=== PATIENT | female | born 1960 | race Caucasian/White ===

== ENCOUNTER 2016-10-25 13:50 | Emergency (ER) | payer OTHER ==
[~2016-10-25] VITALS: Ht 165.1 cm; Wt 67.0 kg
[~2016-10-25 13:50] MED LIST: ADVIN25050 INH; CALC-20 PO; CITA40TA12 PO; CLON0.5T3 PO; CLOP1TAB5 PO; CMBIN INH; CRS/10 PO; ESTCR PV; GLYC2TAB6 PO; IBUP-1450 PO; LMC/150 PO; MIRT15TA PO; MULT-513 PO; PANT40TA PO; POTA-335 PO; PROB1CAP32 PO; TIOTCAP INH
[2016-10-25 13:54] VITALS: TEMP 36.9; Ht 165.1 cm; Wt 67.0 kg
[2016-10-25 14:47] LABS: BASO % 0.9 %; BASO ABS # 0.07 K/uL (0-0.2); COMPLETE YES; EOS % 1.7 %; HEMATOCRIT 32.8 % (37-47); IG% 0.3 %; LYMPH ABS # 2.84 K/uL (1.2-3.4); MEAN CELL VOLUME 82.2 fL (80-100); MEAN CORPUSCULAR HEMOGLOBIN 27.1 pg (25-34); MEAN CORPUSCULAR HGB CONC 32.9 g/dl (32-36); MEAN PLATELET VOLUME 8.8 fL (7.4-10.4); MONO % 4.6 %; NEUT % 55.5 %; PLATELET COUNT 329 K/uL (130-400); RED BLOOD COUNT 3.99 M/uL (4.2-5.4); WHITE BLOOD COUNT 7.67 K/uL (4.8-10.8)
[2016-10-25] MEDS ORDERED: NICOTINE 14 MG/24 HR TDSY TD STA (15:00)
[2016-10-25 15:05] LABS: BUN/CREATININE RATIO 5.8 (10-20); CALCIUM 9.3 mg/dl (8.5-10.1); CREATININE 1.2 mg/dl (0.60-1.20); POTASSIUM 3.9 mmol/L (3.5-5.1)
[2016-10-25] MEDS ORDERED: RBN/2 PO (15:39)
[2016-10-25] MEDS ORDERED: VITA1TAB4 PO (15:39)
[2016-10-25] MEDS ORDERED: ADVIN25/60 INH (15:39)
[2016-10-25] MEDS ORDERED: LORA-741 PO (15:39)
[2016-10-25] MEDS ORDERED: ASCA500 PO (15:39)
[2016-10-25] MEDS ORDERED: SPRIN/30 INH (15:39)
[2016-10-25] MEDS ORDERED: WLLSR100 PO (15:39)
[2016-10-25] MEDS ORDERED: ESTCR TOP (15:39)
[2016-10-25] MEDS ORDERED: CYAN100020 PO (15:39)
[2016-10-25] MEDS ORDERED: CALC-388 PO (15:39)
[2016-10-25] MEDS ORDERED: IPRA1AER2 INH (15:39)
[2016-10-25] MEDS ORDERED: TRAZ50TA35 PO (15:39)
[2016-10-25] MEDS ORDERED: POTA20TA13 PO (15:39)
[2016-10-25 15:52] LABS: URINE APPEARANCE TURBID (CLEAR); URINE BILIRUBIN NEG (NEG); URINE COLOR ORANGE; URINE EPITHELIAL CELL AUTO >30 /lpf (0-5); URINE NITRITE POS (NEG); UROBILINOGEN NEG (NEG)
[2016-10-25 15:57] LABS: MANUAL MICROSCOPIC REQUIRED? NO; REVIEW REQ? YES
[2016-10-25] MEDS ORDERED: SULFAMETHOXAZOLE/TRIMETHOPRIM DS 800/160MG TAB PO STA (16:22)
[2016-10-25] MEDS ORDERED: SULF800T23 PO (16:24)
[2016-10-25 16:36] VITALS: BP 138/84; PULSE 85; O2SAT 98
--- NOTE | 2016-10-25 22:01 | EMERGENCY ROOM VISIT NOTE ---
History Report prepared by Vladislav: Brenna Vo Under the Supervision of: Dr. Morales Garcia M.D. First contact with patient: 14:08 Chief Complaint: REFERRED BY DOCTOR Stated Complaint: REFERRED BY UROLOGIST History of Present Illness The patient is a 56 year old female who presents to the Emergency Room with complaints of worsening urinary incontinence. She has followed with Dr. Dinah South, a Urologist in [place] in the past. She reports she has been incontinent for the past 8 days. She has been wearing adult diapers and states the amount of urine she produces seems to be larger than what she normally urinates in a toilet. The patient has a history of urinary issues including cystitis, overactive bladder and recurrent UTI's. She denies any recent dysuria or hematuria. She denies any recent fevers, abdominal pain, vomiting or abnormal vaginal discharge. She spoke to Dr. South's office and them about her recent symptoms and was told to come to the ED for further evaluation. The patient also admits to chronic swelling in her left leg due to a history of lymphedema but states it has been unchanged. 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 A total of 10 systems reviewed and were otherwise negative. Past Medical & Surgical Medical Problems: (1) Back pain (2) Ureteral stricture (3) UTI (urinary tract infection) Family History No pertinent family history Social History Smoking Status: Current Every Day Smoker Alcohol Use: occasionally Drug Use: none Marital Status: Housing Status: lives with family Occupation Status: unemployed Current/Historical Medications Scheduled Ascorbic Acid (Vitamin C), 500 MG PO QAM Bupropion HCl (Bupropion HCl Sr), 100 MG PO QAM Calcium Carbonate-Vitamin D (Calcium 600 + D), 1 TAB PO DAILY Citalopram Hydrobromide (Celexa), 40 MG PO QAM Clopidogrel Bisulfate (Plavix), 75 MG PO QAM Cyanocobalamin (Vitamin B12), 1,500 MG PO QAM Estradiol Vaginal (Estrace), 1 APPLN TOP 3XWK Fluticasone Prop/Salmeterol (Advair Diskus 250/50 60 Dose), 1 PUFF INH BID Glycopyrrolate (Glycopyrrolate), 2 MG PO BID Lamotrigine (Lamictal), 150 MG PO BID Multivitamins/Minerals (Mvi With Minerals), 1 TAB PO DAILY Pantoprazole (Protonix), 40 MG PO QAM Potassium Chloride Microencaps (Potassium Chloride Er), 20 MEQ PO BID Probiotic Product (Probiotic Colon Support), 1 CAP PO DAILY Rosuvastatin Calcium (Crestor), 10 MG PO DAILY Sulfa/Trimethoprim (Bactrim Ds 800MG/160MG), 1 TAB PO BID Tiotropium [place] (Spiriva Handihaler), 1 CAP INH DAILY Trazodone Hcl (Trazodone), 50 MG PO HS Vitamin E (Vitamin E), 400 UNIT PO QAM Scheduled PRN Ipratropium-Albuterol (Combivent Respimat), 1 PUFF INH DAILY PRN for SOB/ Wheezing Lorazepam (Ativan), 0.5 MG PO DAILY PRN for Anxiety Allergies Coded Allergies: Ciprofloxacin (Verified Allergy, Unknown, sores on tongue, 10/25/16) Gabapentin (Unverified Allergy, Unknown, unknown, 10/25/16) Meloxicam (Unverified Allergy, Unknown, unknown, 10/25/16) Paroxetine (Verified Allergy, Unknown, suicidal thoughts, 10/25/16) Varenicline (Verified Allergy, Unknown, suicidal thoughts, 10/25/16) Prednisone (Verified Adverse Reaction, Intermediate, "INTERNAL BLEEDING FROM KIDNEY", 10/25/16) Physical Exam Vital Signs Date Time Temp Pulse Resp B/P Pulse Ox O2 Delivery O2 Flow Rate FiO2 10/25/16 16:36 85 16 138/84 98 Room Air 10/25/16 15:49 89 18 134/76 96 Room Air 10/25/16 13:54 36.9 102 16 145/82 96 Room Air Physical Exam Constitutional: Vital signs reviewed. Eyes: Pupils are equal round reactive to light. Conjunctiva are noninjected. ENT: Pharynx is clear without erythema or exudate. Mucous membranes are moist. Neck supple without meningeal signs. Respiratory: Clear to auscultation bilaterally. Breath sounds are equal bilaterally. Cardiovascular: Regular rate and rhythm. No rubs or gallops. GI: Soft, nondistended and nontender. Bowel sounds are present. Musculoskeletal: Chronic lymphedema to the left lower extremity, no tenderness. No CVA tenderness. Integumentary: No cyanosis. Neurological: The patient is awake and alert. No focal deficits. Psychiatric: Normal affect. Medical Decision & Procedures Laboratory Results 10/25/16 14:35 Red Blood Count 3.99, Mean Corpuscular Volume 82.2, Mean Corpuscular Hemoglobin 27.1, Mean Corpuscular Hemoglobin Concent 32.9, Mean Platelet Volume 8.8, Neutrophils (%) (Auto) 55.5, Lymphocytes (%) (Auto) 37.0, Monocytes (%) (Auto) 4.6, Eosinophils (%) (Auto) 1.7, Basophils (%) (Auto) 0.9, Neutrophils # (Auto) 4.26, Lymphocytes # (Auto) 2.84, Monocytes # (Auto) 0.35, Eosinophils # (Auto) 0.13, Basophils # (Auto) 0.07 10/25/16 14:35 Test 10/25/16 14:35 10/25/16 14:50 White Blood Count 7.67 K/uL (4.8-10.8) Red Blood Count 3.99 M/uL (4.2-5.4) Hemoglobin 10.8 g/dL (12.0-16.0) Hematocrit 32.8 % (37-47) Mean Corpuscular Volume 82.2 fL (80-100) Mean Corpuscular Hemoglobin 27.1 pg (25-34) Mean Corpuscular Hemoglobin Concent 32.9 g/dl (32-36) Platelet Count 329 K/uL (130-400) Mean Platelet Volume 8.8 fL (7.4-10.4) Neutrophils (%) (Auto) 55.5 % Lymphocytes (%) (Auto) 37.0 % Monocytes (%) (Auto) 4.6 % Eosinophils (%) (Auto) 1.7 % Basophils (%) (Auto) 0.9 % Neutrophils # (Auto) 4.26 K/uL (1.4-6.5) Lymphocytes # (Auto) 2.84 K/uL (1.2-3.4) Monocytes # (Auto) 0.35 K/uL (0.11-0.59) Eosinophils # (Auto) 0.13 K/uL (0-0.5) Basophils # (Auto) 0.07 K/uL (0-0.2) RDW Standard Deviation 46.6 fL (36.4-46.3) RDW Coefficient of Variation 15.4 % (11.5-14.5) Immature Granulocyte % (Auto) 0.3 % Immature Granulocyte # (Auto) 0.02 K/uL (0.00-0.02) Anion Gap 10.0 mmol/L (3-11) Est Creatinine Clear Calc Drug Dose 46.0 ml/min Estimated GFR () 57.7 Estimated GFR (Non- 49.8 BUN/Creatinine Ratio 5.8 (10-20) Calcium Level 9.3 mg/dl (8.5-10.1) Urine Color ORANGE Urine Appearance TURBID (CLEAR) Urine pH 6.0 (4.5-7.5) Urine Specific [place] 1.000 (1.000-1.030) Urine Protein 1+ (NEG) Urine Glucose (UA) NEG (NEG) Urine Ketones NEG (NEG) Urine Occult Blood 3+ (NEG) Urine Nitrite POS (NEG) Urine Bilirubin NEG (NEG) Urine Urobilinogen NEG (NEG) Urine Leukocyte Esterase LARGE (NEG) Urine WBC (Auto) >30 /hpf (0-5) Urine RBC (Auto) >30 /hpf (0-4) Urine Hyaline Casts (Auto) 1-5 /lpf (0-5) Urine Epithelial Cells (Auto) >30 /lpf (0-5) Urine Bacteria (Auto) 2+ (NEG) Urine Pathogenic Casts /lpf (0) Urine Yeast (Auto) (NONE PRSENT) Laboratory results as reviewed by me. Medications Administered Medications (Trade) Dose Ordered Sig/Mirella Route Start Time Stop Time Status Last Admin Dose Admin Nicotine (Nicoderm Cq 14MG Patch) 1 patch NOW STAT TD 10/25/16 15:00 10/25/16 15:01 DC 10/25/16 15:13 1 PATCH Trimethoprim/ Sulfamethoxazole (Septra Ds 800/ 160MG Tab) 1 tab NOW STAT PO 10/25/16 16:22 10/25/16 16:23 DC 10/25/16 16:40 1 TAB ED Course 1413: The patient was evaluated in room C10. A complete history and physical exam was performed. 1500: Nursing informed me the patient has requested a Nicotine patch. I will place orders. 1500: Nicotine 1 patch TD. 1615: I reevaluated the patient. She does not want to keep the Lopez catheter in and will follow up with Urology. I discussed her results and discharge instructions and she verbalized complete understanding and agreement. 1622: Septra D's 800/160 mg 1 tab PO. Medical Decision This is a 56-year-old female who presents with urinary incontinence. Differential diagnosis includes stress incontinence, UTI, cystitis, pyelonephritis. I did perform a limited focused review of portions of the patient's old chart on the electronic medical record. The patient has a history of recurrent cystitis and overactive bladder. She underwent cystoscopy in 2013 for stress urinary incontinence. I did evaluate the patient as noted above. IV access was established. She did request a nicotine patch while she was here. We did place a Lopez catheter. I did order and personally review the patient's urinalysis as described above. A urine culture was sent. I did order and review the patient's blood work as noted in the electronic medical record. Her white blood cell count is not elevated. Renal function is unremarkable. I did discuss the test results with the patient. She will be treated with antibiotics. She has taken Bactrim in the past. She will follow up with her urologist. She did not want to have the Lopez catheter left in place and states that she will continue using adult diapers. She was discharged with a prescription for Bactrim. Impression Primary Impression: UTI (urinary tract infection) Additional Impression: Urinary incontinence Scribe Attestation The scribe's documentation has been prepared under my direct and personally reviewed by me in its entirety. I confirm that the note above accurately reflects all work, treatment, procedures, and medical decision making performed by me. Departure Information Dispostion Home / Self-Care Prescriptions Sulfa/Trimethoprim (Bactrim Ds 800MG/160MG) Tab 1 TAB PO BID, #20 TAB Prov: Morales Garcia M.D. 10/25/16 Referrals No Doctor, Assigned (PCP) Patient Instructions ED Bladder Instability Female, My [facility], Urinary Tract Infection - [facility] Additional Instructions You have been examined and treated today on an emergency basis only. This is not a substitute for, or an effort to provide, complete comprehensive medical care. It is impossible to recognize and treat all injuries or illnesses in a single emergency department visit. It is therefore important that you follow up closely with your urologist. Call as soon as possible for an appointment. Return for worsening symptoms or if you develop fever, vomiting, abdominal pain , decreased urinary output or any other concerning symptoms. Problem Qualifiers
== END 2016-10-25 16:48 | disposition home or self-care (01) ==
LOC: C.EDB 13:54 → C.EDC 16:48
DX: N39.0 Urinary tract infection, site not specified (principal); R32 Unspecified urinary incontinence; F17.200 Nicotine dependence, unspecified, uncomplicated

== ENCOUNTER 2017-01-17 16:40 | Observation (INO) | payer OTHER ==
[~2017-01-17] VITALS: Ht 165.1 cm; Wt 74.0 kg
[~2017-01-17 16:40] MED LIST changes: +ADVIN25/60 INH; -ADVIN25050 INH; +ASCA500 PO; -CLON0.5T3 PO; -CMBIN INH; +CYAN100020 PO; -ESTCR PV; +ESTCR TOP; -GLYC2TAB6 PO; -IBUP-1450 PO; +IPRA1AER2 INH; +LORA-741 PO; -MIRT15TA PO; -POTA-335 PO; +POTA20TA13 PO; +RBN/2 PO; +SPRIN/30 INH; +SULF800T23 PO; -TIOTCAP INH; +TRAZ50TA35 PO; +VITA1TAB4 PO; +WLLSR100 PO
[2017-01-17] MEDS ORDERED: MoRPHine SULFATE 4 MG/ML 1 ML CARP\\VIAL IV STA (17:36)
[2017-01-17] MEDS ORDERED: ONDANSETRON INJ 2 MG/ML 2 ML VIAL IV STA (17:36)
--- NOTE | 2017-01-17 17:39 | EMERGENCY ROOM VISIT NOTE ---
History Report prepared by Vladislav: Ishmael Quarles Under the Supervision of: Dr. Saul Spencer M.D. First contact with patient: 17:24 Chief Complaint: BACK PAIN Stated Complaint: BACK PAIN History of Present Illness The patient is a 56 year old female who presents to the Emergency Room via EMS with complaints of intermittent left sided back pain that started at 1330 yesterday afternoon. She rates this pain a 7/10 in intensity at this time. This pain radiates down her left leg. It worsens with movement. Associated symptoms include weakness, burning sensation while urinating, hematuria, and nausea. The patient was evaluated at acute care in [facility] where she was told to come immediately to the ED. The patient is currently being treated with Bactrim for a UTI. She has a history of recurrent cystitis, UTI, and urinary incontinence secondary to cervical cancer. The patient denies fevers, vomiting, abdominal pain, numbness, or any additional associated symptoms. Source of History: patient Onset: 1330 Position: back Symptom Intensity: 7/10 Timing: intermittent Modifying Factors (Worsening): movement Associated Symptoms: + urinary symptoms, + weakness, No abdominal pain, No fevers, No numbness Review of Systems See HPI for pertinent positives & negatives. A total of 10 systems reviewed and were otherwise negative. Past Medical & Surgical Medical Problems: (1) Anxiety (2) Back pain (3) Back pain (4) Cervical cancer (5) Depression (6) Dyslipidemia (7) GERD (gastroesophageal reflux disease) (8) H/O hemorrhagic cystitis (9) Hx of pyelonephritis (10) Hx of recurrent urinary tract infection (11) IBS (irritable bowel syndrome) (12) Mood disorder (13) OAB (overactive bladder) (14) OCD (obsessive compulsive disorder) (15) Ureteral stricture (16) UTI (urinary tract infection) Surgical Problems: (1) H/O cystoscopy (2) History of hysterectomy (3) History of ureter stent (4) S/P appendectomy (5) S/P vascular surgery Old medical records were reviewed. Nurse's notes were reviewed and I agree with. Family History Hypertension MOTHER Social History Smoking Status: Current Every Day Smoker Alcohol Use: occasionally Drug Use: none Marital Status: Housing Status: lives alone Occupation Status: unemployed Current/Historical Medications Scheduled Ascorbic Acid (Vitamin C), 500 MG PO QAM Bupropion HCl (Bupropion HCl Sr), 100 MG PO QAM Calcium Carbonate-Vitamin D (Calcium 600 + D), 1 TAB PO DAILY Citalopram Hydrobromide (Celexa), 40 MG PO QAM Clopidogrel Bisulfate (Plavix), 75 MG PO QAM Estradiol Vaginal (Estrace), 1 APPLN TOP 3XWK Fiber (Fiber Complete), 1 TAB PO DAILY Fluticasone Prop/Salmeterol (Advair Diskus 250/50 60 Dose), 1 PUFF INH BID Glycopyrrolate (Glycopyrrolate), 2 MG PO BID Lamotrigine (Lamictal), 150 MG PO BID Multivitamins/Minerals (Mvi With Minerals), 1 TAB PO DAILY Pantoprazole (Protonix), 40 MG PO QAM Potassium Chloride Microencaps (Potassium Chloride Er), 20 MEQ PO BID Rosuvastatin Calcium (Crestor), 10 MG PO DAILY Sulfa/Trimethoprim (Bactrim Ds 800MG/160MG), 1 TAB PO BID Tiotropium [place] (Spiriva Handihaler), 1 CAP INH DAILY Trazodone HCl (Trazodone HCl), 100 MG PO HS Vitamin E (Vitamin E), 400 UNIT PO QAM [i89-vcjsc acid], 1 TAB PO DAILY Scheduled PRN Ibuprofen (Ibuprofen), 600 MG PO UD PRN for Pain Ipratropium-Albuterol (Combivent Respimat), 1 PUFF INH BID PRN for SOB/Wheezing Lorazepam (Ativan), 0.5 MG PO TID PRN for Anxiety Allergies Coded Allergies: Ciprofloxacin (Verified Allergy, Unknown, sores on tongue, 01/17/17) Gabapentin (Unverified Allergy, Unknown, unknown, 01/17/17) Meloxicam (Unverified Allergy, Unknown, unknown, 01/17/17) Paroxetine (Verified Allergy, Unknown, suicidal thoughts, 01/17/17) Varenicline (Verified Allergy, Unknown, suicidal thoughts, 01/17/17) Prednisone (Verified Adverse Reaction, Intermediate, "INTERNAL BLEEDING FROM KIDNEY", 01/17/17) Physical Exam Vital Signs Date Time Temp Pulse Resp B/P Pulse Ox O2 Delivery O2 Flow Rate FiO2 01/17/17 20:55 82 18 142/102 96 01/17/17 19:00 79 18 167/98 98 01/17/17 16:51 37.2 88 18 148/86 97 Room Air Physical Exam General: Non ill appearing, middle aged female. In no acute distress. HEENT: Normal cephalic atraumatic. Pupils are equal round and reactive to light. Extraocular movements are intact. Oropharynx is pink with moist mucous membranes. No swelling of the mouth lips or tongue. Neck: Supple with a midline trachea. No meningeal signs or stiffness, no JVD or bruits. No Stridor. Chest: Clear to auscultation bilaterally. No wheezes or rhonchi. No increased work of breathing. Heart: regular rate and rhythm. Abdomen: Soft nontender, nondistended without rebound guarding or rigidity. Extremities: Chronic lymphedema of left leg, patient states this is unchanged. No cyanosis or clubbing. No calf tenderness or assymetry Spine/Back. Left lower back pain, worse with movement. No numbness in back. Skin: Good turgor without rashes. Neurologic exam: Cranial nerves two through 12 are intact. Motor and sensation are intact and symmetrical throughout. Medical Decision & Procedures ER Provider Diagnostic Interpretation: Radiology results as stated below per my review and radiologist interpretation: CT LUMBAR SPINE WITHOUT CT DOSE: CLINICAL HISTORY: eval for lumbar disease TECHNIQUE: Helical images were acquired in transverse plane. Reformatted sagittal and coronal images were reviewed. CONTRAST: No contrast was administered COMPARISON STUDY: None. FINDINGS: L1-2 level: There is no evidence of significant disc bulge or focal herniation. There is no evidence of spinal or foraminal stenosis. L2-3 level: There is a mild circumferential disc bulge. There is mild spinal stenosis. L3-4 level: There is a mild circumferential disc bulge. There is mild to moderate triangular spinal canal narrowing L4-5 level: There is a circumferential disc bulge. There is mild spinal canal narrowing L5-S1 level: There is bilateral L5 spondylolysis. There is grade 2/4 spondylolisthesis of L5 on S1. There is bony fragmentation in the region of both neural foramina resulting in bilateral foraminal stenosis. IMPRESSION: 1. No acute fractures identified. 2. Multilevel spondylitic changes with multilevel disc bulges and multilevel spinal stenosis 3. Bilateral L5 spondylolysis. Grade 2/4 spondylolisthesis of L5 and S1. Bilateral L5-S1 foraminal narrowing Electronically signed by: Ady Leigh M.D. 01/17/2017 6:56 PM Dictated Date/Time: 01/17/2017 6:[address] SCAN OF THE ABDOMEN AND PELVIS WITHOUT CONTRAST CLINICAL HISTORY: Severe abdominal pain COMPARISON STUDY: 05/15/2015 TECHNIQUE: CT scan of the abdomen and pelvis was performed from the lung bases to the proximal femurs. Images are reviewed in the axial, sagittal, and coronal planes. IV contrast was not administered for this examination. CT DOSE: 714.90 mGy.cm FINDINGS: Lower chest: There is bibasilar atelectasis. Liver: The unenhanced liver is normal in size, contour, and attenuation. There is no intrahepatic biliary ductal dilatation. Gallbladder: Unremarkable. Spleen: Normal in size and attenuation. Pancreas: Unremarkable. Adrenal glands: Unremarkable. Kidneys: There is right renal scarring. There is mild dilatation of the right renal collecting system. No ureteral calculi are visualized. Bowel: There are no transition zones indicate bowel obstruction. There is no acute diverticulitis. The appendix is not visualized with certainty. There are no findings to indicate acute appendicitis. Peritoneum: There is no intraperitoneal free air or abdominal ascites. Vasculature: There is no evidence of abdominal aortic aneurysm. There is a right-sided iliac femoral stent. Adenopathy: None. Pelvic viscera: There is a small amount of air within bladder likely iatrogenic. There is bladder wall thickening. There is infiltration of the perivesical soft tissues. There is mild infiltration of the presacral and perirectal soft tissues. Skeletal structures: There are advanced degenerative changes at the L5-S1 level. There is bilateral L5 spondylolysis. There is bilateral foraminal narrowing at the L5-S1 level. IMPRESSION: 1. Mild bilateral renal collecting system dilatation. No calculi identified 2. Right renal cortical scarring 3. No evidence of bowel obstruction. No evidence of free air 4. Bladder wall thickening and infiltration of the perivesical soft tissues. Clinical correlation in regards to a cystitis is recommended. Electronically signed by: Ady Leigh M.D. 01/17/2017 6:52 PM Dictated Date/Time: 01/17/2017 6:47 PM Laboratory Results 01/17/17 18:12 Red Blood Count 3.93, Mean Corpuscular Volume 83.0, Mean Corpuscular Hemoglobin 26.5, Mean Corpuscular Hemoglobin Concent 31.9, Mean Platelet Volume 8.7, Neutrophils (%) (Auto) 47.8, Lymphocytes (%) (Auto) 42.1, Monocytes (%) (Auto) 6.5, Eosinophils (%) (Auto) 2.9, Basophils (%) (Auto) 0.4, Neutrophils # (Auto) 3.62, Lymphocytes # (Auto) 3.19, Monocytes # (Auto) 0.49, Eosinophils # (Auto) 0.22, Basophils # (Auto) 0.03 01/17/17 18:12 Test 01/17/17 16:55 01/17/17 18:12 Urine Color YELLOW Urine Appearance CLOUDY (CLEAR) Urine pH 6.0 (4.5-7.5) Urine Specific [place] 1.008 (1.000-1.030) Urine Protein NEG (NEG) Urine Glucose (UA) NEG (NEG) Urine Ketones NEG (NEG) Urine Occult Blood TRACE (NEG) Urine Nitrite POS (NEG) Urine Bilirubin NEG (NEG) Urine Urobilinogen NEG (NEG) Urine Leukocyte Esterase LARGE (NEG) Urine WBC (Auto) >30 /hpf (0-5) Urine RBC (Auto) 5-10 /hpf (0-4) Urine Hyaline Casts (Auto) 0 /lpf (0-5) Urine Epithelial Cells (Auto) 5-10 /lpf (0-5) Urine Bacteria (Auto) 4+ (NEG) White Blood Count 7.57 K/uL (4.8-10.8) Red Blood Count 3.93 M/uL (4.2-5.4) Hemoglobin 10.4 g/dL (12.0-16.0) Hematocrit 32.6 % (37-47) Mean Corpuscular Volume 83.0 fL (80-100) Mean Corpuscular Hemoglobin 26.5 pg (25-34) Mean Corpuscular Hemoglobin Concent 31.9 g/dl (32-36) Platelet Count 355 K/uL (130-400) Mean Platelet Volume 8.7 fL (7.4-10.4) Neutrophils (%) (Auto) 47.8 % Lymphocytes (%) (Auto) 42.1 % Monocytes (%) (Auto) 6.5 % Eosinophils (%) (Auto) 2.9 % Basophils (%) (Auto) 0.4 % Neutrophils # (Auto) 3.62 K/uL (1.4-6.5) Lymphocytes # (Auto) 3.19 K/uL (1.2-3.4) Monocytes # (Auto) 0.49 K/uL (0.11-0.59) Eosinophils # (Auto) 0.22 K/uL (0-0.5) Basophils # (Auto) 0.03 K/uL (0-0.2) RDW Standard Deviation 55.2 fL (36.4-46.3) RDW Coefficient of Variation 18.0 % (11.5-14.5) Immature Granulocyte % (Auto) 0.3 % Immature Granulocyte # (Auto) 0.02 K/uL (0.00-0.02) Anion Gap 5.0 mmol/L (3-11) Est Creatinine Clear Calc Drug Dose 61.7 ml/min Estimated GFR () 71.9 Estimated GFR (Non- 62.1 BUN/Creatinine Ratio 10.3 (10-20) Calcium Level 9.0 mg/dl (8.5-10.1) Total Bilirubin 0.3 mg/dl (0.2-1) Direct Bilirubin < 0.1 mg/dl (0-0.2) Aspartate Amino Transf (AST/SGOT) 26 U/L (15-37) Alanine Aminotransferase (ALT/SGPT) 28 U/L (12-78) Alkaline Phosphatase 74 U/L (45-117) Total Protein 6.8 gm/dl (6.4-8.2) Albumin 3.2 gm/dl (3.4-5.0) Lipase 116 U/L (73-393) Laboratory studies as stated above per my review. Medications Administered Medications (Trade) Dose Ordered Sig/Mirella Route Start Time Stop Time Status Last Admin Dose Admin Morphine Sulfate (MoRPHine SULFATE INJ) 4 mg NOW STAT IV 01/17/17 17:36 01/17/17 17:38 DC 01/17/17 18:17 4 MG Ondansetron HCl (Zofran Inj) 4 mg NOW STAT IV 01/17/17 17:36 01/17/17 17:38 DC 01/17/17 18:16 4 MG Nicotine (Nicoderm Cq 14MG Patch) 1 patch ONE STAT TD 01/17/17 19:30 01/17/17 22:02 DC 01/17/17 19:53 1 PATCH Ketorolac Tromethamine (Toradol Inj) 30 mg STK-MED ONCE .ROUTE 01/17/17 19:50 01/17/17 19:51 DC 01/17/17 19:50 15 MG Lorazepam (Ativan Tab) 0.5 mg STK-MED ONCE .ROUTE 01/17/17 21:32 01/17/17 21:33 DC 01/17/17 21:33 0.5 MG Cyclobenzaprine HCl (Flexeril Tab) 5 mg NOW STAT PO 01/17/17 22:06 01/17/17 22:07 DC 01/17/17 22:16 5 MG Lorazepam (Ativan Tab) 0.5 mg NOW STAT PO 01/17/17 22:00 01/17/17 22:07 DC 01/17/17 22:16 0.5 MG Nicotine (Nicoderm Cq 21MG Patch) 1 patch NOW STAT TD 01/17/17 22:07 01/17/17 22:08 DC 01/17/17 22:16 1 PATCH ED Course 1725: Past medical records reviewed. The patient was evaluated in room A11A, and a complete history and physical examination were performed. 1735: Ordered Zofran Injection 4 mg IV, Morphine Sulfate 4 mg IV. 1927: Ordered Toradol Injection 15 mg IV. 1929: Ordered Nicotine 1 patch TD. 1931: Upon reevaluation, the patient is feeling better but still experiencing difficulty ambulating. I discussed the results and treatment plan with the patient. She verbalized agreement of the treatment plan. The patient will be evaluated for further management. 2039: I discussed the patient's case with Dr. Shannon ([facility]). He will evaluate the patient for further management and care. Medical Decision Differentials include, but are not limited to; Cystitis, kidney stone, complication related to cancer, infection, Cauda Equina syndrome, electrolyte or metabolic abnormality. This patient comes in as described above. She was placed in room A 11. She's having left flank pain. She has a history of sciatica on the other side. She has no numbness or weakness in her buttocks and has no new bowel or bladder problems to suggest cauda equina syndrome. She has had ongoing problems with her bladder related to previous cervical cancer and is scheduled have surgery in [place]. She has chronic urinary tract infections. She's had no fevers here. IV access established blood work was obtained and a CAT scan of her abdomen and back. She was feeling better after receiving IV morphine and Zofran however when she gets up to walk she still is a lot of pain and difficulty walking particularly the left leg she feels like her legs are bending inward. She was given Toradol IV. CAT scan the abdomen does not show any acute findings which would explain her symptoms. Please refer to report. She also has significant degenerative change on the CT of her lumbar spine. Her urinalysis does suggest a UTI. She was started on antibiotic today. I got her up and walked her she's unstable and I'm concerned given the fact that she is on Plavix and lives alone. I do think she needs to be admitted she may ultimately MRI. Dr. Calderon saw her in the ER. At this point, I do not think this is cauda equina this been going on for over [address] Amanda Drummond saw her and will admit her Consults Time Called: 2034 Consulting Physician: Dr. Shannon ([facility]) Returned Call: [phone] I discussed the patient's case with Dr. Shannon ([facility]). He will evaluate the patient for further management and care. Impression Primary Impression: Low back pain Additional Impressions: Lumbar disc disease Ambulatory dysfunction Scribe Attestation The scribe's documentation has been prepared under my direction and personally reviewed by me in its entirety. I confirm that the note above accurately reflects all work, treatment, procedures, and medical decision making performed by me. Departure Information Dispostion Being Evaluated By Hospitalist Referrals Dinah South M.D. (PCP) Patient Instructions My [facility] Problem Qualifiers
[2017-01-17 18:29] LABS: BASO % 0.4 %; BASO ABS # 0.03 K/uL (0-0.2); COMPLETE YES; EOS % 2.9 %; HEMATOCRIT 32.6 % (37-47); IG% 0.3 %; LYMPH % 42.1 %; LYMPH ABS # 3.19 K/uL (1.2-3.4); MEAN CORPUSCULAR HEMOGLOBIN 26.5 pg (25-34); MEAN CORPUSCULAR HGB CONC 31.9 g/dl (32-36); MEAN PLATELET VOLUME 8.7 fL (7.4-10.4); MONO % 6.5 %; NEUT % 47.8 %; PLATELET COUNT 355 K/uL (130-400); RED BLOOD COUNT 3.93 M/uL (4.2-5.4); WHITE BLOOD COUNT 7.57 K/uL (4.8-10.8)
--- NOTE | 2017-01-17 18:54 | DIAGNOSTIC IMAGING REPORT ---
CT SCAN OF THE ABDOMEN AND PELVIS WITHOUT CONTRAST CLINICAL HISTORY: Severe abdominal pain COMPARISON STUDY: 05/15/2015 TECHNIQUE: CT scan of the abdomen and pelvis was performed from the lung bases to the proximal femurs. Images are reviewed in the axial, sagittal, and coronal planes. IV contrast was not administered for this examination. CT DOSE: 714.90 mGy.cm FINDINGS: Lower chest: There is bibasilar atelectasis. Liver: The unenhanced liver is normal in size, contour, and attenuation. There is no intrahepatic biliary ductal dilatation. Gallbladder: Unremarkable. Spleen: Normal in size and attenuation. Pancreas: Unremarkable. Adrenal glands: Unremarkable. Kidneys: There is right renal scarring. There is mild dilatation of the right renal collecting system. No ureteral calculi are visualized. Bowel: There are no transition zones indicate bowel obstruction. There is no acute diverticulitis. The appendix is not visualized with certainty. There are no findings to indicate acute appendicitis. Peritoneum: There is no intraperitoneal free air or abdominal ascites. Vasculature: There is no evidence of abdominal aortic aneurysm. There is a right-sided iliac femoral stent. Adenopathy: None. Pelvic viscera: There is a small amount of air within bladder likely iatrogenic. There is bladder wall thickening. There is infiltration of the perivesical soft tissues. There is mild infiltration of the presacral and perirectal soft tissues. Skeletal structures: There are advanced degenerative changes at the L5-S1 level. There is bilateral L5 spondylolysis. There is bilateral foraminal narrowing at the L5-S1 level. IMPRESSION: 1. Mild bilateral renal collecting system dilatation. No calculi identified 2. Right renal cortical scarring 3. No evidence of bowel obstruction. No evidence of free air 4. Bladder wall thickening and infiltration of the perivesical soft tissues. Clinical correlation in regards to a cystitis is recommended. Electronically signed by: Ady Leigh M.D. 01/17/2017 6:52 PM Dictated Date/Time: 01/17/2017 6:47 PM
[2017-01-17 18:55] LABS: ALT/SGPT 28 U/L (12-78); AST/SGOT 26 U/L (15-37); BLOOD UREA NITROGEN 10 mg/dl (7-18); BUN/CREATININE RATIO 10.3 (10-20); CARBON DIOXIDE 27 mmol/L (21-32); CHLORIDE 110 mmol/L (98-107); GLUCOSE 85 mg/dl (70-99); POTASSIUM 3.9 mmol/L (3.5-5.1); SODIUM 142 mmol/L (136-145)
[2017-01-17 18:58] LABS: ALKALINE PHOSPHATASE 74 U/L (45-117)
--- NOTE | 2017-01-17 18:58 | DIAGNOSTIC IMAGING REPORT ---
CT LUMBAR SPINE WITHOUT CT DOSE: CLINICAL HISTORY: eval for lumbar disease TECHNIQUE: Helical images were acquired in transverse plane. Reformatted sagittal and coronal images were reviewed. CONTRAST: No contrast was administered COMPARISON STUDY: None. FINDINGS: L1-2 level: There is no evidence of significant disc bulge or focal herniation. There is no evidence of spinal or foraminal stenosis. L2-3 level: There is a mild circumferential disc bulge. There is mild spinal stenosis. L3-4 level: There is a mild circumferential disc bulge. There is mild to moderate triangular spinal canal narrowing L4-5 level: There is a circumferential disc bulge. There is mild spinal canal narrowing L5-S1 level: There is bilateral L5 spondylolysis. There is grade 2/4 spondylolisthesis of L5 on S1. There is bony fragmentation in the region of both neural foramina resulting in bilateral foraminal stenosis. IMPRESSION: 1. No acute fractures identified. 2. Multilevel spondylitic changes with multilevel disc bulges and multilevel spinal stenosis 3. Bilateral L5 spondylolysis. Grade 2/4 spondylolisthesis of L5 and S1. Bilateral L5-S1 foraminal narrowing Electronically signed by: Ady Leigh M.D. 01/17/2017 6:56 PM Dictated Date/Time: 01/17/2017 6:54 PM
[2017-01-17 19:20] LABS: MANUAL MICROSCOPIC REQUIRED? NO; REVIEW REQ? NO; URINE APPEARANCE CLOUDY (CLEAR); URINE BILIRUBIN NEG (NEG); URINE COLOR YELLOW; URINE NITRITE POS (NEG); URINE SPECIFIC GRAVITY 1.008 (1.000-1.030); UROBILINOGEN NEG (NEG)
[2017-01-17] MEDS ORDERED: KETOROLAC TROMETHAMINE 15 MG/ML VIAL IV STA (19:28)
[2017-01-17] MEDS ORDERED: NICOTINE 14 MG/24 HR TDSY TD STA (19:30)
[2017-01-17] MEDS ORDERED: KETOROLAC TROMETHAMINE 30 MG/ML VIAL ONE (19:50)
[2017-01-17] MEDS ORDERED: LORAZEPAM 0.5 MG TAB ONE (21:32)
[2017-01-17] MEDS ORDERED: CYCLOBENZAPRINE HCL 10 MG TAB PO SCH (22:00)
[2017-01-17] MEDS ORDERED: LORAZEPAM 0.5 MG TAB PO STA (22:00)
[2017-01-17] MEDS ORDERED: CYCLOBENZAPRINE HCL 10 MG TAB PO STA (22:06)
[2017-01-17] MEDS ORDERED: NICOTINE 21 MG/24 HR TDSY TD STA (22:07)
[2017-01-17] MEDS ORDERED: MTR600 PO (22:10)
[2017-01-17] MEDS ORDERED: DSY100 PO (22:10)
[2017-01-17] MEDS ORDERED: FIBETAB PO (22:10)
[2017-01-17] MEDS ORDERED: [UNRECOGNIZED DRUG - OTHER] PO (22:10)
[2017-01-17] MEDS ORDERED: POLYETHYLENE (MIRALAX) 17 GM PACK PO PRN (22:45)
[2017-01-17] MEDS ORDERED: IPRATROPIUM BROMIDE/ALBUTEROL respimat INH INH PRN (22:45)
[2017-01-17] MEDS ORDERED: MAGNESIUM HYDROXIDE SUSP 30 ML UDC PO PRN (22:45)
[2017-01-17] MEDS ORDERED: ONDANSETRON INJ 2 MG/ML 2 ML VIAL IV PRN (22:45)
[2017-01-17] MEDS ORDERED: ALUMINUM/MAGNESIUM/SIMETH (MAALOX MAX) 30 ML UDC PO PRN (22:45)
--- NOTE | 2017-01-17 23:03 | History and Physical ---
History & Physical Date & Time of Service: January 17, 2017 at 22:39 Chief Complaint: Back Pain Primary Care Physician: No Doctor, Assigned History of Present Illness Source: patient, hospital records This is a 56 year old female with PMH of chronic back pain, mood disorder, OCD, depression, hyperlipidemia, peripheral vascular disease s/p RLE stent procedure , hx cervical CA s/p pelvic radiation, overactive bladder, hx recurrent UTI, hx pyelonephritis, who presents to the ED with back pain. Patient reprots left lumbar back pain radiating to left buttock. She describes pain as tightness which radiates to bilateral inner thighs. She reports inability to ambulate secondary to pain and her knees giving out under her. She reports chronic back pain x 15 years but states this pain is different starting 2 days ago. No recent trauma/ injury. She rates pain 7/10 at rest and 10/10 with movement. She reports dysuria and subjective warmth. She was seen at urgent care earlier today and placed on Bactrim for UTI. She reports chronic urinary incontinence unchanged from baseline. She follows with Dr. Becwkith for overactive bladder and frequent UTI. She denies numbness/ tingling. She reports anxiety and cigarette cravings. She denies chills, cough, URI symptoms, chest pain, SOB, abdominal pain, nausea, vomiting, diarrhea, constipation, gross hematuria. She has seen Dr. Meeks and had MRI's done in the past however last appointment was some time ago. No hx of back surgery. Past Medical/Surgical History Medical Problems: (1) Anxiety Status: Chronic (2) Back pain Status: Chronic (3) Back pain Status: Chronic (4) Cervical cancer Permanent Comment: s/p surgery and radiation Status: Chronic (5) Depression Status: Chronic (6) Dyslipidemia Status: Chronic (7) GERD (gastroesophageal reflux disease) Status: Chronic (8) H/O hemorrhagic cystitis Status: Chronic (9) Hx of pyelonephritis Status: Chronic (10) Hx of recurrent urinary tract infection Status: Chronic (11) IBS (irritable bowel syndrome) Status: Chronic (12) Mood disorder Status: Chronic (13) OAB (overactive bladder) Status: Chronic (14) OCD (obsessive compulsive disorder) Status: Chronic (15) Ureteral stricture Status: Chronic (16) UTI (urinary tract infection) Status: Chronic Surgical Problems: (1) H/O cystoscopy Status: Chronic (2) History of hysterectomy Status: Chronic (3) History of ureter stent Status: Chronic (4) S/P appendectomy Status: Chronic (5) S/P vascular surgery Status: Chronic Family History Hypertension MOTHER Social History Smoking Status: Current Every Day Smoker (1 ppd) Alcohol Use: none Drug Use: none Marital Status: Housing status: lives alone Immunizations History of Influenza Vaccine: Unknown History of Tetanus Vaccine?: Unknown History of Pneumococcal: Unknown History of Hepatitis B Vaccine: Unknown Multi-Drug Resistant Organisms History of MDRO: Yes Type of MDRO: MRSA Allergies Coded Allergies: Ciprofloxacin (Verified Allergy, Unknown, sores on tongue, 01/17/17) Gabapentin (Unverified Allergy, Unknown, unknown, 01/17/17) Meloxicam (Unverified Allergy, Unknown, unknown, 01/17/17) Paroxetine (Verified Allergy, Unknown, suicidal thoughts, 01/17/17) Varenicline (Verified Allergy, Unknown, suicidal thoughts, 01/17/17) Prednisone (Verified Adverse Reaction, Intermediate, "INTERNAL BLEEDING FROM KIDNEY", 01/17/17) Home Medications Scheduled Ascorbic Acid (Vitamin C), 500 MG PO QAM Bupropion HCl (Bupropion HCl Sr), 100 MG PO QAM Calcium Carbonate-Vitamin D (Calcium 600 + D), 1 TAB PO DAILY Citalopram Hydrobromide (Celexa), 40 MG PO QAM Clopidogrel Bisulfate (Plavix), 75 MG PO QAM Estradiol Vaginal (Estrace), 1 APPLN TOP 3XWK Fiber (Fiber Complete), 1 TAB PO DAILY Fluticasone Prop/Salmeterol (Advair Diskus 250/50 60 Dose), 1 PUFF INH BID Glycopyrrolate (Glycopyrrolate), 2 MG PO BID Lamotrigine (Lamictal), 150 MG PO BID Multivitamins/Minerals (Mvi With Minerals), 1 TAB PO DAILY Pantoprazole (Protonix), 40 MG PO QAM Potassium Chloride Microencaps (Potassium Chloride Er), 20 MEQ PO BID Rosuvastatin Calcium (Crestor), 10 MG PO DAILY Sulfa/Trimethoprim (Bactrim Ds 800MG/160MG), 1 TAB PO BID Tiotropium Seale (Spiriva Handihaler), 1 CAP INH DAILY Trazodone HCl (Trazodone HCl), 100 MG PO HS Vitamin E (Vitamin E), 400 UNIT PO QAM [t31-myefu acid], 1 TAB PO DAILY Scheduled PRN Ibuprofen (Ibuprofen), 600 MG PO UD PRN for Pain Ipratropium-Albuterol (Combivent Respimat), 1 PUFF INH BID PRN for SOB/Wheezing Lorazepam (Ativan), 0.5 MG PO TID PRN for Anxiety Review of Systems Ten systems reviewed and negative except as listed in HPI. Physical Exam Vital Signs Date Time Temp Pulse Resp B/P Pulse Ox O2 Delivery O2 Flow Rate FiO2 01/17/17 20:55 82 18 142/102 96 01/17/17 19:00 79 18 167/98 98 01/17/17 16:51 37.2 88 18 148/86 97 Room Air General Appearance: + pertinent finding (alert anxious 56 year old female) Head: normocephalic, atraumatic Eyes: normal inspection ENT: hearing grossly normal, pharynx normal Neck: supple, trachea midline Respiratory/Chest: lungs clear, normal breath sounds, no respiratory distress Cardiovascular: regular rate, rhythm, no murmur Abdomen/GI: normal bowel sounds, non tender, soft Back: no CVA tenderness, + pertinent finding (left lumbar paraspinal tenderness / muscle spasm extending to left buttock. straight leg raise negative bilaterally.) Extremities/Musculoskelatal: no calf tenderness, + pertinent finding (LLE edema - chronic due to lymphedema per patient) Neurologic/Psych: alert, normal reflexes (normal patellar and achilles reflexes ), + pertinent finding (anxious, flight of ideas, mildly paranoid. hip flexion and ankle flexion/ extension 5/5 bilateral LE. sensation to light touch grossly intact bilateral LE.) Skin: normal color, warm/dry Diagnostics Laboratory Results Results Past 24 Hours Test 01/17/17 16:55 01/17/17 18:12 Range/Units Urine Color YELLOW Urine Appearance CLOUDY CLEAR Urine pH 6.0 4.5-7.5 Urine Specific [place] 1.008 1.000-1.030 Urine Protein NEG NEG Urine Glucose (UA) NEG NEG Urine Ketones NEG NEG Urine Occult Blood TRACE NEG Urine Nitrite POS NEG Urine Bilirubin NEG NEG Urine Urobilinogen NEG NEG Urine Leukocyte Esterase LARGE NEG Urine WBC (Auto) >30 0-5 /hpf Urine RBC (Auto) 5-10 0-4 /hpf Urine Hyaline Casts (Auto) 0 0-5 /lpf Urine Epithelial Cells (Auto) 5-10 0-5 /lpf Urine Bacteria (Auto) 4+ NEG White Blood Count 7.57 4.8-10.8 K/uL Red Blood Count 3.93 4.2-5.4 M/uL Hemoglobin 10.4 12.0-16.0 g/dL Hematocrit 32.6 37-47 % Mean Corpuscular Volume 83.0 80-100 fL Mean Corpuscular Hemoglobin 26.5 25-34 pg Mean Corpuscular Hemoglobin Concent 31.9 32-36 g/dl Platelet Count 355 130-400 K/uL Mean Platelet Volume 8.7 7.4-10.4 fL Neutrophils (%) (Auto) 47.8 % Lymphocytes (%) (Auto) 42.1 % Monocytes (%) (Auto) 6.5 % Eosinophils (%) (Auto) 2.9 % Basophils (%) (Auto) 0.4 % Neutrophils # (Auto) 3.62 1.4-6.5 K/uL Lymphocytes # (Auto) 3.19 1.2-3.4 K/uL Monocytes # (Auto) 0.49 0.11-0.59 K/uL Eosinophils # (Auto) 0.22 0-0.5 K/uL Basophils # (Auto) 0.03 0-0.2 K/uL RDW Standard Deviation 55.2 36.4-46.3 fL RDW Coefficient of Variation 18.0 11.5-14.5 % Immature Granulocyte % (Auto) 0.3 % Immature Granulocyte # (Auto) 0.02 0.00-0.02 K/uL Sodium Level 142 136-145 mmol/L Potassium Level 3.9 3.5-5.1 mmol/L Chloride Level 110 98-107 mmol/L Carbon Dioxide Level 27 21-32 mmol/L Anion Gap 5.0 3-11 mmol/L Blood Urea Nitrogen 10 7-18 mg/dl Creatinine 1.00 0.60-1.20 mg/dl Est Creatinine Clear Calc Drug Dose 61.7 ml/min Estimated GFR () 71.9 Estimated GFR (Non- 62.1 BUN/Creatinine Ratio 10.3 10-20 Random Glucose 85 70-99 mg/dl Calcium Level 9.0 8.5-10.1 mg/dl Total Bilirubin 0.3 0.2-1 mg/dl Direct Bilirubin < 0.1 0-0.2 mg/dl Aspartate Amino Transf (AST/SGOT) 26 15-37 U/L Alanine Aminotransferase (ALT/SGPT) 28 12-78 U/L Alkaline Phosphatase 74 45-117 U/L Total Protein 6.8 6.4-8.2 gm/dl Albumin 3.2 3.4-5.0 gm/dl Lipase 116 73-393 U/L Microbiology Results 01/17/17 Urine Culture, Received Pending Diagnostic Radiology CT LUMBAR SPINE WITHOUT CT DOSE: CLINICAL HISTORY: eval for lumbar disease TECHNIQUE: Helical images were acquired in transverse plane. Reformatted sagittal and coronal images were reviewed. CONTRAST: No contrast was administered COMPARISON STUDY: None. FINDINGS: L1-2 level: There is no evidence of significant disc bulge or focal herniation. There is no evidence of spinal or foraminal stenosis. L2-3 level: There is a mild circumferential disc bulge. There is mild spinal stenosis. L3-4 level: There is a mild circumferential disc bulge. There is mild to moderate triangular spinal canal narrowing L4-5 level: There is a circumferential disc bulge. There is mild spinal canal narrowing L5-S1 level: There is bilateral L5 spondylolysis. There is grade 2/4 spondylolisthesis of L5 on S1. There is bony fragmentation in the region of both neural foramina resulting in bilateral foraminal stenosis. IMPRESSION: 1. No acute fractures identified. 2. Multilevel spondylitic changes with multilevel disc bulges and multilevel spinal stenosis 3. Bilateral L5 spondylolysis. Grade 2/4 spondylolisthesis of L5 and S1. Bilateral L5-S1 foraminal narrowing CT SCAN OF THE ABDOMEN AND PELVIS WITHOUT CONTRAST CLINICAL HISTORY: Severe abdominal pain COMPARISON STUDY: 05/15/2015 TECHNIQUE: CT scan of the abdomen and pelvis was performed from the lung bases to the proximal femurs. Images are reviewed in the axial, sagittal, and coronal planes. IV contrast was not administered for this examination. CT DOSE: 714.90 mGy.cm FINDINGS: Lower chest: There is bibasilar atelectasis. Liver: The unenhanced liver is normal in size, contour, and attenuation. There is no intrahepatic biliary ductal dilatation. Gallbladder: Unremarkable. Spleen: Normal in size and attenuation. Pancreas: Unremarkable. Adrenal glands: Unremarkable. Kidneys: There is right renal scarring. There is mild dilatation of the right renal collecting system. No ureteral calculi are visualized. Bowel: There are no transition zones indicate bowel obstruction. There is no acute diverticulitis. The appendix is not visualized with certainty. There are no findings to indicate acute appendicitis. Peritoneum: There is no intraperitoneal free air or abdominal ascites. Vasculature: There is no evidence of abdominal aortic aneurysm. There is a right-sided iliac femoral stent. Adenopathy: None. Pelvic viscera: There is a small amount of air within bladder likely iatrogenic. There is bladder wall thickening. There is infiltration of the perivesical soft tissues. There is mild infiltration of the presacral and perirectal soft tissues. Skeletal structures: There are advanced degenerative changes at the L5-S1 level. There is bilateral L5 spondylolysis. There is bilateral foraminal narrowing at the L5-S1 level. IMPRESSION: 1. Mild bilateral renal collecting system dilatation. No calculi identified 2. Right renal cortical scarring 3. No evidence of bowel obstruction. No evidence of free air 4. Bladder wall thickening and infiltration of the perivesical soft tissues. Clinical correlation in regards to a cystitis is recommended. Impression Assessment and Plan Patient seen in collaboration with Dr. Mueller. Please see his addendum for assessment and plan. VTE Prophylaxis VTE Risk Assessment Done? Y/N: Yes Risk Level: Moderate
--- NOTE | 2017-01-17 23:06 | History and Physical ---
History & Physical Date of Service January 17, 2017. History & Physical This is a 56 year old female with a PMH of depression/anxiety, hx. of urinary incontinence, peripheral vascular disease with stents, overactive bladder - presents with worsening low back pain with ambulatory dysfunction. She states that it started on left low back; radiates to buttocks. No numbness/tingling. No bowel dysfunction. VITALS: Last Vital Signs Documentation Date Time Temp Pulse Resp B/P Pulse Ox O2 Delivery O2 Flow Rate FiO2 01/17/17 20:55 82 18 142/102 96 01/17/17 16:51 37.2 Room Air GEN: +anxious CVS: +S1, S2, RRR LUNGS: CTA b/l BACK: decreased and painful ROM; muscle tightness, negative straight leg raising test EXT: no edema Lumbar Spondylolysis With Grade 2 Spondylolisthesis patient has followed with Dr. Meeks in the past for low back pain no surgical intervention then Lumbar CT suggestive of spondylolysis and spondylolisthesis with bilateral foraminal stenosis she has trouble ambulating due to the pain and radiation to the buttocks and legs will consult ortho - Dr. Meeks PT/OT Toradol PRN Flexeril for muscle spasms states that she has tried TENS unit and lumbar brace in the past; wants a surgical intervention Urinary Tract Infection has a hx. of UTIs due to bladder issues overactive bladder will continue oxybutynin started Rocephin, cultures pending Elevated Blood Pressure without Diagnosis of HTN possibly related pain and anxiety will monitor after giving Lamictal and pain medications Anxiety/Depression continue home medications including Lamictal, Celexa, Wellbutrin, Ativan PRN, Trazodone PVD with stent placement cont. Plavix + statin DVT ppx subq heparin FULL CODE
[2017-01-18] MEDS ORDERED: IV FLUIDS COMPLETED PRN (00:15)
[2017-01-18 00:22] VITALS: BP 115/73; PULSE 80; TEMP 37.2; O2SAT 92; Ht 165.1 cm; Wt 74.0 kg
[2017-01-18] MEDS: CEFTRIAXONE SOD INJ 1 GM in DEXTROSE 5% ADD-VANTAGE 50ML 50 ML IV SCH ×2 (01:08→23:39)
[2017-01-18 07:01] LABS: INR 0.9 (0.9-1.1); PROTHROMBIN TIME (PATIENT) 10.1 SECONDS (9.0-12.0)
[2017-01-18 07:58] VITALS: BP 115/71; PULSE 78; TEMP 36.8; O2SAT 94
[2017-01-18] MEDS: BuPROPion SR 100 MG TABCR PO SCH (08:48)
[2017-01-18] MEDS: PANTOprazole SOD 40 MG TAB PO SCH (08:48)
[2017-01-18] MEDS: CITALOPRAM 40 MG TAB PO SCH (08:48)
[2017-01-18] MEDS: CLOPIDOGREL BISULFATE 75 MG TAB PO SCH (08:48)
[2017-01-18] MEDS: CYCLOBENZAPRINE HCL 5 MG TAB PO SCH ×3 (08:49→19:57)
[2017-01-18] MEDS: POTASSIUM CHLORIDE 20 MEQ TABCR PO SCH ×2 (08:49→19:58)
[2017-01-18] MEDS: ROSUVASTATIN CALCIUM 10 MG TAB PO SCH (08:49)
[2017-01-18] MEDS: TIOTROPIUM BROMIDE 5 PUFF/90 MCG INH INH SCH (08:50)
[2017-01-18] MEDS: FLUTICASONE/SALMETEROL 250/50 (ADVAIR) 14 PUFF/1 INHALER INH SCH ×2 (08:50→20:01)
[2017-01-18] MEDS ORDERED: CYCLOBENZAPRINE HCL 5 MG TAB PO SCH (09:00)
[2017-01-18] MEDS: ACETAMINOPHEN 325 MG TAB PO PRN (10:12)
[2017-01-18] MEDS: HEPARIN SOD 5000 UNIT/0.5 ML CARP SQ SCH ×3 (10:13→23:43)
[2017-01-18] MEDS: KETOROLAC TROMETHAMINE 30 MG/ML VIAL IV PRN ×2 (10:15→20:12)
--- NOTE | 2017-01-18 11:33 | ORTHOPEDIC CONSULTATION ---
DATE OF CONSULTATION: 01/18/2017 DATE OF CONSULTATION: 01/18/2017. CHIEF COMPLAINT: Back pain, bilateral leg pain and difficulty with ambulation. HISTORY OF PRESENT ILLNESS: This is a very pleasant 56-year-old female that has had a long-standing history of intermittent back issues, but she has noted a significant decline over the past 24 hours. She describes both an increase in back pain, left buttock pain. Steady right-sided radicular component to her complaints that has been present for some time but most importantly marked instability with ambulation. She denies any trauma, fall or event. She does have a history of intermittent urinary incontinence. PAST MEDICAL HISTORY: Significant for anxiety, above-mentioned back issues, cervical cancer with surgery. MEDICATIONS: Include vitamins, Plavix, Lamictal, Protonix, Crestor, trazodone. PHYSICAL EXAMINATION: She has lymphedema to left lower extremity established from her cervical cancer node resection. She has reasonable plantarflexion, dorsiflexion. She has sensory symmetric and intact. She was able to stand for me today. She exhibits the onset of neurogenic claudicatory type pain with even short standing and walking with pain emanating buttock into the thighs and anteriorly, but combined with this she exhibits markedly unstable gait consistent with myelopathic presentation. She does exhibit Powell's on the right upper extremity, appreciable on the left. Deep tendon reflexes are symmetric, 2/4. A CAT scan also does demonstrate significant spondylosis, vacuum phenomenon at L4-L5, anterolisthesis L5-S1 with very impressive bony overgrowth into the bilateral L5 neural foramen. ASSESSMENT: Back pain with bilateral leg pain consistent with neurogenic claudication with evidence of underlying myelopathy. PLAN: At this point, I will be very thorough with a battery of MRIs both to rule out any neural compression throughout the cervical, thoracic spine as well as an MRI of the lumbar spine for thorough definition of the neural anatomy. We will review these findings and make further recommendations.
[2017-01-18 15:15] VITALS: BP 108/75; PULSE 90; TEMP 36.7; O2SAT 91
--- NOTE | 2017-01-18 16:53 | DIAGNOSTIC IMAGING REPORT ---
CERVICAL SPINE MRI HISTORY: Myelopathy myelopathy TECHNIQUE: Multiplanar multisequence MRI of the cervical spine was performed without the use of contrast. COMPARISON STUDY: None. FINDINGS: Vertebral bodies as well as intervertebral this signal appears unremarkable. Posterior bulging disc components. We present at C6-C7 and C7-T1 base of the sagittal images. C2-C3: No significant central canal or neural foraminal narrowing. C3-C4: No significant central canal or neural foraminal narrowing. C4-C5: No significant central canal or neural foraminal narrowing. C5-C6: Minimal broad-based disc bulge. No significant contact with the cervical cord. Minimal narrowing of the left neural foramina. C6-C7: Broad-based bulging disc in contact with but showing no significant deformity of the cervical cord. Mild narrowing of the neural foramina bilaterally area in C7-T1: Mild right central disc bulge. IMPRESSION: 1. Mild disc bulges from C5 through T1. 2. No evidence for major disc herniation or significant component of spinal stenosis. 3. Mild narrowing of the left neural foramina at C5-C6 and bilaterally at C6-C7 Electronically signed by: Neil Orozco M.D. 01/18/2017 4:51 PM Dictated Date/Time: 01/18/2017 4:49 PM
--- NOTE | 2017-01-18 16:54 | DIAGNOSTIC IMAGING REPORT ---
THORACIC SPINE MRI HISTORY: Pain. Neuropathy. myelopathy TECHNIQUE: Multiplanar multisequence MRI of the thoracic spine was performed without the use of contrast. COMPARISON: None. FINDINGS: Alignment and curvature are intact. No fracture or subluxation. No significant central canal or neural foraminal narrowing. Signal characteristics of the vertebral bodies are unremarkable throughout. Signal characteristics of the thoracic cord are unremarkable. Findings of mild disc desiccation. There is no evidence of disc herniation or spinal stenosis. IMPRESSION: Mild degenerative disc change. Otherwise negative thoracic spine Electronically signed by: Neil Orozco M.D. 01/18/2017 4:53 PM Dictated Date/Time: 01/18/2017 4:52 PM
--- NOTE | 2017-01-18 16:59 | DIAGNOSTIC IMAGING REPORT ---
LUMBAR SPINE MRI HISTORY: Back pain. Neuropathy. back and leg pain TECHNIQUE: Multiplanar multisequence MRI of the lumbar spine was performed without the use of contrast. COMPARISON: None. FINDINGS: For the purpose of the report the L5-S1 disc space will be located on axial image 27 of 30. Severe degenerative intervertebral disc change L5-S1. Grade 2 anterolisthesis L5 on S1 associated with a posterior spondylolysis. Anterolisthesis is estimated 8 mm. Posterior bulging disc at L4-L5. L1-L2: No significant central canal or neural foraminal narrowing. L2-L3: No significant central canal or neural foraminal narrowing. L3-L4: Minimal broad-based disc bulge L4-L5: Broad-based bulging disc with minimal impact anterior thecal sac. L5-S1: Severe bilateral foraminal stenosis. Minimal impact upon the anterior thecal sac. This primarily secondary to the grade 2 anterolisthesis of L5 on S1. IMPRESSION: 1. Severe bilateral foraminal stenosis at L5-S1. 2. This is felt to be secondary primarily to the grade 2 anterolisthesis of L5 on S1 associated with a posterior spondylolysis. 3. Broad-based bulging disc L4-L5. Electronically signed by: Neil Orozco M.D. 01/18/2017 4:57 PM Dictated Date/Time: 01/18/2017 4:53 PM
--- NOTE | 2017-01-18 18:31 | Progress Note ---
Medicine Progress Note Date & Time of Visit: January 18, 2017 at ~ 18:00 . Subjective Persistent severe low back pain. Has difficulty ambulating. Being treated for UTI. No fever or dysuria. No nausea, vomiting, diarrhea. No chest pain, cough, SOB. . Objective Last 8 Hrs Date Time Temp Pulse Resp B/P Pulse Ox O2 Delivery O2 Flow Rate FiO2 01/18/17 15:15 36.7 90 18 108/75 91 Room Air Physical Exam: General- no distress Lungs- mild wheezing Heart- RRR Abdomen- + BS, soft, nontender Back- tenderness over lower lumbar spine Extremities- 1+ pretibial edema LLE (chronic lymphedema) Neuro- alert; motor strength lower extremities grossly intact . Laboratory Results: Last 24 Hours Test 01/18/17 06:12 Prothrombin Time 10.1 SECONDS Prothromb Time International Ratio 0.9 Assessment & Plan SEVERE LOW BACK PAIN CT lumbar spine demonstrated multilevel spondylitic changes with multilevel disc bulges and multilevel spinal stenosis; grade 2/4 spondylolisthesis L5 S1, bilateral L5-S1 foraminal narrowing. Ortho consulted. MRI's ordered. RECURRENT UTI's Recently placed on TMP / sulfa by Urology. Check outpatient records. VTE PROPHYLAXIS SQ heparin. Ambulate. DISPOSITION Patient in process of establishing with new PCP. Urology follow-up with Dr. Beckwith. . Current Inpatient Medications: Current Inpatient Medications Medications (Trade) Dose Ordered Sig/Mirella Route Start Time Stop Time Status Last Admin Dose Admin Ketorolac Tromethamine 30 mg 30 mg Q6H PRN IV 01/17/17 22:45 01/22/17 22:44 01/18/17 10:15 30 MG Ceftriaxone Sodium/Dextrose (Rocephin Inj/ Dextrose Add-[place] 50ML) 50 ml @ 100 mls/hr Q24H IV 01/18/17 00:00 01/28/17 00:00 01/18/17 01:08 100 MLS/HR Bupropion HCl (Wellbutrin-Sr Tab) 100 mg QAM PO 01/18/17 09:00 02/17/17 08:59 01/18/17 08:48 100 MG Citalopram Hydrobromide (celeXA TAB) 40 mg QAM PO 01/18/17 09:00 02/17/17 08:59 01/18/17 08:48 40 MG Clopidogrel Bisulfate (plAVix TAB) 75 mg QAM PO 01/18/17 09:00 02/17/17 08:59 01/18/17 08:48 75 MG Salmeterol Xinafoate/ Fluticasone (Advair Diskus 250/50 Inh) 1 puff BID INH 01/18/17 09:00 02/17/17 08:59 01/18/17 08:50 1 PUFF Albuterol/ Ipratropium (Combivent Respimat Inh) 2 puffs BID PRN INH 01/17/17 22:45 02/16/17 22:44 Lorazepam (Ativan Tab) 0.5 mg TID PRN PO 01/17/17 22:45 02/16/17 22:44 Pantoprazole Sodium (Protonix Tab) 40 mg QAM PO 01/18/17 09:00 02/17/17 08:59 01/18/17 08:48 40 MG Potassium Chloride (Klor-Con Tab) 20 meq BID PO 01/18/17 09:00 02/17/17 08:59 01/18/17 08:49 20 MEQ Rosuvastatin Calcium (Crestor Tab) 10 mg DAILY PO 01/18/17 09:00 02/17/17 08:59 01/18/17 08:49 10 MG Tiotropium [place] (Spiriva Handihaler Inhaler) 1 puff DAILY INH 01/18/17 09:00 02/17/17 08:59 01/18/17 08:50 1 PUFF Trazodone HCl (Desyrel Tab) 100 mg HS PO 01/18/17 21:00 02/17/17 20:59 Lamotrigine (Lamictal Tab) 150 mg BID PO 01/18/17 09:00 02/17/17 08:59 01/18/17 08:48 150 MG Heparin Sodium (Porcine) (Heparin Sq 5000 Unit/0.5ml) 5,000 unit Q8H SQ 01/18/17 08:00 02/17/17 07:59 01/18/17 16:56 5,000 UNIT Acetaminophen (Tylenol Tab) 650 mg Q4H PRN PO 01/17/17 22:45 02/16/17 22:44 01/18/17 10:12 650 MG Al Hydrox/Mg Hydrox/Simethicone (Maalox Max Susp) 15 ml Q4H PRN PO 01/17/17 22:45 02/16/17 22:44 Magnesium Hydroxide (Milk Of Magnesia Susp) 30 ml Q6H PRN PO 01/17/17 22:45 02/16/17 22:44 Polyethylene (Miralax Powder Packet) 17 gm DAILY PRN PO 01/17/17 22:45 02/16/17 22:44 Ondansetron HCl (Zofran Inj) 4 mg Q6H PRN IV 01/17/17 22:45 02/16/17 22:44 Cyclobenzaprine HCl (Flexeril Tab) 5 mg TID PO 01/18/17 09:00 02/17/17 08:59 01/18/17 14:14 5 MG Miscellaneous (Iv Fluids Completed) 1 ea PRN PRN N/A 01/18/17 00:15 01/18/18 00:14
[2017-01-18] MEDS: TRAZODONE HCL 100 MG TAB PO SCH (19:58)
[2017-01-18] MEDS ORDERED: NICOTINE 21 MG/24 HR TDSY TD ONE (20:10)
[2017-01-18] MEDS: SULFAMETHOXAZOLE/TRIMETHOPRIM DS 800/160MG TAB PO SCH (20:11)
[2017-01-19] VITALS: BP 138/74; PULSE 74; TEMP 36.9; O2SAT 93
[2017-01-19 07:32] VITALS: BP 141/88; PULSE 74; TEMP 36.9; O2SAT 97
[2017-01-19] MEDS: SULFAMETHOXAZOLE/TRIMETHOPRIM DS 800/160MG TAB PO SCH ×2 (08:20→20:12)
[2017-01-19] MEDS: POTASSIUM CHLORIDE 20 MEQ TABCR PO SCH ×2 (08:21→16:57)
[2017-01-19] MEDS: CYCLOBENZAPRINE HCL 5 MG TAB PO SCH ×3 (08:21→20:13)
[2017-01-19] MEDS: TIOTROPIUM BROMIDE 5 PUFF/90 MCG INH INH SCH (08:22)
[2017-01-19] MEDS: FLUTICASONE/SALMETEROL 250/50 (ADVAIR) 14 PUFF/1 INHALER INH SCH ×2 (08:22→20:09)
[2017-01-19] MEDS: ROSUVASTATIN CALCIUM 10 MG TAB PO SCH (08:22)
[2017-01-19] MEDS: PANTOprazole SOD 40 MG TAB PO SCH (08:22)
[2017-01-19] MEDS: CLOPIDOGREL BISULFATE 75 MG TAB PO SCH (08:23)
[2017-01-19] MEDS: CITALOPRAM 40 MG TAB PO SCH (08:23)
[2017-01-19] MEDS: BuPROPion SR 100 MG TABCR PO SCH (08:23)
[2017-01-19] MEDS: HEPARIN SOD 5000 UNIT/0.5 ML CARP SQ SCH ×3 (08:28→23:49)
[2017-01-19] MEDS ORDERED: NICOTINE 21 MG/24 HR TDSY TD SCH (09:00)
[2017-01-19] MEDS: KETOROLAC TROMETHAMINE 30 MG/ML VIAL IV PRN ×2 (10:10→22:14)
[2017-01-19] MEDS: LORAZEPAM 0.5 MG TAB PO PRN ×2 (12:51→20:09)
--- NOTE | 2017-01-19 13:55 | PROGRESS NOTE ---
DATE: 01/19/2017 DATE: 01/19/2017. SUBJECTIVE: Mrs. Cuello did undergo cervical, thoracic and lumbar MRIs yesterday. Overall, I appreciate no significant canal encroachment or cord issues in the cervical and thoracic region. Her lumbar spine again demonstrates some disc desiccation extrusion at L4-L5. L5-S1 has severe bilateral neural foraminal encroachment and a grade 2 spondylolisthesis. She continues to complain of pain in the right greater than left leg markedly limiting her ability to ambulate. I had a discussion with this patient regarding her imaging. While I cannot explain her myelopathic ambulation, certainly her leg pain could be from her neural foraminal encroachment spondylolisthesis L5-S1. If she would like to consider surgical intervention would require lumbar decompression and fusion L4-L5 and L5-S1. We need to discuss this with her managing physicians to determine if she can safely hold her Plavix. If so, we would plan for surgery in the next week or so.
[2017-01-19] MEDS ORDERED: POTASSIUM CHLORIDE 20 MEQ TABCR PO SCH (15:00)
[2017-01-19] MEDS ORDERED: NURSING VERBAL MED ORDER ONE (15:15)
[2017-01-19] MEDS: ACETAMINOPHEN 325 MG TAB PO PRN ×2 (15:18→20:12)
[2017-01-19 15:41] VITALS: BP 139/71; PULSE 82; TEMP 36.7; O2SAT 96
--- NOTE | 2017-01-19 15:48 | Progress Note ---
Medicine Progress Note Date & Time of Visit: January 19, 2017 at ~ 10:50 . Subjective Persistent severe low back pain. Having problems with nicotine withdrawal and would like to wear nicotine patch 24 hrs / day. No fever. No chest pain. No cough or SOB. No nausea or vomiting. No diarrhea. No dysuria. . Objective Last 8 Hrs Date Time Temp Pulse Resp B/P Pulse Ox O2 Delivery O2 Flow Rate FiO2 01/19/17 15:41 36.7 82 16 139/71 96 Physical Exam: General- no distress Lungs- mild wheezing Heart- RRR Abdomen- + BS, soft, nontender Extremities- 1+ pretibial edema LLE (chronic lymphedema) Neuro- alert . Assessment & Plan SEVERE LOW BACK PAIN CT lumbar spine demonstrated multilevel spondylitic changes with multilevel disc bulges and multilevel spinal stenosis; grade 2/4 spondylolisthesis L5 S1, bilateral L5-S1 foraminal narrowing. Ortho consulted. MRI cervical, thoracic, lumbar spine performed. Imaging of cervical and thoracic spine revealed mild degenerative disc and foraminal disease.. Imaging of lumbar spine per Radiology: 1. Severe bilateral foraminal stenosis at L5-S1. 2. This is felt to be secondary primarily to the grade 2 anterolisthesis of L5 on S1 associated with a posterior spondylolysis. 3. Broad-based bulging disc L4-L5. Further management per Ortho. PT / OT consulted. RECURRENT UTI's Recently placed on TMP / sulfa by Urology. Urine culture growing E coli, pansensitive. Afebrile. Transitioned from IV ceftriaxone to TMP / sulfa. HISTORY OF MRSA Contact isolation. TOBACCO USE / NICOTINE WITHDRAWAL Nicotine patch. Tobacco counseling. VTE PROPHYLAXIS SQ heparin. Ambulate. DISPOSITION Discharge disposition to be determined- may need inpatient rehab. Patient in process of establishing with new PCP. Urology follow-up with Dr. Beckwith. . Current Inpatient Medications: Current Inpatient Medications Medications (Trade) Dose Ordered Sig/Mirella Route Start Time Stop Time Status Last Admin Dose Admin Ketorolac Tromethamine (Toradol Inj) 30 mg Q6H PRN IV 01/17/17 22:45 01/22/17 22:44 01/19/17 10:10 30 MG Bupropion HCl (Wellbutrin-Sr Tab) 100 mg QAM PO 01/18/17 09:00 02/17/17 08:59 01/19/17 08:23 100 MG Citalopram Hydrobromide (celeXA TAB) 40 mg QAM PO 01/18/17 09:00 02/17/17 08:59 01/19/17 08:23 40 MG Clopidogrel Bisulfate (plAVix TAB) 75 mg QAM PO 01/18/17 09:00 02/17/17 08:59 01/19/17 08:23 75 MG Salmeterol Xinafoate/ Fluticasone (Advair Diskus 250/50 Inh) 1 puff BID INH 01/18/17 09:00 02/17/17 08:59 01/19/17 08:22 1 PUFF Albuterol/ Ipratropium (Combivent Respimat Inh) 2 puffs BID PRN INH 01/17/17 22:45 02/16/17 22:44 Lorazepam (Ativan Tab) 0.5 mg TID PRN PO 01/17/17 22:45 02/16/17 22:44 01/19/17 12:51 0.5 MG Pantoprazole Sodium (Protonix Tab) 40 mg QAM PO 01/18/17 09:00 02/17/17 08:59 01/19/17 08:22 40 MG Rosuvastatin Calcium (Crestor Tab) 10 mg DAILY PO 01/18/17 09:00 02/17/17 08:59 01/19/17 08:22 10 MG Tiotropium [place] (Spiriva Handihaler Inhaler) 1 puff DAILY INH 01/18/17 09:00 02/17/17 08:59 01/19/17 08:22 1 PUFF Trazodone HCl (Desyrel Tab) 100 mg HS PO 01/18/17 21:00 02/17/17 20:59 01/18/17 19:58 100 MG Heparin Sodium (Porcine) (Heparin Sq 5000 Unit/0.5ml) 5,000 unit Q8H SQ 01/18/17 08:00 02/17/17 07:59 01/19/17 08:28 5,000 UNIT Acetaminophen (Tylenol Tab) 650 mg Q4H PRN PO 01/17/17 22:45 02/16/17 22:44 01/19/17 15:18 650 MG Al Hydrox/Mg Hydrox/Simethicone (Maalox Max Susp) 15 ml Q4H PRN PO 01/17/17 22:45 02/16/17 22:44 Magnesium Hydroxide (Milk Of Magnesia Susp) 30 ml Q6H PRN PO 01/17/17 22:45 02/16/17 22:44 Polyethylene (Miralax Powder Packet) 17 gm DAILY PRN PO 01/17/17 22:45 02/16/17 22:44 Ondansetron HCl (Zofran Inj) 4 mg Q6H PRN IV 01/17/17 22:45 02/16/17 22:44 Cyclobenzaprine HCl (Flexeril Tab) 5 mg TID PO 01/18/17 09:00 02/17/17 08:59 01/19/17 13:55 5 MG Miscellaneous (Iv Fluids Completed) 1 ea PRN PRN N/A 01/18/17 00:15 01/18/18 00:14 Trimethoprim/ Sulfamethoxazole (Septra Ds 800/ 160MG Tab) 1 tab BID PO 01/18/17 21:00 01/28/17 20:59 01/19/17 08:20 1 TAB Miscellaneous (Remove Nicoderm Patch) 1 ea DAILY@0859 N/A 01/20/17 08:59 02/19/17 08:58 Nicotine (Nicoderm Cq 21MG Patch) 1 patch DAILY@0900 TD 01/20/17 09:00 02/18/17 08:59 Lamotrigine (Lamictal Tab) 150 mg BID@0900,1700 PO 01/19/17 17:00 02/18/17 16:59 Potassium Chloride (Klor-Con Tab) 20 meq BID@0900,1700 PO 01/19/17 17:00 02/18/17 16:59
[2017-01-19] MEDS: TRAZODONE HCL 100 MG TAB PO SCH (21:00)
[2017-01-20] VITALS (8 sets, daily range): BP systolic 116–158; BP diastolic 76–95; PULSE 72–78; TEMP 36.7–36.9; O2SAT 93–99
[2017-01-20] MEDS: FLUTICASONE/SALMETEROL 250/50 (ADVAIR) 14 PUFF/1 INHALER INH SCH ×2 (07:52→20:44)
[2017-01-20] MEDS: SULFAMETHOXAZOLE/TRIMETHOPRIM DS 800/160MG TAB PO SCH ×2 (07:53→20:48)
[2017-01-20] MEDS: CYCLOBENZAPRINE HCL 5 MG TAB PO SCH ×3 (07:53→20:47)
[2017-01-20] MEDS: TIOTROPIUM BROMIDE 5 PUFF/90 MCG INH INH SCH (07:53)
[2017-01-20] MEDS: PANTOprazole SOD 40 MG TAB PO SCH (07:54)
[2017-01-20] MEDS: BuPROPion SR 100 MG TABCR PO SCH (07:55)
[2017-01-20] MEDS: POTASSIUM CHLORIDE 20 MEQ TABCR PO SCH ×2 (07:55→16:30)
[2017-01-20] MEDS: CITALOPRAM 40 MG TAB PO SCH (07:55)
[2017-01-20] MEDS: CLOPIDOGREL BISULFATE 75 MG TAB PO SCH (07:55)
[2017-01-20] MEDS: NICOTINE 21 MG/24 HR TDSY TD SCH (07:55)
[2017-01-20] MEDS: KETOROLAC TROMETHAMINE 30 MG/ML VIAL IV PRN ×2 (08:03→19:09)
[2017-01-20] MEDS: HEPARIN SOD 5000 UNIT/0.5 ML CARP SQ SCH ×2 (08:06→16:29)
[2017-01-20] MEDS: ROSUVASTATIN CALCIUM 10 MG TAB PO SCH (08:49)
[2017-01-20] MEDS: LORAZEPAM 0.5 MG TAB PO PRN (11:37)
[2017-01-20] MEDS: TRAZODONE HCL 100 MG TAB PO SCH (20:46)
--- NOTE | 2017-01-20 23:36 | Progress Note ---
Medicine Progress Note Date & Time of Visit: January 20, 2017 at ~ 19:00 . Subjective Persistent low back pain. No fever. No dysuria. No chest pain, cough, SOB. No nausea, vomiting, diarrhea. . Objective Last 8 Hrs Date Time Temp Pulse Resp B/P Pulse Ox O2 Delivery O2 Flow Rate FiO2 01/20/17 16:00 99 Room Air 01/20/17 15:46 36.8 78 16 151/86 99 Physical Exam: General- no distress Lungs- mild wheezing Heart- RRR Abdomen- + BS, soft, nontender Extremities- 1+ pretibial edema LLE (chronic lymphedema) Neuro- alert . Assessment & Plan SEVERE LOW BACK PAIN CT lumbar spine demonstrated multilevel spondylitic changes with multilevel disc bulges and multilevel spinal stenosis; grade 2/4 spondylolisthesis L5 S1, bilateral L5-S1 foraminal narrowing. Ortho consulted. MRI cervical, thoracic, lumbar spine performed. Imaging of cervical and thoracic spine revealed mild degenerative disc and foraminal disease.. Imaging of lumbar spine per Radiology: 1. Severe bilateral foraminal stenosis at L5-S1. 2. This is felt to be secondary primarily to the grade 2 anterolisthesis of L5 on S1 associated with a posterior spondylolysis. 3. Broad-based bulging disc L4-L5. Further management per Ortho. Need to clarify if clopidogrel can be held for procedure. PT / OT consulted. RECURRENT UTI's Recently placed on TMP / sulfa by Urology. Urine culture growing E coli, pansensitive + alpha strep. Afebrile. Transitioned from IV ceftriaxone to TMP / sulfa. HISTORY OF MRSA Contact isolation. TOBACCO USE / NICOTINE WITHDRAWAL Nicotine patch. Tobacco counseling. VTE PROPHYLAXIS SQ heparin. Ambulate. DISPOSITION Discharge disposition discussed. Patient prefers not to go to inpatient rehab. Patient in process of establishing with new PCP. Urology follow-up with Dr. Beckwith. . Current Inpatient Medications: Current Inpatient Medications Medications (Trade) Dose Ordered Sig/Mirella Route Start Time Stop Time Status Last Admin Dose Admin Ketorolac Tromethamine (Toradol Inj) 30 mg Q6H PRN IV 01/17/17 22:45 01/22/17 22:44 01/20/17 19:09 30 MG Bupropion HCl (Wellbutrin-Sr Tab) 100 mg QAM PO 01/18/17 09:00 02/17/17 08:59 01/20/17 07:55 100 MG Citalopram Hydrobromide (celeXA TAB) 40 mg QAM PO 01/18/17 09:00 02/17/17 08:59 01/20/17 07:55 40 MG Clopidogrel Bisulfate (plAVix TAB) 75 mg QAM PO 01/18/17 09:00 02/17/17 08:59 01/20/17 07:55 75 MG Salmeterol Xinafoate/ Fluticasone (Advair Diskus 250/50 Inh) 1 puff BID INH 01/18/17 09:00 02/17/17 08:59 01/20/17 20:44 1 PUFF Albuterol/ Ipratropium (Combivent Respimat Inh) 2 puffs BID PRN INH 01/17/17 22:45 02/16/17 22:44 Lorazepam (Ativan Tab) 0.5 mg TID PRN PO 01/17/17 22:45 02/16/17 22:44 01/20/17 11:37 0.5 MG Pantoprazole Sodium (Protonix Tab) 40 mg QAM PO 01/18/17 09:00 02/17/17 08:59 01/20/17 07:54 40 MG Rosuvastatin Calcium (Crestor Tab) 10 mg DAILY PO 01/18/17 09:00 02/17/17 08:59 01/20/17 08:49 10 MG Tiotropium [place] (Spiriva Handihaler Inhaler) 1 puff DAILY INH 01/18/17 09:00 02/17/17 08:59 01/20/17 07:53 1 PUFF Trazodone HCl (Desyrel Tab) 100 mg HS PO 01/18/17 21:00 02/17/17 20:59 01/20/17 20:46 100 MG Heparin Sodium (Porcine) (Heparin Sq 5000 Unit/0.5ml) 5,000 unit Q8H SQ 01/18/17 08:00 02/17/17 07:59 01/20/17 16:29 5,000 UNIT Acetaminophen (Tylenol Tab) 650 mg Q4H PRN PO 01/17/17 22:45 02/16/17 22:44 01/19/17 20:12 650 MG Al Hydrox/Mg Hydrox/Simethicone (Maalox Max Susp) 15 ml Q4H PRN PO 01/17/17 22:45 02/16/17 22:44 Magnesium Hydroxide (Milk Of Magnesia Susp) 30 ml Q6H PRN PO 01/17/17 22:45 02/16/17 22:44 Polyethylene (Miralax Powder Packet) 17 gm DAILY PRN PO 01/17/17 22:45 02/16/17 22:44 Ondansetron HCl (Zofran Inj) 4 mg Q6H PRN IV 01/17/17 22:45 02/16/17 22:44 Cyclobenzaprine HCl (Flexeril Tab) 5 mg TID PO 01/18/17 09:00 02/17/17 08:59 01/20/17 20:47 5 MG Miscellaneous (Iv Fluids Completed) 1 ea PRN PRN N/A 01/18/17 00:15 01/18/18 00:14 Trimethoprim/ Sulfamethoxazole (Septra Ds 800/ 160MG Tab) 1 tab BID PO 01/18/17 21:00 01/28/17 20:59 01/20/17 20:48 1 TAB Miscellaneous (Remove Nicoderm Patch) 1 ea DAILY@0859 N/A 01/20/17 08:59 02/19/17 08:58 01/20/17 08:49 1 EA Nicotine (Nicoderm Cq 21MG Patch) 1 patch DAILY@0900 TD 01/20/17 09:00 02/18/17 08:59 01/20/17 07:55 1 PATCH Lamotrigine (Lamictal Tab) 150 mg BID@0900,1700 PO 01/19/17 17:00 02/18/17 16:59 01/20/17 16:30 150 MG Potassium Chloride (Klor-Con Tab) 20 meq BID@0900,1700 PO 01/19/17 17:00 02/18/17 16:59 01/20/17 16:30 20 MEQ
[2017-01-21] MEDS: KETOROLAC TROMETHAMINE 30 MG/ML VIAL IV PRN (05:37)
[2017-01-21 06:00] LABS: HEMATOCRIT 32.5 % (37-47); MEAN CELL VOLUME 83.5 fL (80-100); MEAN CORPUSCULAR HEMOGLOBIN 26.7 pg (25-34); MEAN PLATELET VOLUME 8.5 fL (7.4-10.4); PLATELET COUNT 311 K/uL (130-400); RED BLOOD COUNT 3.89 M/uL (4.2-5.4); WHITE BLOOD COUNT 5.32 K/uL (4.8-10.8)
[2017-01-21 07:18] VITALS: BP 126/75; PULSE 70; TEMP 36.9; O2SAT 95
[2017-01-21 08:00] VITALS: O2SAT 97
[2017-01-21] MEDS: HEPARIN SOD 5000 UNIT/0.5 ML CARP SQ SCH ×2 (08:00)
[2017-01-21] MEDS: POTASSIUM CHLORIDE 20 MEQ TABCR PO SCH (08:05)
[2017-01-21] MEDS: CLOPIDOGREL BISULFATE 75 MG TAB PO SCH (08:07)
[2017-01-21] MEDS: CITALOPRAM 40 MG TAB PO SCH (08:07)
[2017-01-21] MEDS: BuPROPion SR 100 MG TABCR PO SCH (08:07)
[2017-01-21] MEDS: PANTOprazole SOD 40 MG TAB PO SCH (08:08)
[2017-01-21] MEDS: NICOTINE 21 MG/24 HR TDSY TD SCH (08:08)
[2017-01-21] MEDS: CYCLOBENZAPRINE HCL 5 MG TAB PO SCH ×2 (08:11→13:38)
[2017-01-21] MEDS: ROSUVASTATIN CALCIUM 10 MG TAB PO SCH (08:11)
[2017-01-21] MEDS: SULFAMETHOXAZOLE/TRIMETHOPRIM DS 800/160MG TAB PO SCH (08:12)
[2017-01-21] MEDS: FLUTICASONE/SALMETEROL 250/50 (ADVAIR) 14 PUFF/1 INHALER INH SCH (08:13)
[2017-01-21] MEDS: TIOTROPIUM BROMIDE 5 PUFF/90 MCG INH INH SCH (08:13)
[2017-01-21] MEDS: LORAZEPAM 0.5 MG TAB PO PRN (11:15)
[2017-01-21 14:08] VITALS: BP 126/75; PULSE 70; TEMP 36.9; O2SAT 97
--- NOTE | 2017-01-21 15:51 | Progress Note ---
Medicine Progress Note Date & Time of Visit: January 21, 2017 at 15:52 . Subjective Persistent low back pain, but able to ambulate independently. No fever. No dysuria. No nausea, vomiting, diarrhea. . Objective Last 8 Hrs Date Time Temp Pulse Resp B/P Pulse Ox O2 Delivery O2 Flow Rate FiO2 01/21/17 14:08 36.9 70 16 97 Room Air 01/21/17 08:00 97 Room Air Physical Exam: General- no distress Lungs- mild wheezing Heart- RRR Abdomen- + BS, soft, nontender Extremities- chronic lymphedema LLE; no calf tenderness Neuro- alert . Laboratory Results: Last 24 Hours Test 01/21/17 05:19 White Blood Count 5.32 K/uL Red Blood Count 3.89 M/uL Hemoglobin 10.4 g/dL Hematocrit 32.5 % Mean Corpuscular Volume 83.5 fL Mean Corpuscular Hemoglobin 26.7 pg Mean Corpuscular Hemoglobin Concent 32.0 g/dl RDW Standard Deviation 56.1 fL RDW Coefficient of Variation 18.3 % Platelet Count 311 K/uL Mean Platelet Volume 8.5 fL Assessment & Plan SEVERE LOW BACK PAIN CT lumbar spine demonstrated multilevel spondylitic changes with multilevel disc bulges and multilevel spinal stenosis; grade 2/4 spondylolisthesis L5 S1, bilateral L5-S1 foraminal narrowing. Ortho consulted. MRI cervical, thoracic, lumbar spine performed. Imaging of cervical and thoracic spine revealed mild degenerative disc and foraminal disease.. Imaging of lumbar spine per Radiology: 1. Severe bilateral foraminal stenosis at L5-S1. 2. This is felt to be secondary primarily to the grade 2 anterolisthesis of L5 on S1 associated with a posterior spondylolysis. 3. Broad-based bulging disc L4-L5. PT / OT consulted. Patient ambulating independently, albeit with some discomfort. Surgical intervention discussed as option, but (1) patient is scheduled for bladder surgery in about 2 weeks which is a higher priority per her and (2) clopidogrel would have to be held prior to surgery. Called patient's Vascular Surgery clinic in [place]; they do not recommend holding clopidogrel because of risk of thrombosis of right iliac stent. If surgery is deemed to be absolutely necessary and patient accepts potential risk, procedure should be done when appropriate Vascular Surgery expertise is available in the event of a vascular emergency. Patient is taking a large number of medications, some with analgesic benefit. Best not to add to polypharmacology at this time. RECURRENT UTI's Recently placed on TMP / sulfa by Urology. Urine culture growing E coli, pansensitive + alpha strep. Afebrile. Transitioned from IV ceftriaxone to TMP / sulfa. HISTORY OF MRSA Contact isolation. TOBACCO USE / NICOTINE WITHDRAWAL Nicotine patch. Tobacco counseling. VTE PROPHYLAXIS SQ heparin. Ambulating. DISPOSITION Ambulating independently; no need for inpatient rehab. Patient in process of establishing with new PCP. Urology follow-up with Dr. Beckwith. Has urology surgery scheduled at [facility] in about 2 weeks. Ortho Spine follow-up with Dr. Meeks after recovery from bladder surgery. . Consultants: Orthopedics with Dr. Meeks. . Procedures: CT lumbar spine CT abdomen and pelvis MRI cervical spine MRI thoracic spine MRI lumbar spine . Current Inpatient Medications: Current Inpatient Medications Medications (Trade) Dose Ordered Sig/Mirella Route Start Time Stop Time Status Last Admin Dose Admin Ketorolac Tromethamine (Toradol Inj) 30 mg Q6H PRN IV 01/17/17 22:45 01/22/17 22:44 01/21/17 05:37 30 MG Bupropion HCl (Wellbutrin-Sr Tab) 100 mg QAM PO 01/18/17 09:00 02/17/17 08:59 01/21/17 08:07 100 MG Citalopram Hydrobromide (celeXA TAB) 40 mg QAM PO 01/18/17 09:00 02/17/17 08:59 01/21/17 08:07 40 MG Clopidogrel Bisulfate (plAVix TAB) 75 mg QAM PO 01/18/17 09:00 02/17/17 08:59 01/21/17 08:07 75 MG Salmeterol Xinafoate/ Fluticasone (Advair Diskus 250/50 Inh) 1 puff BID INH 01/18/17 09:00 02/17/17 08:59 01/21/17 08:13 1 PUFF Albuterol/ Ipratropium (Combivent Respimat Inh) 2 puffs BID PRN INH 01/17/17 22:45 02/16/17 22:44 Lorazepam (Ativan Tab) 0.5 mg TID PRN PO 01/17/17 22:45 02/16/17 22:44 01/21/17 11:15 0.5 MG Pantoprazole Sodium (Protonix Tab) 40 mg QAM PO 01/18/17 09:00 02/17/17 08:59 01/21/17 08:08 40 MG Rosuvastatin Calcium (Crestor Tab) 10 mg DAILY PO 01/18/17 09:00 02/17/17 08:59 01/21/17 08:11 10 MG Tiotropium [place] (Spiriva Handihaler Inhaler) 1 puff DAILY INH 01/18/17 09:00 02/17/17 08:59 01/21/17 08:13 1 PUFF Trazodone HCl (Desyrel Tab) 100 mg HS PO 01/18/17 21:00 02/17/17 20:59 01/20/17 20:46 100 MG Heparin Sodium (Porcine) (Heparin Sq 5000 Unit/0.5ml) 5,000 unit Q8H SQ 01/18/17 08:00 02/17/17 07:59 01/20/17 16:29 5,000 UNIT Acetaminophen (Tylenol Tab) 650 mg Q4H PRN PO 01/17/17 22:45 02/16/17 22:44 01/19/17 20:12 650 MG Al Hydrox/Mg Hydrox/Simethicone (Maalox Max Susp) 15 ml Q4H PRN PO 01/17/17 22:45 02/16/17 22:44 Magnesium Hydroxide (Milk Of Magnesia Susp) 30 ml Q6H PRN PO 01/17/17 22:45 02/16/17 22:44 Polyethylene (Miralax Powder Packet) 17 gm DAILY PRN PO 01/17/17 22:45 02/16/17 22:44 Ondansetron HCl (Zofran Inj) 4 mg Q6H PRN IV 01/17/17 22:45 02/16/17 22:44 Cyclobenzaprine HCl (Flexeril Tab) 5 mg TID PO 01/18/17 09:00 02/17/17 08:59 01/21/17 13:38 5 MG Miscellaneous (Iv Fluids Completed) 1 ea PRN PRN N/A 01/18/17 00:15 01/18/18 00:14 Trimethoprim/ Sulfamethoxazole (Septra Ds 800/ 160MG Tab) 1 tab BID PO 01/18/17 21:00 01/28/17 20:59 01/21/17 08:12 1 TAB Miscellaneous (Remove Nicoderm Patch) 1 ea DAILY@0859 N/A 01/20/17 08:59 02/19/17 08:58 01/21/17 08:14 1 EA Nicotine (Nicoderm Cq 21MG Patch) 1 patch DAILY@0900 TD 01/20/17 09:00 02/18/17 08:59 01/21/17 08:08 1 PATCH Lamotrigine (Lamictal Tab) 150 mg BID@0900,1700 PO 01/19/17 17:00 02/18/17 16:59 01/21/17 08:09 150 MG Potassium Chloride (Klor-Con Tab) 20 meq BID@0900,1700 PO 01/19/17 17:00 02/18/17 16:59 01/21/17 08:05 20 MEQ
--- NOTE | 2017-01-21 15:57 | Discharge Instructions ---
Discharge Instructions Date of Service January 21, 2017. Admission Reason for Admission: severe back pain, bladder infection . Discharge Discharge Diagnosis / Problem: severe back pain, bladder infection Discharge Goals Goal(s): Decrease discomfort, Improve function Activity Recommendations Activity Limitations: resume your previous activity Lifting Limitations: no more than 10 pounds . Instructions / Follow-Up Instructions / Follow-Up Please get established with a primary care provider as soon as possible. Bladder surgery at [facility] as scheduled. Please call Dr. Meeks's office to schedule follow-up appointment after you have recovered from your bladder surgery. Seek medical attention if you have: * temperature above 101 * chest pain or trouble breathing * abdominal pain, nausea, vomiting * diarrhea, dark stools or bloody stools * any unanswered questions or concerns You can reach a [facility] hospitalist on duty at [facility] 24 hours a day by calling [phone]. Call 911 if symptoms are severe. Please take good care of yourself. Sunil Pimentel . Current Hospital Diet Patient's current hospital diet: Regular Diet Discharge Diet Recommended Diet: Regular Diet Pending Studies Studies pending at discharge: no Medical Emergencies . Who to Call and When: Medical Emergencies: If at any time you feel your situation is an emergency, please call 911 immediately. . Non-Emergent Contact Non-Emergency issues call your: Primary Care Provider . . "Provider Documentation" section prepared by Sunil Pimentel. . VTE Core Measure Inpt VTE Proph given/why not?: Unfractionated heparin SQ
--- NOTE | 2017-01-21 20:06 | Discharge Summary ---
Discharge Summary Date of Service January 21, 2017. Discharge Summary Admission Date: January 17, 2017 at 22:41 Discharge Date: January 21, 2017 Discharge Disposition: Home Principal Diagnosis: severe back pain- severe bilateral foraminal stenosis L5-S1 secondary to grade 2 anterolisthesis of L5 on S1 associated with posterior spondylosis, broad- based bulging disc L4-5 urinary tract infection- E coli + alpha strep . Procedures: CT lumbar spine CT abdomen and pelvis MRI cervical spine MRI thoracic spine MRI lumbar spine PT OT IV meds . Consultations: Orthopedics with Dr. Meeks. . Medication Reconciliation Continued Medications: Ascorbic Acid (Vitamin C) 500 Mg Tab 500 MG PO QAM Bupropion HCl (Bupropion HCl Sr) 100 Mg Tabcr 100 MG PO QAM, #60 Calcium Carbonate-Vitamin D (Calcium 600 + D) 1 Tab Tab 1 TAB PO DAILY Citalopram Hydrobromide (Celexa) 40 Mg Tab 40 MG PO QAM, TAB Clopidogrel Bisulfate (Plavix) 75 Mg Tab 75 MG PO QAM, TAB Estradiol Vaginal (Estrace) 0.1 Mg/Gm Cre 1 APPLN TOP 3XWK, #1 Fiber (Fiber Complete) 62.5 Mg Tab 1 TAB PO DAILY Fluticasone Prop/Salmeterol (Advair Diskus 250/50 60 Dose) 1 Ea Aerp 1 PUFF INH BID, #60 Glycopyrrolate (Glycopyrrolate) 2 Mg Tab 2 MG PO BID, #60 Ibuprofen (Ibuprofen) 600 Mg Tab 600 MG PO UD PRN for Pain Ipratropium-Albuterol (Combivent Respimat) 1 Aer Aer 1 PUFF INH BID PRN for SOB/Wheezing, #4 Lamotrigine (Lamictal) 150 Mg Tab 150 MG PO BID, TAB Lorazepam (Ativan) 0.5 Mg Tab 0.5 MG PO TID PRN for Anxiety, TAB Multivitamins/Minerals (Mvi With Minerals) Tab 1 TAB PO DAILY, TAB Pantoprazole (Protonix) 40 Mg Tab 40 MG PO QAM, #30 TAB Potassium Chloride Microencaps (Potassium Chloride Er) 20 Meq Tab 20 MEQ PO BID, #180 Rosuvastatin Calcium (Crestor) 10 Mg Tab 10 MG PO DAILY, TAB Sulfa/Trimethoprim (Bactrim Ds 800MG/160MG) Tab 1 TAB PO BID, #20 TAB Tiotropium [place] (Spiriva Handihaler) 30 Puff/540 Mcg Aerp 1 CAP INH DAILY, INHALER Trazodone HCl (Trazodone HCl) 100 Mg Tab 100 MG PO HS Vitamin E (Vitamin E) 400 Unit Tab 400 UNIT PO QAM [[id number] acid] () 1 TAB PO DAILY Admission Information HPI (per Admitting provider): This is a 56 year old female with PMH of chronic back pain, mood disorder, OCD, depression, hyperlipidemia, peripheral vascular disease s/p RLE stent procedure , hx cervical CA s/p pelvic radiation, overactive bladder, hx recurrent UTI, hx pyelonephritis, who presents to the ED with back pain. Patient reprots left lumbar back pain radiating to left buttock. She describes pain as tightness which radiates to bilateral inner thighs. She reports inability to ambulate secondary to pain and her knees giving out under her. She reports chronic back pain x 15 years but states this pain is different starting 2 days ago. No recent trauma/ injury. She rates pain 7/10 at rest and 10/10 with movement. She reports dysuria and subjective warmth. She was seen at urgent care earlier today and placed on Bactrim for UTI. She reports chronic urinary incontinence unchanged from baseline. She follows with Dr. Beckwith for overactive bladder and frequent UTI. She denies numbness/ tingling. She reports anxiety and cigarette cravings. She denies chills, cough, URI symptoms, chest pain, SOB, abdominal pain, nausea, vomiting, diarrhea, constipation, gross hematuria. She has seen Dr. Meeks and had MRI's done in the past however last appointment was some time ago. No hx of back surgery. . Physical Exam (per Admitting): General Appearance: + pertinent finding (alert anxious 56 year old female) Head: normocephalic, atraumatic Eyes: normal inspection ENT: hearing grossly normal, pharynx normal Neck: supple, trachea midline Respiratory/Chest: lungs clear, normal breath sounds, no respiratory distress Cardiovascular: regular rate, rhythm, no murmur Abdomen/GI: normal bowel sounds, non tender, soft Back: no CVA tenderness, + pertinent finding (left lumbar paraspinal tenderness/ muscle spasm extending to left buttock. straight leg raise negative bilaterally.) Extremities/Musculoskelatal: no calf tenderness, + pertinent finding (LLE edema- chronic due to lymphedema per patient) Neurologic/Psych: alert, normal reflexes (normal patellar and achilles reflexes), + pertinent finding (anxious, flight of ideas, mildly paranoid. hip flexion and ankle flexion/ extension 5/5 bilateral LE. sensation to light touch grossly intact bilateral LE.) Skin: normal color, warm/dry Hospital Course SEVERE LOW BACK PAIN CT lumbar spine demonstrated multilevel spondylitic changes with multilevel disc bulges and multilevel spinal stenosis; grade 2/4 spondylolisthesis L5 S1, bilateral L5-S1 foraminal narrowing. Ortho consulted. MRI cervical, thoracic, lumbar spine performed. Imaging of cervical and thoracic spine revealed mild degenerative disc and foraminal disease.. Imaging of lumbar spine per Radiology: 1. Severe bilateral foraminal stenosis at L5-S1. 2. This is felt to be secondary primarily to the grade 2 anterolisthesis of L5 on S1 associated with a posterior spondylolysis. 3. Broad-based bulging disc L4-L5. PT / OT consulted. Patient ambulating independently, albeit with some discomfort. Surgical intervention discussed as option, but (1) patient is scheduled for bladder surgery in about 2 weeks which is a higher priority per her and (2) clopidogrel would have to be held prior to surgery. Called patient's Vascular Surgery clinic in [place]; they do not recommend holding clopidogrel because of risk of thrombosis of right iliac stent. If surgery is deemed to be absolutely necessary and patient accepts potential risk, procedure should be done when appropriate Vascular Surgery expertise is available in the event of a vascular emergency. Patient is taking a large number of medications, some with analgesic benefit. Best not to add to polypharmacology at this time. RECURRENT UTI's Recently placed on TMP / sulfa by Urology. Urine culture growing E coli, pansensitive + alpha strep. Afebrile. Transitioned from IV ceftriaxone to TMP / sulfa. HISTORY OF MRSA Contact isolation. TOBACCO USE / NICOTINE WITHDRAWAL Nicotine patch. Tobacco counseling. VTE PROPHYLAXIS SQ heparin. Ambulating. DISPOSITION Ambulating independently; no need for inpatient rehab. Patient in process of establishing with new PCP. Urology follow-up with Dr. Beckwith. [place] [facility] 2 [place]. Ortho Spine follow-up with Dr. Meeks after recovery from bladder surgery. . Discharge Instructions Date of Service January 21, 2017. Admission Reason for Admission: severe back pain, bladder infection . Discharge Discharge Diagnosis / Problem: severe back pain, bladder infection Discharge Goals Goal(s): Decrease discomfort, Improve function Activity Recommendations Activity Limitations: resume your previous activity Lifting Limitations: no more than 10 pounds . Instructions / Follow-Up Instructions / Follow-Up Please get established with a primary care provider as soon as possible. Bladder surgery at [facility] as scheduled. Please call Dr. Meeks's office to schedule follow-up appointment after you have recovered from your bladder surgery. Seek medical attention if you have: * temperature above 101 * chest pain or trouble breathing * abdominal pain, nausea, vomiting * diarrhea, dark stools or bloody stools * any unanswered questions or concerns You can reach a [facility] hospitalist on duty at [facility] 24 hours a day by calling [phone]. Call 911 if symptoms are severe. Please take good care of yourself. Sunil Pimentel . Current Hospital Diet Patient's current hospital diet: Regular Diet Discharge Diet Recommended Diet: Regular Diet Pending Studies Studies pending at discharge: no Medical Emergencies . Who to Call and When: Medical Emergencies: If at any time you feel your situation is an emergency, please call 911 immediately. . Non-Emergent Contact Non-Emergency issues call your: Primary Care Provider . . "Provider Documentation" section prepared by Sunil Pimentel. . VTE Core Measure Inpt VTE Proph given/why not?: Unfractionated heparin SQ . Additional Copies To Rajendra Meeks D.O.
== END 2017-01-21 17:00 | disposition home or self-care (01) ==
LOC: CANRESERV → ENRESERVDT → ENRESERVTM → EDBD 16:40 → C.EDC 16:41 → C.MS2W 22:41
PROVIDERS: ADMIT Family Medicine; ATTEND Hospitalist
DX: M48.07 Spinal stenosis, lumbosacral region (principal); M47.897 Other spondylosis, lumbosacral region; M54.9 Dorsalgia, unspecified; M51.26 Other intervertebral disc displacement, lumbar region; G89.29 Other chronic pain; N39.0 Urinary tract infection, site not specified; F32.9 Major depressive disorder, single episode, unspecified; E78.5 Hyperlipidemia, unspecified; K21.9 Gastro-esophageal reflux disease without esophagitis; Z79.02 Long term (current) use of antithrombotics/antiplatelets; F17.200 Nicotine dependence, unspecified, uncomplicated; Z90.710 Acquired absence of both cervix and uterus; Z90.89 Acquired absence of other organs; Z98.890 Other specified postprocedural states; Z85.41 Personal history of malignant neoplasm of cervix uteri; Z82.49 Family history of ischemic heart disease and other diseases of the circulatory system

== ENCOUNTER 2017-07-11 17:25 | Emergency (ER) | payer OTHER ==
[~2017-07-11] VITALS: Ht 165.1 cm; Wt 84.0 kg
[~2017-07-11 17:25] MED LIST changes: -CYAN100020 PO; +DSY100 PO; +FIBETAB PO; +MTR600 PO; -PROB1CAP32 PO; -SULF800T23 PO; -TRAZ50TA35 PO; +[UNRECOGNIZED DRUG - OTHER] PO
[2017-07-11 17:33] VITALS: TEMP 37; Ht 165.1 cm; Wt 84.0 kg
[2017-07-11 17:55] LABS: BASO % 0.9 %; BASO ABS # 0.07 K/uL (0-0.2); COMPLETE YES; EOS % 3.6 %; HEMATOCRIT 33.7 % (37-47); IG% 0.2 %; LYMPH % 36.4 %; LYMPH ABS # 2.93 K/uL (1.2-3.4); MEAN CORPUSCULAR HEMOGLOBIN 24.8 pg (25-34); MEAN CORPUSCULAR HGB CONC 30.6 g/dl (32-36); MEAN PLATELET VOLUME 8.8 fL (7.4-10.4); MONO % 6.5 %; NEUT % 52.4 %; PLATELET COUNT 345 K/uL (130-400); RED BLOOD COUNT 4.16 M/uL (4.2-5.4); WHITE BLOOD COUNT 8.04 K/uL (4.8-10.8)
[2017-07-11 18:07] LABS: INR 0.9 (0.9-1.1); PARTIAL THROMBOPLASTIN RATIO 0.9
[2017-07-11 18:13] LABS: ALT/SGPT 23 U/L (12-78); BLOOD UREA NITROGEN 6 mg/dl (7-18); BUN/CREATININE RATIO 6.1 (10-20); CARBON DIOXIDE 27 mmol/L (21-32); CHLORIDE 110 mmol/L (98-107); CREATININE 1.01 mg/dl (0.60-1.20); GLUCOSE 76 mg/dl (70-99); MAGNESIUM 2.3 mg/dl (1.8-2.4); POTASSIUM 4.1 mmol/L (3.5-5.1); SODIUM 142 mmol/L (136-145)
[2017-07-11 18:15] LABS: MANUAL MICROSCOPIC REQUIRED? YES; URINE APPEARANCE CLOUDY (CLEAR); URINE BILIRUBIN NEG (NEG); URINE COLOR YELLOW; URINE NITRITE NEG (NEG); UROBILINOGEN NEG (NEG)
[2017-07-11 18:22] LABS: ALKALINE PHOSPHATASE 134 U/L (45-117); AST/SGOT 27 U/L (15-37); CKMB/CK RATIO 0.7 (0-3.0)
--- NOTE | 2017-07-11 18:24 | DIAGNOSTIC IMAGING REPORT ---
HEAD WITHOUT CONTRAST (CT) CT DOSE: 537.48 mGy.cm HISTORY: Mental status change EVALUATE ALTERED MENTAL STATUS/WEAKNESS TECHNIQUE: Multiaxial CT images of the head were performed without the use of intravenous contrast. A dose lowering technique was utilized adhering to the principles of ALARA. Comparison: 02/05/2011 Findings: The paranasal sinuses and mastoid air cells are clear. The calvarium and skull base are intact. The ventricles and sulci are within normal limits. There is no mass, hematoma, midline shift, or acute infarct. Impression: No acute intracranial abnormality. The above report was generated using voice recognition software. It may contain grammatical, syntax or spelling errors. Electronically signed by: Neil Orozco M.D. 07/11/2017 6:22 PM Dictated Date/Time: 07/11/2017 6:21 PM
[2017-07-11 18:25] LABS: REVIEW REQ? NO
[2017-07-11 18:27] LABS: URINE BACTERIA 1+ (NEG)
[2017-07-11 18:28] LABS: ZZUR CULT IF INDIC CLEAN CATCH YES
--- NOTE | 2017-07-11 19:12 | EMERGENCY ROOM VISIT NOTE ---
History Report prepared by Vladislav: Saravanan Gonzales Under the Supervision of: Toan Del RioO. First contact with patient: 17:27 Chief Complaint: HEAD PAIN Stated Complaint: HEAD PAIN History of Present Illness The patient is a 56 year old female who presents to the Emergency Room via EMS with complaints of worsening head pain that started a couple weeks ago. She says that the top of her skull has been tingling, and her "head and brain just hurt". The patient adds that she has been unsteady on her feet, and she has been feeling weak. She notes that she has "cloudiness" in her head when she tries to think. The patient saw her primary care physician a week ago for the symptoms, and had blood work done, and the only thing that came up was that her liver enzyme was elevated. She had an MRI of her brain at [facility], and nothing abnormal was found. The patient says that her symptoms have worsened the past few days. Source of History: patient Onset: A couple weeks ago Position: head Quality: tingling, other (pain) Timing: worsening Associated Symptoms: + headache, + weakness Note: Associated symptoms: Unsteady on feet, "cloudiness" in her when trying to think. Notes her liver enzymes were elevated. Review of Systems See HPI for pertinent positives & negatives. A total of 10 systems reviewed and were otherwise negative. Past Medical & Surgical Medical Problems: (1) Anxiety (2) Back pain (3) Back pain (4) Cervical cancer (5) Depression (6) Dyslipidemia (7) GERD (gastroesophageal reflux disease) (8) H/O hemorrhagic cystitis (9) Hx of pyelonephritis (10) Hx of recurrent urinary tract infection (11) IBS (irritable bowel syndrome) (12) Mood disorder (13) OAB (overactive bladder) (14) OCD (obsessive compulsive disorder) (15) Ureteral stricture (16) UTI (urinary tract infection) Surgical Problems: (1) H/O cystoscopy (2) History of hysterectomy (3) History of ureter stent (4) S/P appendectomy (5) S/P vascular surgery Family History Hypertension MOTHER Social History Smoking Status: Current Every Day Smoker Alcohol Use: occasionally Drug Use: none Marital Status: Housing Status: lives alone Current/Historical Medications Scheduled Ascorbic Acid (Vitamin C), 500 MG PO QAM Bupropion HCl (Bupropion HCl Sr), 100 MG PO QAM Calcium Carbonate-Vitamin D (Calcium 600 + D), 1 TAB PO DAILY Citalopram Hydrobromide (Celexa), 40 MG PO QAM Clopidogrel Bisulfate (Plavix), 75 MG PO QAM Estradiol Vaginal (Estrace), 1 APPLN TOP 3XWK Fiber (Fiber Complete), 1 TAB PO DAILY Fluticasone Prop/Salmeterol (Advair Diskus 250/50 60 Dose), 1 PUFF INH BID Glycopyrrolate (Glycopyrrolate), 2 MG PO BID Lamotrigine (Lamictal), 150 MG PO BID Multivitamins/Minerals (Mvi With Minerals), 1 TAB PO DAILY Pantoprazole (Protonix), 40 MG PO QAM Potassium Chloride Microencaps (Potassium Chloride Er), 20 MEQ PO BID Rosuvastatin Calcium (Crestor), 10 MG PO DAILY Tiotropium [place] (Spiriva Handihaler), 1 CAP INH DAILY Trazodone HCl (Trazodone HCl), 100 MG PO HS Vitamin E (Vitamin E), 400 UNIT PO QAM [[id number] acid], 1 TAB PO DAILY Scheduled PRN Ibuprofen (Ibuprofen), 600 MG PO UD PRN for Pain Ipratropium-Albuterol (Combivent Respimat), 1 PUFF INH BID PRN for SOB/Wheezing Lorazepam (Ativan), 0.5 MG PO TID PRN for Anxiety Allergies Coded Allergies: Ciprofloxacin (Verified Allergy, Unknown, sores on tongue, 07/11/17) Gabapentin (Unverified Allergy, Unknown, unknown, 07/11/17) Meloxicam (Unverified Allergy, Unknown, unknown, 07/11/17) Paroxetine (Verified Allergy, Unknown, suicidal thoughts, 07/11/17) Varenicline (Verified Allergy, Unknown, suicidal thoughts, 07/11/17) Prednisone (Verified Adverse Reaction, Intermediate, "INTERNAL BLEEDING FROM KIDNEY", 07/11/17) Physical Exam Vital Signs Date Time Temp Pulse Resp B/P (MAP) Pulse Ox O2 Delivery O2 Flow Rate FiO2 07/11/17 19:03 77 07/11/17 17:33 37.0 87 18 134/87 96 Room Air Physical Exam VITAL SIGNS: were reviewed as above. GENERAL:Non-toxic in appearance. SKIN: Warm dry and pink. HEAD: Normocephalic and atraumatic. OROPHARYNX: Is clear and moist NECK: Supple without lymphadenopathy or meningismus. LUNGS: clear. HEART: Regular rate and rhythm. ABDOMEN: Soft and nontender. EXTREMITIES: Warm and well perfused. NEUROLOGICALLY: Awake alert and oriented without focal deficit. Cranial nerves 2 -12 are intact. There is no pronator drift. Cerebellar testing is within normal limits. There is no nystagmus. There is no facial droop. Speech is clear. Vision is grossly normal. MUSCULOSKELETAL: Good muscle tone. No evidence of trauma. Medical Decision & Procedures ER Provider Diagnostic Interpretation: CT results as stated below per my review and radiologist interpretation: HEAD WITHOUT CONTRAST (CT) CT DOSE: 537.48 mGy.cm HISTORY: Mental status change EVALUATE ALTERED MENTAL STATUS/WEAKNESS TECHNIQUE: Multiaxial CT images of the head were performed without the use of intravenous contrast. A dose lowering technique was utilized adhering to the principles of ALARA. Comparison: 02/05/2011 Findings: The paranasal sinuses and mastoid air cells are clear. The calvarium and skull base are intact. The ventricles and sulci are within normal limits. There is no mass, hematoma, midline shift, or acute infarct. Impression: No acute intracranial abnormality. The above report was generated using voice recognition software. It may contain grammatical, syntax or spelling errors. Electronically signed by: Neil Orozco M.D. 07/11/2017 6:22 PM Dictated Date/Time: 07/11/2017 6:21 PM Laboratory Results 07/11/17 17:45 Red Blood Count 4.16, Mean Corpuscular Volume 81.0, Mean Corpuscular Hemoglobin 24.8, Mean Corpuscular Hemoglobin Concent 30.6, Mean Platelet Volume 8.8, Neutrophils (%) (Auto) 52.4, Lymphocytes (%) (Auto) 36.4, Monocytes (%) (Auto) 6.5, Eosinophils (%) (Auto) 3.6, Basophils (%) (Auto) 0.9, Neutrophils # (Auto) 4.21, Lymphocytes # (Auto) 2.93, Monocytes # (Auto) 0.52, Eosinophils # (Auto) 0.29, Basophils # (Auto) 0.07 07/11/17 17:45 Test 07/11/17 17:32 07/11/17 17:45 07/11/17 17:56 White Blood Count 8.04 K/uL (4.8-10.8) Red Blood Count 4.16 M/uL (4.2-5.4) Hemoglobin 10.3 g/dL (12.0-16.0) Hematocrit 33.7 % (37-47) Mean Corpuscular Volume 81.0 fL (80-100) Mean Corpuscular Hemoglobin 24.8 pg (25-34) Mean Corpuscular Hemoglobin Concent 30.6 g/dl (32-36) Platelet Count 345 K/uL (130-400) Mean Platelet Volume 8.8 fL (7.4-10.4) Neutrophils (%) (Auto) 52.4 % Lymphocytes (%) (Auto) 36.4 % Monocytes (%) (Auto) 6.5 % Eosinophils (%) (Auto) 3.6 % Basophils (%) (Auto) 0.9 % Neutrophils # (Auto) 4.21 K/uL (1.4-6.5) Lymphocytes # (Auto) 2.93 K/uL (1.2-3.4) Monocytes # (Auto) 0.52 K/uL (0.11-0.59) Eosinophils # (Auto) 0.29 K/uL (0-0.5) Basophils # (Auto) 0.07 K/uL (0-0.2) RDW Standard Deviation 48.4 fL (36.4-46.3) RDW Coefficient of Variation 16.2 % (11.5-14.5) Immature Granulocyte % (Auto) 0.2 % Immature Granulocyte # (Auto) 0.02 K/uL (0.00-0.02) Prothrombin Time 10.0 SECONDS (9.0-12.0) Prothromb Time International Ratio 0.9 (0.9-1.1) Activated Partial Thromboplast Time 23.6 SECONDS (21.0-31.0) Partial Thromboplastin Ratio 0.9 Anion Gap 5.0 mmol/L (3-11) Est Creatinine Clear Calc Drug Dose 65.0 ml/min Estimated GFR () 71.1 Estimated GFR (Non- 61.3 BUN/Creatinine Ratio 6.1 (10-20) Calcium Level 9.0 mg/dl (8.5-10.1) Magnesium Level 2.3 mg/dl (1.8-2.4) Total Bilirubin 0.2 mg/dl (0.2-1) Direct Bilirubin < 0.1 mg/dl (0-0.2) Aspartate Amino Transf (AST/SGOT) 27 U/L (15-37) Alanine Aminotransferase (ALT/SGPT) 23 U/L (12-78) Alkaline Phosphatase 134 U/L (45-117) Total Creatine Kinase 120 U/L (26-192) Creatine Kinase MB 0.8 ng/ml (0.5-3.6) Creatine Kinase MB Ratio 0.7 (0-3.0) Troponin I < 0.015 ng/ml (0-0.045) Total Protein 7.2 gm/dl (6.4-8.2) Albumin 3.1 gm/dl (3.4-5.0) Lipase 142 U/L (73-393) Thyroid Stimulating Hormone (TSH) 3.440 uIu/ml (0.300-4.500) Urine Color YELLOW Urine Appearance CLOUDY (CLEAR) Urine pH 7.0 (4.5-7.5) Urine Specific [place] 1.020 (1.000-1.030) Urine Protein 1+ (NEG) Urine Glucose (UA) NEG (NEG) Urine Ketones NEG (NEG) Urine Occult Blood TRACE (NEG) Urine Nitrite NEG (NEG) Urine Bilirubin NEG (NEG) Urine Urobilinogen NEG (NEG) Urine Leukocyte Esterase TRACE (NEG) Urine RBC 5-10 /hpf (0-4) Urine WBC 5-10 /hpf (0-5) Urine Epithelial Cells 10-20 /lpf (0-5) Urine Bacteria 1+ (NEG) Laboratory results as stated above per my review. ECG Indication: weakness Rate (beats per minute): 81 Rhythm: normal sinus Findings: no ectopy, other (no acute injury) ED Course 172: Previous medical records were reviewed. The patient was evaluated in room A2. A complete history and physical examination was performed. 1918: On reevaluation, the patient is resting comfortably. I discussed the results and findings with the patient. She verbalized agreement of the treatment plan. She was discharged home. Medical Decision Differential includes: Acute intracranial bleed, trauma, meningitis, encephalitis, increased intracranial pressure, mass or mass effect, facial or dental infection, temporal arteritis, CVA, TIA, acute hypertensive emergency, sinusitis, carbon monoxide exposure. This is a 56-year-old female who presents to the ED with a chief complaint of a headache. The patient reports tingling on the top of her skull. She states that her head and brain hurt. She also states that she felt unsteady on her feet. She feels a little weak and cloudy in the head. She also reports decreased ambition. Her symptoms started a couple of weeks ago. She has seen her seat PCP and had blood work done 7 days ago. He did not know the cause for her symptoms. She does have a history of hepatitis C. She also reports having had a brain MRI about a week ago and this was also normal. The patient's physical exam today is normal. Her neurologic exam is normal. An EKG shows a normal sinus rhythm. CT scan of the brain today is negative for acute disease. CBC and complete metabolic panel were unremarkable. TSH was normal. The patient was told the results of the test. She is felt to be stable for discharge and outpatient follow-up. Medication Reconcilliation Current Medication List: was personally reviewed by me Blood Pressure Screening Patient's blood pressure: Elevated blood pressure Blood pressure disposition: Elevated BP felt to be situational Impression Primary Impression: Headache Scribe Attestation The scribe's documentation has been prepared under my direction and personally reviewed by me in its entirety. I confirm that the note above accurately reflects all work, treatment, procedures, and medical decision making performed by me. Departure Information Dispostion Home / Self-Care Referrals Lavern Minor DO (PCP) Patient Instructions My [facility] Additional Instructions Follow-up with your doctor for further care and evaluation in 1-2 days. Return to the emergency department for worsening or new symptoms or any concerns. You have been examined and treated today on an emergency basis only. This is not a substitute for, or an effort to provide, complete comprehensive medical care. It is impossible to recognize and treat all injuries or illnesses in a single emergency department visit. It is therefore important that you follow up closely with your doctor. Call as soon as possible for an appointment.
[2017-07-11] MEDS ORDERED: LSN5 PO (19:25)
[2017-07-11] MEDS ORDERED: PROB1CAP54 PO (19:25)
[2017-07-11] MEDS ORDERED: LYR/50 PO (19:25)
[2017-07-11] MEDS ORDERED: CYM30 PO (19:25)
[2017-07-11 19:27] VITALS: BP 135/78; PULSE 79; O2SAT 96
== END 2017-07-11 19:28 | disposition home or self-care (01) ==
LOC: EDBD 17:25 → C.EDA 17:27
DX: R51 Headache (principal); F32.9 Major depressive disorder, single episode, unspecified; E78.5 Hyperlipidemia, unspecified; K21.9 Gastro-esophageal reflux disease without esophagitis; K58.9 Irritable bowel syndrome, unspecified; F42.9 Obsessive-compulsive disorder, unspecified; F17.200 Nicotine dependence, unspecified, uncomplicated; Z79.02 Long term (current) use of antithrombotics/antiplatelets; Z79.51 Long term (current) use of inhaled steroids; Z85.41 Personal history of malignant neoplasm of cervix uteri; Z86.19 Personal history of other infectious and parasitic diseases; Z82.49 Family history of ischemic heart disease and other diseases of the circulatory system

== ENCOUNTER 2017-07-30 16:57 | Emergency (ER) | payer OTHER ==
[~2017-07-30] VITALS: Ht 165.1 cm; Wt 84.5 kg
[~2017-07-30 16:57] MED LIST changes: +CYM30 PO; -ESTCR TOP; +LSN5 PO; +LYR/50 PO; +PROB1CAP54 PO; -WLLSR100 PO
[2017-07-30] MEDS ORDERED: [UNRECOGNIZED DRUG - CODE] PO (17:01)
[2017-07-30 17:09] VITALS: TEMP 36.9
[2017-07-30] MEDS ORDERED: NICOTINE 21 MG/24 HR TDSY TD STA (17:10)
[2017-07-30] MEDS ORDERED: KETOROLAC TROMETHAMINE 30 MG/ML VIAL IV STA (17:10)
--- NOTE | 2017-07-30 17:11 | EMERGENCY ROOM VISIT NOTE ---
History Report prepared by Vladislav: Savi Gonzalez Under the Supervision of: Dr. Stanley Alfaro M.D. First contact with patient: 16:59 Stated Complaint: VAG BLEED History of Present Illness The patient is a 57 year old female who presents to the Emergency Room with complaints of vaginal bleeding beginning an hour ago. The patient notes passing large clots. She rates her pain as a 7/10 when she is passing clots. The patient has a history of a hysterectomy in 1995. She follows up with Dr. Flor HINOJOSA. The patient was in the ED a couple weeks ago for a headache. She also is following up with a urology specialist at [facility] because she states her "bladder can only holding 4 ccs of urine". The patient reports going through 4 pads since her bleeding began an hour ago. She denies any upper abdominal pain. The patient is on Plavix for a stent in her right left. Source of History: patient Onset: an hour ago Position: other (vaginal ) Symptom Intensity: 7/10 Quality: other (bleeding) Associated Symptoms: No abdominal pain Review of Systems See HPI for pertinent positives & negatives. A total of 10 systems reviewed and were otherwise negative. Past Medical & Surgical Medical Problems: (1) Anxiety (2) Back pain (3) Back pain (4) Cervical cancer (5) Depression (6) Dyslipidemia (7) GERD (gastroesophageal reflux disease) (8) H/O hemorrhagic cystitis (9) Hx of pyelonephritis (10) Hx of recurrent urinary tract infection (11) IBS (irritable bowel syndrome) (12) Mood disorder (13) OAB (overactive bladder) (14) OCD (obsessive compulsive disorder) (15) Ureteral stricture (16) UTI (urinary tract infection) Surgical Problems: (1) H/O cystoscopy (2) History of hysterectomy (3) History of ureter stent (4) S/P appendectomy (5) S/P vascular surgery Family History Hypertension MOTHER Social History Smoking Status: Current Every Day Smoker Alcohol Use: occasionally Drug Use: none Marital Status: Housing Status: lives alone Current/Historical Medications Scheduled Ascorbic Acid (Vitamin C), 500 MG PO QAM Calcium Carbonate-Vitamin D (Calcium 600 + D), 1 TAB PO DAILY Citalopram Hydrobromide (Celexa), 40 MG PO QAM Clopidogrel Bisulfate (Plavix), 75 MG PO QAM Cobalamine Combinations (Folic + B12), 1 TAB PO DAILY Duloxetine HCl (Duloxetine HCl), 2 CAP PO DAILY Fiber (Fiber Complete), 1 TAB PO DAILY Fluticasone Prop/Salmeterol (Advair Diskus 250/50 60 Dose), 1 PUFF INH BID Glycopyrrolate (Glycopyrrolate), 2 MG PO BID Lamotrigine (Lamictal), 150 MG PO BID Lisinopril (Lisinopril), 1 TAB PO DAILY Multivitamins/Minerals (Mvi With Minerals), 1 TAB PO DAILY Pantoprazole (Protonix), 40 MG PO QAM Potassium Chloride Microencaps (Potassium Chloride Er), 20 MEQ PO BID Pregabalin (Lyrica), 1 CAP PO TID Probiotic Product (Acidophilus), 1 CAP PO DAILY Rosuvastatin Calcium (Crestor), 10 MG PO DAILY Tiotropium [place] (Spiriva Handihaler), 1 CAP INH DAILY Trazodone HCl (Trazodone HCl), 100 MG PO HS Vitamin E (Vitamin E), 400 UNIT PO QAM Scheduled PRN Ibuprofen (Ibuprofen), 600 MG PO UD PRN for Pain Ipratropium-Albuterol (Combivent Respimat), 1 PUFF INH BID PRN for SOB/Wheezing Lorazepam (Ativan), 0.5 MG PO TID PRN for Anxiety Allergies Coded Allergies: Ciprofloxacin (Verified Allergy, Unknown, sores on tongue, 07/30/17) Gabapentin (Unverified Allergy, Unknown, unknown, 07/30/17) Meloxicam (Unverified Allergy, Unknown, unknown, 07/30/17) Paroxetine (Verified Allergy, Unknown, suicidal thoughts, 07/30/17) Varenicline (Verified Allergy, Unknown, suicidal thoughts, 07/30/17) Prednisone (Verified Adverse Reaction, Intermediate, "INTERNAL BLEEDING FROM KIDNEY", 07/30/17) Physical Exam Vital Signs Date Time Temp Pulse Resp B/P (MAP) Pulse Ox O2 Delivery O2 Flow Rate FiO2 07/30/17 21:58 80 20 168/88 99 07/30/17 20:56 80 20 179/98 98 Nasal Cannula 2.0 07/30/17 19:53 100 Nasal Cannula 2.0 07/30/17 19:18 100 Room Air 07/30/17 19:18 79 16 162/85 100 Room Air 07/30/17 17:09 36.9 95 16 143/90 95 Room Air Physical Exam GENERAL: Patient is a healthy-appearing well-nourished female HEAD: Normocephalic atraumatic EYES: Ocular movements intact pupils equal and react to light OROPHARYNX mucous membranes are moist no exudates present no erythema or edema present NECK: Supple no nuchal rigidity CHEST: Good equal expansion LUNGS: Clear and equal to auscultation CARDIAC: Normal S1 and S2 ABDOMEN: Soft nontender no guarding BACK: No CVA tenderness EXTREMITIES: No pain upon palpation normal muscle strength in all groups no clubbing cyanosis or edema NEURO: Patient is following commands and answering questions appropriately. Alert and oriented x3 Cranial Nerves 2-12 grossly intact Medical Decision & Procedures ER Provider Diagnostic Interpretation: Radiology results as stated below per my review and radiologist interpretation: (RENAL)RETROPERITON COMP FINDINGS: Right kidney: Normal echogenicity. Right kidney measures 9.4 cm. Prominence of the renal pelvis and proximal right ureter with urothelial thickening suggested. No convincing evidence of calculus or mass. Normal perfusion. Left kidney: Normal echogenicity. Left kidney measures 9.0 cm. Prominence of the renal pelvis noted. No convincing evidence of calculus or mass. Normal perfusion. Bladder: Irregular circumferential bladder wall thickening. Ureteral jets not visualized. Other: None. IMPRESSION: 1. Irregular circumferential bladder wall thickening. An underlying neoplasm is difficult to exclude. Direct visualization with cystoscopy is recommended. 2. Mild bilateral hydronephrosis versus pelviectasis. 3. Right urothelial thickening raises concern for inflammation/infection. Correlate with urinalysis. Electronically signed by: Aakash Haney M.D. PELVIC COMPLETE NON OB FINDINGS: Study is very limited secondary to obscuring bowel gas. Bilateral ovaries are not diagnostically visualized. No adnexal mass lesions identified. Uterus is surgically absent. There is a complex masslike lesion of the urinary bladder lumen measuring up to 6.4 x 3.5 x 4.8 cm demonstrating decreased echogenicity centrally and no definite internal vascularity. IMPRESSION: 1. Limited study secondary to obscuring bowel gas. Patient refused the transvaginal component of the study. 2. Surgically absent uterus. 3. Ovaries are not diagnostically visualized. No adnexal mass lesions. 4. Large complex masslike tissue of the urinary bladder lumen measuring up to 6.4 cm is concerning for possible bladder neoplasm with hemorrhagic debris thought to be less likely. Correlation with cystoscopy recommended. The above report was generated using voice recognition software. It may contain grammatical, syntax or spelling errors. Electronically signed by: Pepe Tracey M.D. Laboratory Results 07/30/17 17:22 Red Blood Count 4.15, Mean Corpuscular Volume 80.0, Mean Corpuscular Hemoglobin 25.1, Mean Corpuscular Hemoglobin Concent 31.3, Mean Platelet Volume 9.2, Neutrophils (%) (Auto) 49.6, Lymphocytes (%) (Auto) 41.5, Monocytes (%) (Auto) 5.7, Eosinophils (%) (Auto) 2.2, Basophils (%) (Auto) 0.9, Neutrophils # (Auto) 3.37, Lymphocytes # (Auto) 2.82, Monocytes # (Auto) 0.39, Eosinophils # (Auto) 0.15, Basophils # (Auto) 0.06 07/30/17 17:22 Test 07/30/17 17:22 White Blood Count 6.80 K/uL (4.8-10.8) Red Blood Count 4.15 M/uL (4.2-5.4) Hemoglobin 10.4 g/dL (12.0-16.0) Hematocrit 33.2 % (37-47) Mean Corpuscular Volume 80.0 fL (80-100) Mean Corpuscular Hemoglobin 25.1 pg (25-34) Mean Corpuscular Hemoglobin Concent 31.3 g/dl (32-36) Platelet Count 354 K/uL (130-400) Mean Platelet Volume 9.2 fL (7.4-10.4) Neutrophils (%) (Auto) 49.6 % Lymphocytes (%) (Auto) 41.5 % Monocytes (%) (Auto) 5.7 % Eosinophils (%) (Auto) 2.2 % Basophils (%) (Auto) 0.9 % Neutrophils # (Auto) 3.37 K/uL (1.4-6.5) Lymphocytes # (Auto) 2.82 K/uL (1.2-3.4) Monocytes # (Auto) 0.39 K/uL (0.11-0.59) Eosinophils # (Auto) 0.15 K/uL (0-0.5) Basophils # (Auto) 0.06 K/uL (0-0.2) RDW Standard Deviation 45.4 fL (36.4-46.3) RDW Coefficient of Variation 15.5 % (11.5-14.5) Immature Granulocyte % (Auto) 0.1 % Immature Granulocyte # (Auto) 0.01 K/uL (0.00-0.02) Prothrombin Time 10.5 SECONDS (9.0-12.0) Prothromb Time International Ratio 1.0 (0.9-1.1) Activated Partial Thromboplast Time 24.1 SECONDS (21.0-31.0) Partial Thromboplastin Ratio 0.9 Anion Gap 7.0 mmol/L (3-11) Estimated GFR () 73.2 Estimated GFR (Non- 63.1 BUN/Creatinine Ratio 7.7 (10-20) Calcium Level 8.9 mg/dl (8.5-10.1) Total Bilirubin 0.2 mg/dl (0.2-1) Aspartate Amino Transf (AST/SGOT) 31 U/L (15-37) Alanine Aminotransferase (ALT/SGPT) 25 U/L (12-78) Alkaline Phosphatase 125 U/L (45-117) Total Protein 7.1 gm/dl (6.4-8.2) Albumin 3.2 gm/dl (3.4-5.0) Globulin 3.9 gm/dl (2.5-4.0) Albumin/Globulin Ratio 0.8 (0.9-2) Labs reviewed by ED physician. Medications Administered Medications (Trade) Dose Ordered Sig/Mirella Route Start Time Stop Time Status Last Admin Dose Admin Ketorolac Tromethamine (Toradol Inj) 30 mg NOW STAT IV 07/30/17 17:10 07/30/17 17:12 DC 07/30/17 17:35 30 MG Nicotine (Nicoderm Cq 21MG Patch) 1 patch NOW STAT TD 07/30/17 17:10 07/30/17 17:12 DC 07/30/17 17:36 1 PATCH Nicotine Polacrilex (Nicorette 2MG Gum) 1 piece PRN PRN MT 07/30/17 17:15 07/30/17 22:36 DC 07/30/17 17:36 1 PIECE Lorazepam (Ativan Inj) 1 mg NOW STAT IV 07/30/17 18:50 07/30/17 18:51 DC 07/30/17 19:17 1 MG Hydromorphone HCl (Dilaudid Inj) 1 mg NOW STAT IV 07/30/17 18:50 07/30/17 18:51 DC 07/30/17 19:17 1 MG Ondansetron HCl (Zofran Inj) 4 mg NOW STAT IV 07/30/17 18:51 07/30/17 18:52 DC 07/30/17 19:17 4 MG Lorazepam (Ativan Inj) 1 mg NOW STAT IV 07/30/17 19:19 07/30/17 19:20 DC 07/30/17 21:37 1 MG ED Course 1700: Past medical records reviewed. The patient was evaluated in room A11B. A complete history and physical examination was performed. 1709: Nicotine 1 patch TD. Toradol Inj 30 mg IV 1714: Nicotine Polacrilex 1 piece MT. 1849: Dilaudid Inj 1 mg IV, Ativan Inj 1 mg IV. 1850: Zofran Inj 4 mg IV. 1929: I discussed the patient's case with Dr. MyersUrology, She advised to consult Maggie at [place]. 1951: I discussed the patient's case with Dr. Opal Serrano, He accepted the patient for transfer. 1958: I discussed the patient's case with [facility], They have agreed to evaluate the patient for further management and care. Medical Decision Differential diagnosis: Etiologies such as ectopic , dysfunction uterine bleeding, bleeding dyscrasia, trauma, infection, as well as others were entertained. This is a 57-year-old female who presents emergency department writhing around in pain complaining of suprapubic pain along with vaginal bleeding. It is very difficult to obtain a history from the patient but from what I can ascertain she is incontinent of urine and wears pads. On physical exam it appears she is actually bleeding from her urethra. She was sent for a vaginal ultrasound as well as a renal ultrasound. The renal ultrasound was concerning for a bladder tumor which the patient does not appear to know that she has. In addition the patient is also on Plavix. I did call the on-call urologist who asked that the patient be transferred to [place]. I did discuss the case with the on-call urologist in [place]. While in the emergency department I was able to place a Lopez catheter and bloody discharge was evacuated. The patient was given Toradol, Dilaudid and Ativan in the emergency department repeat examination revealed improvement the patient's symptoms. Blood Pressure Screening Patient's blood pressure: Elevated blood pressure Blood pressure disposition: Referred to PCP (will be evaluated by hospitalist) Consults Time Called: 1919 Consulting Physician: Dr. Coppola Returned Call: 1929 I discussed the patient's case with Dr. Coppola, She advised to consult Maggie at [place]. Additional Consults: Time Called: 1951 Consulted Physician: Dr. Opal Serrano Returned Call: 1951 Additional Comments: I discussed the patient's case with Dr. Opal Serrano, He accepted the patient for transfer. Time Called: 1958 Consulted Physician: [facility] Returned Call: 1958 Additional Comments: I discussed the patient's case with [facility], They have agreed to evaluate the patient for further management and care. Impression Primary Impression: Hematuria Additional Impression: Bladder tumor Critical Care I have personally spent greater than 35 minutes of critical care time in the direct management of this patient. This includes bedside care, interpretation of diagnostic studies, and testing, discussion with consultants, patient, and family members, and other required patient management activities. This 35 minutes is in excess of all separately billable procedures. Scribe Attestation The scribe's documentation has been prepared under my direction and personally reviewed by me in its entirety. I confirm that the note above accurately reflects all work, treatment, procedures, and medical decision making performed by me. Departure Information Dispostion Discharge/Transfer to [facility] Referrals Lavern Minor DO (PCP) Problem Qualifiers Primary Impression: Hematuria Hematuria type: unspecified type Qualified Codes: R31.9 - Hematuria, unspecified
[2017-07-30] MEDS ORDERED: NICOTINE POLACRILEX 2 MG GUM MT PRN (17:15)
[2017-07-30 17:43] LABS: BASO % 0.9 %; BASO ABS # 0.06 K/uL (0-0.2); COMPLETE YES; EOS % 2.2 %; HEMATOCRIT 33.2 % (37-47); IG% 0.1 %; LYMPH % 41.5 %; LYMPH ABS # 2.82 K/uL (1.2-3.4); MEAN CORPUSCULAR HEMOGLOBIN 25.1 pg (25-34); MEAN CORPUSCULAR HGB CONC 31.3 g/dl (32-36); MEAN PLATELET VOLUME 9.2 fL (7.4-10.4); MONO % 5.7 %; NEUT % 49.6 %; PLATELET COUNT 354 K/uL (130-400); RED BLOOD COUNT 4.15 M/uL (4.2-5.4)
[2017-07-30 17:50] LABS: PARTIAL THROMBOPLASTIN RATIO 0.9; PROTHROMBIN TIME (PATIENT) 10.5 SECONDS (9.0-12.0)
[2017-07-30 18:01] LABS: ALT/SGPT 25 U/L (12-78); BLOOD UREA NITROGEN 8 mg/dl (7-18); BUN/CREATININE RATIO 7.7 (10-20); CALCIUM 8.9 mg/dl (8.5-10.1); CARBON DIOXIDE 27 mmol/L (21-32); CHLORIDE 108 mmol/L (98-107); CREATININE 0.98 mg/dl (0.60-1.20); GLUCOSE 75 mg/dl (70-99); POTASSIUM 3.6 mmol/L (3.5-5.1); SODIUM 142 mmol/L (136-145)
[2017-07-30 18:04] LABS: ALB/GLOB RATIO 0.8 (0.9-2); ALKALINE PHOSPHATASE 125 U/L (45-117); AST/SGOT 31 U/L (15-37)
--- NOTE | 2017-07-30 18:34 | DIAGNOSTIC IMAGING REPORT ---
(RENAL)RETROPERITON COMP CLINICAL HISTORY: 57 years-old Female presenting with Pt c/o large amount of blood. TECHNIQUE: Real-time grayscale and limited color Doppler ultrasound imaging of the kidneys and bladder was performed. COMPARISON: CT from 01/17/2017. FINDINGS: Right kidney: Normal echogenicity. Right kidney measures 9.4 cm. Prominence of the renal pelvis and proximal right ureter with urothelial thickening suggested. No convincing evidence of calculus or mass. Normal perfusion. Left kidney: Normal echogenicity. Left kidney measures 9.0 cm. Prominence of the renal pelvis noted. No convincing evidence of calculus or mass. Normal perfusion. Bladder: Irregular circumferential bladder wall thickening. Ureteral jets not visualized. Other: None. IMPRESSION: 1. Irregular circumferential bladder wall thickening. An underlying neoplasm is difficult to exclude. Direct visualization with cystoscopy is recommended. 2. Mild bilateral hydronephrosis versus pelviectasis. 3. Right urothelial thickening raises concern for inflammation/infection. Correlate with urinalysis. Electronically signed by: Aakash Haney M.D. 07/30/2017 6:32 PM Dictated Date/Time: 07/30/2017 6:29 PM
--- NOTE | 2017-07-30 18:36 | DIAGNOSTIC IMAGING REPORT ---
PELVIC COMPLETE NON OB HISTORY: 57 years-old Female Pt c/o vag bleeding acute vaginal bleeding. History of prior hysterectomy with pelvic radiation therapy COMPARISON: CT abdomen and pelvis 01/17/2017, renal ultrasound of same day TECHNIQUE: Multiple real-time sonographic images of the deep pelvic structures were obtained transabdominally assessing grayscale appearance and color flow. Patient refused the transvaginal component of the study. FINDINGS: Study is very limited secondary to obscuring bowel gas. Bilateral ovaries are not diagnostically visualized. No adnexal mass lesions identified. Uterus is surgically absent. There is a complex masslike lesion of the urinary bladder lumen measuring up to 6.4 x 3.5 x 4.8 cm demonstrating decreased echogenicity centrally and no definite internal vascularity. IMPRESSION: 1. Limited study secondary to obscuring bowel gas. Patient refused the transvaginal component of the study. 2. Surgically absent uterus. 3. Ovaries are not diagnostically visualized. No adnexal mass lesions. 4. Large complex masslike tissue of the urinary bladder lumen measuring up to 6.4 cm is concerning for possible bladder neoplasm with hemorrhagic debris thought to be less likely. Correlation with cystoscopy recommended. The above report was generated using voice recognition software. It may contain grammatical, syntax or spelling errors. Electronically signed by: Pepe Tracey M.D. 07/30/2017 6:34 PM Dictated Date/Time: 07/30/2017 6:28 PM
[2017-07-30] MEDS ORDERED: HYDROmorphone INJ 1 MG/ML SYR IV STA (18:50)
[2017-07-30] MEDS ORDERED: LORAZEPAM 2 MG/ML 1 ML VIAL IV STA ×2 (18:50→19:19)
[2017-07-30] MEDS ORDERED: ONDANSETRON INJ 2 MG/ML 2 ML VIAL IV STA (18:51)
[2017-07-30 19:18] VITALS: Ht 165.1 cm; Wt 84.5 kg
[2017-07-30 19:53] VITALS: O2SAT 100
[2017-07-30] MEDS ORDERED: LORAZEPAM 2 MG/ML 1 ML VIAL ONE (21:34)
[2017-07-30 21:58] VITALS: BP 168/88; PULSE 80; O2SAT 99
== END 2017-07-30 21:45 | disposition short-term general hospital (02) ==
LOC: EDBD 16:57 → C.EDA 16:58
DX: R31.9 Hematuria, unspecified (principal); D41.4 Neoplasm of uncertain behavior of bladder; Z79.02 Long term (current) use of antithrombotics/antiplatelets; F41.9 Anxiety disorder, unspecified; Z85.41 Personal history of malignant neoplasm of cervix uteri; E78.5 Hyperlipidemia, unspecified; F32.9 Major depressive disorder, single episode, unspecified; K21.9 Gastro-esophageal reflux disease without esophagitis; K58.9 Irritable bowel syndrome, unspecified; N32.81 Overactive bladder; F42.9 Obsessive-compulsive disorder, unspecified; Z87.440 Personal history of urinary (tract) infections; Z82.49 Family history of ischemic heart disease and other diseases of the circulatory system; F17.210 Nicotine dependence, cigarettes, uncomplicated; Z79.899 Other long term (current) drug therapy

== ENCOUNTER 2017-08-25 01:49 | Inpatient (IN) | payer OTHER ==
[2017-08-25] VITALS (7 sets, daily range): BP systolic 106–149; BP diastolic 65–76; PULSE 77–94; TEMP 36.6–37.3; O2SAT 92–96; Ht 167.6 cm; Wt 79.7 kg
[~2017-08-25] VITALS: Ht 167.6 cm; Wt 79.7 kg
[~2017-08-25 01:49] MED LIST changes: +[UNRECOGNIZED DRUG - CODE] PO; -[UNRECOGNIZED DRUG - OTHER] PO
[2017-08-25] MEDS ORDERED: METOCLOPRAMIDE HCL INJ 5 MG/ML 2 ML VIAL IV STA (02:02)
[2017-08-25 02:12] LABS: BASO % 0.4 %; BASO ABS # 0.05 K/uL (0-0.2); COMPLETE YES; EOS % 2.1 %; HEMATOCRIT 33.1 % (37-47); IG% 0.3 %; LYMPH % 18.3 %; LYMPH ABS # 2.16 K/uL (1.2-3.4); MEAN CELL VOLUME 77.5 fL (80-100); MEAN CORPUSCULAR HEMOGLOBIN 24.1 pg (25-34); MEAN CORPUSCULAR HGB CONC 31.1 g/dl (32-36); MEAN PLATELET VOLUME 9.7 fL (7.4-10.4); MONO % 6.7 %; NEUT % 72.2 %; PLATELET COUNT 357 K/uL (130-400); RED BLOOD COUNT 4.27 M/uL (4.2-5.4); WHITE BLOOD COUNT 11.81 K/uL (4.8-10.8)
[2017-08-25] MEDS ORDERED: OPTIRAY 320 IV PRN (02:15)
[2017-08-25] MEDS ORDERED: DICYCLOMINE HCL 10 MG/ML 2 ML AMP IM ONE (02:15)
[2017-08-25 02:33] LABS: ALT/SGPT 24 U/L (12-78); AST/SGOT 27 U/L (15-37); BLOOD UREA NITROGEN 7 mg/dl (7-18); BUN/CREATININE RATIO 7.7 (10-20); CALCIUM 8.6 mg/dl (8.5-10.1); CARBON DIOXIDE 22 mmol/L (21-32); CHLORIDE 108 mmol/L (98-107); CREATININE 0.93 mg/dl (0.60-1.20); GLUCOSE 132 mg/dl (70-99); POTASSIUM 3.1 mmol/L (3.5-5.1); SODIUM 139 mmol/L (136-145)
[2017-08-25 02:36] LABS: ALKALINE PHOSPHATASE 130 U/L (45-117)
[2017-08-25] MEDS ORDERED: POTASSIUM CHLORIDE 10 MEQ TABCR PO STA (03:09)
[2017-08-25 03:39] LABS: URINE APPEARANCE TURBID (CLEAR); URINE BILIRUBIN NEG (NEG); URINE COLOR YELLOW; URINE NITRITE NEG (NEG); URINE SPECIFIC GRAVITY 1.013 (1.000-1.030); UROBILINOGEN NEG (NEG); ZZURINE CULT IF INDIC CATH YES
[2017-08-25 03:45] LABS: MANUAL MICROSCOPIC REQUIRED? NO; REVIEW REQ? YES
[2017-08-25] MEDS ORDERED: CEFTRIAXONE SOD INJ 1 GM ADDVIAL IV STA (04:27)
[2017-08-25] MEDS ORDERED: KETOROLAC TROMETHAMINE 30 MG/ML VIAL IV STA (04:53)
--- NOTE | 2017-08-25 05:00 | History and Physical ---
History & Physical Date & Time of Service: Aug 25, 2017 at 04:59 Chief Complaint: Abd Pain Primary Care Physician: Lavern Minor DO History of Present Illness Source: patient Patient is 57 yr female with PMH of chronic back pain, mood disorder, OCD, depression, hyperlipidemia, peripheral vascular disease s/p RLE stent procedure , hx cervical CA s/p pelvic radiation, overactive bladder, hx recurrent UTIs presents with history of RLQ pain which started today. Patient reports RLQ is sharp, intermittent, radiates to right flank region, 6/10, increases with movement and improves with pain medications. Patient also states she has nausea and an episode of vomiting and has constipation. Her appetite is decreased. Denies any history of chest pain, SOB, cough, dizziness, dysuria, hematuria, fever, chills. She was previously evaluated by and is currently following with a Urologist in [place]. Past Medical/Surgical History Medical Problems: (1) Anxiety Status: Chronic (2) Back pain Status: Chronic (3) Back pain Status: Chronic (4) Cervical cancer Permanent Comment: s/p surgery and radiation Status: Chronic (5) Depression Status: Chronic (6) Dyslipidemia Status: Chronic (7) GERD (gastroesophageal reflux disease) Status: Chronic (8) H/O hemorrhagic cystitis Status: Chronic (9) Hx of pyelonephritis Status: Chronic (10) Hx of recurrent urinary tract infection Status: Chronic (11) IBS (irritable bowel syndrome) Status: Chronic (12) Mood disorder Status: Chronic (13) OAB (overactive bladder) Status: Chronic (14) OCD (obsessive compulsive disorder) Status: Chronic (15) Ureteral stricture Status: Chronic (16) UTI (urinary tract infection) Status: Chronic Surgical Problems: (1) H/O cystoscopy Status: Chronic (2) History of hysterectomy Status: Chronic (3) History of ureter stent Status: Chronic (4) S/P appendectomy Status: Chronic (5) S/P vascular surgery Status: Chronic Family History Hypertension MOTHER Reviewed, not relevant Social History Smoking Status: Current Every Day Smoker Alcohol Use: none Drug Use: none Marital Status: Housing status: lives alone Immunizations History of Influenza Vaccine: Unknown History of Tetanus Vaccine?: Unknown History of Pneumococcal: Unknown History of Hepatitis B Vaccine: Unknown Multi-Drug Resistant Organisms History of MDRO: Yes Type of MDRO: MRSA Allergies Coded Allergies: Ciprofloxacin (Verified Allergy, Unknown, sores on tongue, 08/25/17) Gabapentin (Unverified Allergy, Unknown, unknown, 08/25/17) Meloxicam (Unverified Allergy, Unknown, unknown, 08/25/17) Paroxetine (Verified Allergy, Unknown, suicidal thoughts, 08/25/17) Varenicline (Verified Allergy, Unknown, suicidal thoughts, 08/25/17) Prednisone (Verified Adverse Reaction, Intermediate, "INTERNAL BLEEDING FROM KIDNEY", 08/25/17) Home Medications Scheduled Ascorbic Acid (Vitamin C), 500 MG PO QAM Calcium Carbonate-Vitamin D (Calcium 600 + D), 1 TAB PO DAILY Citalopram Hydrobromide (Celexa), 40 MG PO QAM Clopidogrel Bisulfate (Plavix), 75 MG PO QAM Cobalamine Combinations (Folic + B12), 1 TAB PO DAILY Duloxetine HCl (Duloxetine HCl), 2 CAP PO DAILY Fiber (Fiber Complete), 1 TAB PO DAILY Fluticasone Prop/Salmeterol (Advair Diskus 250/50 60 Dose), 1 PUFF INH BID Glycopyrrolate (Glycopyrrolate), 2 MG PO BID Lamotrigine (Lamictal), 150 MG PO BID Lisinopril (Lisinopril), 1 TAB PO DAILY Multivitamins/Minerals (Mvi With Minerals), 1 TAB PO DAILY Pantoprazole (Protonix), 40 MG PO QAM Potassium Chloride Microencaps (Potassium Chloride Er), 20 MEQ PO BID Pregabalin (Lyrica), 1 CAP PO TID Probiotic Product (Acidophilus), 1 CAP PO DAILY Rosuvastatin Calcium (Crestor), 10 MG PO DAILY Tiotropium [place] (Spiriva Handihaler), 1 CAP INH DAILY Trazodone HCl (Trazodone HCl), 100 MG PO HS Vitamin E (Vitamin E), 400 UNIT PO QAM Scheduled PRN Ipratropium-Albuterol (Combivent Respimat), 1 PUFF INH BID PRN for SOB/Wheezing Lorazepam (Ativan), 0.5 MG PO TID PRN for Anxiety Review of Systems See HPI for pertinent positives & negatives. A total of 10 systems reviewed and were otherwise negative. Physical Exam Vital Signs Date Time Temp Pulse Resp B/P (MAP) Pulse Ox O2 Delivery O2 Flow Rate FiO2 08/25/17 04:00 89 20 172/80 97 Room Air 08/25/17 02:49 98 23 94 08/25/17 02:31 172/107 08/25/17 02:19 90 17 99 08/25/17 02:07 97 Room Air 08/25/17 02:01 182/96 08/25/17 01:59 87 08/25/17 01:54 161/102 08/25/17 01:49 36.6 88 15 161/102 96 Room Air General Appearance: WD/WN, no apparent distress Head: normocephalic, atraumatic Eyes: normal inspection, PERRL, EOMI, sclerae normal ENT: normal ENT inspection, hearing grossly normal Neck: supple, trachea midline Respiratory/Chest: chest non-tender, lungs clear, normal breath sounds, no respiratory distress, no accessory muscle use Cardiovascular: regular rate, rhythm, no murmur Abdomen/GI: normal bowel sounds, soft, + pertinent finding (RLQ, Right flank tender) Back: normal inspection Extremities/Musculoskelatal: normal inspection, + pertinent finding (Chronic LLE lymphedema ) 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, no motor/sensory deficits, alert, normal mood/affect, oriented x 3 Skin: normal color, warm/dry Diagnostics Laboratory Results Results Past 24 Hours Test 08/25/17 01:28 08/25/17 03:15 Range/Units White Blood Count 11.81 4.8-10.8 K/uL Red Blood Count 4.27 4.2-5.4 M/uL Hemoglobin 10.3 12.0-16.0 g/dL Hematocrit 33.1 37-47 % Mean Corpuscular Volume 77.5 80-100 fL Mean Corpuscular Hemoglobin 24.1 25-34 pg Mean Corpuscular Hemoglobin Concent 31.1 32-36 g/dl Platelet Count 357 130-400 K/uL Mean Platelet Volume 9.7 7.4-10.4 fL Neutrophils (%) (Auto) 72.2 % Lymphocytes (%) (Auto) 18.3 % Monocytes (%) (Auto) 6.7 % Eosinophils (%) (Auto) 2.1 % Basophils (%) (Auto) 0.4 % Neutrophils # (Auto) 8.53 1.4-6.5 K/uL Lymphocytes # (Auto) 2.16 1.2-3.4 K/uL Monocytes # (Auto) 0.79 0.11-0.59 K/uL Eosinophils # (Auto) 0.25 0-0.5 K/uL Basophils # (Auto) 0.05 0-0.2 K/uL RDW Standard Deviation 43.9 36.4-46.3 fL RDW Coefficient of Variation 15.5 11.5-14.5 % Immature Granulocyte % (Auto) 0.3 % Immature Granulocyte # (Auto) 0.03 0.00-0.02 K/uL Sodium Level 139 136-145 mmol/L Potassium Level 3.1 3.5-5.1 mmol/L Chloride Level 108 98-107 mmol/L Carbon Dioxide Level 22 21-32 mmol/L Anion Gap 9.0 3-11 mmol/L Blood Urea Nitrogen 7 7-18 mg/dl Creatinine 0.93 0.60-1.20 mg/dl Est Creatinine Clear Calc Drug Dose 71.1 ml/min Estimated GFR () 78.0 Estimated GFR (Non- 67.3 BUN/Creatinine Ratio 7.7 10-20 Random Glucose 132 70-99 mg/dl Calcium Level 8.6 8.5-10.1 mg/dl Total Bilirubin 0.2 0.2-1 mg/dl Direct Bilirubin < 0.1 0-0.2 mg/dl Aspartate Amino Transf (AST/SGOT) 27 15-37 U/L Alanine Aminotransferase (ALT/SGPT) 24 12-78 U/L Alkaline Phosphatase 130 45-117 U/L Total Protein 7.1 6.4-8.2 gm/dl Albumin 3.1 3.4-5.0 gm/dl Lipase 114 73-393 U/L Urine Color YELLOW Urine Appearance TURBID CLEAR Urine pH 6.0 4.5-7.5 Urine Specific [place] 1.013 1.000-1.030 Urine Protein 2+ NEG Urine Glucose (UA) NEG NEG Urine Ketones NEG NEG Urine Occult Blood 2+ NEG Urine Nitrite NEG NEG Urine Bilirubin NEG NEG Urine Urobilinogen NEG NEG Urine Leukocyte Esterase LARGE NEG Urine WBC (Auto) >30 0-5 /hpf Urine RBC (Auto) 10-30 0-4 /hpf Urine Hyaline Casts (Auto) 1-5 0-5 /lpf Urine Epithelial Cells (Auto) 5-10 0-5 /lpf Urine Bacteria (Auto) 1+ NEG Urine Yeast (Auto) PRESENT NONE PRSENT Microbiology Results 08/25/17 Urine Culture, Received Pending Diagnostic Radiology CT ABD: Preliminary Report: Comparison 01/17/2017 There is now moderate to severe bilateral hydroureteronephrosis with appearance of urothelial thickening on the right and again note of asymmetric right perinephric stranding , edema May represent infection with possible distal ureteral stricture or infiltrative process not excluded Abnormal appearance of small size bladder with thick wall, surrounding perivesicular thickening, infiltration and lack of plane between the lower abdominal wall again seen Pelvic postsurgical changes and right external iliac stent again noted Suggestion of staple line at the cecum. The appendix is not identified No bowel dilation or free air Other abdominal solid organs and contracted gallbladder appear within limits Moderate colonic stool Lumbosacral junction and pelvic bones appear unchanged Impression Assessment and Plan B/L Hydroureteronephrosis/UTI: H/O radiation cystitis, Multiple UTIs CT abdomen as above Previously followed with , currently follows with Patient prefers to be seen by Other local Urologist (Refuses to be evaluated by ) Start IV ceftriaxone IV fluids Urine/Blood cultures Hematuria on UA Will consult [facility] Urology Hypokalemia: Replace and monitor HTN: Elevated likely situational Resume home medications Chronic back pain: DJD Previously evaluated by Ortho stable Mood disorder/OCD Depression: Continue home medications Hyperlipidemia Peripheral vascular disease s/p RLE stent procedure Follows with Vascular surgery in [place] who recommended not to hold Plavix because of risk of thrombosis of R iliac stent Monitor Hb secondary to microscopic hematuria Continue plavix, statins H/O cervical CA s/p pelvic radiation Anemia of chronic disease: Hb stable DVT Px: SCDs Re: Microhematuria, Anemia Code Status: Full Code Disposition: Expect to discharge home when stable
--- NOTE | 2017-08-25 05:02 | EMERGENCY ROOM VISIT NOTE ---
ED Visit Note First contact with patient: 01:55 I have personally evaluated and examined this patient. I agree with assessment and plan of Elizabeth Harris PA-C. Chronic urinary infections returns with intractable pain and ct revealing bilateral pyelo.
--- NOTE | 2017-08-25 05:12 | EMERGENCY ROOM VISIT NOTE ---
History First contact with patient: 01:55 Chief Complaint: ABDOMINAL PAIN Stated Complaint: ABD PAIN Nursing Triage Summary: Pt arrived via [facility] from home. Pt reports RLQ abdominal pain starting at 1530. Reports nausea, vomiting, and constipation. Reports she tried taking 2 stool softeners with only a small hard BM today. EMS started IV Access and gave pt NSS and 4mg zofran. Pt reports pain 10/10. History of Present Illness The patient is a 57 year old female who presents to the Emergency Room with complaints of right lower quadrant pain for the past day described as aching, ranging in severity 6 out of 10 with nausea and vomiting. Nothing makes it better or worse. It does not radiate. Patient has been incontinent for years. She has a history of UTIs. Patient denies chest pain, dyspnea, fever, chills , neck pain, diarrhea. She is tolerating by mouth fluids. Review of Systems See HPI for pertinent positives & negatives. A total of 10 systems reviewed and were otherwise negative. Past Medical/Surgical History Medical Problems: (1) Anxiety (2) Back pain (3) Back pain (4) Cervical cancer (5) Depression (6) Dyslipidemia (7) GERD (gastroesophageal reflux disease) (8) H/O hemorrhagic cystitis (9) Hx of pyelonephritis (10) Hx of recurrent urinary tract infection (11) IBS (irritable bowel syndrome) (12) Mood disorder (13) OAB (overactive bladder) (14) OCD (obsessive compulsive disorder) (15) Ureteral stricture (16) UTI (urinary tract infection) Surgical Problems: (1) H/O cystoscopy (2) History of hysterectomy (3) History of ureter stent (4) S/P appendectomy (5) S/P vascular surgery Family History Hypertension MOTHER Social History Smoking Status: Current Every Day Smoker Alcohol Use: occasionally Drug Use: none Marital Status: Housing Status: lives alone Current/Historical Medications Scheduled Ascorbic Acid (Vitamin C), 500 MG PO QAM Calcium Carbonate-Vitamin D (Calcium 600 + D), 1 TAB PO DAILY Citalopram Hydrobromide (Celexa), 40 MG PO QAM Clopidogrel Bisulfate (Plavix), 75 MG PO QAM Cobalamine Combinations (Folic + B12), 1 TAB PO DAILY Duloxetine HCl (Duloxetine HCl), 2 CAP PO DAILY Fiber (Fiber Complete), 1 TAB PO DAILY Fluticasone Prop/Salmeterol (Advair Diskus 250/50 60 Dose), 1 PUFF INH BID Glycopyrrolate (Glycopyrrolate), 2 MG PO BID Lamotrigine (Lamictal), 150 MG PO BID Lisinopril (Lisinopril), 1 TAB PO DAILY Multivitamins/Minerals (Mvi With Minerals), 1 TAB PO DAILY Pantoprazole (Protonix), 40 MG PO QAM Potassium Chloride Microencaps (Potassium Chloride Er), 20 MEQ PO BID Pregabalin (Lyrica), 1 CAP PO TID Probiotic Product (Acidophilus), 1 CAP PO DAILY Rosuvastatin Calcium (Crestor), 10 MG PO DAILY Tiotropium [place] (Spiriva Handihaler), 1 CAP INH DAILY Trazodone HCl (Trazodone HCl), 100 MG PO HS Vitamin E (Vitamin E), 400 UNIT PO QAM Scheduled PRN Ipratropium-Albuterol (Combivent Respimat), 1 PUFF INH BID PRN for SOB/Wheezing Lorazepam (Ativan), 0.5 MG PO TID PRN for Anxiety Allergies Coded Allergies: Ciprofloxacin (Verified Allergy, Unknown, sores on tongue, 08/25/17) Gabapentin (Unverified Allergy, Unknown, unknown, 08/25/17) Meloxicam (Unverified Allergy, Unknown, unknown, 08/25/17) Paroxetine (Verified Allergy, Unknown, suicidal thoughts, 08/25/17) Varenicline (Verified Allergy, Unknown, suicidal thoughts, 08/25/17) Prednisone (Verified Adverse Reaction, Intermediate, "INTERNAL BLEEDING FROM KIDNEY", 08/25/17) Physical Exam Vital Signs Date Time Temp Pulse Resp B/P (MAP) Pulse Ox O2 Delivery O2 Flow Rate FiO2 08/25/17 04:00 89 20 172/80 97 Room Air 08/25/17 02:49 98 23 94 08/25/17 02:31 172/107 08/25/17 02:19 90 17 99 08/25/17 02:07 97 Room Air 08/25/17 02:01 182/96 08/25/17 01:59 87 08/25/17 01:54 161/102 08/25/17 01:49 36.6 88 15 161/102 96 Room Air Physical Exam VITALS: Vitals are noted on the nurse's note and reviewed by myself. Vital signs hypertensive GENERAL: White female, in no acute distress, nondiaphoretic, well-developed well -nourished. SKIN: The skin was without rashes, erythema, edema, or bruising. There is no tenting of the skin. Capillary reflex less than 2 seconds. HEAD: Normocephalic atraumatic. EARS: External auditory canals clear, tympanic membranes pearly mathis without erythema or effusion bilaterally. EYES: Pupils equal round and reactive to light and accommodation. Conjunctivae without injection, sclerae without icterus. Extraocular movements intact. NOSE: Patent, turbinates without inflammation or discharge. MOUTH: Mucous membranes moist. Pharynx without erythema or exudate. Uvula midline. Airway patent. Tongue does not deviate. NECK: Supple without nuchal rigidity. No lymphadenopathy. No thyromegaly. Cervical spine is nontender. No JVD. HEART: Regular rate and rhythm LUNGS: Clear to auscultation bilaterally without wheezes, rales or rhonchi. No dullness to percussion. No retractions or accessory muscle use. ABDOMEN: Positive bowel sounds x 4. Normal tympanic percussion. Soft, tender to palpation right lower quadrant, right CVA tenderness, without masses or organomegaly. Beltrán sign negative. No guarding or rebound tenderness. MUSCULOSKELETAL: No muscle atrophy, erythema, or edema noted. NEURO: Patient was alert and oriented to person place and time. Normal sensation to light and sharp touch. No focal neurological deficits. Medical Decision & Procedures Laboratory Results 08/25/17 01:28 Red Blood Count 4.27, Mean Corpuscular Volume 77.5, Mean Corpuscular Hemoglobin 24.1, Mean Corpuscular Hemoglobin Concent 31.1, Mean Platelet Volume 9.7, Neutrophils (%) (Auto) 72.2, Lymphocytes (%) (Auto) 18.3, Monocytes (%) (Auto) 6.7, Eosinophils (%) (Auto) 2.1, Basophils (%) (Auto) 0.4, Neutrophils # (Auto) 8.53, Lymphocytes # (Auto) 2.16, Monocytes # (Auto) 0.79, Eosinophils # (Auto) 0.25, Basophils # (Auto) 0.05 08/25/17 01:28 Test 08/25/17 01:28 08/25/17 03:15 White Blood Count 11.81 K/uL (4.8-10.8) Red Blood Count 4.27 M/uL (4.2-5.4) Hemoglobin 10.3 g/dL (12.0-16.0) Hematocrit 33.1 % (37-47) Mean Corpuscular Volume 77.5 fL (80-100) Mean Corpuscular Hemoglobin 24.1 pg (25-34) Mean Corpuscular Hemoglobin Concent 31.1 g/dl (32-36) Platelet Count 357 K/uL (130-400) Mean Platelet Volume 9.7 fL (7.4-10.4) Neutrophils (%) (Auto) 72.2 % Lymphocytes (%) (Auto) 18.3 % Monocytes (%) (Auto) 6.7 % Eosinophils (%) (Auto) 2.1 % Basophils (%) (Auto) 0.4 % Neutrophils # (Auto) 8.53 K/uL (1.4-6.5) Lymphocytes # (Auto) 2.16 K/uL (1.2-3.4) Monocytes # (Auto) 0.79 K/uL (0.11-0.59) Eosinophils # (Auto) 0.25 K/uL (0-0.5) Basophils # (Auto) 0.05 K/uL (0-0.2) RDW Standard Deviation 43.9 fL (36.4-46.3) RDW Coefficient of Variation 15.5 % (11.5-14.5) Immature Granulocyte % (Auto) 0.3 % Immature Granulocyte # (Auto) 0.03 K/uL (0.00-0.02) Anion Gap 9.0 mmol/L (3-11) Est Creatinine Clear Calc Drug Dose 71.1 ml/min Estimated GFR () 78.0 Estimated GFR (Non- 67.3 BUN/Creatinine Ratio 7.7 (10-20) Calcium Level 8.6 mg/dl (8.5-10.1) Total Bilirubin 0.2 mg/dl (0.2-1) Direct Bilirubin < 0.1 mg/dl (0-0.2) Aspartate Amino Transf (AST/SGOT) 27 U/L (15-37) Alanine Aminotransferase (ALT/SGPT) 24 U/L (12-78) Alkaline Phosphatase 130 U/L (45-117) Total Protein 7.1 gm/dl (6.4-8.2) Albumin 3.1 gm/dl (3.4-5.0) Lipase 114 U/L (73-393) Urine Color YELLOW Urine Appearance TURBID (CLEAR) Urine pH 6.0 (4.5-7.5) Urine Specific [place] 1.013 (1.000-1.030) Urine Protein 2+ (NEG) Urine Glucose (UA) NEG (NEG) Urine Ketones NEG (NEG) Urine Occult Blood 2+ (NEG) Urine Nitrite NEG (NEG) Urine Bilirubin NEG (NEG) Urine Urobilinogen NEG (NEG) Urine Leukocyte Esterase LARGE (NEG) Urine WBC (Auto) >30 /hpf (0-5) Urine RBC (Auto) 10-30 /hpf (0-4) Urine Hyaline Casts (Auto) 1-5 /lpf (0-5) Urine Epithelial Cells (Auto) 5-10 /lpf (0-5) Urine Bacteria (Auto) 1+ (NEG) Urine Yeast (Auto) PRESENT (NONE PRSENT) Medications Administered Medications (Trade) Dose Ordered Sig/Mirella Route Start Time Stop Time Status Last Admin Dose Admin Dicyclomine HCl (Bentyl Inj) 20 mg NOW ONCE IM 08/25/17 02:15 08/25/17 02:16 DC 08/25/17 02:13 20 MG Metoclopramide HCl (Reglan Inj) 10 mg NOW STAT IV 08/25/17 02:02 08/25/17 02:04 DC 08/25/17 02:13 10 MG Potassium Chloride (Klor-Con M10) 40 meq NOW STAT PO 08/25/17 03:09 08/25/17 03:12 DC 08/25/17 04:48 40 MEQ Ceftriaxone Sodium (Rocephin Inj) 1 gm NOW STAT IV 08/25/17 04:27 08/25/17 04:28 DC 08/25/17 04:50 1 GM Ketorolac Tromethamine (Toradol Inj) 30 mg NOW STAT IV 08/25/17 04:53 08/25/17 04:54 DC 08/25/17 05:01 30 MG ED Course Prior records/ancillary studies reviewed. Triage Nursing notes reviewed. The patient's history was concerning for abdominal pain. Differential diagnosis: Etiologies such as appendicitis, diverticulitis, PUD, biliary pathology, UTI, pancreatitis, obstruction, mesenteric ischemia, aortic pathology, infections, inflammatory bowel disease, renal colic, as well as others were entertained. Physical examination findings: As above. ER treatment provided: Rocephin On reassessment the patient felt better. Diagnostics interpreted by me: The labs revealed leukocytosis, urine concerning for infection and sent for culture Imaging studies: CT ABDOMEN & PELVIS With Contrast: Comparison 01/17/2017 There is now moderate to severe bilateral hydroureteronephrosis with appearance of urothelial thickening on the right and again note of asymmetric right perinephric stranding , edema May represent infection with possible distal ureteral stricture or infiltrative process not excluded Abnormal appearance of small size bladder with thick wall, surrounding perivesicular thickening, infiltration and lack of plane between the lower abdominal wall again seen Pelvic postsurgical changes and right external iliac stent again noted Suggestion of staple line at the cecum. The appendix is not identified No bowel dilation or free air Other abdominal solid organs and contracted gallbladder appear within limits Moderate colonic stool Lumbosacral junction and pelvic bones appear unchanged Radiologist: Keegan Hussein M.D. Consultation: A consultation was placed with Dr Rascon. The case was discussed and diagnostics were reviewed. The patient was evaluated in the ER for further treatment. Dr. Beckwith, Urology, was also consulted and states the patient can be managed here with antibiotics. Exam and history seem consistent pyelonephritis. Patient still in moderate amount of pain. She is given antibiotics. She'll be evaluated by medicine. By the evaluation outlined above emergent etiologies such as appendicitis, diverticulitis, PUD, biliary pathology, pancreatitis, mesenteric ischemia, aortic pathology, inflammatory bowel disease, renal colic, as well as others were deemed relatively unlikely. The pt informed about the findings as listed above. All questions were answered and pleased with the treatment. Medical Decision as above Impression Primary Impression: Pyelonephritis Departure Information Dispostion Being Evaluated By Hospitalist Condition GOOD Referrals Lavern Minor DO (PCP) Patient Instructions My [facility]
[2017-08-25] MEDS ORDERED: ONDANSETRON INJ 2 MG/ML 2 ML VIAL IV PRN (05:45)
[2017-08-25] MEDS ORDERED: IPRATROPIUM BROMIDE/ALBUTEROL respimat INH INH PRN (05:45)
[2017-08-25] MEDS ORDERED: POLYETHYLENE (MIRALAX) 17 GM PACK PO PRN (05:45)
--- NOTE | 2017-08-25 06:53 | DIAGNOSTIC IMAGING REPORT ---
CT ABD/PELVIS IV CONTRAST ONLY CLINICAL HISTORY: Right lower quadrant abdominal pain COMPARISON STUDY: 01/17/2017 TECHNIQUE: Following the IV administration of 94 mL of Optiray-320, CT scan of the abdomen and pelvis was performed from the lung bases to the proximal femurs. Images are reviewed in the axial, sagittal, and coronal planes. IV contrast was administered without complication. A dose lowering technique was utilized adhering to the principles of ALARA. CT DOSE: 498.23 mGy.cm FINDINGS: Lower chest: There is a calcified right lower lobe granuloma. No pleural effusions are visualized. Liver: There is hepatic steatosis. No focal hepatic masses are visualized. Gallbladder: Unremarkable. Spleen: Normal in size and attenuation. Pancreas: Unremarkable. Adrenal glands: Unremarkable. Kidneys: There is bilateral hydronephrosis, and bilateral hydroureter or pronounced on the right. There is right-sided perinephric stranding. There is mild uroepithelial enhancement more pronounced on the right. There is a duplex right renal collecting system with 2 ureters visualized down to at least the pelvic level. Bowel: There are no transition zones indicate bowel obstruction. There is mild infiltration of the fat surrounding the descending colon. The appendix is not visualized. Peritoneum: There is trace free pelvic fluid Vasculature: There is a right-sided iliac stent present Adenopathy: None. Pelvic viscera: There is bladder wall thickening and infiltration the perivesical soft tissues. There is a tiny droplet of air in the region of the prostate. Skeletal structures: There are advanced degenerative changes the L5-S1 level. There is bilateral L5 spondylolysis. There is L5 and S1 discogenic endplate sclerosis IMPRESSION: 1. Progressive bilateral hydronephrosis with right-sided uroepithelial thickening and asymmetric right-sided perinephric stranding. No calculi are visualized. A distal obstructive process must be considered. 2. Abnormal appearance of the bladder with bladder wall thickening and infiltration the perivesical soft tissues. This could be inflammatory or neoplastic. Urological consultation is recommended. 3. No evidence of bowel obstruction. No evidence of free air 4. Mild nonspecific infiltration the fat adjacent to the descending colon/sigmoid junction. Minimal diverticulitis cannot be excluded 5. Duplex right renal collecting system Electronically signed by: Ady Leigh M.D. 08/25/2017 6:52 AM Dictated Date/Time: 08/25/2017 6:44 AM
[2017-08-25] MEDS ORDERED: NSS + 20MEQ KCL 1000ML 1,000 ML IV ONE (07:00)
[2017-08-25] MEDS ORDERED: PNEUMOCOCCAL ADMINISTRATION CHARGE ONE (08:00)
[2017-08-25] MEDS ORDERED: PNEUMOCOCCAL POLYSACCHARIDES 25 MCG/0.5 ML VIAL/SYR IM. ONE (08:00)
[2017-08-25] MEDS: ROSUVASTATIN CALCIUM 10 MG TAB PO SCH (08:11)
[2017-08-25] MEDS: FLUTICASONE/SALMETEROL 250/50 (ADVAIR) 14 PUFF/1 INHALER INH SCH ×2 (08:11→20:46)
[2017-08-25] MEDS: CLOPIDOGREL BISULFATE 75 MG TAB PO SCH (08:11)
[2017-08-25] MEDS: LISINOPRIL 5 MG TAB PO SCH (08:11)
[2017-08-25] MEDS: CITALOPRAM 40 MG TAB PO SCH (08:11)
[2017-08-25] MEDS: TIOTROPIUM BROMIDE 5 PUFF/90 MCG INH INH SCH (08:11)
[2017-08-25] MEDS: DULOXETINE HCL 60 MG CAP PO SCH (08:11)
[2017-08-25] MEDS: PANTOprazole SOD 40 MG TAB PO SCH (08:11)
[2017-08-25] MEDS: PREGABALIN 50 MG CAP PO SCH ×3 (08:14→20:46)
--- NOTE | 2017-08-25 10:28 | Urology Consultation ---
History General Date of Service: Aug 25, 2017. Chief Complaint: back pain, UTI symptoms Primary Care Physician: Lavern Minor, DO Pt seen a urologist before?: Yes (Dr. Beckwith, [facility]) If yes, why?: recurrent UTI, hydronephrosis, hemorrhagic cystitis History of Present Illness 57 yo female admitted with UTI symptoms and back pain. Comlicated hx. The pt reports developing dysuria and UTI symptoms with back pain that brought her to the hospital. She has a hx of recurrent UTI, hemorrhagic cystitis, and bilateral hydro for which she has seen Dr. Beckwith and [facility] in the past. She no longer wishes to f/u with Dr. Beckwith, but does continue to see a urologist in [place]. She has a hx of stent placement earlier this year in the summer by Dr. Beckwith. Now removed. She reports she has been told by [facility] that she should have an ileal conduit. She was also told that she should avoid garcia placement d/t hx of hemorrhagic cystitis. CT scan showing bilateral hydro without ureteral stone, duplicated right collecting system, and an inflammed bladder. The pt reports all symptoms have improved since admission. Blood and urine cultures pending. White count is 11.81. Cr is normal. She is afebrile. Imaging Imaging: CT Laboratory Last 24 Hours Test 08/25/17 01:28 08/25/17 03:15 White Blood Count 11.81 K/uL Red Blood Count 4.27 M/uL Hemoglobin 10.3 g/dL Hematocrit 33.1 % Mean Corpuscular Volume 77.5 fL Mean Corpuscular Hemoglobin 24.1 pg Mean Corpuscular Hemoglobin Concent 31.1 g/dl Platelet Count 357 K/uL Mean Platelet Volume 9.7 fL Neutrophils (%) (Auto) 72.2 % Lymphocytes (%) (Auto) 18.3 % Monocytes (%) (Auto) 6.7 % Eosinophils (%) (Auto) 2.1 % Basophils (%) (Auto) 0.4 % Neutrophils # (Auto) 8.53 K/uL Lymphocytes # (Auto) 2.16 K/uL Monocytes # (Auto) 0.79 K/uL Eosinophils # (Auto) 0.25 K/uL Basophils # (Auto) 0.05 K/uL RDW Standard Deviation 43.9 fL RDW Coefficient of Variation 15.5 % Immature Granulocyte % (Auto) 0.3 % Immature Granulocyte # (Auto) 0.03 K/uL Sodium Level 139 mmol/L Potassium Level 3.1 mmol/L Chloride Level 108 mmol/L Carbon Dioxide Level 22 mmol/L Anion Gap 9.0 mmol/L Blood Urea Nitrogen 7 mg/dl Creatinine 0.93 mg/dl Est Creatinine Clear Calc Drug Dose 71.1 ml/min Estimated GFR () 78.0 Estimated GFR (Non- 67.3 BUN/Creatinine Ratio 7.7 Random Glucose 132 mg/dl Calcium Level 8.6 mg/dl Total Bilirubin 0.2 mg/dl Direct Bilirubin < 0.1 mg/dl Aspartate Amino Transf (AST/SGOT) 27 U/L Alanine Aminotransferase (ALT/SGPT) 24 U/L Alkaline Phosphatase 130 U/L Total Protein 7.1 gm/dl Albumin 3.1 gm/dl Lipase 114 U/L Urine Color YELLOW Urine Appearance TURBID Urine pH 6.0 Urine Specific [place] 1.013 Urine Protein 2+ Urine Glucose (UA) NEG Urine Ketones NEG Urine Occult Blood 2+ Urine Nitrite NEG Urine Bilirubin NEG Urine Urobilinogen NEG Urine Leukocyte Esterase LARGE Urine WBC (Auto) >30 /hpf Urine RBC (Auto) 10-30 /hpf Urine Hyaline Casts (Auto) 1-5 /lpf Urine Epithelial Cells (Auto) 5-10 /lpf Urine Bacteria (Auto) 1+ Urine Yeast (Auto) PRESENT Problem List Medical Problems: (1) Ambulatory dysfunction Status: Acute (2) Bladder tumor Status: Acute (3) Headache Status: Acute (4) Hematuria Status: Acute (5) Low back pain Status: Acute (6) Lumbar disc disease Status: Acute (7) Pyelonephritis Status: Acute Past History anxiety, arthritis, bipolar disorder, cancer (cervical ), depression, GERD, high cholesterol, lung disease, urinary tract infection, other (IBS, OAB, OCD, hemorrhagic cystitis) Past Surgical History: appendectomy, hysterectomy, ureteral stent, other ( vascular surgery) Family History Hypertension MOTHER Social History Hx Tobacco Use In Past Year?: Yes Smoking: greater than 1 pack/day Alcohol: occasional Drug use: marijuana Marital status: Housing status: lives alone Immunizations History of Influenza Vaccine: Unknown History of Tetanus Vaccine?: Unknown History of Pneumococcal: Unknown History of Hepatitis B Vaccine: Unknown History of MDRO Yes Type of MDRO: MRSA Allergies Coded Allergies: Ciprofloxacin (Verified Allergy, Unknown, sores on tongue, 08/25/17) Gabapentin (Unverified Allergy, Unknown, unknown, 08/25/17) Meloxicam (Unverified Allergy, Unknown, unknown, 08/25/17) Paroxetine (Verified Allergy, Unknown, suicidal thoughts, 08/25/17) Varenicline (Verified Allergy, Unknown, suicidal thoughts, 08/25/17) Prednisone (Verified Adverse Reaction, Intermediate, "INTERNAL BLEEDING FROM KIDNEY", 08/25/17) Medications Home Medications: Home Meds and Scripts Medications Dose Route/Sig Max Daily Dose Days Date Category Folic + B12 (Cobalamine Combinations) 1 Tab Tab 1 Tab PO DAILY 07/30/17 Reported Lisinopril 5 Mg Tab 1 Tab PO DAILY 07/11/17 Reported Lyrica (Pregabalin) 50 Mg Cap 1 Cap PO TID 07/11/17 Reported Duloxetine HCl 30 Mg Cap 2 Cap PO DAILY 07/11/17 Reported Acidophilus (Probiotic Product) 1 Cap Cap 1 Cap PO DAILY 07/11/17 Reported Fiber Complete (Fiber) 62.5 Mg Tab 1 Tab PO DAILY 01/17/17 Reported Trazodone HCl 100 Mg Tab 100 Mg PO HS 01/17/17 Reported Combivent Respimat (Ipratropium-Albuterol) 1 Aer Aer 1 Puff INH BID PRN 10/25/16 Reported Advair Diskus 250/50 60 Dose (Fluticasone Prop/Salmeterol) 1 Ea Aerp 1 Puff INH BID 10/25/16 Reported Spiriva Handihaler (Tiotropium Commerce) 30 Puff/540 Mcg Aerp 1 Cap INH DAILY 10/25/16 Reported Potassium Chloride Er (Potassium Chloride Microencaps) 20 Meq Tab 20 Meq PO BID 10/25/16 Reported Glycopyrrolate 2 Mg Tab 2 Mg PO BID 10/25/16 Reported Ativan (Lorazepam) 0.5 Mg Tab 0.5 Mg PO TID PRN 10/25/16 Reported Vitamin E 400 Unit Tab 400 Unit PO QAM 10/25/16 Reported Vitamin C (Ascorbic Acid) 500 Mg Tab 500 Mg PO QAM 10/25/16 Reported Celexa (Citalopram Hydrobromide) 40 Mg Tab 40 Mg PO QAM 05/01/15 Reported Calcium 600 + D (Calcium Carbonate-Vitamin D) 1 Tab Tab 1 Tab PO DAILY 05/01/15 Reported Plavix (Clopidogrel Bisulfate) 75 Mg Tab 75 Mg PO QAM 01/05/14 Reported Crestor (Rosuvastatin Calcium) 10 Mg Tab 10 Mg PO DAILY 01/05/14 Reported Lamictal (Lamotrigine) 150 Mg Tab 150 Mg PO BID 01/05/14 Reported Protonix (Pantoprazole Sodium) 40 Mg Tab 40 Mg PO QAM 01/05/14 Reported Mvi With Minerals (Multivitamins/Minerals) Tab 1 Tab PO DAILY 01/05/14 Reported Inpatient Medications: Current Inpatient Medications Medications (Trade) Dose Ordered Sig/Mirella Route Start Time Stop Time Status Last Admin Dose Admin Ioversol (Optiray 320) 100 ml UD PRN IV 08/25/17 02:15 08/29/17 02:14 Acetaminophen (Tylenol Tab) 650 mg Q4H PRN PO 08/25/17 05:45 09/24/17 05:44 Polyethylene (Miralax Powder Packet) 17 gm DAILY PRN PO 08/25/17 05:45 09/24/17 05:44 Ondansetron HCl (Zofran Inj) 4 mg Q6H PRN IV 08/25/17 05:45 09/24/17 05:44 Ceftriaxone Sodium 1 gm/ Dextrose 50 ml @ 100 mls/hr Q24H IV 08/26/17 04:00 09/04/17 03:59 Potassium Chloride/Sodium Chloride 1,000 ml @ 75 mls/hr [id number] ONCE IV 08/25/17 07:00 08/25/17 20:19 08/25/17 07:29 75 MLS/HR Citalopram Hydrobromide (celeXA TAB) 40 mg QAM PO 08/25/17 09:00 09/24/17 08:59 08/25/17 08:11 40 MG Clopidogrel Bisulfate (plAVix TAB) 75 mg QAM PO 08/25/17 09:00 09/24/17 08:59 08/25/17 08:11 75 MG Duloxetine HCl (Cymbalta Cap) 60 mg DAILY PO 08/25/17 09:00 09/24/17 08:59 08/25/17 08:11 60 MG Salmeterol Xinafoate/ Fluticasone (Advair Diskus 250/50 Inh) 1 puff BID INH 08/25/17 09:00 09/24/17 08:59 08/25/17 08:11 1 PUFF Albuterol/ Ipratropium (Combivent Respimat Inh) 1 puffs BID PRN INH 08/25/17 05:45 09/24/17 05:44 Lisinopril (Zestril Tab) 5 mg DAILY PO 08/25/17 09:00 09/24/17 08:59 08/25/17 08:11 5 MG Lorazepam (Ativan Tab) 0.5 mg TID PRN PO 08/25/17 05:45 09/24/17 05:44 Pantoprazole Sodium (Protonix Tab) 40 mg QAM PO 08/25/17 09:00 09/24/17 08:59 08/25/17 08:11 40 MG Pregabalin (Lyrica Cap) 50 mg TID PO 08/25/17 09:00 09/24/17 08:59 08/25/17 08:14 50 MG Rosuvastatin Calcium (Crestor Tab) 10 mg DAILY PO 08/25/17 09:00 09/24/17 08:59 08/25/17 08:11 10 MG Tiotropium Commerce (Spiriva Handihaler Inhaler) 1 puff DAILY INH 08/25/17 09:00 09/24/17 08:59 08/25/17 08:11 1 PUFF Trazodone HCl (Desyrel Tab) 100 mg HS PO 08/25/17 21:00 09/24/17 20:59 Lamotrigine (Lamictal Tab) 150 mg BID PO 08/25/17 09:00 09/24/17 08:59 08/25/17 08:12 150 MG Review of Systems Review of Systems Constitutional: No fever, No chills Eyes: No double vision Neurological: No dizzy Endocrine: No excessive thirst Gastrointestinal: No abdominal pain, No nausea, No vomiting Cardiovascular: No chest pain Respiratory: No shortness of breath Skin: No rash Musculoskeletal: No back pain Psychologic / Mental: + trouble remembering Female : No painful urination, No blood in urine Physical Exam Vital Signs: Vital Signs Past 12 Hours Date Time Temp Pulse Resp B/P (MAP) Pulse Ox O2 Delivery O2 Flow Rate FiO2 08/25/17 08:00 Room Air 08/25/17 07:58 36.9 18 121/68 (85) 96 Room Air 08/25/17 06:20 36.6 90 18 124/76 92 Room Air 08/25/17 05:55 85 24 117/67 94 Room Air 08/25/17 04:00 89 20 172/80 97 Room Air 08/25/17 02:49 98 23 94 08/25/17 02:31 172/107 08/25/17 02:19 90 17 99 08/25/17 02:07 97 Room Air 08/25/17 02:01 182/96 08/25/17 01:59 87 08/25/17 01:54 161/102 08/25/17 01:49 36.6 88 15 161/102 96 Room Air Physical Exam: General Appearance: no apparent distress Eyes: bilateral eyes normal inspection ENT: hearing grossly normal Neck: no JVD Respiratory/Chest: no respiratory distress, no accessory muscle use Cardiovascular: no JVD Extremities: normal inspection Neurologic/Psychiatric: alert, normal mood/affect, oriented x 3 Skin: normal color Assessment & Plan Assessment & Plan A/P: Bilateral hydo, hx of gross hematuria, hx of recurrent UTI AFVSS. Will plan to manage conservatively this admission. Continue IV abx pending culture sensitivities. Will check bladder scans qshift to ensure her bladder is emptying. Can do CIC if bladder not emptying well. Plan for outpatient f/u with primary urologist in [place] for now. Thanks for the consult. Will continue to follow along with primary service.
[2017-08-25] MEDS: ACETAMINOPHEN 325 MG TAB PO PRN ×2 (11:23→22:37)
--- NOTE | 2017-08-25 20:09 | Progress Note ---
Medicine Progress Note Date & Time of Visit: Aug 25, 2017 at 20:07. Subjective See H&P from this AM for details. Patient reports that she is feeling better overall, denies any new complaints. States she has been voiding without difficulty but is incontinent. Objective Last 8 Hrs Date Time Temp Pulse Resp B/P (MAP) Pulse Ox O2 Delivery O2 Flow Rate FiO2 08/25/17 19:35 37.1 81 18 107/66 (80) 94 Room Air 08/25/17 16:01 92 Room Air 08/25/17 15:38 36.8 89 20 114/69 (84) 92 Room Air Physical Exam: GENERAL: Patient is in no acute distress. HEENT: No acute trauma, normocephalic, mucous membranes moist, no nasal congestion, no scleral icterus. NECK: No stridor, trachea is midline. LUNGS: Clear to auscultation bilaterally, no wheeze, no rhonchi, breath sounds equal. HEART: Without murmurs gallops or rubs, regular rate and rhythm. ABDOMEN: Soft, nontender, bowel sounds positive EXTREMITIES: No cyanosis or edema NEUROLOGIC: Oriented x 3, no acute motor or sensory deficits, no focal weakness. SKIN: No rash, no jaundice, no diaphoresis. Laboratory Results: Last 24 Hours Test 08/25/17 01:28 08/25/17 03:15 White Blood Count 11.81 K/uL Red Blood Count 4.27 M/uL Hemoglobin 10.3 g/dL Hematocrit 33.1 % Mean Corpuscular Volume 77.5 fL Mean Corpuscular Hemoglobin 24.1 pg Mean Corpuscular Hemoglobin Concent 31.1 g/dl Platelet Count 357 K/uL Mean Platelet Volume 9.7 fL Neutrophils (%) (Auto) 72.2 % Lymphocytes (%) (Auto) 18.3 % Monocytes (%) (Auto) 6.7 % Eosinophils (%) (Auto) 2.1 % Basophils (%) (Auto) 0.4 % Neutrophils # (Auto) 8.53 K/uL Lymphocytes # (Auto) 2.16 K/uL Monocytes # (Auto) 0.79 K/uL Eosinophils # (Auto) 0.25 K/uL Basophils # (Auto) 0.05 K/uL RDW Standard Deviation 43.9 fL RDW Coefficient of Variation 15.5 % Immature Granulocyte % (Auto) 0.3 % Immature Granulocyte # (Auto) 0.03 K/uL Sodium Level 139 mmol/L Potassium Level 3.1 mmol/L Chloride Level 108 mmol/L Carbon Dioxide Level 22 mmol/L Anion Gap 9.0 mmol/L Blood Urea Nitrogen 7 mg/dl Creatinine 0.93 mg/dl Est Creatinine Clear Calc Drug Dose 71.1 ml/min Estimated GFR () 78.0 Estimated GFR (Non- 67.3 BUN/Creatinine Ratio 7.7 Random Glucose 132 mg/dl Calcium Level 8.6 mg/dl Total Bilirubin 0.2 mg/dl Direct Bilirubin < 0.1 mg/dl Aspartate Amino Transf (AST/SGOT) 27 U/L Alanine Aminotransferase (ALT/SGPT) 24 U/L Alkaline Phosphatase 130 U/L Total Protein 7.1 gm/dl Albumin 3.1 gm/dl Lipase 114 U/L Urine Color YELLOW Urine Appearance TURBID Urine pH 6.0 Urine Specific [place] 1.013 Urine Protein 2+ Urine Glucose (UA) NEG Urine Ketones NEG Urine Occult Blood 2+ Urine Nitrite NEG Urine Bilirubin NEG Urine Urobilinogen NEG Urine Leukocyte Esterase LARGE Urine WBC (Auto) >30 /hpf Urine RBC (Auto) 10-30 /hpf Urine Hyaline Casts (Auto) 1-5 /lpf Urine Epithelial Cells (Auto) 5-10 /lpf Urine Bacteria (Auto) 1+ Urine Yeast (Auto) PRESENT Date/Time Source Procedure Growth Status 08/25/17 06:50 Blood Blood Culture Pending Received 08/25/17 06:45 Blood Blood Culture Pending Received 08/25/17 03:15 Urine,Catheterized Urine Culture Pending Received Assessment & Plan Current Inpatient Medications: Current Inpatient Medications Medications (Trade) Dose Ordered Sig/Mirella Route Start Time Stop Time Status Last Admin Dose Admin Ioversol (Optiray 320) 100 ml UD PRN IV 08/25/17 02:15 08/29/17 02:14 Acetaminophen (Tylenol Tab) 650 mg Q4H PRN PO 08/25/17 05:45 09/24/17 05:44 08/25/17 11:23 650 MG Polyethylene (Miralax Powder Packet) 17 gm DAILY PRN PO 08/25/17 05:45 09/24/17 05:44 Ondansetron HCl (Zofran Inj) 4 mg Q6H PRN IV 08/25/17 05:45 09/24/17 05:44 Ceftriaxone Sodium 1 gm/ Dextrose 50 ml @ 100 mls/hr Q24H IV 08/26/17 04:00 09/04/17 03:59 Potassium Chloride/Sodium Chloride 1,000 ml @ 75 mls/hr [id number] ONCE IV 08/25/17 07:00 08/25/17 20:19 08/25/17 07:29 75 MLS/HR Citalopram Hydrobromide (celeXA TAB) 40 mg QAM PO 08/25/17 09:00 09/24/17 08:59 08/25/17 08:11 40 MG Clopidogrel Bisulfate (plAVix TAB) 75 mg QAM PO 08/25/17 09:00 09/24/17 08:59 08/25/17 08:11 75 MG Duloxetine HCl (Cymbalta Cap) 60 mg DAILY PO 08/25/17 09:00 09/24/17 08:59 08/25/17 08:11 60 MG Salmeterol Xinafoate/ Fluticasone (Advair Diskus 250/50 Inh) 1 puff BID INH 08/25/17 09:00 09/24/17 08:59 08/25/17 08:11 1 PUFF Albuterol/ Ipratropium (Combivent Respimat Inh) 1 puffs BID PRN INH 08/25/17 05:45 09/24/17 05:44 Lisinopril (Zestril Tab) 5 mg DAILY PO 08/25/17 09:00 09/24/17 08:59 08/25/17 08:11 5 MG Lorazepam (Ativan Tab) 0.5 mg TID PRN PO 08/25/17 05:45 09/24/17 05:44 Pantoprazole Sodium (Protonix Tab) 40 mg QAM PO 08/25/17 09:00 09/24/17 08:59 08/25/17 08:11 40 MG Pregabalin (Lyrica Cap) 50 mg TID PO 08/25/17 09:00 09/24/17 08:59 08/25/17 14:22 50 MG Rosuvastatin Calcium (Crestor Tab) 10 mg DAILY PO 08/25/17 09:00 09/24/17 08:59 08/25/17 08:11 10 MG Tiotropium [place] (Spiriva Handihaler Inhaler) 1 puff DAILY INH 08/25/17 09:00 09/24/17 08:59 08/25/17 08:11 1 PUFF Trazodone HCl (Desyrel Tab) 100 mg HS PO 08/25/17 21:00 09/24/17 20:59 Lamotrigine (Lamictal Tab) 150 mg BID PO 08/25/17 09:00 09/24/17 08:59 08/25/17 08:12 150 MG
[2017-08-25] MEDS: TRAZODONE HCL 100 MG TAB PO SCH (20:46)
[2017-08-26] MEDS: CEFTRIAXONE SOD INJ 1 GM in DEXTROSE 5% ADD-VANTAGE 50ML 50 ML IV SCH (03:45)
[2017-08-26 06:56] LABS: BASO % 0.7 %; BASO ABS # 0.04 K/uL (0-0.2); EOS % 4.4 %; HEMATOCRIT 29.4 % (37-47); IG% 0.2 %; LYMPH % 44.7 %; LYMPH ABS # 2.42 K/uL (1.2-3.4); MEAN CELL VOLUME 78.2 fL (80-100); MEAN CORPUSCULAR HEMOGLOBIN 23.7 pg (25-34); MEAN CORPUSCULAR HGB CONC 30.3 g/dl (32-36); MONO % 7.9 %; NEUT % 42.1 %; PLATELET COUNT 270 K/uL (130-400); RED BLOOD COUNT 3.76 M/uL (4.2-5.4); WHITE BLOOD COUNT 5.41 K/uL (4.8-10.8)
[2017-08-26 07:16] VITALS: BP_SYST 133; PULSE 76; TEMP 37.1; O2SAT 91
[2017-08-26 07:25] LABS: COMPLETE YES; HYPOCHROMIA PRESENT; MICROCYTOSIS PRESENT
[2017-08-26 07:29] LABS: BUN/CREATININE RATIO 9.1 (10-20); CALCIUM 8.5 mg/dl (8.5-10.1); CREATININE 0.75 mg/dl (0.60-1.20); MAGNESIUM 2.3 mg/dl (1.8-2.4); POTASSIUM 3.7 mmol/L (3.5-5.1)
[2017-08-26] MEDS: ACETAMINOPHEN 325 MG TAB PO PRN (07:43)
[2017-08-26] MEDS: CITALOPRAM 40 MG TAB PO SCH (08:07)
[2017-08-26] MEDS: FLUTICASONE/SALMETEROL 250/50 (ADVAIR) 14 PUFF/1 INHALER INH SCH ×2 (08:08→20:47)
[2017-08-26] MEDS: CLOPIDOGREL BISULFATE 75 MG TAB PO SCH (08:08)
[2017-08-26] MEDS: DULOXETINE HCL 60 MG CAP PO SCH (08:08)
[2017-08-26] MEDS: PANTOprazole SOD 40 MG TAB PO SCH (08:08)
[2017-08-26] MEDS: TIOTROPIUM BROMIDE 5 PUFF/90 MCG INH INH SCH (08:08)
[2017-08-26] MEDS: PREGABALIN 50 MG CAP PO SCH ×3 (08:08→20:48)
[2017-08-26] MEDS: LISINOPRIL 5 MG TAB PO SCH (08:08)
[2017-08-26] MEDS: ROSUVASTATIN CALCIUM 10 MG TAB PO SCH (08:08)
--- NOTE | 2017-08-26 08:48 | Progress Note ---
Subjective Date of Service: Aug 26, 2017. Subjective Pt evaluation today including: conversation w/ patient, physical exam, chart review, lab review, review of inpatient medication list Pain: Denies PO Intake: Cherrie PO Voiding: incontinence 57 yo female admitted for UTI, incontinence. Her long history and past notes reviewed - she has had deteriorating voiding for years with worsening incontinence, low capacity, apparently high pressure bladder with bilateral hydro. CT scan images personally reviewed. She notes the medium term plan is to proceed with diversion with ileal conduit with her urologist in [place] when her "mental issues" are under better control. She notes follow-up is in place. She notes she feels better since admission. UC&S pending. Problem List Medical Problems: (1) Ambulatory dysfunction Status: Acute (2) Bladder tumor Status: Acute (3) Headache Status: Acute (4) Hematuria Status: Acute (5) Low back pain Status: Acute (6) Lumbar disc disease Status: Acute (7) Pyelonephritis Status: Acute Review of Systems Constitutional: No fever, No chills Eyes: No worsening of vision ENT: No hearing loss, No unusual epistaxis Respiratory: No shortness of breath Cardiac: No chest pain Abdomen: No nausea, No vomiting Musculoskeletal: No joint pain Female : + incontinence Neurologic: No memory loss, No paralysis Psychiatric: No anxiety Heme: No clotting problems Endo: + excessive urination Skin: No new/changing skin lesions, No color change Objective Vital Signs Date Time Temp Pulse Resp B/P (MAP) Pulse Ox O2 Delivery O2 Flow Rate FiO2 08/26/17 07:16 37.1 76 18 133/ (44) 91 Room Air 08/26/17 00:00 Room Air 08/25/17 23:49 37.3 77 16 106/65 (79) 94 Room Air 08/25/17 19:35 37.1 81 18 107/66 (80) 94 Room Air 08/25/17 16:01 92 Room Air 08/25/17 15:38 36.8 89 20 114/69 (84) 92 Room Air 08/25/17 11:48 36.6 94 18 149/72 (97) 94 Room Air Physical Exam General Appearance: WD/WN, no apparent distress ENT: hearing grossly normal Neck: supple, no adenopathy Respiratory/Chest: no respiratory distress, no accessory muscle use Cardiovascular: no JVD Abdomen: non tender, soft Neurologic/Psychiatric: alert, oriented x 3 Skin: normal color Laboratory Results Last 24 Hours Test 08/26/17 06:04 White Blood Count 5.41 K/uL Red Blood Count 3.76 M/uL Hemoglobin 8.9 g/dL Hematocrit 29.4 % Mean Corpuscular Volume 78.2 fL Mean Corpuscular Hemoglobin 23.7 pg Mean Corpuscular Hemoglobin Concent 30.3 g/dl Platelet Count 270 K/uL Mean Platelet Volume 9.0 fL Neutrophils (%) (Auto) 42.1 % Lymphocytes (%) (Auto) 44.7 % Monocytes (%) (Auto) 7.9 % Eosinophils (%) (Auto) 4.4 % Basophils (%) (Auto) 0.7 % Neutrophils # (Auto) 2.27 K/uL Lymphocytes # (Auto) 2.42 K/uL Monocytes # (Auto) 0.43 K/uL Eosinophils # (Auto) 0.24 K/uL Basophils # (Auto) 0.04 K/uL RDW Standard Deviation 44.9 fL RDW Coefficient of Variation 15.7 % Immature Granulocyte % (Auto) 0.2 % Immature Granulocyte # (Auto) 0.01 K/uL Hypochromasia PRESENT Microcytosis PRESENT Sodium Level 141 mmol/L Potassium Level 3.7 mmol/L Chloride Level 112 mmol/L Carbon Dioxide Level 24 mmol/L Anion Gap 5.0 mmol/L Blood Urea Nitrogen 7 mg/dl Creatinine 0.75 mg/dl Est Creatinine Clear Calc Drug Dose 86.0 ml/min Estimated GFR () 101.1 Estimated GFR (Non- 87.2 BUN/Creatinine Ratio 9.1 Random Glucose 79 mg/dl Calcium Level 8.5 mg/dl Magnesium Level 2.3 mg/dl Assessment and Plan A/P 57 yo female with improving UTI, incontinence. No need for acute intervention for her imaging findings. Await final culture results and Rx as appropriate. Risks and benefits of ileal conduit reviewed with patient. I suspect this therapy was chosen for a high pressure, low capacity bladder putting her upper tracts at risk and causing significant symptomatology based on her history and imaging finding. Would follow-up with her primary urologist as planned, patient to contact them to update on current events. Patient vocalizes good understanding of the treatment plan. Thank you for allowing us to participate in this patient's acute care, please recall service PRN new questions or concerns. Discharge planning: home
[2017-08-26] MEDS: LORAZEPAM 0.5 MG TAB PO PRN (12:14)
[2017-08-26 15:24] VITALS: BP 132/78; PULSE 89; TEMP 37; O2SAT 95
--- NOTE | 2017-08-26 16:46 | Progress Note ---
Internal Med Progress Note Date of Service: Aug 26, 2017. Provider Documentation: SUBJECTIVE: The patient was seen and examined Feels sleepy DEnies any other symptoms OBJECTIVE: Vital Signs-as noted below Exam: General-no distress at rest Eyes-normal ENT-normal Neck-supple Lungs-Clear to ausucltate bilaterally Heart-Regular,no murmur appreciated Abdomen-Benign,no masses ,bowel sound present Extremities-NO edema Neuro-AAOx3 Lab data as noted below. ASSESSMENT & PLAN: B/L Hydroureteronephrosis with UTI: H/O radiation cystitis, Multiple UTIs in past CT ::1. Progressive bilateral hydronephrosis with right-sided uroepithelial thickening and asymmetric right-sided perinephric stranding. No calculi are visualized. A distal obstructive process must be considered. 2. Abnormal appearance of the bladder with bladder wall thickening and infiltration the perivesical soft tissues. This could be inflammatory or neoplastic. Urological consultation is recommended. 3. No evidence of bowel obstruction. No evidence of free air 4. Mild nonspecific infiltration the fat adjacent to the descending colon/sigmoid junction. Minimal diverticulitis cannot be excluded 5. Duplex right renal collecting system Previously followed with , currently follows with Patient prefers to be seen by Other local Urologist (Refuses to be evaluated by ) Started on IV ceftriaxone,IV fluids Urine Culture-Await sensitivity Blood cultures-pending Hematuria on UA Appreciate Urology input Clinically better HTN: Elevated likely situational Resume home medications Chronic back pain: DJD Previously evaluated by Ortho stable Mood disorder/OCD Depression: Continue home medications Has Anxiety disorder with panic attacks Tobacco Use Disorder Nicotine patch Hyperlipidemia Peripheral vascular disease s/p RLE stent procedure Follows with Vascular surgery in [place] who recommended not to hold Plavix because of risk of thrombosis of R iliac stent Monitor Hb secondary to microscopic hematuria Continue Plavix, statins H/O cervical CA s/p pelvic radiation No acute issue Anemia of chronic disease: Hb stable DVT Px: SCDs Re: Microhematuria, Anemia Code Status: Full Code Disposition: Expect to discharge home when stable Likely discharge tomorrow Vital Signs: Date Time Temp Pulse Resp B/P (MAP) Pulse Ox O2 Delivery O2 Flow Rate FiO2 08/26/17 15:24 37.0 89 18 132/78 (96) 95 Room Air 08/26/17 08:00 Room Air 08/26/17 07:16 37.1 76 18 133/ (44) 91 Room Air 08/26/17 00:00 Room Air 08/25/17 23:49 37.3 77 16 106/65 (79) 94 Room Air 08/25/17 19:35 37.1 81 18 107/66 (80) 94 Room Air Lab Results: Results Past 24 Hours Test 08/26/17 06:04 Range/Units White Blood Count 5.41 4.8-10.8 K/uL Red Blood Count 3.76 4.2-5.4 M/uL Hemoglobin 8.9 12.0-16.0 g/dL Hematocrit 29.4 37-47 % Mean Corpuscular Volume 78.2 80-100 fL Mean Corpuscular Hemoglobin 23.7 25-34 pg Mean Corpuscular Hemoglobin Concent 30.3 32-36 g/dl Platelet Count 270 130-400 K/uL Mean Platelet Volume 9.0 7.4-10.4 fL Neutrophils (%) (Auto) 42.1 % Lymphocytes (%) (Auto) 44.7 % Monocytes (%) (Auto) 7.9 % Eosinophils (%) (Auto) 4.4 % Basophils (%) (Auto) 0.7 % Neutrophils # (Auto) 2.27 1.4-6.5 K/uL Lymphocytes # (Auto) 2.42 1.2-3.4 K/uL Monocytes # (Auto) 0.43 0.11-0.59 K/uL Eosinophils # (Auto) 0.24 0-0.5 K/uL Basophils # (Auto) 0.04 0-0.2 K/uL RDW Standard Deviation 44.9 36.4-46.3 fL RDW Coefficient of Variation 15.7 11.5-14.5 % Immature Granulocyte % (Auto) 0.2 % Immature Granulocyte # (Auto) 0.01 0.00-0.02 K/uL Hypochromasia PRESENT Microcytosis PRESENT Sodium Level 141 136-145 mmol/L Potassium Level 3.7 3.5-5.1 mmol/L Chloride Level 112 98-107 mmol/L Carbon Dioxide Level 24 21-32 mmol/L Anion Gap 5.0 3-11 mmol/L Blood Urea Nitrogen 7 7-18 mg/dl Creatinine 0.75 0.60-1.20 mg/dl Est Creatinine Clear Calc Drug Dose 86.0 ml/min Estimated GFR () 101.1 Estimated GFR (Non- 87.2 BUN/Creatinine Ratio 9.1 10-20 Random Glucose 79 70-99 mg/dl Calcium Level 8.5 8.5-10.1 mg/dl Magnesium Level 2.3 1.8-2.4 mg/dl
[2017-08-26 19:46] VITALS: BP 121/73; PULSE 79; TEMP 37.4; O2SAT 96
[2017-08-26] MEDS: TRAZODONE HCL 100 MG TAB PO SCH (20:48)
[2017-08-26 23:26] VITALS: BP 113/60; PULSE 71; TEMP 36.7; O2SAT 95
[2017-08-27] MEDS: LORAZEPAM 0.5 MG TAB PO PRN ×2 (00:58→12:45)
[2017-08-27] MEDS: CEFTRIAXONE SOD INJ 1 GM in DEXTROSE 5% ADD-VANTAGE 50ML 50 ML IV SCH (04:02)
[2017-08-27 05:32] LABS: HEMATOCRIT 28.3 % (37-47); MEAN CORPUSCULAR HGB CONC 30.7 g/dl (32-36); MEAN PLATELET VOLUME 9.1 fL (7.4-10.4); PLATELET COUNT 240 K/uL (130-400); RED BLOOD COUNT 3.63 M/uL (4.2-5.4); WHITE BLOOD COUNT 5.24 K/uL (4.8-10.8)
[2017-08-27 05:59] LABS: BUN/CREATININE RATIO 6.4 (10-20); CALCIUM 8.4 mg/dl (8.5-10.1); CREATININE 0.82 mg/dl (0.60-1.20); MAGNESIUM 2.2 mg/dl (1.8-2.4); POTASSIUM 3.7 mmol/L (3.5-5.1)
[2017-08-27 07:08] VITALS: BP 156/81; PULSE 78; TEMP 36.6; O2SAT 94
[2017-08-27] MEDS: PREGABALIN 50 MG CAP PO SCH ×3 (08:09→20:55)
[2017-08-27] MEDS: FLUTICASONE/SALMETEROL 250/50 (ADVAIR) 14 PUFF/1 INHALER INH SCH ×2 (08:10→20:56)
[2017-08-27] MEDS: TIOTROPIUM BROMIDE 5 PUFF/90 MCG INH INH SCH (08:11)
[2017-08-27] MEDS: LISINOPRIL 5 MG TAB PO SCH (08:12)
[2017-08-27] MEDS: ROSUVASTATIN CALCIUM 10 MG TAB PO SCH (08:12)
[2017-08-27] MEDS: CLOPIDOGREL BISULFATE 75 MG TAB PO SCH (08:13)
[2017-08-27] MEDS: DULOXETINE HCL 60 MG CAP PO SCH (08:13)
[2017-08-27] MEDS: NICOTINE 14 MG/24 HR TDSY TD SCH ×2 (08:13→12:46)
[2017-08-27] MEDS: PANTOprazole SOD 40 MG TAB PO SCH (08:13)
[2017-08-27] MEDS: CITALOPRAM 40 MG TAB PO SCH (08:13)
--- NOTE | 2017-08-27 11:26 | Progress Note ---
Internal Med Progress Note Date of Service: Aug 27, 2017. Provider Documentation: SUBJECTIVE: The patient was seen and examined Feels sleepy again today Denies any symptoms today OBJECTIVE: Vital Signs-as noted below Exam: General-no distress at rest Eyes-normal ENT-normal Neck-supple Lungs-Clear to ausucltate bilaterally Heart-Regular,no murmur appreciated Abdomen-Benign,no masses ,bowel sound present Extremities-NO edema Neuro-AAOx3 Lab data as noted below. ASSESSMENT & PLAN: B/L Hydroureteronephrosis with UTI: H/O radiation cystitis, Multiple UTIs in past CT ::1. Progressive bilateral hydronephrosis with right-sided uroepithelial thickening and asymmetric right-sided perinephric stranding. No calculi are visualized. A distal obstructive process must be considered. 2. Abnormal appearance of the bladder with bladder wall thickening and infiltration the perivesical soft tissues. This could be inflammatory or neoplastic. Urological consultation is recommended. 3. No evidence of bowel obstruction. No evidence of free air 4. Mild nonspecific infiltration the fat adjacent to the descending colon/sigmoid junction. Minimal diverticulitis cannot be excluded 5. Duplex right renal collecting system Previously followed with , currently follows with Patient prefers to be seen by Other local Urologist (Refuses to be evaluated by ) Started on IV ceftriaxone,IV fluids Urine Culture-Await sensitivity before discharge Blood cultures-negative Appreciate Urology input Clinically better and likely discharge today HTN: Elevated likely situational Resume home medications Chronic back pain: DJD Previously evaluated by Ortho stable Mood disorder/OCD Depression: Continue home medications Has Anxiety disorder with panic attacks No more anxiety Tobacco Use Disorder Nicotine patch Hyperlipidemia Peripheral vascular disease s/p RLE stent procedure Follows with Vascular surgery in [place] who recommended not to hold Plavix because of risk of thrombosis of R iliac stent Monitor Hb secondary to microscopic hematuria Continue Plavix, statins H/O cervical CA s/p pelvic radiation No acute issue Anemia of chronic disease: Hb stable DVT Px: SCDs Re: Microhematuria, Anemia Code Status: Full Code Disposition: Expect to discharge home when stable Likely discharge tomorrow Vital Signs: Date Time Temp Pulse Resp B/P (MAP) Pulse Ox O2 Delivery O2 Flow Rate FiO2 08/27/17 08:00 Room Air 08/27/17 07:08 36.6 78 16 156/81 (106) 94 Room Air 08/27/17 00:00 Room Air 08/26/17 23:26 36.7 71 18 113/60 (77) 95 Room Air 08/26/17 19:46 37.4 79 18 121/73 (89) 96 Room Air 08/26/17 17:54 Room Air 08/26/17 15:24 37.0 89 18 132/78 (96) 95 Room Air Lab Results: Results Past 24 Hours Test 08/27/17 05:15 Range/Units White Blood Count 5.24 4.8-10.8 K/uL Red Blood Count 3.63 4.2-5.4 M/uL Hemoglobin 8.7 12.0-16.0 g/dL Hematocrit 28.3 37-47 % Mean Corpuscular Volume 78.0 80-100 fL Mean Corpuscular Hemoglobin 24.0 25-34 pg Mean Corpuscular Hemoglobin Concent 30.7 32-36 g/dl RDW Standard Deviation 44.8 36.4-46.3 fL RDW Coefficient of Variation 15.6 11.5-14.5 % Platelet Count 240 130-400 K/uL Mean Platelet Volume 9.1 7.4-10.4 fL Sodium Level 141 136-145 mmol/L Potassium Level 3.7 3.5-5.1 mmol/L Chloride Level 111 98-107 mmol/L Carbon Dioxide Level 27 21-32 mmol/L Anion Gap 3.0 3-11 mmol/L Blood Urea Nitrogen 5 7-18 mg/dl Creatinine 0.82 0.60-1.20 mg/dl Est Creatinine Clear Calc Drug Dose 78.6 ml/min Estimated GFR () 90.8 Estimated GFR (Non- 78.3 BUN/Creatinine Ratio 6.4 10-20 Random Glucose 85 70-99 mg/dl Calcium Level 8.4 8.5-10.1 mg/dl Magnesium Level 2.2 1.8-2.4 mg/dl
[2017-08-27 15:48] VITALS: BP 124/73; PULSE 76; TEMP 36.8; O2SAT 95
[2017-08-27 19:42] VITALS: BP 121/67; PULSE 71; TEMP 36.9; O2SAT 97
[2017-08-27] MEDS: TRAZODONE HCL 100 MG TAB PO SCH (20:56)
[2017-08-27 23:43] VITALS: BP 113/71; PULSE 76; TEMP 36.8; O2SAT 93
[2017-08-28] MEDS: CEFTRIAXONE SOD INJ 1 GM in DEXTROSE 5% ADD-VANTAGE 50ML 50 ML IV SCH (03:59)
[2017-08-28 07:29] VITALS: BP 112/70; PULSE 69; TEMP 36.7; O2SAT 96
[2017-08-28] MEDS: LORAZEPAM 0.5 MG TAB PO PRN (08:02)
[2017-08-28] MEDS: PREGABALIN 50 MG CAP PO SCH ×2 (08:02→14:33)
[2017-08-28] MEDS: FLUTICASONE/SALMETEROL 250/50 (ADVAIR) 14 PUFF/1 INHALER INH SCH (08:03)
[2017-08-28] MEDS: NICOTINE 14 MG/24 HR TDSY TD SCH (08:03)
[2017-08-28] MEDS: TIOTROPIUM BROMIDE 5 PUFF/90 MCG INH INH SCH (08:04)
[2017-08-28] MEDS: LISINOPRIL 5 MG TAB PO SCH (08:10)
[2017-08-28] MEDS: ROSUVASTATIN CALCIUM 10 MG TAB PO SCH (08:10)
[2017-08-28] MEDS: DULOXETINE HCL 60 MG CAP PO SCH (08:11)
[2017-08-28] MEDS: CLOPIDOGREL BISULFATE 75 MG TAB PO SCH (08:11)
[2017-08-28] MEDS: PANTOprazole SOD 40 MG TAB PO SCH (08:11)
[2017-08-28] MEDS: CITALOPRAM 40 MG TAB PO SCH (08:15)
--- NOTE | 2017-08-28 12:16 | Progress Note ---
Internal Med Progress Note Date of Service: Aug 28, 2017. Provider Documentation: SUBJECTIVE: The patient was seen and examined Feels a lot better Denies any symptoms Wants to go home OBJECTIVE: Vital Signs-as noted below Exam: General-no distress at rest Eyes-normal ENT-normal Neck-supple Lungs-Clear to ausucltate bilaterally Heart-Regular,no murmur appreciated Abdomen-Benign,no masses ,bowel sound present Extremities-NO edema Neuro-AAOx3 Lab data as noted below. ASSESSMENT & PLAN: B/L Hydroureteronephrosis with UTI: H/O radiation cystitis, Multiple UTIs in past CT ::1. Progressive bilateral hydronephrosis with right-sided uroepithelial thickening and asymmetric right-sided perinephric stranding. No calculi are visualized. A distal obstructive process must be considered. 2. Abnormal appearance of the bladder with bladder wall thickening and infiltration the perivesical soft tissues. This could be inflammatory or neoplastic. Urological consultation is recommended. 3. No evidence of bowel obstruction. No evidence of free air 4. Mild nonspecific infiltration the fat adjacent to the descending colon/sigmoid junction. Minimal diverticulitis cannot be excluded 5. Duplex right renal collecting system Previously followed with , currently follows with Patient prefers to be seen by Other local Urologist (Refuses to be evaluated by ) Started on IV ceftriaxone,IV fluids Urine Culture-Enterobacter Cloacae-Pansensitive Blood cultures-negative Appreciate Urology input Antibiotic changed to Keflex for a total of 14 days Discharge home today HTN: Elevated likely situational Resume home medications BP is controlled Chronic back pain: DJD Previously evaluated by Ortho stable Mood disorder/OCD Depression: Continue home medications Has Anxiety disorder with panic attacks No more anxiety Tobacco Use Disorder Nicotine patch Hyperlipidemia Peripheral vascular disease s/p RLE stent procedure Follows with Vascular surgery in [place] who recommended not to hold Plavix because of risk of thrombosis of R iliac stent Monitor Hb secondary to microscopic hematuria Continue Plavix, statins H/O cervical CA s/p pelvic radiation No acute issue Anemia of chronic disease: Hb stable DVT Px: SCDs Re: Microhematuria, Anemia Code Status: Full Code Disposition: Expect to discharge home when stable Likely discharge tomorrow Vital Signs: Date Time Temp Pulse Resp B/P (MAP) Pulse Ox O2 Delivery O2 Flow Rate FiO2 08/28/17 08:30 Room Air 08/28/17 07:29 36.7 69 18 112/70 (84) 96 Room Air 08/28/17 00:00 Room Air 08/27/17 23:43 36.8 76 20 113/71 (85) 93 Room Air 08/27/17 20:00 Room Air 08/27/17 19:42 36.9 71 18 121/67 (85) 97 Room Air 08/27/17 15:48 36.8 76 18 124/73 (90) 95 Room Air 08/27/17 15:35 Room Air
[2017-08-28] MEDS ORDERED: LORAZEPAM 0.5 MG TAB PO ONE (12:19)
[2017-08-28] MEDS ORDERED: KFL500 PO (12:25)
--- NOTE | 2017-08-28 12:28 | Discharge Instructions ---
Discharge Instructions Date of Service Aug 28, 2017. Admission Reason for Admission: Hydroureteronephrosis Discharge Discharge Diagnosis / Problem: Bilateral Hydronephrosis,UTI Discharge Goals Goal(s): Prevent Disease Progression Activity Recommendations Activity Limitations: resume your previous activity . Instructions / Follow-Up Instructions / Follow-Up Please make an ppointment with your PCP in 1 week and your Urologist As Soon As Possible.Drink plenty of fluid Current Hospital Diet Patient's current hospital diet: AHA Diet (Heart Healthy) Discharge Diet Recommended Diet: AHA Diet (Heart Healthy) Pending Studies Studies pending at discharge: no Laboratory Results Lipid Panel Test 07/07/17 12:40 Range/Units Triglycerides Level 101 0-150 mg/dl Cholesterol Level 148 0-200 mg/dl HDL Cholesterol 56 mg/dl Cholesterol/HDL Ratio 2.6 LDL Cholesterol, Calculated 72 mg/dl Medical Emergencies . Who to Call and When: Medical Emergencies: If at any time you feel your situation is an emergency, please call 911 immediately. . Non-Emergent Contact Non-Emergency issues call your: Primary Care Provider . Past History Medical & Surgical History: (1) Hydroureteronephrosis (2) Back pain (3) UTI (urinary tract infection) (4) Ureteral stricture (5) Pyelonephritis (6) OCD (obsessive compulsive disorder) (7) Dyslipidemia (8) Back pain (9) Depression (10) IBS (irritable bowel syndrome) (11) Hx of recurrent urinary tract infection (12) History of hysterectomy (13) S/P appendectomy (14) S/P vascular surgery (15) H/O cystoscopy (16) History of ureter stent . "Provider Documentation" section prepared by Sandra Scherer. . VTE Core Measure Inpt VTE Proph given/why not?: SCD's (Anemia,Hematuria)
[2017-08-28] MEDS ORDERED: CEPHALEXIN MONOHYDRATE 500 MG CAP PO SCH (14:00)
[2017-08-28 14:42] VITALS: BP_SYST 112; BP_SYST 99; BP_DIAS 59; BP_DIAS 70; PULSE 69; PULSE 75; TEMP 36.7; TEMP 36.8; O2SAT 96; O2SAT 99
--- NOTE | 2017-08-29 07:53 | Discharge Summary ---
Discharge Summary Date of Service Aug 29, 2017. Discharge Summary Admission Date: Aug 25, 2017 at 05:42 Discharge Date: Aug 28, 2017 Principal Diagnosis: Bilateral Hydronephrosis,UTI Secondary Diagnoses/Problems: Please see H&P and Hospital Progress note Consultations: Urology Medication Reconciliation New Medications: Cephalexin Monohydrate (Cephalexin) 500 Mg Cap 500 MG PO TID for 7 Days, #21 CAP Continued Medications: Ascorbic Acid (Vitamin C) 500 Mg Tab 500 MG PO QAM Calcium Carbonate-Vitamin D (Calcium 600 + D) 1 Tab Tab 1 TAB PO DAILY Citalopram Hydrobromide (Celexa) 40 Mg Tab 40 MG PO QAM, TAB Clopidogrel Bisulfate (Plavix) 75 Mg Tab 75 MG PO QAM, TAB Cobalamine Combinations (Folic + B12) 1 Tab Tab 1 TAB PO DAILY Duloxetine HCl (Duloxetine HCl) 30 Mg Cap 2 CAP PO DAILY Fiber (Fiber Complete) 62.5 Mg Tab 1 TAB PO DAILY Fluticasone Prop/Salmeterol (Advair Diskus 250/50 60 Dose) 1 Ea Aerp 1 PUFF INH BID Glycopyrrolate (Glycopyrrolate) 2 Mg Tab 2 MG PO BID Ipratropium-Albuterol (Combivent Respimat) 1 Aer Aer 1 PUFF INH BID PRN for SOB/Wheezing Lamotrigine (Lamictal) 150 Mg Tab 150 MG PO BID, TAB Lisinopril (Lisinopril) 5 Mg Tab 1 TAB PO DAILY Lorazepam (Ativan) 0.5 Mg Tab 0.5 MG PO TID PRN for Anxiety, TAB Multivitamins/Minerals (Mvi With Minerals) Tab 1 TAB PO DAILY, TAB Pantoprazole (Protonix) 40 Mg Tab 40 MG PO QAM, TAB Potassium Chloride Microencaps (Potassium Chloride Er) 20 Meq Tab 20 MEQ PO BID Pregabalin (Lyrica) 50 Mg Cap 1 CAP PO TID Probiotic Product (Acidophilus) 1 Cap Cap 1 CAP PO DAILY Rosuvastatin Calcium (Crestor) 10 Mg Tab 10 MG PO DAILY, TAB Tiotropium [place] (Spiriva Handihaler) 30 Puff/540 Mcg Aerp 1 CAP INH DAILY, INHALER Trazodone HCl (Trazodone HCl) 100 Mg Tab 100 MG PO HS Vitamin E (Vitamin E) 400 Unit Tab 400 UNIT PO QAM Admission Information HPI (per Admitting provider): Patient is 57 yr female with PMH of chronic back pain, mood disorder, OCD, depression, hyperlipidemia, peripheral vascular disease s/p RLE stent procedure , hx cervical CA s/p pelvic radiation, overactive bladder, hx recurrent UTIs presents with history of RLQ pain which started today. Patient reports RLQ is sharp, intermittent, radiates to right flank region, 6/10, increases with movement and improves with pain medications. Patient also states she has nausea and an episode of vomiting and has constipation. Her appetite is decreased. Denies any history of chest pain, SOB, cough, dizziness, dysuria, hematuria, fever, chills. She was previously evaluated by and is currently following with a Urologist in [place]. Past Medical/Surgical History Medical Problems: (1) Anxiety Status: Chronic (2) Back pain Status: Chronic (3) Back pain Status: Chronic (4) Cervical cancer Permanent Comment: s/p surgery and radiation Status: Chronic (5) Depression Status: Chronic (6) Dyslipidemia Status: Chronic (7) GERD (gastroesophageal reflux disease) Status: Chronic (8) H/O hemorrhagic cystitis Status: Chronic (9) Hx of pyelonephritis Status: Chronic (10) Hx of recurrent urinary tract infection Status: Chronic (11) IBS (irritable bowel syndrome) Status: Chronic (12) Mood disorder Status: Chronic (13) OAB (overactive bladder) Status: Chronic (14) OCD (obsessive compulsive disorder) Status: Chronic (15) Ureteral stricture Status: Chronic (16) UTI (urinary tract infection) Status: Chronic Surgical Problems: (1) H/O cystoscopy Status: Chronic (2) History of hysterectomy Status: Chronic (3) History of ureter stent Status: Chronic (4) S/P appendectomy Status: Chronic (5) S/P vascular surgery Status: Chronic Family History Hypertension MOTHER Reviewed, not relevant Social History Smoking Status: Current Every Day Smoker Alcohol Use: none Drug Use: none Marital Status: Housing status: lives alone Immunizations History of Influenza Vaccine: Unknown History of Tetanus Vaccine?: Unknown History of Pneumococcal: Unknown History of Hepatitis B Vaccine: Unknown Multi-Drug Resistant Organisms History of MDRO: Yes Type of MDRO: MRSA Allergies Coded Allergies: Ciprofloxacin (Verified Allergy, Unknown, sores on tongue, 08/25/17) Gabapentin (Unverified Allergy, Unknown, unknown, 08/25/17) Meloxicam (Unverified Allergy, Unknown, unknown, 08/25/17) Paroxetine (Verified Allergy, Unknown, suicidal thoughts, 08/25/17) Varenicline (Verified Allergy, Unknown, suicidal thoughts, 08/25/17) Prednisone (Verified Adverse Reaction, Intermediate, "INTERNAL BLEEDING FROM KIDNEY", 08/25/17) Home Medications Scheduled Ascorbic Acid (Vitamin C), 500 MG PO QAM Calcium Carbonate-Vitamin D (Calcium 600 + D), 1 TAB PO DAILY Citalopram Hydrobromide (Celexa), 40 MG PO QAM Clopidogrel Bisulfate (Plavix), 75 MG PO QAM Cobalamine Combinations (Folic + B12), 1 TAB PO DAILY Duloxetine HCl (Duloxetine HCl), 2 CAP PO DAILY Fiber (Fiber Complete), 1 TAB PO DAILY Fluticasone Prop/Salmeterol (Advair Diskus 250/50 60 Dose), 1 PUFF INH BID Glycopyrrolate (Glycopyrrolate), 2 MG PO BID Lamotrigine (Lamictal), 150 MG PO BID Lisinopril (Lisinopril), 1 TAB PO DAILY Multivitamins/Minerals (Mvi With Minerals), 1 TAB PO DAILY Pantoprazole (Protonix), 40 MG PO QAM Potassium Chloride Microencaps (Potassium Chloride Er), 20 MEQ PO BID Pregabalin (Lyrica), 1 CAP PO TID Probiotic Product (Acidophilus), 1 CAP PO DAILY Rosuvastatin Calcium (Crestor), 10 MG PO DAILY Tiotropium [place] (Spiriva Handihaler), 1 CAP INH DAILY Trazodone HCl (Trazodone HCl), 100 MG PO HS Vitamin E (Vitamin E), 400 UNIT PO QAM Scheduled PRN Ipratropium-Albuterol (Combivent Respimat), 1 PUFF INH BID PRN for SOB/Wheezing Lorazepam (Ativan), 0.5 MG PO TID PRN for Anxiety Review of Systems See HPI for pertinent positives & negatives. A total of 10 systems reviewed and were otherwise negative. Physical Ex - H&P Physical Exam Vital Signs Date Time Temp Pulse Resp B/P (MAP) Pulse Ox O2 Delivery O2 Flow Rate FiO2 08/25/17 04:00 89 20 172/80 97 Room Air 08/25/17 02:49 98 23 94 08/25/17 02:31 172/107 08/25/17 02:19 90 17 99 08/25/17 02:07 97 Room Air 08/25/17 02:01 182/96 08/25/17 01:59 87 08/25/17 01:54 161/102 08/25/17 01:49 36.6 88 15 161/102 96 Room Air General Appearance: WD/WN, no apparent distress Head: normocephalic, atraumatic Eyes: normal inspection, PERRL, EOMI, sclerae normal ENT: normal ENT inspection, hearing grossly normal Neck: supple, trachea midline Respiratory/Chest: chest non-tender, lungs clear, normal breath sounds, no respiratory distress, no accessory muscle use Cardiovascular: regular rate, rhythm, no murmur Abdomen/GI: normal bowel sounds, soft, + pertinent finding (RLQ, Right flank tender) Back: normal inspection Extremities/Musculoskelatal: normal inspection, + pertinent finding (Chronic LLE lymphedema ) 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, no motor/sensory deficits, alert, normal mood/affect, oriented x 3 Skin: normal color, warm/dry Diagnostics - H&P Diagnostics Laboratory Results Results Past 24 Hours Test 08/25/17 01:28 08/25/17 03:15 Range/Units White Blood Count 11.81 4.8-10.8 K/uL Red Blood Count 4.27 4.2-5.4 M/uL Hemoglobin 10.3 12.0-16.0 g/dL Hematocrit 33.1 37-47 % Mean Corpuscular Volume 77.5 80-100 fL Mean Corpuscular Hemoglobin 24.1 25-34 pg Mean Corpuscular Hemoglobin Concent 31.1 32-36 g/dl Platelet Count 357 130-400 K/uL Mean Platelet Volume 9.7 7.4-10.4 fL Neutrophils (%) (Auto) 72.2 % Lymphocytes (%) (Auto) 18.3 % Monocytes (%) (Auto) 6.7 % Eosinophils (%) (Auto) 2.1 % Basophils (%) (Auto) 0.4 % Neutrophils # (Auto) 8.53 1.4-6.5 K/uL Lymphocytes # (Auto) 2.16 1.2-3.4 K/uL Monocytes # (Auto) 0.79 0.11-0.59 K/uL Eosinophils # (Auto) 0.25 0-0.5 K/uL Basophils # (Auto) 0.05 0-0.2 K/uL RDW Standard Deviation 43.9 36.4-46.3 fL RDW Coefficient of Variation 15.5 11.5-14.5 % Immature Granulocyte % (Auto) 0.3 % Immature Granulocyte # (Auto) 0.03 0.00-0.02 K/uL Sodium Level 139 136-145 mmol/L Potassium Level 3.1 3.5-5.1 mmol/L Chloride Level 108 98-107 mmol/L Carbon Dioxide Level 22 21-32 mmol/L Anion Gap 9.0 3-11 mmol/L Blood Urea Nitrogen 7 7-18 mg/dl Creatinine 0.93 0.60-1.20 mg/dl Est Creatinine Clear Calc Drug Dose 71.1 ml/min Estimated GFR () 78.0 Estimated GFR (Non- 67.3 BUN/Creatinine Ratio 7.7 10-20 Random Glucose 132 70-99 mg/dl Calcium Level 8.6 8.5-10.1 mg/dl Total Bilirubin 0.2 0.2-1 mg/dl Direct Bilirubin < 0.1 0-0.2 mg/dl Aspartate Amino Transf (AST/SGOT) 27 15-37 U/L Alanine Aminotransferase (ALT/SGPT) 24 12-78 U/L Alkaline Phosphatase 130 45-117 U/L Total Protein 7.1 6.4-8.2 gm/dl Albumin 3.1 3.4-5.0 gm/dl Lipase 114 73-393 U/L Urine Color YELLOW Urine Appearance TURBID CLEAR Urine pH 6.0 4.5-7.5 Urine Specific [place] 1.013 1.000-1.030 Urine Protein 2+ NEG Urine Glucose (UA) NEG NEG Urine Ketones NEG NEG Urine Occult Blood 2+ NEG Urine Nitrite NEG NEG Urine Bilirubin NEG NEG Urine Urobilinogen NEG NEG Urine Leukocyte Esterase LARGE NEG Urine WBC (Auto) >30 0-5 /hpf Urine RBC (Auto) 10-30 0-4 /hpf Urine Hyaline Casts (Auto) 1-5 0-5 /lpf Urine Epithelial Cells (Auto) 5-10 0-5 /lpf Urine Bacteria (Auto) 1+ NEG Urine Yeast (Auto) PRESENT NONE PRSENT Microbiology Results 08/25/17 Urine Culture, Received Pending Diagnostic Radiology CT ABD: Preliminary Report: Comparison 01/17/2017 There is now moderate to severe bilateral hydroureteronephrosis with appearance of urothelial thickening on the right and again note of asymmetric right perinephric stranding , edema May represent infection with possible distal ureteral stricture or infiltrative process not excluded Abnormal appearance of small size bladder with thick wall, surrounding perivesicular thickening, infiltration and lack of plane between the lower abdominal wall again seen Pelvic postsurgical changes and right external iliac stent again noted Suggestion of staple line at the cecum. The appendix is not identified No bowel dilation or free air Other abdominal solid organs and contracted gallbladder appear within limits Moderate colonic stool Lumbosacral junction and pelvic bones appear unchanged Impression - H&P Impression Assessment and Plan B/L Hydroureteronephrosis/UTI: H/O radiation cystitis, Multiple UTIs CT abdomen as above Previously followed with , currently follows with Patient prefers to be seen by Other local Urologist (Refuses to be evaluated by ) Start IV ceftriaxone IV fluids Urine/Blood cultures Hematuria on UA Will consult [facility] Urology Hypokalemia: Replace and monitor HTN: Elevated likely situational Resume home medications Chronic back pain: DJD Previously evaluated by Ortho stable Mood disorder/OCD Depression: Continue home medications Hyperlipidemia Peripheral vascular disease s/p RLE stent procedure Follows with Vascular surgery in [place] who recommended not to hold Plavix because of risk of thrombosis of R iliac stent Monitor Hb secondary to microscopic hematuria Continue plavix, statins H/O cervical CA s/p pelvic radiation Anemia of chronic disease: Hb stable DVT Px: SCDs Re: Microhematuria, Anemia Code Status: Full Code Disposition: Expect to discharge home when stable Physical Exam (per Admitting): General Appearance: WD/WN, no apparent distress Head: normocephalic, atraumatic Eyes: normal inspection, PERRL, EOMI, sclerae normal ENT: normal ENT inspection, hearing grossly normal Neck: supple, trachea midline Respiratory/Chest: chest non-tender, lungs clear, normal breath sounds, no respiratory distress, no accessory muscle use Cardiovascular: regular rate, rhythm, no murmur Abdomen/GI: normal bowel sounds, soft, + pertinent finding (RLQ, Right flank tender) Back: normal inspection Extremities/Musculoskelatal: normal inspection, + pertinent finding ( Chronic LLE lymphedema ) 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 Progressive bilateral hydronephrosis with right-sided uroepithelial thickening and asymmetric right-sided perinephric stranding. No calculi are visualized. A distal obstructive process must be considered. 2. Abnormal appearance of the bladder with bladder wall thickening and infiltration the perivesical soft tissues. This could be inflammatory or neoplastic. Urological consultation is recommended. 3. No evidence of bowel obstruction. No evidence of free air 4. Mild nonspecific infiltration the fat adjacent to the descending colon/sigmoid junction. Minimal diverticulitis cannot be excluded 5. Duplex right renal collecting system Previously followed with , currently follows with Patient prefers to be seen by Other local Urologist (Refuses to be evaluated by ) Started on IV ceftriaxone,IV fluids Urine Culture-Enterobacter Cloacae-Pansensitive Blood cultures-negative Appreciate Urology input Antibiotic changed to Keflex for a total of 14 days Discharge home today HTN: Elevated likely situational Resume home medications BP is controlled Chronic back pain: DJD Previously evaluated by Ortho stable Mood disorder/OCD Depression: Continue home medications Has Anxiety disorder with panic attacks No more anxiety Tobacco Use Disorder Nicotine patch Hyperlipidemia Peripheral vascular disease s/p RLE stent procedure Follows with Vascular surgery in [place] who recommended not to hold Plavix because of risk of thrombosis of R iliac stent Monitor Hb secondary to microscopic hematuria Continue Plavix, statins H/O cervical CA s/p pelvic radiation No acute issue Anemia of chronic disease: Hb stable DVT Px: SCDs Re: Microhematuria, Anemia Code Status: Full Code Disposition: Expect to discharge home when stable Likely discharge tomorrow Total time spent on discharge = 35 minutes This includes examination of the patient, discharge planning, medication reconciliation, and communication with other providers. Discharge Instructions Date of Service Aug 28, 2017. Admission Reason for Admission: Hydroureteronephrosis Discharge Discharge Diagnosis / Problem: Bilateral Hydronephrosis,UTI Discharge Goals Goal(s): Prevent Disease Progression Activity Recommendations Activity Limitations: resume your previous activity . Instructions / Follow-Up Instructions / Follow-Up Please make an appointment with your PCP in 1 week and your Urologist As Soon As Possible.Drink plenty of fluid Current Hospital Diet Patient's current hospital diet: AHA Diet (Heart Healthy) Discharge Diet Recommended Diet: AHA Diet (Heart Healthy) Pending Studies Studies pending at discharge: no Laboratory Results Lipid Panel Test 07/07/17 12:40 Range/Units Triglycerides Level 101 0-150 mg/dl Cholesterol Level 148 0-200 mg/dl HDL Cholesterol 56 mg/dl Cholesterol/HDL Ratio 2.6 LDL Cholesterol, Calculated 72 mg/dl Medical Emergencies . Who to Call and When: Medical Emergencies: If at any time you feel your situation is an emergency, please call 911 immediately. . Non-Emergent Contact Non-Emergency issues call your: Primary Care Provider . Past History Medical & Surgical History: (1) Hydroureteronephrosis (2) Back pain (3) UTI (urinary tract infection) (4) Ureteral stricture (5) Pyelonephritis (6) OCD (obsessive compulsive disorder) (7) Dyslipidemia (8) Back pain (9) Depression (10) IBS (irritable bowel syndrome) (11) Hx of recurrent urinary tract infection (12) History of hysterectomy (13) S/P appendectomy (14) S/P vascular surgery (15) H/O cystoscopy (16) History of ureter stent . "Provider Documentation" section prepared by Sandra Scherer. . VTE Core Measure Inpt VTE Proph given/why not?: SCD's (Anemia,Hematuria) <Electronically signed by Sandra Scherer M.D.> Signed: 08/28/17 2620 Additional Copies To Lavern Minor DO
== END 2017-08-28 16:51 | disposition home or self-care (01) | DRG 690 ==
LOC: EDBD 01:49 → C.EDB 01:50 → C.MED 05:42 → ENRESERV 05:53
PROVIDERS: ADMIT Internal Medicine; ATTEND Internal Medicine
DX: N39.0 Urinary tract infection, site not specified (principal); R31.29 Other microscopic hematuria; Q64.8 Other specified congenital malformations of urinary system; N13.30 Unspecified hydronephrosis; E87.6 Hypokalemia; R32 Unspecified urinary incontinence; N32.81 Overactive bladder; I10 Essential (primary) hypertension; E78.5 Hyperlipidemia, unspecified; D63.8 Anemia in other chronic diseases classified elsewhere; G89.29 Other chronic pain; M54.9 Dorsalgia, unspecified; I73.9 Peripheral vascular disease, unspecified; M19.90 Unspecified osteoarthritis, unspecified site; F31.9 Bipolar disorder, unspecified; F42.9 Obsessive-compulsive disorder, unspecified; F41.0 Panic disorder [episodic paroxysmal anxiety]; F17.200 Nicotine dependence, unspecified, uncomplicated; Z23 Encounter for immunization; Z95.820 Peripheral vascular angioplasty status with implants and grafts; Z87.440 Personal history of urinary (tract) infections; Z92.3 Personal history of irradiation; Z86.14 Personal history of Methicillin resistant Staphylococcus aureus infection; Z79.02 Long term (current) use of antithrombotics/antiplatelets; Z79.51 Long term (current) use of inhaled steroids; Z79.899 Other long term (current) drug therapy

== ENCOUNTER 2017-10-24 10:48 | Inpatient (IN) | payer OTHER ==
[~2017-10-24] VITALS: Ht 165.1 cm; Wt 79.0 kg
[~2017-10-24 10:48] MED LIST changes: +KFL500 PO; -MTR600 PO
[2017-10-24 11:08] VITALS: O2SAT 93
--- NOTE | 2017-10-24 11:38 | EMERGENCY ROOM VISIT NOTE ---
History Report prepared by Vladislav: Kayleigh Oconnor Under the Supervision of: Dr. Georgia Evans M.D. First contact with patient: 11:22 Chief Complaint: OVERDOSE (INTENTIONAL) Stated Complaint: OVERDOSE History of Present Illness The patient is a 57 year old female who presents to the Emergency Room brought in by EMS with complaints of episodic intentional Ativan overdose this morning PALLIATIVE CARE PHYSICIAN. The patient's son notified EMS after the patient informed him that she took the medication. The patient states that she took 10 to 15, 0.5 mg tablets of Ativan by mouth this morning. She denies taking any other medications. She notes that sometimes she feels like she does not want to live, though she feels this last month has been worse than normal. She denies any vomiting. HPI is limited secondary to the patients intoxicated state. Source of History: patient History Limited By: other (mental state) Onset: this morning PALLIATIVE CARE PHYSICIAN Position: other (global ) Quality: other (intentional Ativan overdose) Timing: other (episodic ) Associated Symptoms: No vomiting Review of Systems ROS is limited secondary to the patient's mental state. Past Medical & Surgical Medical Problems: (1) Anxiety (2) Back pain (3) Back pain (4) Cervical cancer (5) Depression (6) Dyslipidemia (7) GERD (gastroesophageal reflux disease) (8) H/O hemorrhagic cystitis (9) Hx of pyelonephritis (10) Hx of recurrent urinary tract infection (11) Hydroureteronephrosis (12) IBS (irritable bowel syndrome) (13) Mood disorder (14) OAB (overactive bladder) (15) OCD (obsessive compulsive disorder) (16) Ureteral stricture (17) UTI (urinary tract infection) Surgical Problems: (1) H/O cystoscopy (2) History of hysterectomy (3) History of ureter stent (4) S/P appendectomy (5) S/P vascular surgery Family History Depression Hypertension MOTHER Social History Smoking Status: Current Every Day Smoker Smokeless Tobacco Use: No Drug Use: other (benzodiazepine) Marital Status: single Housing Status: lives alone Occupation Status: unemployed Current/Historical Medications Scheduled Ascorbic Acid (Vitamin C), 500 MG PO QAM Calcium Carbonate-Vitamin D (Calcium 600 + D), 1 TAB PO DAILY Cephalexin Monohydrate (Cephalexin), 500 MG PO TID Citalopram Hydrobromide (Celexa), 40 MG PO QAM Clopidogrel Bisulfate (Plavix), 75 MG PO QAM Cobalamine Combinations (Folic + B12), 1 TAB PO DAILY Duloxetine HCl (Duloxetine HCl), 2 CAP PO DAILY Fiber (Fiber Complete), 1 TAB PO DAILY Fluticasone Prop/Salmeterol (Advair Diskus 250/50 60 Dose), 1 PUFF INH BID Glycopyrrolate (Glycopyrrolate), 2 MG PO BID Lamotrigine (Lamictal), 150 MG PO BID Lisinopril (Lisinopril), 1 TAB PO DAILY Multivitamins/Minerals (Mvi With Minerals), 1 TAB PO DAILY Nitrofurantoin Monohyd Macrocr (Macrobid), 100 MG PO BID Pantoprazole (Protonix), 40 MG PO QAM Potassium Chloride Microencaps (Potassium Chloride Er), 20 MEQ PO BID Pregabalin (Lyrica), 1 CAP PO TID Probiotic Product (Acidophilus), 1 CAP PO DAILY Rosuvastatin Calcium (Crestor), 10 MG PO DAILY Tiotropium Venus (Spiriva Handihaler), 1 CAP INH DAILY Trazodone HCl (Trazodone HCl), 100 MG PO HS Vitamin E (Vitamin E), 400 UNIT PO QAM Scheduled PRN Ipratropium-Albuterol (Combivent Respimat), 1 PUFF INH BID PRN for SOB/Wheezing Lorazepam (Ativan), 0.5 MG PO TID PRN for Anxiety Allergies Coded Allergies: Ciprofloxacin (Verified Allergy, Unknown, sores on tongue, 08/25/17) Gabapentin (Unverified Allergy, Unknown, unknown, 08/25/17) Meloxicam (Unverified Allergy, Unknown, unknown, 08/25/17) Paroxetine (Verified Allergy, Unknown, suicidal thoughts, 08/25/17) Varenicline (Verified Allergy, Unknown, suicidal thoughts, 08/25/17) Prednisone (Verified Adverse Reaction, Intermediate, "INTERNAL BLEEDING FROM KIDNEY", 08/25/17) Physical Exam Vital Signs Date Time Temp Pulse Resp B/P (MAP) Pulse Ox O2 Delivery O2 Flow Rate FiO2 10/24/17 14:56 81 21 131/61 94 Room Air 10/24/17 14:30 81 13 162/104 97 10/24/17 14:00 81 20 141/89 93 10/24/17 13:31 123/77 10/24/17 13:30 80 21 93 10/24/17 13:22 84 10/24/17 13:09 83 16 132/82 95 Room Air 10/24/17 13:00 81 132/82 94 10/24/17 11:48 86 21 93 10/24/17 11:31 126/75 10/24/17 11:18 87 22 10/24/17 11:08 122/79 10/24/17 11:08 93 Room Air 10/24/17 11:03 88 10/24/17 11:00 112/71 10/24/17 11:00 36.5 89 13 112/71 92 Room Air Physical Exam Vital signs reviewed. General: Somnolent, though arousable. Disheveled appearing, in no significant distress. HEENT: No scleral icterus, PERRLA, neck supple. Atraumatic. Cardiovascular: Regular rate and rhythm, no extra sounds. Pulmonary: Clear to auscultation bilaterally, normal work of breathing. Abdomen: Soft, nontender, nondistended, positive bowel sounds. Musculoskeletal: Atraumatic, no peripheral edema. Neurologic: Somnolent, though arousable, answers questions, but sleepy Psychological: Admits to suicidal ideations. No homicidal ideations. Skin: Warm, dry, no rash Medical Decision & Procedures ER Provider Diagnostic Interpretation: Radiology results as stated below per my review and radiologist interpretation: SINGLE VIEW CHEST CLINICAL HISTORY: Overdose. FINDINGS: An AP, portable, upright chest radiograph is obtained. No prior studies are available for comparison at the time of dictation. The examination is degraded by portable technique and patient rotation. The cardiomediastinal silhouette is unremarkable. There is mild atherosclerotic calcification of the thoracic and. Dependent atelectasis is observed. The lungs and pleural spaces are otherwise clear. No pneumothorax is seen. The skeletal structures are osteopenic. The bony thorax is grossly intact. IMPRESSION: No acute cardiopulmonary abnormality. Electronically signed by: Chadd Casanova M.D. 10/24/2017 11:45 AM Dictated Date/Time: 10/24/2017 11:[address] SCAN OF THE BRAIN WITHOUT IV CONTRAST CLINICAL HISTORY: Overdose. Change in mental status. COMPARISON STUDY: No priors. TECHNIQUE: Unenhanced axial CT scan of the brain is performed from the vertex to the skull base. A dose lowering technique was utilized adhering to the principles of ALARA. CT DOSE: 537.48 mGy.cm FINDINGS: Brain parenchyma: There is minimal subcortical and periventricular microangiopathic disease. There is no hemorrhage, mass effect, or evidence of acute territorial ischemia by CT criteria. Tomas-white matter is preserved. No extra-axial fluid collection is seen. Ventricles, sulci, cisterns: Normal in configuration. Intracranial vasculature: There is atherosclerotic calcification of the cavernous carotid arteries. Calvarium: Unremarkable. Sinuses and mastoids: The visualized paranasal sinuses are clear. The mastoid air cells are well pneumatized. Orbits: The bony orbits are grossly intact. IMPRESSION: There is no hemorrhage, mass effect, or evidence of acute territorial ischemia by CT criteria. Electronically signed by: Chadd Casanova M.D. 10/24/2017 12:53 PM Dictated Date/Time: 10/24/2017 12:51 PM Laboratory Results 10/24/17 11:59 Red Blood Count 4.63, Mean Corpuscular Volume 74.7, Mean Corpuscular Hemoglobin 22.7, Mean Corpuscular Hemoglobin Concent 30.3, Mean Platelet Volume 8.9, Neutrophils (%) (Auto) 63.5, Lymphocytes (%) (Auto) 26.7, Monocytes (%) (Auto) 6.8, Eosinophils (%) (Auto) 2.2, Basophils (%) (Auto) 0.6, Neutrophils # (Auto) 4.00, Lymphocytes # (Auto) 1.68, Monocytes # (Auto) 0.43, Eosinophils # (Auto) 0.14, Basophils # (Auto) 0.04 10/24/17 11:59 Test 10/24/17 11:59 10/24/17 13:55 White Blood Count 6.30 K/uL (4.8-10.8) Red Blood Count 4.63 M/uL (4.2-5.4) Hemoglobin 10.5 g/dL (12.0-16.0) Hematocrit 34.6 % (37-47) Mean Corpuscular Volume 74.7 fL (80-100) Mean Corpuscular Hemoglobin 22.7 pg (25-34) Mean Corpuscular Hemoglobin Concent 30.3 g/dl (32-36) Platelet Count 341 K/uL (130-400) Mean Platelet Volume 8.9 fL (7.4-10.4) Neutrophils (%) (Auto) 63.5 % Lymphocytes (%) (Auto) 26.7 % Monocytes (%) (Auto) 6.8 % Eosinophils (%) (Auto) 2.2 % Basophils (%) (Auto) 0.6 % Neutrophils # (Auto) 4.00 K/uL (1.4-6.5) Lymphocytes # (Auto) 1.68 K/uL (1.2-3.4) Monocytes # (Auto) 0.43 K/uL (0.11-0.59) Eosinophils # (Auto) 0.14 K/uL (0-0.5) Basophils # (Auto) 0.04 K/uL (0-0.2) RDW Standard Deviation 48.5 fL (36.4-46.3) RDW Coefficient of Variation 17.8 % (11.5-14.5) Immature Granulocyte % (Auto) 0.2 % Immature Granulocyte # (Auto) 0.01 K/uL (0.00-0.02) Large Platelets 1+ Prothrombin Time 10.0 SECONDS (9.0-12.0) Prothromb Time International Ratio 1.0 (0.9-1.1) Activated Partial Thromboplast Time 18.9 SECONDS (21.0-31.0) Partial Thromboplastin Ratio 0.7 Anion Gap 7.0 mmol/L (3-11) Est Creatinine Clear Calc Drug Dose 61.1 ml/min Estimated GFR () 68.9 Estimated GFR (Non- 59.5 BUN/Creatinine Ratio 10.3 (10-20) Calcium Level 9.3 mg/dl (8.5-10.1) Magnesium Level 2.4 mg/dl (1.8-2.4) Total Bilirubin 0.3 mg/dl (0.2-1) Direct Bilirubin 0.1 mg/dl (0-0.2) Aspartate Amino Transf (AST/SGOT) 34 U/L (15-37) Alanine Aminotransferase (ALT/SGPT) 23 U/L (12-78) Alkaline Phosphatase 117 U/L (45-117) Total Protein 7.6 gm/dl (6.4-8.2) Albumin 3.3 gm/dl (3.4-5.0) Thyroid Stimulating Hormone (TSH) 1.070 uIu/ml (0.300-4.500) Salicylates Level 4.5 mg/dl (2.8-20) Acetaminophen Level < 2 ug/ml (10-30) Ethyl Alcohol mg/dL < 3.0 mg/dl (0-3) Urine Color YELLOW Urine Appearance CLOUDY (CLEAR) Urine pH 7.5 (4.5-7.5) Urine Specific [place] 1.017 (1.000-1.030) Urine Protein NEG (NEG) Urine Glucose (UA) NEG (NEG) Urine Ketones NEG (NEG) Urine Occult Blood NEG (NEG) Urine Nitrite NEG (NEG) Urine Bilirubin NEG (NEG) Urine Urobilinogen NEG (NEG) Urine Leukocyte Esterase MODERATE (NEG) Urine WBC (Auto) >30 /hpf (0-5) Urine RBC (Auto) 0-4 /hpf (0-4) Urine Hyaline Casts (Auto) 10-30 /lpf (0-5) Urine Epithelial Cells (Auto) 10-20 /lpf (0-5) Urine Bacteria (Auto) 4+ (NEG) Urine Opiates Screen NEG (NEG) Urine Methadone, Qualitative NEG (NEG) Urine Barbiturates NEG (NEG) Urine Phencyclidine (PCP) Level NEG (NEG) Ur Amphetamine/Methamphetamine NEG (NEG) MDMA (Ecstasy) Screen NEG (NEG) Urine Benzodiazepines Screen NEG (NEG) Urine Cocaine Metabolite NEG (NEG) Urine Marijuana (THC) NEG (NEG) Laboratory results per my review. Medications Administered Medications (Trade) Dose Ordered Sig/Mirella Route Start Time Stop Time Status Last Admin Dose Admin Naloxone HCl (Narcan Inj) 0.4 mg NOW STAT IV 10/24/17 12:44 10/24/17 12:45 DC 10/24/17 13:09 0.4 MG ECG Indication: other (ativan overdose) Rate (beats per minute): 84 Rhythm: normal sinus Findings: no acute ischemic change, no ectopy, other (QTC is 449) Change: Patient's electrocardiogram interpreted by me. ED Course 1128: Past medical records reviewed. The patient was evaluated in room C6. A complete history and physical examination was performed. 1244: Ordered Narcan 0.4 mg IV 1245: I spoke with Stephie, case management. We discussed the patient's case. 1348: Narcan had no effect on the patient. 1351: Case management will contact the patient's son to determine when the patient took the medication. The son reports this is repetitive behavior. I signed off on a 302 because she refused to voluntary admit herself. 1420: I reassessed the patient at this time. She is resting comfortably. I discussed the results and treatment plan with the patient. I answered all pertaining questions that she had. She expressed understanding and verbalized agreement. The patient will be further evaluated. The patient has been signed off to Dr. Alfaro. 1421: The patient is a 302 and signed off to Dr. Alfaro for bed search. 1515: Ordered Macrobid 100 mg PO Medical Decision Differential diagnosis: Etiologies such as mood disorder, infection, hypoglycemia, electrolyte abnormalities, cardiac sources, intracerebral event, toxicologic, neurologic, as well as others were entertained. This patient was evaluated and appeared to be in no significant distress. IV access was obtained and laboratory work was drawn. The patient was evaluated on the gambling monitor. She was given Narcan without any effect. The patient admits that this was a suicide attempt. She was observed on the gambling monitor until she had a more clear mental state. Patient was evaluated by the mental health block and case maker. She was offered admission on voluntary basis for her suicide attempt however she has declined. A 302 warrant was submitted by the [facility]. The patient has a history of suicide attempts and drug overdoses according to her son. She is in need of urgent involuntary admission. A bed search is currently underway. The patient is incidentally found to have evidence of a UTI. She was placed on Macrobid 100 mg twice a day for 5 days. The case has been signed out to Dr. Alfaro at the change of shift , please see his notes for final disposition. Medication Reconcilliation Current Medication List: was personally reviewed by me Blood Pressure Screening Patient's blood pressure: Elevated blood pressure Blood pressure disposition: Elevated BP felt to be situational Impression Primary Impression: Suicide attempt Additional Impressions: Benzodiazepine overdose UTI (urinary tract infection) Scribe Attestation The scribe's documentation has been prepared under my direction and personally reviewed by me in its entirety. I confirm that the note above accurately reflects all work, treatment, procedures, and medical decision making performed by me. Departure Information Prescriptions Nitrofurantoin Monohyd Macrocr (Macrobid) 100 Mg Cap 100 MG PO BID, #10 CAP Prov: Georgia Evans M.D. 10/24/17 Patient Instructions My [facility] Problem Qualifiers
--- NOTE | 2017-10-24 11:47 | DIAGNOSTIC IMAGING REPORT ---
SINGLE VIEW CHEST CLINICAL HISTORY: Overdose. FINDINGS: An AP, portable, upright chest radiograph is obtained. No prior studies are available for comparison at the time of dictation. The examination is degraded by portable technique and patient rotation. The cardiomediastinal silhouette is unremarkable. There is mild atherosclerotic calcification of the thoracic and. Dependent atelectasis is observed. The lungs and pleural spaces are otherwise clear. No pneumothorax is seen. The skeletal structures are osteopenic. The bony thorax is grossly intact. IMPRESSION: No acute cardiopulmonary abnormality. Electronically signed by: Chadd Casanova M.D. 10/24/2017 11:45 AM Dictated Date/Time: 10/24/2017 11:44 AM
[2017-10-24 12:16] LABS: BASO % 0.6 %; BASO ABS # 0.04 K/uL (0-0.2); EOS % 2.2 %; EOS ABS # 0.14 K/uL (0-0.5); HEMATOCRIT 34.6 % (37-47); HEMOGLOBIN 10.5 g/dL (12.0-16.0); IG# 0.01 K/uL (0.00-0.02); LYMPH % 26.7 %; LYMPH ABS # 1.68 K/uL (1.2-3.4); MEAN CELL VOLUME 74.7 fL (80-100); MEAN CORPUSCULAR HEMOGLOBIN 22.7 pg (25-34); MEAN CORPUSCULAR HGB CONC 30.3 g/dl (32-36); MEAN PLATELET VOLUME 8.9 fL (7.4-10.4); MONO % 6.8 %; MONO ABS # 0.43 K/uL (0.11-0.59); NEUT % 63.5 %; PLATELET COUNT 341 K/uL (130-400); RED CELL DISTRIBUTION WIDTH CV 17.8 % (11.5-14.5); RED CELL DISTRIBUTION WIDTH SD 48.5 fL (36.4-46.3)
[2017-10-24] MEDS ORDERED: NALOXONE HCL 0.4 MG/1 ML VIAL/CARP IV STA ×2 (12:44→16:53)
[2017-10-24 12:46] LABS: ALBUMIN 3.3 gm/dl (3.4-5.0); CALCIUM 9.3 mg/dl (8.5-10.1); CREATININE 1.03 mg/dl (0.60-1.20); POTASSIUM 3.9 mmol/L (3.5-5.1)
[2017-10-24 12:53] LABS: PTT PATIENT 18.9 SECONDS (21.0-31.0)
--- NOTE | 2017-10-24 12:54 | DIAGNOSTIC IMAGING REPORT ---
CT SCAN OF THE BRAIN WITHOUT IV CONTRAST CLINICAL HISTORY: Overdose. Change in mental status. COMPARISON STUDY: No priors. TECHNIQUE: Unenhanced axial CT scan of the brain is performed from the vertex to the skull base. A dose lowering technique was utilized adhering to the principles of ALARA. CT DOSE: 537.48 mGy.cm FINDINGS: Brain parenchyma: There is minimal subcortical and periventricular microangiopathic disease. There is no hemorrhage, mass effect, or evidence of acute territorial ischemia by CT criteria. Tomas-white matter is preserved. No extra-axial fluid collection is seen. Ventricles, sulci, cisterns: Normal in configuration. Intracranial vasculature: There is atherosclerotic calcification of the cavernous carotid arteries. Calvarium: Unremarkable. Sinuses and mastoids: The visualized paranasal sinuses are clear. The mastoid air cells are well pneumatized. Orbits: The bony orbits are grossly intact. IMPRESSION: There is no hemorrhage, mass effect, or evidence of acute territorial ischemia by CT criteria. Electronically signed by: Chadd Casanova M.D. 10/24/2017 12:53 PM Dictated Date/Time: 10/24/2017 12:51 PM
[2017-10-24 12:57] LABS: TOTAL PROTEIN 7.6 gm/dl (6.4-8.2)
[2017-10-24] MEDS ORDERED: NITR-5 PO (15:08)
[2017-10-24] MEDS ORDERED: NITROFURANTOIN MONOHYDRATE 100 MG CAP PO ONE (15:15)
--- NOTE | 2017-10-24 16:05 | EMERGENCY ROOM VISIT NOTE ---
ED Visit Note First contact with patient: 16:04 Pt signed out to me at change of shift. History and Physical verified by me. Pt is here under a 302 Warrant and bed search is commencing. Pt admitted to [address] [place] [id number].
[2017-10-24] MEDS ORDERED: SODIUM CHLORIDE 0.9% 1000ML 1,000 ML IV STA (17:08)
[2017-10-24] MEDS ORDERED: NICOTINE POLACRILEX 2 MG GUM MT PRN (17:30)
[2017-10-24] MEDS ORDERED: IPRATROPIUM BROMIDE/ALBUTEROL respimat INH INH PRN (17:30)
[2017-10-24 19:11] VITALS: O2SAT 97
[2017-10-24 19:46] VITALS: BP 122/58; BMI 29.0
[2017-10-24] MEDS ORDERED: NURSING VERBAL MED ORDER ONE (20:15)
[2017-10-24] MEDS ORDERED: CEPHALEXIN MONOHYDRATE 500 MG CAP PO SCH (21:00)
[2017-10-24] MEDS: FLUTICASONE/SALMETEROL 250/50 (ADVAIR) 14 PUFF/1 INHALER INH SCH (21:11)
[2017-10-24] MEDS: POTASSIUM CHLORIDE 20 MEQ TABCR PO SCH (21:11)
[2017-10-24] MEDS: TRAZODONE HCL 100 MG TAB PO SCH (21:11)
[2017-10-24] MEDS: PREGABALIN 50 MG CAP PO SCH (21:12)
[2017-10-24] MEDS: GLYCOPYRROLATE 1 MG TAB PO SCH (21:12)
[2017-10-24] MEDS: NITROFURANTOIN MONOHYDRATE 100 MG CAP PO SCH (21:23)
[2017-10-25 06:52] VITALS: BP_SYST 112; BP_SYST 124; BP_DIAS 70; BP_DIAS 71; PULSE 71; PULSE 80; TEMP 36.8
[2017-10-25] MEDS: CALCIUM POLYCARBOPHIL 1 TAB PO SCH (09:00)
[2017-10-25] MEDS: DULOXETINE (CYMBALTA) 30 MG CAP PO SCH ×3 (09:00→18:01)
[2017-10-25] MEDS: CITALOPRAM 40 MG TAB PO SCH ×2 (09:00→18:00)
[2017-10-25] MEDS: TOCOPHERYL, DL-ALPHA 400 INTER.UNIT CAP PO SCH (09:00)
[2017-10-25] MEDS ORDERED: FOLIC ACID PO SCH (09:00)
[2017-10-25] MEDS: CEROVITE ADV FORMULA TAB PO SCH (09:00)
[2017-10-25] MEDS: ASCORBIC ACID 500 MG TAB PO SCH (09:00)
[2017-10-25] MEDS: CALCIUM 600MG + VIT D 400 IU TAB PO SCH (09:00)
[2017-10-25] MEDS: LACTOBACILLUS ACIDOPHILUS (FLORANEX) TAB PO SCH (09:00)
[2017-10-25] MEDS: POTASSIUM CHLORIDE 20 MEQ TABCR PO SCH ×2 (09:00→20:53)
[2017-10-25] MEDS: GLYCOPYRROLATE 1 MG TAB PO SCH ×2 (09:00→20:55)
[2017-10-25] MEDS ORDERED: CYANOCOBALAMIN PO SCH (09:00)
[2017-10-25] MEDS: TIOTROPIUM BROMIDE 5 PUFF/90 MCG INH INH SCH (09:00)
[2017-10-25] MEDS: FLUTICASONE/SALMETEROL 250/50 (ADVAIR) 14 PUFF/1 INHALER INH SCH ×2 (09:00→20:56)
[2017-10-25] MEDS: NICOTINE 21 MG/24 HR TDSY TD SCH (09:00)
[2017-10-25] MEDS: ROSUVASTATIN CALCIUM 10 MG TAB PO SCH (09:26)
[2017-10-25] MEDS: PREGABALIN 50 MG CAP PO SCH ×3 (09:30→20:56)
[2017-10-25] MEDS: NITROFURANTOIN MONOHYDRATE 100 MG CAP PO SCH ×2 (09:31→20:58)
[2017-10-25] MEDS: PANTOprazole SOD 40 MG TAB PO SCH (09:32)
[2017-10-25] MEDS: CLOPIDOGREL BISULFATE 75 MG TAB PO SCH (09:32)
[2017-10-25] MEDS: LISINOPRIL 5 MG TAB PO SCH (09:38)
--- NOTE | 2017-10-25 10:31 | Psychiatric History & Physical ---
History Date of Service Oct 25, 2017. Identifying Data Divine Cuello is a 57-year-old female admitted on Oct 24, 2017 at 16:41 who currently lives in [place] alone. Divine Cuello was admitted on a 302 involuntary commitment. Patient is admitted from home. The patient was brought to the ED by the police after family activated EMS. She is currently uncooperative with interview. Chief Complaint "everything is a mess and I don't want to talk about it". History of Present Illness Patient presented to ED following an intentional ingestion of Ativan 0.5 mg (10- 15 pills), interestingly her tox screen was negative for benzos. She was given Narcan in ED with no effect. She tells me this am that she just wanted to get some sleep but also won't uncover her face to interact in exam. She told both police and ED that it was a suicide attempt. She endorses chronic, intermittent SI for "most of my life" but won't elaborate on what is worse in past month. She will not review her stressors as "I can talk to my family for that" but then sobs that she has no one. Her main focus was the care of her puppy and 302 documents clearly state that her adult son will be taking care of the dog/her belongings. She endorsed irritability, poor appetite, and disrupted sleep to the corporate communications manager but again will not elaborate here. Divine relates that she has a personal financial representative three times a week to assist with care needs due to multiple medical issues, most of which stem from complications of her cervical CA treatment (pelvic irradiation in 1996 with hemorrhagic cystitis) and chronic UTIs and incontinence. She won't elaborate on her benzo use or past psych history thought last contact with psych service took place in 2010 following an OD of 48 Klonopin. She was admitted to the [facility] at that time as it is a smoking facility. PDMP database query reveals that Dr. Samaniego is the prescriber for her Lyrica and as well as Lorazepam 0.5 mg BID--last fill 09/29 for #60 pills. Addition hx of past med trials is obtained from [facility] medical admission in Aug as well as [facility] urology clinic notes for 2017. Past Psychiatric History Current OP Treatment: psychiatrist (Dr. Samaniego) Prior OP Treatment: psychiatrist ([facility]) Prior Psych Hospitalizations: [facility] (?last 2010, multiple), [facility] (now [facility] per chart, patient will not confirm), other ([facility] per ED note, patient will not confirm) Access to a Gun: No Suicide Attempts: Yes (2010, maybe more as patient will not confirm) Past Medication Trials Klonopin, Ativan; Ambien, Paxil up to 60 mg (listed as allergy), Wellbutrin, trazodone, Lamictal, Zyprexa Additional Notes chart lists MDD, OCD, ?bipolar Past Medical/Surgical History History of Concussion/Seizure: No (1) Hydroureteronephrosis (2) Benzodiazepine overdose (3) UTI (urinary tract infection) (4) Urinary incontinence (5) GERD (gastroesophageal reflux disease) (6) Dyslipidemia (7) Cervical cancer (8) IBS (irritable bowel syndrome) (9) OAB (overactive bladder) (10) H/O hemorrhagic cystitis (11) History of hysterectomy (12) S/P appendectomy (13) S/P vascular surgery (14) H/O cystoscopy (15) History of ureter stent chart also notes peripheral vascular disease s/p RLE stent, overactive bladder and duplication of right kidney. Allergies Allergies: Coded Allergies: Ciprofloxacin (Verified Allergy, Unknown, sores on tongue, 08/25/17) Gabapentin (Unverified Allergy, Unknown, unknown, 08/25/17) Meloxicam (Unverified Allergy, Unknown, unknown, 08/25/17) Paroxetine (Verified Allergy, Unknown, suicidal thoughts, 08/25/17) Varenicline (Verified Allergy, Unknown, suicidal thoughts, 08/25/17) Prednisone (Verified Adverse Reaction, Intermediate, "INTERNAL BLEEDING FROM KIDNEY", 08/25/17) Home Medications Scheduled Ascorbic Acid (Vitamin C), 500 MG PO QAM Calcium Carbonate-Vitamin D (Calcium 600 + D), 1 TAB PO DAILY Citalopram Hydrobromide (Celexa), 40 MG PO QAM Clopidogrel Bisulfate (Plavix), 75 MG PO QAM Cobalamine Combinations (Folic + B12), 1 TAB PO DAILY Duloxetine HCl (Duloxetine HCl), 2 CAP PO DAILY Fiber (Fiber Complete), 1 TAB PO DAILY Fluticasone Prop/Salmeterol (Advair Diskus 250/50 60 Dose), 1 PUFF INH BID Glycopyrrolate (Glycopyrrolate), 2 MG PO BID Lamotrigine (Lamictal), 150 MG PO BID Lisinopril (Lisinopril), 1 TAB PO DAILY Multivitamins/Minerals (Mvi With Minerals), 1 TAB PO DAILY Nitrofurantoin Monohyd Macrocr (Macrobid), 100 MG PO BID Pantoprazole (Protonix), 40 MG PO QAM Potassium Chloride Microencaps (Potassium Chloride Er), 20 MEQ PO BID Pregabalin (Lyrica), 1 CAP PO TID Probiotic Product (Acidophilus), 1 CAP PO DAILY Rosuvastatin Calcium (Crestor), 10 MG PO DAILY Tiotropium [place] (Spiriva Handihaler), 1 CAP INH DAILY Trazodone HCl (Trazodone HCl), 100 MG PO HS Vitamin E (Vitamin E), 400 UNIT PO QAM Scheduled PRN Ipratropium-Albuterol (Combivent Respimat), 1 PUFF INH BID PRN for SOB/Wheezing Lorazepam (Ativan), 0.5 MG PO TID PRN for Anxiety Family History Depression Hypertension MOTHER patient unable to provide Alcohol Use Alcohol Use In Past 12 Months: No AUDIT Total Score: 0 Smoking Use Smoking Status: Current Every Day Smoker Substance History denied but hx of >1 benzo OD and prior consult notes some remote hx of bathsalt and/or MJ use Personal History Lives in: apartment Work History: unemployed Children: son Additional Comments: patient unwilling to provide additional social history Review of Systems Patient was uncooperative with ROS, denied acute physical complaint Examination Physical Examination A physical exam was performed in the ER prior to admission to the unit by Dr. Evans. I accept that physical as correct/medical clearance for the inpatient physical exam. Vital Signs Vital Signs Past 12 Hours Date Time Temp Pulse Resp B/P (MAP) Pulse Ox O2 Delivery O2 Flow Rate FiO2 10/25/17 06:52 36.8 71 20 124/71 80 112/70 Laboratory Results Last 24 Hours Test 10/24/17 11:59 10/24/17 13:55 White Blood Count 6.30 K/uL Red Blood Count 4.63 M/uL Hemoglobin 10.5 g/dL Hematocrit 34.6 % Mean Corpuscular Volume 74.7 fL Mean Corpuscular Hemoglobin 22.7 pg Mean Corpuscular Hemoglobin Concent 30.3 g/dl Platelet Count 341 K/uL Mean Platelet Volume 8.9 fL Neutrophils (%) (Auto) 63.5 % Lymphocytes (%) (Auto) 26.7 % Monocytes (%) (Auto) 6.8 % Eosinophils (%) (Auto) 2.2 % Basophils (%) (Auto) 0.6 % Neutrophils # (Auto) 4.00 K/uL Lymphocytes # (Auto) 1.68 K/uL Monocytes # (Auto) 0.43 K/uL Eosinophils # (Auto) 0.14 K/uL Basophils # (Auto) 0.04 K/uL RDW Standard Deviation 48.5 fL RDW Coefficient of Variation 17.8 % Immature Granulocyte % (Auto) 0.2 % Immature Granulocyte # (Auto) 0.01 K/uL Large Platelets 1+ Prothrombin Time 10.0 SECONDS Prothromb Time International Ratio 1.0 Activated Partial Thromboplast Time 18.9 SECONDS Partial Thromboplastin Ratio 0.7 Sodium Level 139 mmol/L Potassium Level 3.9 mmol/L Chloride Level 108 mmol/L Carbon Dioxide Level 25 mmol/L Anion Gap 7.0 mmol/L Blood Urea Nitrogen 11 mg/dl Creatinine 1.03 mg/dl Est Creatinine Clear Calc Drug Dose 61.1 ml/min Estimated GFR () 68.9 Estimated GFR (Non- 59.5 BUN/Creatinine Ratio 10.3 Random Glucose 80 mg/dl Calcium Level 9.3 mg/dl Magnesium Level 2.4 mg/dl Total Bilirubin 0.3 mg/dl Direct Bilirubin 0.1 mg/dl Aspartate Amino Transf (AST/SGOT) 34 U/L Alanine Aminotransferase (ALT/SGPT) 23 U/L Alkaline Phosphatase 117 U/L Total Creatine Kinase 79 U/L Total Protein 7.6 gm/dl Albumin 3.3 gm/dl Thyroid Stimulating Hormone (TSH) 1.070 uIu/ml Salicylates Level 4.5 mg/dl Acetaminophen Level < 2 ug/ml Ethyl Alcohol mg/dL < 3.0 mg/dl Urine Color YELLOW Urine Appearance CLOUDY Urine pH 7.5 Urine Specific [place] 1.017 Urine Protein NEG Urine Glucose (UA) NEG Urine Ketones NEG Urine Occult Blood NEG Urine Nitrite NEG Urine Bilirubin NEG Urine Urobilinogen NEG Urine Leukocyte Esterase MODERATE Urine WBC (Auto) >30 /hpf Urine RBC (Auto) 0-4 /hpf Urine Hyaline Casts (Auto) 10-30 /lpf Urine Epithelial Cells (Auto) 10-20 /lpf Urine Bacteria (Auto) 4+ Urine Opiates Screen NEG Urine Methadone, Qualitative NEG Urine Barbiturates NEG Urine Phencyclidine (PCP) Level NEG Ur Amphetamine/Methamphetamine NEG MDMA (Ecstasy) Screen NEG Urine Benzodiazepines Screen NEG Urine Cocaine Metabolite NEG Urine Marijuana (THC) NEG Mental Examination During interview pt is: uncooperative Appearance: disheveled Eye contact is: poor Motor behavior is: no abnormal motor movements Affect: depressed Mood is: irritable Thought process: concrete Thought content: reality based without delusions Suicidal thought are: present, Plan: denied, Intent: denied Homicidal thoughts are: denied Hallucinations: denies auditory, denies visual Cognition: language grossly intact Intelligence estimated to be: average Insight: impaired Judgement: impaired Impression / Recommendations Impression 57 yo female with a history of multiple issues and a prior suicide attempt on benzodiazepines admitted on a 302 commitment for what appears to be severe depression thought given level of irritability and use of lamictal for probable mood stabilization cannot exclude bipolar disorder. Inventory Assets Strengths: reports positive relationship with Dr. Samaniego, cooperative with home health aide Needs: past treatment records Risk Factors Assessment : Yes /single/: Yes Access to guns: No Health problems: Yes Mental Health Diagnoses: Yes Previous attempt: Yes Smoker: Yes Protective Factors Assessment Employed: No Recommendations (1) Major depressive disorder, recurrent episode with anxious distress possible bipolar, will need records The patient is admitted to [facility] ([facility] inpatient mental health unit) on q 15 min checks (behavioral with suicide precautions) for safety. The patient will participate in group, recreational and milieu therapies and will be offered additional individual and family sessions as clinically appropriate. she is currently on medically necessary private room as uncooperative, sobbing, not wearing anything other than incontinence product. Staff will reassess need to [facility] in a few hours. (2) Benzodiazepine overdose 10/25--no evidence of withdrawal, patient denies abuse other than misuse as the suicide attempt, outpatient prescriber to be notified. CPT Code Initial Hospital Care: 47927
[2017-10-25] MEDS ORDERED: BISMUTH SUBSALICYLATE PER ML OMNICELL CHARGE PO PRN (17:30)
[2017-10-25] MEDS ORDERED: SODIUM CHLORIDE 0.65% NA SOLN 45 ML (OCEAN) PRN (17:30)
[2017-10-25] MEDS ORDERED: hydrOXYzine HCL 25 MG TAB PO PRN ×2 (17:30)
[2017-10-25] MEDS ORDERED: ALUMINUM/MAGNESIUM SUSP 30 ML UDC PO PRN (17:30)
[2017-10-25] MEDS ORDERED: NURSING VERBAL MED ORDER ONE (17:30)
[2017-10-25] MEDS ORDERED: MAGNESIUM HYDROXIDE SUSP 30 ML UDC PO PRN (17:30)
[2017-10-25] MEDS ORDERED: ACETAMINOPHEN 325 MG TAB PO PRN (17:30)
[2017-10-25] MEDS: TRAZODONE HCL 100 MG TAB PO SCH (20:55)
[2017-10-26 06:37] VITALS: BP_SYST 111; BP_SYST 117; BP_DIAS 71; PULSE 77; PULSE 87; TEMP 36.8
[2017-10-26] MEDS: CALCIUM 600MG + VIT D 400 IU TAB PO SCH (08:43)
[2017-10-26] MEDS: ROSUVASTATIN CALCIUM 10 MG TAB PO SCH (08:44)
[2017-10-26] MEDS: CALCIUM POLYCARBOPHIL 1 TAB PO SCH (08:44)
[2017-10-26] MEDS: POTASSIUM CHLORIDE 20 MEQ TABCR PO SCH ×2 (08:45→20:51)
[2017-10-26] MEDS: LACTOBACILLUS ACIDOPHILUS (FLORANEX) TAB PO SCH (08:45)
[2017-10-26] MEDS: CEROVITE ADV FORMULA TAB PO SCH (08:46)
[2017-10-26] MEDS: NITROFURANTOIN MONOHYDRATE 100 MG CAP PO SCH ×2 (08:46→20:53)
[2017-10-26] MEDS: CLOPIDOGREL BISULFATE 75 MG TAB PO SCH (08:47)
[2017-10-26] MEDS: TOCOPHERYL, DL-ALPHA 400 INTER.UNIT CAP PO SCH (08:47)
[2017-10-26] MEDS: PANTOprazole SOD 40 MG TAB PO SCH (08:47)
[2017-10-26] MEDS: ASCORBIC ACID 500 MG TAB PO SCH (08:47)
[2017-10-26] MEDS: GLYCOPYRROLATE 1 MG TAB PO SCH ×2 (08:47→20:53)
[2017-10-26] MEDS: LISINOPRIL 5 MG TAB PO SCH (08:48)
[2017-10-26] MEDS: PREGABALIN 50 MG CAP PO SCH ×3 (08:59→20:53)
[2017-10-26] MEDS: NICOTINE 21 MG/24 HR TDSY TD SCH (08:59)
[2017-10-26] MEDS: TIOTROPIUM BROMIDE 5 PUFF/90 MCG INH INH SCH (09:00)
[2017-10-26] MEDS: FLUTICASONE/SALMETEROL 250/50 (ADVAIR) 14 PUFF/1 INHALER INH SCH ×2 (09:00→20:49)
[2017-10-26] MEDS: CITALOPRAM 40 MG TAB PO SCH (09:04)
[2017-10-26] MEDS: DULOXETINE (CYMBALTA) 30 MG CAP PO SCH (09:05)
--- NOTE | 2017-10-26 17:01 | Psychiatric Progress Notes ---
Progress Note Date of Service Oct 26, 2017. Interval History Divine Cuello is a 57-year-old female admitted on Oct 24, 2017 at 16:41 who currently lives in [place] alone. Divine Cuello was admitted on a 302 involuntary commitment. Patient is admitted from home. The patient was brought to the ED by the police after family activated EMS. Chief Complaint "I just want to feel normal and for my family to leave me alone". Subjective Patient was seen & assessed interval progress reviewed with Nursing. Patient was pretty reclusive yesterday and irritable, very resistant to meds. She seem disoriented per staff as needed redirected on locations of things and unsteady gait (falls precautions). Divine states that it is recommended that she have additional surgery for her issues but she doesn't want to "go through that again". Her son is hoping she will go to assisted living, she reports not wanting to give up her personal care aides. She states that her son told her on the phone that she should just "end it" and that's when she OD on a handful of what she believes was her Ativan though didn't even look at it close enough to count pills. She keeps her controlleds in a separate location and son to bring them in for us to review. Review of Systems Psych: denies symptoms other than stated above Constitutional: fatigue Cardiovascular: denied GI: denied Neurologic: less confused today, gait also improving Remainder of 10 body systems also reviewed and denied other than noted below. She states that the asymmetry in her left lower extremity is baseline level of swelling following her chemo and it's the right side that is stented. No redness and non-tender. Sleep Information Total Hours of Sleep: 10.75 Meal Information Percent of Breakfast Consumed: 75 Percent of Lunch Consumed: 50 Percent of Dinner Consumed: 50 Mental Status Exam During interview pt is: guarded Appearance: disheveled Eye contact is: poor Motor behavior is: no abnormal motor movements Speech: normal in rate, rhythm & volume Affect: depressed, irritable Mood is: other ("I'm not depressed, I just want a life") Thought process: concrete Thought content: reality based without delusions Suicidal thought are: denied, Plan: denied, Intent: denied Homicidal thoughts are: denied Hallucinations: denies auditory, denies visual Cognition: language grossly intact Intelligence estimated to be: average Insight: impaired Judgement: impaired Summary of Past History 10/26 patient reports her OCD symptoms as "not being able to stand it" when things don't go her way. When questions re: previous dx of bipolar vs depression she added that her mood can change alot through the day, denied manic episodes (insight poor). Will review outpatient records as available. Impression 57 yo female with a history of multiple issues and a prior suicide attempt on benzodiazepines admitted on a 302 commitment for what appears to be severe depression though given level of irritability and use of lamictal for probable mood stabilization cannot exclude bipolar disorder. Plan (1) Major depressive disorder, recurrent episode with anxious distress possible bipolar, will need records The patient is [facility] ([facility] inpatient mental health unit) on q 15 min checks (behavioral with suicide precautions) for safety. The patient will participate in group, recreational and milieu therapies and will be offered additional individual and family sessions as clinically appropriate. she is currently on medically necessary private room as uncooperative, sobbing, not wearing anything other than incontinence product. Staff will reassess need to [facility] in a few hours. 10/26--discontinue medically necessary private room. Patient agreeable to titrate Cymbalta given underlying pain issues, will decrease Celexa due to combined risks if records fail to show need for OCD. (2) Benzodiazepine overdose 10/25--no evidence of withdrawal, patient denies abuse other than misuse as the suicide attempt, outpatient prescriber to be notified. 10/26--son bringing meds to secure/destroy. ?whether patient may have ingested Lyrica instead of lorazepam? given length of AMS and negative tox. Will ask PT to evaluate gait as patient reports difficulties at baseline. Discharge / Aftercare Planning Primary Care Physician: Name: Dr. Minor Sifter And Miller: Name: Zainabdaniel montez [facility] Visit Code E&M Code: 73680 Inventory Assets Strengths: reports positive relationship with Dr. Samaniego, cooperative with home health aide Needs: past treatment records Risk Factors Assessment : Yes /single/: Yes Health problems: Yes Mental Health Diagnoses: Yes Previous attempt: Yes Smoker: Yes Protective Factors Assessment Employed: No Data Vital Signs Last 24 Hrs: Date Time Temp Pulse Resp B/P (MAP) Pulse Ox O2 Delivery O2 Flow Rate FiO2 10/26/17 06:37 36.8 77 18 117/71 87 111/71 Meds Administered Last 24 Hrs: Meds Administered (Past 24Hrs) Medications (Trade) Dose Ordered Sig/Mirella Route Start Time Stop Time Status Last Admin Dose Admin Naloxone HCl (Narcan Inj) 0.4 mg NOW STAT IV 10/24/17 16:53 10/24/17 16:54 DC 10/24/17 16:53 0.4 MG Sodium Chloride 1,000 ml @ 999 mls/hr Q1H1M STAT IV 10/24/17 17:08 10/24/17 18:08 DC 10/24/17 17:08 999 MLS/HR Nicotine (Nicoderm Cq 21MG Patch) 1 patch QAM TD 10/25/17 09:00 11/24/17 08:59 10/26/17 08:59 1 PATCH Ascorbic Acid (Vitamin C Tab) 500 mg QAM PO 10/25/17 09:00 11/24/17 08:59 10/26/17 08:47 500 MG Citalopram Hydrobromide (celeXA TAB) 40 mg QAM PO 10/25/17 09:00 11/24/17 08:59 10/26/17 09:04 40 MG Clopidogrel Bisulfate (plAVix TAB) 75 mg QAM PO 10/25/17 09:00 11/24/17 08:59 10/26/17 08:47 75 MG Duloxetine HCl (Cymbalta Cap) 60 mg DAILY PO 10/25/17 09:00 10/26/17 12:57 DC 10/26/17 09:05 60 MG Salmeterol Xinafoate/ Fluticasone (Advair Diskus 250/50 Inh) 1 puff BID INH 10/24/17 21:00 11/23/17 20:59 10/26/17 09:00 1 PUFF Lisinopril (Zestril Tab) 5 mg DAILY PO 10/25/17 09:00 11/24/17 08:59 10/26/17 08:48 5 MG Multivitamins/ Minerals (Multivitamin W/ Minerals Tab) 1 tab DAILY PO 10/25/17 09:00 11/24/17 08:59 10/26/17 08:46 1 TAB Nitrofurantoin Macrocrystals (Macrobid Cap) 100 mg BID PO 10/24/17 21:00 10/29/17 20:59 10/26/17 08:46 100 MG Pantoprazole Sodium (Protonix Tab) 40 mg QAM PO 10/25/17 09:00 11/24/17 08:59 10/26/17 08:47 40 MG Potassium Chloride (Klor-Con Tab) 20 meq BID PO 10/24/17 21:00 11/23/17 20:59 10/26/17 08:45 20 MEQ Pregabalin (Lyrica Cap) 50 mg TID PO 10/24/17 21:00 11/23/17 20:59 10/26/17 14:20 50 MG Rosuvastatin Calcium (Crestor Tab) 10 mg DAILY PO 10/25/17 09:00 11/24/17 08:59 10/26/17 08:44 10 MG Tiotropium [place] (Spiriva Handihaler Inhaler) 2 puff DAILY INH 10/25/17 09:00 11/24/17 08:59 10/26/17 09:00 2 PUFF Trazodone HCl (Desyrel Tab) 100 mg HS PO 10/24/17 21:00 11/23/17 20:59 10/25/17 20:55 100 MG Calcium/Vitamin D (Caltrate Plus Tab) 1 tab DAILY PO 10/25/17 09:00 11/24/17 08:59 10/26/17 08:43 1 TAB Calcium Polycarbophil (Fibercon Tab) 1 tab DAILY PO 10/25/17 09:00 11/24/17 08:59 10/26/17 08:44 1 TAB Glycopyrrolate (Robinul Tab) 2 mg BID PO 10/24/17 21:00 11/23/17 20:59 10/26/17 08:47 2 MG Lamotrigine (Lamictal Tab) 150 mg BID PO 10/24/17 21:00 11/23/17 20:59 10/26/17 08:45 150 MG Lactobacillus Acidophilus (Floranex Tab) 4 tab DAILY PO 10/25/17 09:00 11/24/17 08:59 10/26/17 08:45 4 TAB vd-Cgnaj-Xfnnoxyxix Acetate (Vitamin E Cap) 400 interunit QAM PO 10/25/17 09:00 11/24/17 08:59 10/26/17 08:47 400 INTERUNIT Acetaminophen (Tylenol Tab) 650 mg Q4H PRN PO 10/25/17 17:30 11/24/17 17:29 10/25/17 17:54 650 MG
[2017-10-26] MEDS: TRAZODONE HCL 100 MG TAB PO SCH (20:51)
[2017-10-27 07:02] VITALS: BP_SYST 91; BP_SYST 96; BP_DIAS 62; BP_DIAS 63; PULSE 82; PULSE 83; TEMP 36.6
[2017-10-27] MEDS: NITROFURANTOIN MONOHYDRATE 100 MG CAP PO SCH ×4 (09:00→21:20)
[2017-10-27] MEDS: CALCIUM 600MG + VIT D 400 IU TAB PO SCH (09:14)
[2017-10-27] MEDS: TIOTROPIUM BROMIDE 5 PUFF/90 MCG INH INH SCH (09:14)
[2017-10-27] MEDS: FLUTICASONE/SALMETEROL 250/50 (ADVAIR) 14 PUFF/1 INHALER INH SCH ×2 (09:14→21:19)
[2017-10-27] MEDS: ROSUVASTATIN CALCIUM 10 MG TAB PO SCH (09:15)
[2017-10-27] MEDS: DULOXETINE (CYMBALTA) 30 MG CAP PO SCH (09:15)
[2017-10-27] MEDS: CITALOPRAM 40 MG TAB PO SCH (09:15)
[2017-10-27] MEDS: CALCIUM POLYCARBOPHIL 1 TAB PO SCH (09:15)
[2017-10-27] MEDS: LACTOBACILLUS ACIDOPHILUS (FLORANEX) TAB PO SCH (09:16)
[2017-10-27] MEDS: POTASSIUM CHLORIDE 20 MEQ TABCR PO SCH ×2 (09:16→21:19)
[2017-10-27] MEDS: PREGABALIN 50 MG CAP PO SCH ×3 (09:17→21:21)
[2017-10-27] MEDS: PANTOprazole SOD 40 MG TAB PO SCH (09:17)
[2017-10-27] MEDS: ASCORBIC ACID 500 MG TAB PO SCH (09:17)
[2017-10-27] MEDS: CLOPIDOGREL BISULFATE 75 MG TAB PO SCH (09:17)
[2017-10-27] MEDS: GLYCOPYRROLATE 1 MG TAB PO SCH ×2 (09:17→21:20)
[2017-10-27] MEDS: CEROVITE ADV FORMULA TAB PO SCH (09:17)
[2017-10-27] MEDS: NICOTINE 21 MG/24 HR TDSY TD SCH (09:18)
[2017-10-27] MEDS: LISINOPRIL 5 MG TAB PO SCH (09:18)
[2017-10-27] MEDS: TOCOPHERYL, DL-ALPHA 400 INTER.UNIT CAP PO SCH (09:18)
--- NOTE | 2017-10-27 10:44 | Psychiatric Progress Notes ---
Progress Note Date of Service Oct 27, 2017. Interval History Divine Cuello is a 57-year-old female admitted on Oct 24, 2017 at 16:41 who currently lives in [place] alone. Divine Cuello was admitted on a 302 involuntary commitment. Patient is admitted from home. The patient was brought to the ED by the police after family activated EMS. Chief Complaint "Seems lloyd the bipolarish thing going on". Subjective Patient was seen & assessed interval progress reviewed with Treatment Team. Staff report her mental status has improved, but she continues to feel unsteady and have dizziness, is forgetful, and they have had to frequently reorient her. She has been easily overwhelmed and tearful, but going to groups and socializing with peers. She has talked about her difficulties with her family, stating that her son does not care about her, and she feels unwanted and unloved. On my assessment, the patient states her mood has been "back and forth , up and down from minute to minute." She feels very emotional, is easily tearful, and says she is going from "happy to blah" every couple minutes. She endorses a lot of negative thoughts about herself, low self esteem, and feels easily overwhelmed. She says her son is "a big cpa tax for me," and says he and his girlfriend "just don't treat me right, don't treat with me with any respect." She is not sure how she can better handle the situation, saying he lies to her "for no reason" and is "sneaky." She feels her family "doesn't accept" her and "I don't have a loving family," including her son and father, as they tell her "it's all in your head, you just want attention, don't use it as an excuse." She wants to work on better ways to handle him. She continues to have dizziness and unsteadiness, feels tired with difficulty keeping her eyes open, but is able to ambulate independently. She says she has no friends or activities, isolates at home, as she doesn't like to be around people. She is focused on her relationship with her son, "it's either put up with him or lose my son, how do you choose?" Sleep Information Total Hours of Sleep: 6.75 Meal Information Percent of Breakfast Consumed: 75 Percent of Lunch Consumed: 50 Percent of Dinner Consumed: 75 Mental Status Exam During interview pt is: alert and oriented, cooperative Appearance: disheveled, other (appears older than age, weathing two hospital gowns and an [facility] t-shirt, unkempt) Eye contact is: poor Motor behavior is: steady gait & station, no abnormal motor movements Speech: normal in rate, rhythm & volume Affect: depressed, tearful, anxious Mood is: other ("real emotional") Thought process: goal directed, concrete Thought content: reality based without delusions Suicidal thought are: denied Homicidal thoughts are: denied Hallucinations: denies auditory, denies visual Cognition: attention grossly intact, language grossly intact Intelligence estimated to be: average Insight: impaired Judgement: impaired Impression 57 yo female with a history of multiple issues and a prior suicide attempt on benzodiazepines admitted on a 302 commitment for what appears to be severe depression though given level of irritability and use of lamictal for probable mood stabilization cannot exclude bipolar disorder. Continues to report depression, tearfulness, negative thoughts about herself, and hopelessness about her situation. Duloxetine initially reported as 60mg daily as an outpatient, but per external med history, appears it was 90g daily. May benefit from increase to 120mg daily. Still awaiting outpatient records from Dr. Samaniego. Could benefit from therapy, but transportation is a barrier, and is resistant to using the [employer]. Is very focused on difficult relationship with her son, and has a meeting with him by phone today. Plan (1) Major depressive disorder, recurrent episode with anxious distress possible bipolar, will need records The patient is admitted to [facility] ([facility] inpatient mental health unit) on q 15 min checks (behavioral with suicide precautions) for safety. The patient will participate in group, recreational and milieu therapies and will be offered additional individual and family sessions as clinically appropriate. she is currently on medically necessary private room as uncooperative, sobbing, not wearing anything other than incontinence product. Staff will reassess need to [facility] in a few hours. 10/26--discontinue medically necessary private room. Patient agreeable to titrate Cymbalta given underlying pain issues, will decrease Celexa due to combined risks if records fail to show need for OCD. 10/27--Staff to contact Dr. Samaniego's office to get records, as home dose of duloxetine unclear. May benefit from dose increase to 120mg if was on 90mg at home. --Complete taper off of citalopram to decrease risk of serotonin syndrome. Continue home dose of trazodone 100 mg daily at bedtime and lamotrigine 150 mg twice a day. --Family meeting with son by phone today. --Encourage referral for OP therapy, says she could go on . or ., and could use [employer]. --Is on a 302 involuntary commitment, which will Fri. 10/29. Will not likely meet criteria for a 303 commitment, and is working toward discharge at the completion of her 302. --Encouraged to work on safety plan and expanding her supports. (2) Benzodiazepine overdose 10/25--no evidence of withdrawal, patient denies abuse other than misuse as the suicide attempt, outpatient prescriber to be notified. 10/26--son bringing meds to secure/destroy. ?whether patient may have ingested Lyrica instead of lorazepam? given length of AMS and negative tox. Will ask PT to evaluate gait as patient reports difficulties at baseline. 10/27--FM with son by phone, staff have asked him to bring in her medications prior to discharge. (3) UTI (urinary tract infection) Complete 5 day course of nitrofurantoin started in ER. (4) GERD (gastroesophageal reflux disease) Continue home dose of Protonix. (5) Dyslipidemia Continue home dose of Crestor. Discharge / Aftercare Planning Primary Care Physician: Name: Dr. Minor Psychiatrist: Name: Dr. Samaniego Kennel Assistant: Name: Zainab montez [facility] Visit Code E&M Code: 63148 Inventory Assets Strengths: reports positive relationship with Dr. Samaniego, cooperative with home health aide Needs: past treatment records Risk Factors Assessment : Yes /single/: Yes Higher / Fall in social status: No Access to guns: No Health problems: Yes Mental Health Diagnoses: Yes Substance use disorders: Yes Previous attempt: Yes Family history of suicide: No Previous psychiatric stay: No Hopelessness: Yes Smoker: Yes Protective Factors Assessment : No Responsible for young children: No Employed: No Stable relationships: No Supportive family: No Good rapport with provider: Yes Data Vital Signs Last 24 Hrs: Date Time Temp Pulse Resp B/P (MAP) Pulse Ox O2 Delivery O2 Flow Rate FiO2 10/27/17 07:02 36.6 82 16 96/62 83 91/63 Meds Administered Last 24 Hrs: Meds Administered (Past 24Hrs) Medications (Trade) Dose Ordered Sig/Mirella Route Start Time Stop Time Status Last Admin Dose Admin Acetaminophen (Tylenol Tab) 650 mg Q4H PRN PO 10/25/17 17:30 11/24/17 17:29 10/25/17 17:54 650 MG Duloxetine HCl (Cymbalta Cap) 90 mg DAILY PO 10/27/17 09:00 11/24/17 08:59 10/27/17 09:15 90 MG
[2017-10-27] MEDS: TRAZODONE HCL 100 MG TAB PO SCH (21:19)
[2017-10-28 00:27] VITALS: Ht 165.1 cm; Wt 79.0 kg
[2017-10-28 07:05] VITALS: BP_SYST 100; BP_SYST 105; BP_DIAS 62; BP_DIAS 69; PULSE 75; PULSE 78; TEMP 36.6
--- NOTE | 2017-10-28 09:38 | Psychiatric Progress Notes ---
Progress Note Date of Service Oct 28, 2017. Interval History Divine Cuello is a 57-year-old female admitted on Oct 24, 2017 at 16:41 who currently lives in [place] alone. Divine Cuello was admitted on a 302 involuntary commitment. Patient is admitted from home. The patient was brought to the ED by the police after family activated EMS. Chief Complaint "Not well, physically not well". Subjective Patient was seen & assessed interval progress reviewed with Nursing. Staff reports patient had a meeting with her son yesterday which sounded difficult. Staff reports the patient continues to deny SI, but remains tearful on the unit. Pt had an evaluation from PT, and it was reported that there is no acute need for the patient to have an assistive device. Pt was seen today to assess progress since admission. Pt shares with this provider some history of her general health and discusses the potential ileal conduit urinary diversion surgery that has been proposed. Pt states, "I think there are more cons than pros at this point". Pt makes off-color statement about overdosing if she had the surgery and was displeased with results. Pt is pleased to be informed of additional outpatient supports including skills and psychological rehab. Pt dose not decline therapy referral; however, she is unsure about scheduling appointments around her current schedule. She states her current mood is a 7/ 10 (10=best) and she reports feeling "hope for the future." We discussed her thoughts on the phone meeting with her son, to which the patient replied, "fake ". She reports concerns about comments made about someone entering her apartment and is considering calling her son today to ask more questions. It was recommended she talk to staff prior to making this phone call to discuss the content. Pt reports ongoing physical side effects including headache, neck pain, drooping eyes, and stumbling - all of which are ongoing and "are caused by stress" per the patient. Pt denies SI/HI at today's encounter. She denies concerns or needs currently. Review of Systems Psych: denies symptoms other than stated above Constitutional: reports temporal pain, drooping eyes, neck pain, and "stumbling " Cardiovascular: denied GI: denied Neurologic: denied Remainder of 10 body systems also reviewed and denied other than noted above. Sleep Information Total Hours of Sleep: 6.50 Meal Information Percent of Breakfast Consumed: 75 Percent of Lunch Consumed: 100 Percent of Dinner Consumed: 100 Mental Status Exam During interview pt is: alert and oriented, cooperative Appearance: disheveled, other (unkempt, wearing two hospital gown covered with a flannel shirt) Eye contact is: fair Motor behavior is: steady gait & station (some lightheadedness upon standing after interview, resolved fully), no abnormal motor movements Speech: normal in rate, rhythm & volume Affect: depressed, blunted Mood is: depressed, other ("Not well, physically not well") Thought process: goal directed, concrete Thought content: reality based without delusions Suicidal thought are: denied Homicidal thoughts are: denied Hallucinations: denies auditory, denies visual Cognition: attention grossly intact, language grossly intact, other (obvious memory deficit) Intelligence estimated to be: average Insight: impaired Judgement: impaired Impression Pt reports ongoing physical symptoms which she states are "caused by stress". Pt states her mood is "not well", but currently rates herself a 7/10 (10=best) in regard to mood. Pt is preoccupied with the state of her apartment following phone meeting with her son yesterday. Pt planning to make a phone call to him today to discuss "moving my valuables", and was encouraged to reach out to staff prior to that call to facilitate appropriateness of content. Pt is pleased with arrangements for additional outpatient support and is optimistic that this will allow her to be more social and build more support. Still awaiting records from Dr. Samaniego's office in regard to medications. Pt is willing for therapy, but is concerned about this with with regard her current schedule for home health visits. Pt continues to deny SI, but is still at risk of self-harm if discharged prematurely. Would recommend the patient stay until the end of her 302 commitment. Plan (1) Major depressive disorder, recurrent episode with anxious distress possible bipolar, will need records The patient is admitted to [facility] ([facility] inpatient mental health unit) on q 15 min checks (behavioral with suicide precautions) for safety. The patient will participate in group, recreational and milieu therapies and will be offered additional individual and family sessions as clinically appropriate. she is currently on medically necessary private room as uncooperative, sobbing, not wearing anything other than incontinence product. Staff will reassess need to [facility] in a few hours. 10/26--discontinue medically necessary private room. Patient agreeable to titrate Cymbalta given underlying pain issues, will decrease Celexa due to combined risks if records fail to show need for OCD. 10/27--Staff to contact Dr. Samaniego's office to get records, as home dose of duloxetine unclear. May benefit from dose increase to 120mg if was on 90mg at home. --Complete taper off of citalopram to decrease risk of serotonin syndrome. Continue home dose of trazodone 100 mg daily at bedtime and lamotrigine 150 mg twice a day. --Family meeting with son by phone today. --Encourage referral for OP therapy, says she could go on . or ., and could use [employer]. --Is on a 302 involuntary commitment, which will Fri. 10/29. Will not likely meet criteria for a 303 commitment, and is working toward discharge at the completion of her 302. --Encouraged to work on safety plan and expanding her supports. 10/28 - Continue medications as above - Still awaiting records from Dr. Samaniego's office. - Pt willing for skills and psychological rehab. - PT evaluation yesterday determined no need for assistive device. - 302 commitment ending tomorrow, will assess tomorrow if patient is willing to sign in if she feels additional treatment time is necessary. Otherwise plan is to discharge to self care with outpatient psychiatric follow up. (2) Benzodiazepine overdose 10/25--no evidence of withdrawal, patient denies abuse other than misuse as the suicide attempt, outpatient prescriber to be notified. 10/26--son bringing meds to secure/destroy. ?whether patient may have ingested Lyrica instead of lorazepam? given length of AMS and negative tox. Will ask PT to evaluate gait as patient reports difficulties at baseline. 10/27--FM with son by phone, staff have asked him to bring in her medications prior to discharge. 10/28--Continue as above (3) UTI (urinary tract infection) Complete 5 day course of nitrofurantoin started in ER. (4) GERD (gastroesophageal reflux disease) Continue home dose of Protonix. (5) Dyslipidemia Continue home dose of Crestor. Discharge / Aftercare Planning Primary Care Physician: Name: Dr. Minor Psychiatrist: Name: Dr. 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 Samaniego, cooperative with home health aide Needs: past treatment records Risk Factors Assessment : Yes /single/: Yes Higher / Fall in social status: No Access to guns: No Health problems: Yes Mental Health Diagnoses: Yes Substance use disorders: Yes Previous attempt: Yes Family history of suicide: No Previous psychiatric stay: No Hopelessness: Yes Smoker: Yes Protective Factors Assessment : No Responsible for young children: No Employed: No Stable relationships: No Supportive family: No Good rapport with provider: Yes Data Vital Signs Last 24 Hrs: Date Time Temp Pulse Resp B/P (MAP) Pulse Ox O2 Delivery O2 Flow Rate FiO2 10/28/17 07:05 36.6 75 16 105/62 78 100/69 Meds Administered Last 24 Hrs: Meds Administered (Past 24Hrs) Medications (Trade) Dose Ordered Sig/Mirella Route Start Time Stop Time Status Last Admin Dose Admin Duloxetine HCl (Cymbalta Cap) 90 mg DAILY PO 10/27/17 09:00 11/24/17 08:59 10/27/17 09:15 90 MG
[2017-10-28] MEDS: NICOTINE 21 MG/24 HR TDSY TD SCH (09:47)
[2017-10-28] MEDS: TIOTROPIUM BROMIDE 5 PUFF/90 MCG INH INH SCH (09:47)
[2017-10-28] MEDS: ASCORBIC ACID 500 MG TAB PO SCH (09:48)
[2017-10-28] MEDS: CALCIUM 600MG + VIT D 400 IU TAB PO SCH (09:48)
[2017-10-28] MEDS: PREGABALIN 50 MG CAP PO SCH ×3 (09:48→21:51)
[2017-10-28] MEDS: LISINOPRIL 5 MG TAB PO SCH (09:49)
[2017-10-28] MEDS: LACTOBACILLUS ACIDOPHILUS (FLORANEX) TAB PO SCH (09:49)
[2017-10-28] MEDS: NITROFURANTOIN MONOHYDRATE 100 MG CAP PO SCH ×2 (09:49→21:51)
[2017-10-28] MEDS: POTASSIUM CHLORIDE 20 MEQ TABCR PO SCH ×2 (09:49→21:51)
[2017-10-28] MEDS: CITALOPRAM 40 MG TAB PO SCH (09:49)
[2017-10-28] MEDS: ROSUVASTATIN CALCIUM 10 MG TAB PO SCH (09:49)
[2017-10-28] MEDS: DULOXETINE (CYMBALTA) 30 MG CAP PO SCH (09:49)
[2017-10-28] MEDS: CALCIUM POLYCARBOPHIL 1 TAB PO SCH (09:49)
[2017-10-28] MEDS: CEROVITE ADV FORMULA TAB PO SCH (09:49)
[2017-10-28] MEDS: CLOPIDOGREL BISULFATE 75 MG TAB PO SCH (09:50)
[2017-10-28] MEDS: PANTOprazole SOD 40 MG TAB PO SCH (09:50)
[2017-10-28] MEDS: GLYCOPYRROLATE 1 MG TAB PO SCH ×2 (09:50→21:51)
[2017-10-28] MEDS: TOCOPHERYL, DL-ALPHA 400 INTER.UNIT CAP PO SCH (09:50)
[2017-10-28] MEDS: FLUTICASONE/SALMETEROL 250/50 (ADVAIR) 14 PUFF/1 INHALER INH SCH ×2 (09:54→21:50)
[2017-10-28 11:36] VITALS: BP 150/92; PULSE 98
[2017-10-28] MEDS ORDERED: CALCIUM CARBONATE 500 MG CHEWABLE PO PRN (12:30)
[2017-10-28] MEDS: TRAZODONE HCL 100 MG TAB PO SCH (21:50)
[2017-10-29 06:49] VITALS: BP_SYST 82; BP_SYST 87; BP_DIAS 55; BP_DIAS 57; PULSE 80; PULSE 82; TEMP 36.6
[2017-10-29] MEDS: FLUTICASONE/SALMETEROL 250/50 (ADVAIR) 14 PUFF/1 INHALER INH SCH (09:31)
[2017-10-29] MEDS: CALCIUM 600MG + VIT D 400 IU TAB PO SCH (09:33)
[2017-10-29] MEDS: TIOTROPIUM BROMIDE 5 PUFF/90 MCG INH INH SCH (09:33)
[2017-10-29] MEDS: CITALOPRAM 40 MG TAB PO SCH (09:34)
[2017-10-29] MEDS: ROSUVASTATIN CALCIUM 10 MG TAB PO SCH (09:35)
[2017-10-29] MEDS: DULOXETINE (CYMBALTA) 30 MG CAP PO SCH (09:35)
[2017-10-29] MEDS: CALCIUM POLYCARBOPHIL 1 TAB PO SCH (09:36)
[2017-10-29] MEDS: POTASSIUM CHLORIDE 20 MEQ TABCR PO SCH (09:37)
[2017-10-29] MEDS: CEROVITE ADV FORMULA TAB PO SCH (09:37)
[2017-10-29] MEDS: LACTOBACILLUS ACIDOPHILUS (FLORANEX) TAB PO SCH (09:37)
[2017-10-29] MEDS: PANTOprazole SOD 40 MG TAB PO SCH (09:39)
[2017-10-29] MEDS: CLOPIDOGREL BISULFATE 75 MG TAB PO SCH (09:39)
[2017-10-29] MEDS: NITROFURANTOIN MONOHYDRATE 100 MG CAP PO SCH (09:39)
[2017-10-29] MEDS: ASCORBIC ACID 500 MG TAB PO SCH (09:40)
[2017-10-29] MEDS: TOCOPHERYL, DL-ALPHA 400 INTER.UNIT CAP PO SCH (09:40)
[2017-10-29] MEDS: GLYCOPYRROLATE 1 MG TAB PO SCH (09:40)
[2017-10-29] MEDS: LISINOPRIL 5 MG TAB PO SCH ×2 (09:41→09:51)
[2017-10-29] MEDS: PREGABALIN 50 MG CAP PO SCH (09:51)
[2017-10-29] MEDS: NICOTINE 21 MG/24 HR TDSY TD SCH (09:54)
[2017-10-29 09:55] VITALS: BP 107/64; PULSE 94
--- NOTE | 2017-10-29 09:59 | Discharge Instructions ---
Discharge Information Report Includes Report will include the: Discharge Instructions & Summary Admission Admission Date / Time: Oct 24, 2017 at 16:41 Reason for Admission: Dx Major Depression Reccurent Discharge Discharge Diagnosis / Problem: Major depressive disorder, recurrent Condition at Discharge: Fair Discharge Goals Goal(s): Decrease discomfort, Improve function, Increase independence, Improve disease control, Therapeutic intervention Activity Recommendations Activity Limitations: resume your previous activity . Instructions / Follow-Up Instructions / Follow-Up . SPECIAL CARE INSTRUCTIONS: 1. Follow through with your scheduled aftercare appointments. If unable to keep an appointment, please call to reschedule. 2. Take your medication only as prescribed. Medication should not be changed or stopped without the approval of your doctor. In the event of worsening symptoms or concerns about side effects, contact your doctor immediately. 3. Utilize new healthy coping skills, anger management skills, and stress management skills learned during your hospitalization. Journal feelings and process them with a support person. Identify stressors or situations that may result in relapse, deterioration or inappropriate behaviors and develop a plan to deal with those issues. 4. If your coping skills are ineffective and you are in crisis, contact your outpatient providers for direction. If unable to reach your providers, please call the CAN HELP LINE AT or go to the closest Emergency Room. 5. Avoid alcohol and un-prescribed drugs. 6. You have been provided with the Mental Health Advance Directives Pamphlet for your review. AFTERCARE APPOINTMENTS: * Please call your insurance company prior to your scheduled appointment to confirm your aftercare providers are covered. Take your insurance information to your appointments. . Discharge / Aftercare Planning Primary Care Physician: Name: Dr. Minor, [facility] Date of Appointment: Nov 06, 2017 Time of Appointment: 9:20 a.m. Appointment Notes: [address], [address], [place] Psychiatrist: Name: Dr. Samaniego Date of Appointment: Nov 04, 2017 Time of Appointment: 11am Appointment Notes: [address] [place] [address] [address] [facility] [address] Music Ministries Director: Name: Ritesh Gonzalez Appointment Notes: Referral sent on 10/28/17 Partial or Psych Rehab: Name: [facility] Appointment Comments: Referred on 10/28/17 Specialist: Name: Dr. Stephy Mcdermott, Urology, [facility] Date of Appointment: Nov 21, 2017 Time of Appointment: 3:30 p.m. Appointment Notes: [address] [facility], [place] [address] Other: Name of Appointment #1: Service Coordination Resources[employer]ainab ext [phone] Appointment #1 Notes: call upon discharge . Follow-Up Care Plan for Follow-Up Care: Pt to have timely follow-up with her current outpatient providers as well as her Urologist. Pt's outpatient supports have been increased to include [facility], service coordinators, and case management as well. Current Hospital Diet Patient's current hospital diet: Regular Diet Discharge Diet Recommended Diet: Regular Diet Procedures Procedures Performed: No Pending Studies Pending Studies at Discharge: No Medical Emergencies . Who to Call and When: Medical Emergencies: For questions or emergencies related to your hospital stay, please contact the Inpatient Behavioral Health Unit at [phone]. A justice of the peace is on-call 07/04 for the Behavioral Health Unit for emergencies At any time you feel your situation is an emergency, you may also call 911 immediately. . Non-Emergent Contact Non-Emergency issues call your: Primary Care Provider, Psychiatrist, Music Ministries Director Past History Medical & Surgical History: (1) UTI (urinary tract infection) Advance Directives Do You Have an Existing Mental: No Existing Living Will: No Existing Power of Sensory Scientist: No Advance Directives Info Given: To Pt/S.O. Advance Directives Reason: Declines as Mental Health Visit. Discharge Summary Admission HPI Per the Admitting provider: Patient presented to ED following an intentional ingestion of Ativan 0.5 mg (10- 15 pills), interestingly her tox screen was negative for benzos. She was given Narcan in ED with no effect. She tells me this am that she just wanted to get some sleep but also won't uncover her face to interact in exam. She told both police and ED that it was a suicide attempt. She endorses chronic, intermittent SI for "most of my life" but won't elaborate on what is worse in past month. She will not review her stressors as "I can talk to my family for that" but then sobs that she has no one. Her main focus was the care of her puppy and 302 documents clearly state that her adult son will be taking care of the dog/her belongings. She endorsed irritability, poor appetite, and disrupted sleep to the custodian manager but again will not elaborate here. Divine relates that she has a personal lines sales rep three times a week to assist with care needs due to multiple medical issues, most of which stem from complications of her cervical CA treatment (pelvic irradiation in 1996 with hemorrhagic cystitis) and chronic UTIs and incontinence. She won't elaborate on her benzo use or past psych history thought last contact with psych service took place in 2010 following an OD of 48 Klonopin. She was admitted to the [facility] at that time as it is a smoking facility. PDMP database query reveals that Dr. Samaniego is the prescriber for her Lyrica and as well as Lorazepam 0.5 mg BID--last fill 09/29 for #60 pills. Addition hx of past med trials is obtained from [facility] medical admission in Aug as well as [facility] urology clinic notes for 2016. Hospital Course (1) Major depressive disorder, recurrent episode with anxious distress possible bipolar, will need records The patient is [facility] on q 15 min checks (behavioral with suicide precautions) for safety. The patient will participate in group, recreational and milieu therapies and will be offered additional individual and family sessions as clinically appropriate. she is currently on medically necessary private room as uncooperative, sobbing, not wearing anything other than incontinence product. Staff will reassess need to [facility] in a few hours. 10/26--discontinue medically necessary private room. Patient agreeable to titrate Cymbalta given underlying pain issues, will decrease Celexa due to combined risks if records fail to show need for OCD. 10/27--Staff to contact Dr. Samaniego's office to get records, as home dose of duloxetine unclear. May benefit from dose increase to 120mg if was on 90mg at home. --Complete taper off of citalopram to decrease risk of serotonin syndrome. Continue home dose of trazodone 100 mg daily at bedtime and lamotrigine 150 mg twice a day. --Family meeting with son by phone today. --Encourage referral for OP therapy, says she could go on . or ., and could use [facility]. --Is on a 302 involuntary commitment, which will Fri. 10/29. Will not likely meet criteria for a 303 commitment, and is working toward discharge at the completion of her 302. --Encouraged to work on safety plan and expanding her supports. 10/28 - Continue medications as above - Still awaiting records from Dr. Samaniego's office. - Pt willing for skills and psychological rehab. - PT evaluation yesterday determined no need for assistive device. - 302 commitment ending tomorrow, will assess tomorrow if patient is willing to sign in if she feels additional treatment time is necessary. Otherwise plan is to discharge to self care with outpatient psychiatric follow up. (2) Benzodiazepine overdose 10/25--no evidence of withdrawal, patient denies abuse other than misuse as the suicide attempt, outpatient prescriber to be notified. 10/26--son bringing meds to secure/destroy. ?whether patient may have ingested Lyrica instead of lorazepam? given length of AMS and negative tox. Will ask PT to evaluate gait as patient reports difficulties at baseline. 10/27--FM with son by phone, staff have asked him to bring in her medications prior to discharge. 10/28--Continue as above (3) UTI (urinary tract infection) Complete 5 day course of nitrofurantoin started in ER. (4) GERD (gastroesophageal reflux disease) Continue home dose of Protonix. (5) Dyslipidemia Continue home dose of Crestor. Risk Factors Assessment : Yes /single/: Yes Higher / Fall in social status: No Access to guns: No Health problems: Yes Mental Health Diagnoses: Yes Substance use disorders: Yes Previous attempt: Yes Family history of suicide: No Previous psychiatric stay: No Hopelessness: Yes Smoker: Yes Protective Factors Assessment : No Responsible for young children: No Employed: No Stable relationships: No Supportive family: No Good rapport with provider: Yes Day of Discharge Assessment COURSE OF HOSPITALIZATION: Pt was admitted on 10/24/17 on a 302 involuntary commitment after her son had called EMS with report of the patient's attempted overdose. Pt believes she took Ativan; however with a clean urine toxicology screen, it is presumed that she had actually taken another medication. Pt was admitted for treatment and records from her outpatient psychiatrist were requested to clarify medication dosages and recent diagnoses. During her stay, the patient's Celexa had been tapered due to concern for serotonin syndrome with combination of Celexa and Cymbalta. Outpatient records were not received during her stay, therefore the rationale for this combination could not be clarified, and no other medication changes were made. Improvement in patient's condition was noticed during her admission and patient became more interactive. Patient continues to report physical symptoms and is planning to make a neurology appointment after discharge to review these concerns. Pt denied ongoing SI during her stay and feels that she has improved as well. DAY OF DISCHARGE ASSESSMENT: Patient's case was discussed during treatment team. Staff reports the patient was more interactive yesterday evening however remains tearful at times. Staff reports patient slept poorly last evening despite prn Vistaril given. Patient reported racing thoughts and slept for about 4.5 hours. Patient was seen today to assess readiness for discharge. Patient states that she feels her condition has improved and that she is ready to go home. We had discussed the option for the patient to sign in voluntarily if she felt that she needed additional treatment time here on the unit. Patient declined this saying, "I feel that I have grasped everything that you guys have taught, I am ready to go home, plus my dog needs me." Patient remains excited about additional outpatient supports including [facility] psych rehab , case hardener, and ongoing outpatient medication management. She admits to racing thoughts last evening interfering with sleep stating, "I was thinking about everything I have learned here, but also about going home." Patient continues to deny suicidal ideation, hallucinations, or any other indications of psychosis or mood disorder. Patient reports that her father will drop off her home medications when he picks her up this afternoon. Staff plans to go through medications and remove those that have been discontinued during her treatment stay. Patient denies needs or concerns at this time. With evaluation of patient's current condition and progress made during her hospitalization, pt appears to be appropriate for discharge to home today as this is also the completion of her 302 involuntary commitment. The patient presented as alert and cooperative. The patient was dressed in 2 hospital gowns and appears clean, but unkempt. Eye contact was good. No psychomotor restlessness or agitation was noted. Speech was normal in rate, rhythm, and volume. Affect was mood congruent. The patients mood appeared euthymic. Thought processes were clear, coherent and goal directed without evidence of loose associations or flight of ideas. Thought content/perception was reality based without delusions. The patient denied suicidal and homicidal ideation. The patient denied hallucinations and did not appear to be responding to internal stimuli. Cognition was grossly intact with orientation to person, place and time. Fund of Knowledge/Intelligence were consistent with level of education. Insight and Judgement were fair. Laboratory Refer to printed laboratory reports Test 10/24/17 11:59 10/24/17 13:55 White Blood Count 6.30 Red Blood Count 4.63 Hemoglobin 10.5 Hematocrit 34.6 Mean Corpuscular Volume 74.7 Mean Corpuscular Hemoglobin 22.7 Mean Corpuscular Hemoglobin Concent 30.3 Platelet Count 341 Mean Platelet Volume 8.9 Neutrophils (%) (Auto) 63.5 Lymphocytes (%) (Auto) 26.7 Monocytes (%) (Auto) 6.8 Eosinophils (%) (Auto) 2.2 Basophils (%) (Auto) 0.6 Neutrophils # (Auto) 4.00 Lymphocytes # (Auto) 1.68 Monocytes # (Auto) 0.43 Eosinophils # (Auto) 0.14 Basophils # (Auto) 0.04 RDW Standard Deviation 48.5 RDW Coefficient of Variation 17.8 Immature Granulocyte % (Auto) 0.2 Immature Granulocyte # (Auto) 0.01 Large Platelets 1+ Prothrombin Time 10.0 Prothrombin Time INR 1.0 PTT 18.9 Partial Thromboplastin Ratio 0.7 Sodium Level 139 Potassium Level 3.9 Chloride Level 108 Carbon Dioxide Level 25 Anion Gap 7.0 Blood Urea Nitrogen 11 Creatinine 1.03 Est Creatinine Clear Calc Drug Dose 61.1 Estimated GFR () 68.9 Estimated GFR (Non- 59.5 BUN/Creatinine Ratio 10.3 Random Glucose 80 Calcium Level 9.3 Magnesium Level 2.4 Total Bilirubin 0.3 Direct Bilirubin 0.1 Aspartate Amino Transferase (AST) 34 Alanine Aminotransferase (ALT) 23 Alkaline Phosphatase 117 Total Creatine Kinase 79 Total Protein 7.6 Albumin 3.3 Thyroid Stimulating Hormone (TSH) 1.070 Salicylates Level 4.5 Acetaminophen Level < 2 Ethyl Alcohol mg/dL < 3.0 Urine Color YELLOW Urine Appearance CLOUDY Urine pH 7.5 Urine Specific [place] 1.017 Urine Protein NEG Urine Glucose (UA) NEG Urine Ketones NEG Urine Occult Blood NEG Urine Nitrite NEG Urine Bilirubin NEG Urine Urobilinogen NEG Urine Leukocyte Esterase MODERATE Urine WBC (Auto) >30 Urine RBC (Auto) 0-4 Urine Hyaline Casts (Auto) 10-30 Urine Epithelial Cells (Auto) 10-20 Urine Bacteria (Auto) 4+ Urine Opiates Screen NEG Urine Methadone, Qualitative NEG Urine Barbiturates NEG Urine Phencyclidine (PCP) Level NEG Ur Amphetamine/Methamphetamine NEG MDMA (Ecstasy) Screen NEG Urine Benzodiazepines Screen NEG Urine Cocaine Metabolite NEG Urine Marijuana (THC) NEG Total Time Total Time Spent (min): Greater than 30 minutes Total Time Included: examination of the patient, discharge planning, medication reconciliation, communication with other providers Tobacco Cessation at Discharge Smoking Status: Current Every Day Smoker FDA approved Prescription: nicotine replacement product (as requested, prescription sent)
[2017-10-29] MEDS ORDERED: CYM30 PO (10:52)
[2017-10-29] MEDS ORDERED: NICO21DI4 TD (10:52)
[2017-10-29] MEDS ORDERED: NITR-5 PO (10:52)
[2017-10-29] MEDS ORDERED: DESTROY THIS MEDICATION ONE (12:00)
[2017-10-29] MEDS ORDERED: NITROFURANTOIN MONOHYDRATE 100 MG CAP PO SCH (12:15)
[2017-10-29] MEDS ORDERED: NITROFURANTOIN MONOHYDRATE 100 MG CAP PO ONE (22:00)
== END 2017-10-29 12:45 | disposition home or self-care (01) | DRG 885 ==
LOC: C.EDC 10:52 → MERGE 10:52 → EDBD 10:52 → C.MHU 16:41 → ENRESERV 18:22
PROVIDERS: ADMIT Psychiatry & Neurology Child & Adolescent Psychiatry; ATTEND Psychiatry & Neurology Child & Adolescent Psychiatry
DX: F33.9 Major depressive disorder, recurrent, unspecified (principal); N39.0 Urinary tract infection, site not specified; T42.4X2A Poisoning by benzodiazepines, intentional self-harm, initial encounter; E78.5 Hyperlipidemia, unspecified; K21.9 Gastro-esophageal reflux disease without esophagitis; N32.81 Overactive bladder; F42.9 Obsessive-compulsive disorder, unspecified; F17.200 Nicotine dependence, unspecified, uncomplicated; Z88.1 Allergy status to other antibiotic agents; K58.9 Irritable bowel syndrome, unspecified; I73.9 Peripheral vascular disease, unspecified; F41.9 Anxiety disorder, unspecified; Z87.440 Personal history of urinary (tract) infections; Z85.41 Personal history of malignant neoplasm of cervix uteri; Y92.019 Unspecified place in single-family (private) house as the place of occurrence of the external cause

== ENCOUNTER 2017-11-23 13:33 | Emergency (ER) | payer OTHER ==
[~2017-11-23] VITALS: Ht 165.1 cm; Wt 81.4 kg
[2017-11-23 13:33] VITALS: TEMP 37; Ht 165.1 cm; Wt 81.4 kg
[~2017-11-23 13:33] MED LIST changes: -CITA40TA12 PO; -KFL500 PO; -LORA-741 PO; +NICO21DI4 TD; +NITR-5 PO
[2017-11-23] MEDS ORDERED: SODIUM CHLORIDE 0.9% 1000ML 500 ML IV STA (13:39)
--- NOTE | 2017-11-23 13:47 | EMERGENCY ROOM VISIT NOTE ---
History Report prepared by Vladislav: Emmy Liz Under the Supervision of: Dr. Chadd Kingston M.D. First contact with patient: 13:36 Stated Complaint: BLOOD IN URINE History of Present Illness The patient is a 57 year old female who presents to the Emergency Room with complaints of worsening blood in her urine beginning 3 days ago. She reports that she has had this symptom for a while. She denies having fevers or vomiting. The patient reports that she saw her urologist in [place] 2 days ago. She reports that she did a urine sample when she saw her urologist and that there was blood with a clot in her urine. The patient states that she can urinate on her own and that she does not need a catheter. She reports that she is incontinent. The patient states that she is on Plavix, but denies being on Coumadin. She states that she has edema of her left leg because of cancer, and that when she had cancer she had a radical hysterectomy. The patient states that she still has her ovaries. She reports a history of urinary infections. Source of History: patient Onset: 3 days ago Position: other (bladder) Quality: other (blood in urine ) Timing: worsening Associated Symptoms: No fevers, No vomiting Review of Systems See HPI for pertinent positives & negatives. A total of 10 systems reviewed and were otherwise negative. Past Medical & Surgical Medical Problems: (1) Anxiety (2) Back pain (3) Back pain (4) Cervical cancer (5) Dyslipidemia (6) GERD (gastroesophageal reflux disease) (7) H/O hemorrhagic cystitis (8) Hx of pyelonephritis (9) Hx of recurrent urinary tract infection (10) Hydroureteronephrosis (11) IBS (irritable bowel syndrome) (12) Major depressive disorder, recurrent episode with anxious distress (13) OAB (overactive bladder) (14) OCD (obsessive compulsive disorder) (15) Ureteral stricture (16) UTI (urinary tract infection) Surgical Problems: (1) H/O cystoscopy (2) History of hysterectomy (3) History of ureter stent (4) S/P appendectomy (5) S/P vascular surgery Family History Depression Hypertension MOTHER Social History Smoking Status: Current Every Day Smoker Alcohol Use: occasionally Drug Use: other Marital Status: single Housing Status: lives alone Occupation Status: unemployed Current/Historical Medications Scheduled Ascorbic Acid (Vitamin C), 500 MG PO QAM Calcium Carbonate-Vitamin D (Calcium 600 + D), 1 TAB PO DAILY Clopidogrel Bisulfate (Plavix), 75 MG PO QAM Cobalamine Combinations (Folic + B12), 1 TAB PO DAILY Duloxetine HCl (Duloxetine HCl), 90 MG PO DAILY Fiber (Fiber Complete), 1 TAB PO DAILY Fluticasone Prop/Salmeterol (Advair Diskus 250/50 60 Dose), 1 PUFF INH BID Glycopyrrolate (Glycopyrrolate), 2 MG PO BID Lamotrigine (Lamictal), 150 MG PO BID Levofloxacin (Levaquin), 500 MG PO DAILY Lorazepam (Ativan), 0.5 MG PO Q6H Multivitamins/Minerals (Mvi With Minerals), 1 TAB PO DAILY Nicotine (Nicoderm Cq), 1 PATCH TD QAM Pantoprazole (Protonix), 40 MG PO QAM Potassium Chloride Microencaps (Potassium Chloride Er), 20 MEQ PO BID Pregabalin (Lyrica), 1 CAP PO TID Probiotic Product (Acidophilus), 1 CAP PO DAILY Rosuvastatin Calcium (Crestor), 10 MG PO DAILY Tiotropium [place] (Spiriva Handihaler), 1 CAP INH DAILY Trazodone HCl (Trazodone HCl), 100 MG PO HS Vitamin E (Vitamin E), 400 UNIT PO QAM Scheduled PRN Ibuprofen (Motrin), 600 MG PO Q6H PRN for Pain Ipratropium-Albuterol (Combivent Respimat), 1 PUFF INH BID PRN for SOB/Wheezing Miscellaneous Medications Estradiol Vaginal (Estrace) Allergies Coded Allergies: Ciprofloxacin (Verified Allergy, Unknown, sores on tongue, 11/23/17) Gabapentin (Unverified Allergy, Unknown, unknown, 11/23/17) Meloxicam (Unverified Allergy, Unknown, unknown, 11/23/17) Paroxetine (Verified Allergy, Unknown, suicidal thoughts, 11/23/17) Varenicline (Verified Allergy, Unknown, suicidal thoughts, 11/23/17) Prednisone (Verified Adverse Reaction, Intermediate, "INTERNAL BLEEDING FROM KIDNEY", 11/23/17) Physical Exam Vital Signs Date Time Temp Pulse Resp B/P (MAP) Pulse Ox O2 Delivery O2 Flow Rate FiO2 11/23/17 18:01 76 18 131/98 96 11/23/17 17:42 75 16 156/80 95 Room Air 11/23/17 16:20 86 16 134/86 99 Room Air 11/23/17 15:20 77 18 152/81 96 Room Air 11/23/17 13:33 37.0 84 18 147/86 97 Room Air Physical Exam GENERAL: Patient is in no acute distress. HEENT: No acute trauma, normocephalic atraumatic, mucous membranes moist, no nasal congestion, no scleral icterus. NECK: No stridor, no adenopathy, no meningismus, trachea is midline. LUNGS: Clear to auscultation bilaterally, no wheeze, no rhonchi, breath sounds equal. HEART: Without murmurs gallops or rubs, regular rate and rhythm. ABDOMEN: Soft, nontender, bowel sounds positive, no hernias, no peritonitis. EXTREMITIES: No cyanosis, full range of motion of all the joints without pain or difficulty, no signs for acute trauma. Left leg edema consistent with her prior history. No erythema. NEUROLOGIC: Oriented x 3, no acute motor or sensory deficits, no focal weakness. SKIN: No rash, no jaundice, no diaphoresis. GROIN: Bloody urine noted on her Depends. Medical Decision & Procedures Laboratory Results 11/23/17 14:30 Red Blood Count 3.99, Mean Corpuscular Volume 73.2, Mean Corpuscular Hemoglobin 22.3, Mean Corpuscular Hemoglobin Concent 30.5, Mean Platelet Volume 8.7, Neutrophils (%) (Auto) 51.1, Lymphocytes (%) (Auto) 38.4, Monocytes (%) (Auto) 6.9, Eosinophils (%) (Auto) 2.7, Basophils (%) (Auto) 0.6, Neutrophils # (Auto) 3.53, Lymphocytes # (Auto) 2.65, Monocytes # (Auto) 0.48, Eosinophils # (Auto) 0.19, Basophils # (Auto) 0.04 11/23/17 17:28 11/23/17 14:30 Test 11/23/17 14:30 11/23/17 15:11 White Blood Count 6.91 K/uL (4.8-10.8) Red Blood Count 3.99 M/uL (4.2-5.4) Hemoglobin 8.9 g/dL (12.0-16.0) Hematocrit 29.2 % (37-47) Mean Corpuscular Volume 73.2 fL (80-100) Mean Corpuscular Hemoglobin 22.3 pg (25-34) Mean Corpuscular Hemoglobin Concent 30.5 g/dl (32-36) Platelet Count 254 K/uL (130-400) Mean Platelet Volume 8.7 fL (7.4-10.4) Neutrophils (%) (Auto) 51.1 % Lymphocytes (%) (Auto) 38.4 % Monocytes (%) (Auto) 6.9 % Eosinophils (%) (Auto) 2.7 % Basophils (%) (Auto) 0.6 % Neutrophils # (Auto) 3.53 K/uL (1.4-6.5) Lymphocytes # (Auto) 2.65 K/uL (1.2-3.4) Monocytes # (Auto) 0.48 K/uL (0.11-0.59) Eosinophils # (Auto) 0.19 K/uL (0-0.5) Basophils # (Auto) 0.04 K/uL (0-0.2) RDW Standard Deviation 49.6 fL (36.4-46.3) RDW Coefficient of Variation 18.4 % (11.5-14.5) Immature Granulocyte % (Auto) 0.3 % Immature Granulocyte # (Auto) 0.02 K/uL (0.00-0.02) Giant Platelets 1+ Microcytosis PRESENT Prothrombin Time 10.2 SECONDS (9.0-12.0) Prothromb Time International Ratio 1.0 (0.9-1.1) Activated Partial Thromboplast Time 22.4 SECONDS (21.0-31.0) Partial Thromboplastin Ratio 0.9 Anion Gap 8.0 mmol/L (3-11) Est Creatinine Clear Calc Drug Dose 70.2 ml/min Estimated GFR () 80.0 Estimated GFR (Non- 69.1 BUN/Creatinine Ratio 9.1 (10-20) Calcium Level 8.7 mg/dl (8.5-10.1) Total Bilirubin 0.2 mg/dl (0.2-1) Aspartate Amino Transf (AST/SGOT) 29 U/L (15-37) Alanine Aminotransferase (ALT/SGPT) 25 U/L (12-78) Alkaline Phosphatase 110 U/L (45-117) Total Protein 6.7 gm/dl (6.4-8.2) Albumin 2.9 gm/dl (3.4-5.0) Globulin 3.8 gm/dl (2.5-4.0) Albumin/Globulin Ratio 0.8 (0.9-2) Urine Color ORANGE Urine Appearance CLOUDY (CLEAR) Urine pH 6.5 (4.5-7.5) Urine Specific Drewsey 1.018 (1.000-1.030) Urine Protein 2+ (NEG) Urine Glucose (UA) NEG (NEG) Urine Ketones TRACE (NEG) Urine Occult Blood 3+ (NEG) Urine Nitrite NEG (NEG) Urine Bilirubin NEG (NEG) Urine Urobilinogen NEG (NEG) Urine Leukocyte Esterase MODERATE (NEG) Urine WBC (Auto) >30 /hpf (0-5) Urine RBC (Auto) >30 /hpf (0-4) Urine Hyaline Casts (Auto) 1-5 /lpf (0-5) Urine Epithelial Cells (Auto) >30 /lpf (0-5) Urine Bacteria (Auto) 2+ (NEG) Urine Crystals (NONE PRSENT) Laboratory results reviewed by me. Medications Administered Medications (Trade) Dose Ordered Sig/Mirella Route Start Time Stop Time Status Last Admin Dose Admin Sodium Chloride 500 ml @ 999 mls/hr Q31M STAT IV 11/23/17 13:39 11/23/17 14:09 DC 11/23/17 14:57 999 MLS/HR Ceftriaxone Sodium (Rocephin Inj) 1 gm NOW STAT IV 11/23/17 16:34 11/23/17 16:35 DC 11/23/17 16:44 1 GM Levofloxacin (Levaquin Tab) 500 mg NOW STAT PO 11/23/17 17:06 11/23/17 17:07 DC 11/23/17 17:40 500 MG ED Course 1338: The patient was evaluated in room C3. A complete history and physical exam was performed. 1339: Ordered Sodium Chloride 500 ml @ 999 mls/hr IV. 1510: The patient is feeling well and would like to go home. 1620: I checked on the patient and she is still doing well. 1625: Discussed the patient's case with Dr. Byrd-Urology, [facility]. She feels that the patient should do well on Levaquin as an outpatient and can be seen in the office this week. 1634: Ordered Rocephin Inj 1 gm IV. 1706: Ordered Levaquin Tab 500 mg PO. 1724: We will check the patient's hemoglobin. 1749: Reevaluated the patient. Discussed results and discharge instructions: She verbalized understanding and agreement. The patient is ready for discharge. Medical Decision The patient is a 57 year old female who presents to the ED with complaints of blood in urine. Differential diagnoses considered include UTI, hematuria, malignancy, renal failure, coagulopathy, anemia, and electrolyte imbalance. There is no leukocytosis. The patient is somewhat anemic, she has a history of the same. Hemoglobin slightly lower than recent testing. No significant electrolyte abnormality or kidney failure. Urinalysis is suggestive of infection, urine culture is pending. There is no coagulopathy. No evidence for hepatitis. On exam, the patient was not febrile or toxic. She had not been vomiting. The patient was given IV saline, she received IV ceftriaxone and oral Levaquin. I discussed the case with the on-call urologist at [facility] in [place]. Levaquin was suggested and outpatient follow-up. I did repeat a hemoglobin after the patient was here for a while, her hemoglobin is stable. The patient was reassured, she is being discharged. I suspect this urinary infection has caused irritation of the bladder and has led to the hematuria. She has had this issue before. If she is worsening, she will return. Medication Reconcilliation Current Medication List: was personally reviewed by me Blood Pressure Screening Patient's blood pressure: Elevated blood pressure Blood pressure disposition: Elevated BP felt to be situational Consults Time Called: 1600 Consulting Physician: Dr. Byrd- Urology, [facility] Returned Call: 1625 Discussed the patient's case. She feels that the patient should do well on Levaquin as an outpatient and can be seen in the office this week. Impression Primary Impression: Hematuria Additional Impressions: UTI (urinary tract infection) Anemia Scribe Attestation The scribe's documentation has been prepared under my direction and personally reviewed by me in its entirety. I confirm that the note above accurately reflects all work, treatment, procedures, and medical decision making performed by me. Departure Information Dispostion Home / Self-Care Prescriptions Levofloxacin (Levaquin) 500 Mg Tab 500 MG PO DAILY for 7 Days, #7 TAB Prov: Chadd Kingston M.D. 11/23/17 Referrals Lavern Minor DO (PCP) Forms HOME CARE DOCUMENTATION FORM, IMPORTANT VISIT INFORMATION Additional Instructions levaquin daily for 7 days--next dose tomorrow fluids rest call and talk with urology early this week to update them on your condition return for fever, worsening symptoms or if you are vomiting Problem Qualifiers
[2017-11-23 14:42] LABS: BASO % 0.6 %; BASO ABS # 0.04 K/uL (0-0.2); EOS % 2.7 %; EOS ABS # 0.19 K/uL (0-0.5); HEMATOCRIT 29.2 % (37-47); HEMOGLOBIN 8.9 g/dL (12.0-16.0); IG# 0.02 K/uL (0.00-0.02); LYMPH % 38.4 %; LYMPH ABS # 2.65 K/uL (1.2-3.4); MEAN CELL VOLUME 73.2 fL (80-100); MEAN CORPUSCULAR HEMOGLOBIN 22.3 pg (25-34); MEAN CORPUSCULAR HGB CONC 30.5 g/dl (32-36); MEAN PLATELET VOLUME 8.7 fL (7.4-10.4); MONO % 6.9 %; MONO ABS # 0.48 K/uL (0.11-0.59); NEUT % 51.1 %; NEUT ABS # 3.53 K/uL (1.4-6.5); PLATELET COUNT 254 K/uL (130-400); RED CELL DISTRIBUTION WIDTH CV 18.4 % (11.5-14.5); RED CELL DISTRIBUTION WIDTH SD 49.6 fL (36.4-46.3); WHITE BLOOD COUNT 6.91 K/uL (4.8-10.8)
[2017-11-23 14:52] LABS: PTT PATIENT 22.4 SECONDS (21.0-31.0)
[2017-11-23] MEDS ORDERED: LORA-741 PO (14:59)
[2017-11-23] MEDS ORDERED: IBUP-1450 PO (14:59)
[2017-11-23] MEDS ORDERED: ESTCR (14:59)
[2017-11-23 15:01] LABS: ALBUMIN 2.9 gm/dl (3.4-5.0); CALCIUM 8.7 mg/dl (8.5-10.1); CREATININE 0.91 mg/dl (0.60-1.20); POTASSIUM 3.6 mmol/L (3.5-5.1)
[2017-11-23 15:03] LABS: TOTAL PROTEIN 6.7 gm/dl (6.4-8.2)
[2017-11-23] MEDS ORDERED: CEFTRIAXONE SOD INJ 1 GM ADDVIAL IV STA (16:34)
[2017-11-23] MEDS ORDERED: LEVOFLOXACIN 250 MG TAB PO STA (17:06)
[2017-11-23] MEDS ORDERED: LEVO-366 PO (17:46)
[2017-11-23 18:01] VITALS: BP 131/98; PULSE 76; O2SAT 96
== END 2017-11-23 18:10 | disposition home or self-care (01) ==
LOC: EDBD 13:33 → C.EDC 13:35
DX: R31.9 Hematuria, unspecified (principal); N39.0 Urinary tract infection, site not specified; D64.9 Anemia, unspecified; F41.9 Anxiety disorder, unspecified; E78.5 Hyperlipidemia, unspecified; K21.9 Gastro-esophageal reflux disease without esophagitis; K58.9 Irritable bowel syndrome, unspecified; F33.9 Major depressive disorder, recurrent, unspecified; N32.81 Overactive bladder; F42.9 Obsessive-compulsive disorder, unspecified; F17.200 Nicotine dependence, unspecified, uncomplicated; Z79.02 Long term (current) use of antithrombotics/antiplatelets; Z79.51 Long term (current) use of inhaled steroids; Z85.41 Personal history of malignant neoplasm of cervix uteri; Z88.1 Allergy status to other antibiotic agents; Z88.8 Allergy status to other drugs, medicaments and biological substances; Z88.6 Allergy status to analgesic agent; Z81.8 Family history of other mental and behavioral disorders; Z82.49 Family history of ischemic heart disease and other diseases of the circulatory system

== ENCOUNTER → 2017-12-05 | Outpatient (CLI) | payer OTHER ==
[~2017-12-05] MED LIST changes: +ESTCR; +IBUP-1450 PO; +LORA-741 PO; -LSN5 PO; -NITR-5 PO
== END | disposition home or self-care (01) ==
LOC: C.LABPBG 15:00
PROVIDERS: ATTEND Physician Assistant
DX: N39.0 Urinary tract infection, site not specified (principal); R31.9 Hematuria, unspecified

== ENCOUNTER 2017-12-20 21:01 | Emergency (ER) | payer OTHER ==
[~2017-12-20] VITALS: Ht 165.1 cm; Wt 83.8 kg
[2017-12-20 21:06] VITALS: TEMP 37; Ht 165.1 cm; Wt 83.8 kg
[2017-12-20] MEDS ORDERED: MoRPHine SULFATE 10 MG/ML CARP/VIAL IV STA (21:44)
[2017-12-20] MEDS ORDERED: ONDANSETRON INJ 2 MG/ML 2 ML VIAL IV STA (21:44)
[2017-12-20 22:01] LABS: BASO % 0.2 %; BASO ABS # 0.03 K/uL (0-0.2); EOS % 0.9 %; EOS ABS # 0.11 K/uL (0-0.5); HEMATOCRIT 30.3 % (37-47); HEMOGLOBIN 9.4 g/dL (12.0-16.0); IG# 0.03 K/uL (0.00-0.02); LYMPH % 12.7 %; LYMPH ABS # 1.63 K/uL (1.2-3.4); MEAN CELL VOLUME 71.5 fL (80-100); MEAN CORPUSCULAR HEMOGLOBIN 22.2 pg (25-34); MEAN PLATELET VOLUME 8.8 fL (7.4-10.4); MONO % 6.1 %; MONO ABS # 0.78 K/uL (0.11-0.59); NEUT % 79.9 %; NEUT ABS # 10.22 K/uL (1.4-6.5); PLATELET COUNT 333 K/uL (130-400); RED CELL DISTRIBUTION WIDTH CV 18.4 % (11.5-14.5)
[2017-12-20 22:20] LABS: ALBUMIN 3.2 gm/dl (3.4-5.0); ALT/SGPT 16 U/L (12-78); BLOOD UREA NITROGEN 11 mg/dl (7-18); CALCIUM 9.3 mg/dl (8.5-10.1); CARBON DIOXIDE 25 mmol/L (21-32); CREATININE 1.15 mg/dl (0.60-1.20); GLUCOSE 112 mg/dl (70-99); LIPASE 94 U/L (73-393); POTASSIUM 4.2 mmol/L (3.5-5.1); SODIUM 139 mmol/L (136-145)
[2017-12-20] MEDS ORDERED: LPT40 PO (22:21)
[2017-12-20 22:25] LABS: ALKALINE PHOSPHATASE 104 U/L (45-117); AST/SGOT 23 U/L (15-37); TOTAL PROTEIN 7.3 gm/dl (6.4-8.2)
[2017-12-20] MEDS ORDERED: OPTIRAY 320 IV PRN (22:45)
--- NOTE | 2017-12-20 23:11 | DIAGNOSTIC IMAGING REPORT ---
ABD/PELVIS IV CONTRAST ONLY CLINICAL HISTORY: 57 years-old Female presenting with right sided abdominal pain. TECHNIQUE: Multidetector CT of the abdomen and pelvis was performed after the administration of intravenous contrast. IV contrast: 93 mL of Optiray 320. A dose lowering technique was used consistent with the principles of ALARA (as low as reasonably achievable). COMPARISON: 08/25/2017. CT DOSE (mGy.cm): The estimated cumulative dose is 411.86 mGy.cm. FINDINGS: Interactive Art Director topogram: Unremarkable. Lung bases: Minimal basilar opacities, likely atelectasis. Normal heart size. No pericardial or pleural effusion. Liver: Normal morphology. No liver lesion. Patent hepatic vasculature. Biliary: No intrahepatic or extrahepatic biliary ductal dilatation. Normal gallbladder. Pancreas: Normal. Spleen: Normal. Splenules noted. Adrenal glands: Normal. 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 Duplicated right renal collecting system. The 2 ureters may join in the mid to distal portion, however, this is not demonstrated. Right renal parenchyma normal. No hydronephrosis. No nephrolithiasis. Bladder: Incompletely evaluated secondary to underdistention. Pelvic organs: Uterus surgically absent. Bowel: Fluid noted in the colon suggesting a diarrheal state. Postsurgical changes of appendectomy aspect. Small bowel is distended with fluid. Distended small bowel taper smoothly to a loop of small bowel in the lower pelvis (series 3 image [id number]). Apparent small bowel wall thickening of this loop may be artifactual due to underdistention. This is not overly convincing for bowel obstruction. Peritoneal cavity: Trace free fluid in the pelvis. Lymph nodes: No enlarged lymph nodes in the abdomen or pelvis. Vasculature: Atherosclerosis of the normal caliber abdominal aorta. Right external iliac artery stent is grossly patent. IVC patent. Abdominal wall: Normal. Musculoskeletal: Degenerative changes of the spine. IMPRESSION: 1. Mildly distended small bowel, which taper smoothly to a loop of small bowel in the lower pelvis that demonstrates apparent wall thickening. This may be artifactual due to underdistention though a stricture cannot be excluded. This could be seen in the setting of prior pelvic radiation or inflammatory bowel disease. 2. Small free fluid in the pelvis is unexpected in a postmenopausal female. This is of uncertain etiology and may be reactive to the presence of small bowel distention. 3. Findings suggest reflux and approximately of the right kidney. Duplicated right renal collecting system. Electronically signed by: Aakash Haney M.D. 12/20/2017 11:10 PM Dictated Date/Time: 12/20/2017 11:01 PM
[2017-12-21] MEDS ORDERED: CEFDINIR 300 MG CAP PO STA (00:18)
[2017-12-21] MEDS ORDERED: CEFD300C2 PO (00:23)
--- NOTE | 2017-12-21 00:25 | EMERGENCY ROOM VISIT NOTE ---
History First contact with patient: 21:26 Chief Complaint: ABDOMINAL PAIN Stated Complaint: AB PAIN Nursing Triage Summary: Patient presents S from home for evaluation of upper abdominal pain that began yesterday eveing after eating week old ham. Last BM: today. Denies n/v/d. History of Present Illness The patient is a 57 year old female who presents to the Emergency Room via BLS with complaints of abdominal pain. The patient reports that she developed abdominal pain approximately 7 hours ago. She states that the pain is constant and is a dull, 4/10 pain, however she also has waves of sharp pain rated a 10/ 10. She states that the pain started after she ate ham which was old. She has not been able to eat since the pain started. She is nauseous but has not been vomiting. She states this feels somewhat like gas pains. Her last bowel movement was earlier today and was normal. She denies diarrhea. She denies urinary symptoms or fevers. She reports a history of a hysterectomy secondary to cervical cancer. Review of Systems A complete 10 point review of systems was reviewed with the patient with pertinent positives and negatives as per history of present illness. All else were negative. Past Medical/Surgical History Medical Problems: (1) Anxiety (2) Back pain (3) Back pain (4) Cervical cancer (5) Dyslipidemia (6) GERD (gastroesophageal reflux disease) (7) H/O hemorrhagic cystitis (8) Hx of pyelonephritis (9) Hx of recurrent urinary tract infection (10) Hydroureteronephrosis (11) IBS (irritable bowel syndrome) (12) Major depressive disorder, recurrent episode with anxious distress (13) OAB (overactive bladder) (14) OCD (obsessive compulsive disorder) (15) Ureteral stricture (16) UTI (urinary tract infection) Surgical Problems: (1) H/O cystoscopy (2) History of hysterectomy (3) History of ureter stent (4) S/P appendectomy (5) S/P vascular surgery Family History Depression Hypertension MOTHER Social History Smoking Status: Current Every Day Smoker Alcohol Use: occasionally Drug Use: other Marital Status: single Housing Status: lives alone Occupation Status: unemployed Current/Historical Medications Scheduled Atorvastatin (Lipitor), 40 MG PO DAILY Cefdinir (Omnicef), 300 MG PO Q12H Clopidogrel Bisulfate (Plavix), 75 MG PO QAM Duloxetine HCl (Duloxetine HCl), 90 MG PO DAILY Fluticasone Prop/Salmeterol (Advair Diskus 250/50 60 Dose), 1 PUFF INH BID Glycopyrrolate (Glycopyrrolate), 2 MG PO BID Lamotrigine (Lamictal), 150 MG PO BID Lorazepam (Ativan), 0.5 MG PO Q6H Pantoprazole (Protonix), 40 MG PO QAM Potassium Chloride Microencaps (Potassium Chloride Er), 20 MEQ PO BID Pregabalin (Lyrica), 50 MG PO TID Probiotic Product (Acidophilus), 1 CAP PO DAILY Tiotropium [place] (Spiriva Handihaler), 1 CAP INH DAILY Trazodone HCl (Trazodone HCl), 100 MG PO HS Scheduled PRN Ibuprofen (Motrin), 600 MG PO Q6H PRN for Pain Ipratropium-Albuterol (Combivent Respimat), 1 PUFF INH BID PRN for SOB/Wheezing Physical Exam Vital Signs Date Time Temp Pulse Resp B/P (MAP) Pulse Ox O2 Delivery O2 Flow Rate FiO2 12/21/17 00:30 87 18 114/67 94 Room Air 12/20/17 23:07 85 18 122/78 94 Room Air 12/20/17 21:06 37.0 96 18 123/86 94 Room Air Physical Exam VITALS: Vitals are noted on the nurse's note and reviewed by myself. Vital signs stable. GENERAL: This is a 57-year-old female, in no acute distress, nondiaphoretic, well-developed well-nourished. SKIN: The skin was without rashes. EARS: External auditory canals clear, tympanic membranes pearly mathis without erythema or effusion bilaterally. EYES: Pupils equal round and reactive to light and accommodation. MOUTH: Mucous membranes moist. Tonsils are not enlarged. Pharynx without erythema or exudate. NECK: Supple without nuchal rigidity. No lymphadenopathy. HEART: Regular rate and rhythm without murmurs gallops or rubs. LUNGS: Clear to auscultation bilaterally without wheezes, rales or rhonchi. No retractions or accessory muscle use. ABDOMEN: Positive bowel sounds x 4. Soft, mild tenderness to palpation across the upper abdomen. No guarding or rebound tenderness. NEURO: Patient was alert and oriented to person place and time. Medical Decision & Procedures ER Provider Diagnostic Interpretation: ABD/PELVIS IV CONTRAST ONLY FINDINGS: Analysis Consultant topogram: Unremarkable. Lung bases: Minimal basilar opacities, likely atelectasis. Normal heart size. No pericardial or pleural effusion. Liver: Normal morphology. No liver lesion. Patent hepatic vasculature. Biliary: No intrahepatic or extrahepatic biliary ductal dilatation. Normal gallbladder. Pancreas: Normal. Spleen: Normal. Splenules noted. Adrenal glands: Normal. 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 Duplicated right renal collecting system. The 2 ureters may join in the mid to distal portion, however, this is not demonstrated. Right renal parenchyma normal. No hydronephrosis. No nephrolithiasis. Bladder: Incompletely evaluated secondary to underdistention. Pelvic organs: Uterus surgically absent. Bowel: Fluid noted in the colon suggesting a diarrheal state. Postsurgical changes of appendectomy aspect. Small bowel is distended with fluid. Distended small bowel taper smoothly to a loop of small bowel in the lower pelvis (series 3 image [id number]). Apparent small bowel wall thickening of this loop may be artifactual due to underdistention. This is not overly convincing for bowel obstruction. Peritoneal cavity: Trace free fluid in the pelvis. Lymph nodes: No enlarged lymph nodes in the abdomen or pelvis. Vasculature: Atherosclerosis of the normal caliber abdominal aorta. Right external iliac artery stent is grossly patent. IVC patent. Abdominal wall: Normal. Musculoskeletal: Degenerative changes of the spine. IMPRESSION: 1. Mildly distended small bowel, which taper smoothly to a loop of small bowel in the lower pelvis that demonstrates apparent wall thickening. This may be artifactual due to underdistention though a stricture cannot be excluded. This could be seen in the setting of prior pelvic radiation or inflammatory bowel disease. 2. Small free fluid in the pelvis is unexpected in a postmenopausal female. This is of uncertain etiology and may be reactive to the presence of small bowel distention. 3. Findings suggest reflux and approximately of the right kidney. Duplicated right renal collecting system. Laboratory Results 12/20/17 21:50 Red Blood Count 4.24, Mean Corpuscular Volume 71.5, Mean Corpuscular Hemoglobin 22.2, Mean Corpuscular Hemoglobin Concent 31.0, Mean Platelet Volume 8.8, Neutrophils (%) (Auto) 79.9, Lymphocytes (%) (Auto) 12.7, Monocytes (%) (Auto) 6.1, Eosinophils (%) (Auto) 0.9, Basophils (%) (Auto) 0.2, Neutrophils # (Auto) 10.22, Lymphocytes # (Auto) 1.63, Monocytes # (Auto) 0.78, Eosinophils # (Auto) 0.11, Basophils # (Auto) 0.03 12/20/17 21:50 Test 12/20/17 21:50 12/20/17 23:40 White Blood Count 12.80 K/uL (4.8-10.8) Red Blood Count 4.24 M/uL (4.2-5.4) Hemoglobin 9.4 g/dL (12.0-16.0) Hematocrit 30.3 % (37-47) Mean Corpuscular Volume 71.5 fL (80-100) Mean Corpuscular Hemoglobin 22.2 pg (25-34) Mean Corpuscular Hemoglobin Concent 31.0 g/dl (32-36) Platelet Count 333 K/uL (130-400) Mean Platelet Volume 8.8 fL (7.4-10.4) Neutrophils (%) (Auto) 79.9 % Lymphocytes (%) (Auto) 12.7 % Monocytes (%) (Auto) 6.1 % Eosinophils (%) (Auto) 0.9 % Basophils (%) (Auto) 0.2 % Neutrophils # (Auto) 10.22 K/uL (1.4-6.5) Lymphocytes # (Auto) 1.63 K/uL (1.2-3.4) Monocytes # (Auto) 0.78 K/uL (0.11-0.59) Eosinophils # (Auto) 0.11 K/uL (0-0.5) Basophils # (Auto) 0.03 K/uL (0-0.2) RDW Standard Deviation 47.0 fL (36.4-46.3) RDW Coefficient of Variation 18.4 % (11.5-14.5) Immature Granulocyte % (Auto) 0.2 % Immature Granulocyte # (Auto) 0.03 K/uL (0.00-0.02) Anion Gap 7.0 mmol/L (3-11) Est Creatinine Clear Calc Drug Dose 56.3 ml/min Estimated GFR () 60.3 Estimated GFR (Non- 52.0 BUN/Creatinine Ratio 9.3 (10-20) Calcium Level 9.3 mg/dl (8.5-10.1) Total Bilirubin 0.4 mg/dl (0.2-1) Aspartate Amino Transf (AST/SGOT) 23 U/L (15-37) Alanine Aminotransferase (ALT/SGPT) 16 U/L (12-78) Alkaline Phosphatase 104 U/L (45-117) Troponin I < 0.015 ng/ml (0-0.045) Total Protein 7.3 gm/dl (6.4-8.2) Albumin 3.2 gm/dl (3.4-5.0) Globulin 4.1 gm/dl (2.5-4.0) Albumin/Globulin Ratio 0.8 (0.9-2) Lipase 94 U/L (73-393) Urine Color YELLOW Urine Appearance CLEAR (CLEAR) Urine pH >= 9.0 (4.5-7.5) Urine Specific [place] > 1.045 (1.000-1.030) Urine Protein NEG (NEG) Urine Glucose (UA) NEG (NEG) Urine Ketones NEG (NEG) Urine Occult Blood NEG (NEG) Urine Nitrite NEG (NEG) Urine Bilirubin NEG (NEG) Urine Urobilinogen NEG (NEG) Urine Leukocyte Esterase SMALL (NEG) Urine WBC (Auto) >30 /hpf (0-5) Urine RBC (Auto) 5-10 /hpf (0-4) Urine Hyaline Casts (Auto) 5-10 /lpf (0-5) Urine Epithelial Cells (Auto) 20-30 /lpf (0-5) Urine Bacteria (Auto) 3+ (NEG) Medications Administered Medications (Trade) Dose Ordered Sig/Mirella Route Start Time Stop Time Status Last Admin Dose Admin Morphine Sulfate (MoRPHine SULFATE INJ) 8 mg NOW STAT IV 12/20/17 21:44 12/20/17 21:46 DC 12/20/17 22:22 8 MG Ondansetron HCl (Zofran Inj) 4 mg NOW STAT IV 12/20/17 21:44 12/20/17 21:46 DC 12/20/17 22:22 4 MG Cefdinir (Omnicef Cap) 900 mg ONE STAT PO 12/21/17 00:18 12/21/17 00:20 DC 12/21/17 00:25 900 MG ED Course The patient was evaluated as above. Labs were drawn and IV access was obtained. Patient was medicated with IV morphine and Zofran for pain. CT of the abdomen and pelvis was performed and read by radiology as above. Patient was reevaluated and felt significantly improved. She was able to tolerate fluids by mouth. Discharge instructions were reviewed with the patient. The patient verbalized understanding of my assessment and treatment plan and was discharged home in good condition. Medical Decision Differential diagnosis includes diverticulitis, colitis, bowel obstruction, UTI , pyelonephritis, cholecystitis, appendicitis, gastroenteritis, among others. The patient is a 57-year-old female who presents today complaining of generalized abdominal discomfort and nausea. Patient did begin to have diarrhea while here. Labs revealed mild leukocytosis of 12.8. Patient is anemic with hemoglobin of 9.4, baseline for the patient. No concerning electrolyte abnormalities. Kidney and liver functions were within normal limits. Urinalysis was suggestive of infection, with 3+ bacteria, leukocyte esterase and white blood cells. Patient felt significantly better after hydration and pain medication. She does appear to have UTI. She will be placed on Omnicef for this based on past cultures. She was advised to drink plenty of fluids at home and follow-up with her PCP this week for a recheck. The patient's case was reviewed with Dr. Spencer, ED attending physician, who agreed with my assessment and treatment plan. Based on the patient's presentation and work up, I feel the patient is stable for outpatient treatment. The patient was educated to return to the emergency department for any worsening of their current condition or new/concerning symptoms. She will follow up with her PCP. Medication Reconcilliation Current Medication List: was personally reviewed by mi Blood Pressure Screening Patient's blood pressure: Normal blood pressure Impression Primary Impression: Generalized abdominal pain Additional Impression: Urinary tract infection Departure Information Dispostion Home / Self-Care Condition GOOD Prescriptions Cefdinir (OMNICEF) 300 Mg Cap 300 MG PO Q12H for 9 Days, #18 CAP Prov: Rufina Crystal ., BERTHA 12/21/17 Referrals Lavern Minor DO (PCP) Patient Instructions My [facility] Additional Instructions You have been treated in the Emergency Department for your Abdominal Pain. Laboratory results and imaging studies have ruled out any emergent causes for your abdominal pain which would warrant admission or surgery. Your urine test was suggestive of a urinary tract infection. You were prescribed Omnicef, twice daily to take for this. This is an antibiotic. For pain control, you can use the following [id number] medicines (if >12 yo): - Regular strength (325mg/tab) Tylenol (acetaminophen) 2 tabs every 4-6 hours as needed. Do not exceed 12 tablets in a 24 hour period. Avoid taking more than 4 grams (4000 mg) of Tylenol per day. This includes any other sources of acetaminophen you may take on a regular basis. - Regular strength (200 mg/tab) Advil (ibuprofen) 1-2 tabs every 4-6 hours as needed. Do not exceed a dose of 3200 mg per day. Drink plenty of water and stay well hydrated. As with any trip to the Emergency Department, you should follow-up with your Primary Care Provider from today's visit. Return to the emergency department if your symptoms persist despite treatment plan outlined above or if the following symptoms occur: Worsening abdominal pain , fevers, vomiting, blood in your stools or any other new/concerning symptoms. Problem Qualifiers
[2017-12-21 00:30] VITALS: BP 114/67; PULSE 87; O2SAT 94
== END 2017-12-21 00:31 | disposition home or self-care (01) ==
LOC: EDBD 21:01 → C.EDC 21:02
DX: R10.84 Generalized abdominal pain (principal); N39.0 Urinary tract infection, site not specified; R19.7 Diarrhea, unspecified; E78.5 Hyperlipidemia, unspecified; K21.9 Gastro-esophageal reflux disease without esophagitis; F41.9 Anxiety disorder, unspecified; F33.9 Major depressive disorder, recurrent, unspecified; F17.200 Nicotine dependence, unspecified, uncomplicated; Z85.41 Personal history of malignant neoplasm of cervix uteri; Z87.440 Personal history of urinary (tract) infections; Z90.710 Acquired absence of both cervix and uterus; Z96.0 Presence of urogenital implants; Z90.89 Acquired absence of other organs; Z98.890 Other specified postprocedural states; Z82.49 Family history of ischemic heart disease and other diseases of the circulatory system; Z81.8 Family history of other mental and behavioral disorders; Z79.02 Long term (current) use of antithrombotics/antiplatelets; Z79.899 Other long term (current) drug therapy

== ENCOUNTER → 2018-01-09 | Outpatient (CLI) | payer OTHER ==
[~2018-01-09] MED LIST changes: -ASCA500 PO; -CALC-20 PO; -CRS/10 PO; -ESTCR; -FIBETAB PO; +LPT40 PO; -MULT-513 PO; -NICO21DI4 TD; -VITA1TAB4 PO; -[UNRECOGNIZED DRUG - CODE] PO
== END | disposition home or self-care (01) ==
LOC: C.LABPBG 14:50
PROVIDERS: ATTEND Physician Assistant
DX: N39.0 Urinary tract infection, site not specified (principal)

== ENCOUNTER → 2018-04-13 | Outpatient (CLI) | payer OTHER ==
[2018-04-13 17:08] LABS: HEMOGLOBIN 9.5 g/dL (12.0-16.0); MEAN CELL VOLUME 71.4 fL (80-100); MEAN CORPUSCULAR HEMOGLOBIN 21.2 pg (25-34); MEAN CORPUSCULAR HGB CONC 29.7 g/dl (32-36); MEAN PLATELET VOLUME 8.9 fL (7.4-10.4); PLATELET COUNT 469 K/uL (130-400); RED CELL DISTRIBUTION WIDTH CV 18.9 % (11.5-14.5); RED CELL DISTRIBUTION WIDTH SD 49.4 fL (36.4-46.3); WHITE BLOOD COUNT 10.35 K/uL (4.8-10.8)
[2018-04-13 17:09] LABS: TRANSFERRIN 340 mg/dl (200-360)
== END | disposition home or self-care (01) ==
LOC: C.LABPBG 13:18
PROVIDERS: ATTEND Physician Assistant
DX: E55.9 Vitamin D deficiency, unspecified (principal); R53.83 Other fatigue

== ENCOUNTER 2018-04-21 21:23 | Emergency (ER) | payer OTHER ==
[~2018-04-21] VITALS: Ht 165.1 cm; Wt 77.8 kg
[2018-04-21 21:37] VITALS: TEMP 37.4; Ht 165.1 cm; Wt 77.8 kg
[2018-04-21] MEDS ORDERED: DiphenhydrAMINE HCL 50 MG/ML VIAL IV STA (21:42)
[2018-04-21] MEDS ORDERED: METOCLOPRAMIDE HCL INJ 5 MG/ML 2 ML VIAL IV STA (21:42)
[2018-04-21] MEDS ORDERED: SODIUM CHLORIDE 0.9% 500ML 500 ML IV STA ×2 (21:42→23:10)
[2018-04-21] MEDS ORDERED: DICYCLOMINE HCL 10 MG/ML 2 ML AMP IM ONE (21:45)
[2018-04-21 21:58] VITALS: O2SAT 94
[2018-04-21] MEDS ORDERED: OPTIRAY 320 IV PRN ×2 (22:00)
[2018-04-21 22:47] LABS: HEMATOCRIT 30.2 % (37-47); MEAN CELL VOLUME 72.1 fL (80-100); MEAN CORPUSCULAR HEMOGLOBIN 21.5 pg (25-34); MEAN CORPUSCULAR HGB CONC 29.8 g/dl (32-36); MEAN PLATELET VOLUME 8.7 fL (7.4-10.4); PLATELET COUNT 336 K/uL (130-400); RED CELL DISTRIBUTION WIDTH CV 20.1 % (11.5-14.5); RED CELL DISTRIBUTION WIDTH SD 51.7 fL (36.4-46.3); WHITE BLOOD COUNT 10.24 K/uL (4.8-10.8)
[2018-04-21 22:59] LABS: BASO % 0.2 %; BASO ABS # 0.02 K/uL (0-0.2); EOS % 0.6 %; EOS ABS # 0.06 K/uL (0-0.5); IG# 0.03 K/uL (0.00-0.02); LYMPH % 12.4 %; LYMPH ABS # 1.27 K/uL (1.2-3.4); MONO % 10.7 %; NEUT % 75.8 %; NEUT ABS # 7.76 K/uL (1.4-6.5)
[2018-04-21 23:04] LABS: ALBUMIN 2.3 gm/dl (3.4-5.0); ALKALINE PHOSPHATASE 78 U/L (45-117); ALT/SGPT 11 U/L (12-78); AST/SGOT 13 U/L (15-37); BLOOD UREA NITROGEN 7 mg/dl (7-18); CALCIUM 7.9 mg/dl (8.5-10.1); CARBON DIOXIDE 26 mmol/L (21-32); CREATININE 0.96 mg/dl (0.60-1.20); GLUCOSE 87 mg/dl (70-99); POTASSIUM 3.4 mmol/L (3.5-5.1); SODIUM 142 mmol/L (136-145); TOTAL PROTEIN 6.4 gm/dl (6.4-8.2)
[2018-04-21] MEDS ORDERED: CEFTRIAXONE SOD INJ 1 GM ADDVIAL IV STA (23:31)
--- NOTE | 2018-04-22 00:48 | EMERGENCY ROOM VISIT NOTE ---
History First contact with patient: 21:35 Chief Complaint: OTHER COMPLAINT Stated Complaint: GROIN PAIN, ANXIETY, NAUSEA, DIARRHEA, LIGHTHEADED History of Present Illness The patient is a 57 year old female who presents to the Emergency Room with complaints of extreme weakness, fatigue, passing out, intermittent diarrhea, and left lower quadrant abdominal pain for the past 10 weeks. Patient states she missed her SECTION CHIEF appointment and [place] for possible cervical cancer yesterday. She states she was 2 weeks ago. Patient states she tries to do any activity feels very weak and almost passes out. This is been ongoing for over 10 weeks. Patient saw the family care doctor was told that she had low vitamin D and anemia. She is on iron pill and vitamin D. Patient denies chest pain, dyspnea, vomiting, fever, chills, headache, neck pain, back pain, leg pain or swelling. Patient continues to smoke. No recent colonoscopy. She describes abdominal pain as cramping, ranging in severity 7 out of 10 to the left lower quadrant. She is unsure she has had diverticulitis before. She had a hysterectomy and appendectomy. She states she does not have a GI doctor. She does have IBS. Patient denies suicidal or homicidal ideations. Patient states she comes in now as she is sick and tired of feeling so worn out and states her family doctor does not listen to her and does not help her. Review of Systems An 10 system review of systems was completed with positives and pertinent negatives listed in the HPI. Past Medical/Surgical History Medical Problems: (1) Anxiety (2) Back pain (3) Back pain (4) Cervical cancer (5) Dyslipidemia (6) GERD (gastroesophageal reflux disease) (7) H/O hemorrhagic cystitis (8) Hx of pyelonephritis (9) Hx of recurrent urinary tract infection (10) Hydroureteronephrosis (11) IBS (irritable bowel syndrome) (12) Major depressive disorder, recurrent episode with anxious distress (13) OAB (overactive bladder) (14) OCD (obsessive compulsive disorder) (15) Ureteral stricture (16) UTI (urinary tract infection) Surgical Problems: (1) H/O cystoscopy (2) History of hysterectomy (3) History of ureter stent (4) S/P appendectomy (5) S/P vascular surgery Family History Depression Hypertension MOTHER Social History Smoking Status: Heavy Tobacco Smoker Alcohol Use: occasionally Drug Use: other Marital Status: single Housing Status: lives alone Occupation Status: unemployed Current/Historical Medications Scheduled Atorvastatin (Lipitor), 40 MG PO DAILY Clopidogrel Bisulfate (Plavix), 75 MG PO QAM Duloxetine HCl (Duloxetine HCl), 90 MG PO DAILY Fluticasone Prop/Salmeterol (Advair Diskus 250/50 60 Dose), 1 PUFF INH BID Glycopyrrolate (Glycopyrrolate), 2 MG PO BID Lamotrigine (Lamictal), 150 MG PO BID Lorazepam (Ativan), 0.5 MG PO Q6H Pantoprazole (Protonix), 40 MG PO QAM Potassium Chloride Microencaps (Potassium Chloride Er), 20 MEQ PO BID Probiotic Product (Acidophilus), 1 CAP PO DAILY Tiotropium [place] (Spiriva Handihaler), 1 CAP INH DAILY Trazodone HCl (Trazodone HCl), 100 MG PO HS Scheduled PRN Ibuprofen (Motrin), 600 MG PO Q6H PRN for Pain Ipratropium-Albuterol (Combivent Respimat), 1 PUFF INH BID PRN for SOB/Wheezing Physical Exam Vital Signs Date Time Temp Pulse Resp B/P (MAP) Pulse Ox O2 Delivery O2 Flow Rate FiO2 04/21/18 22:52 90 16 152/104 95 Room Air 95 116/72 101 118/70 04/21/18 21:58 94 Room Air 04/21/18 21:42 99 18 138/78 96 Room Air 04/21/18 21:37 37.4 108 20 171/123 96 Room Air 04/21/18 21:36 95 Physical Exam VITALS: Vitals are noted on the nurse's note and reviewed by myself. Vital signs mildly tachycardic. GENERAL: Tearful female with tobacco odor, in no acute distress, nondiaphoretic , well-developed well-nourished. SKIN: The skin was without rashes, erythema, edema, or bruising. There is no tenting of the skin. Capillary reflex less than 2 seconds. HEAD: Normocephalic atraumatic. EARS: External auditory canals clear, tympanic membranes pearly mathis without erythema or effusion bilaterally. EYES: Pupils equal round and reactive to light and accommodation. Conjunctivae without injection, sclerae without icterus. Extraocular movements intact. NOSE: Patent, turbinates without inflammation or discharge. No sinus tenderness. MOUTH: Mucous membranes mildly dry. Pharynx without erythema or exudate. Uvula midline. Airway patent. Tongue does not deviate. NECK: Supple without nuchal rigidity. No lymphadenopathy. No thyromegaly. Cervical spine is nontender. No JVD. HEART: Regular rate and rhythm without murmurs gallops or rubs. LUNGS: Clear to auscultation bilaterally without wheezes, rales or rhonchi. No retractions or accessory muscle use. ABDOMEN: Positive bowel sounds x 4. Normal tympanic percussion. Soft, tender to palpation left lower quadrant, without masses or organomegaly. Beltrán sign negative. No guarding or rebound tenderness. No CVA tenderness MUSCULOSKELETAL: No muscle atrophy, erythema, or edema noted. 5 out of 5 strength throughout NEURO: Patient was alert and oriented to person place and time. Normal sensation to light and sharp touch. No focal neurological deficits. Medical Decision & Procedures Laboratory Results 04/21/18 22:28 Red Blood Count 4.19, Mean Corpuscular Volume 72.1, Mean Corpuscular Hemoglobin 21.5, Mean Corpuscular Hemoglobin Concent 29.8, Mean Platelet Volume 8.7, Neutrophils (%) (Auto) 75.8, Lymphocytes (%) (Auto) 12.4, Monocytes (%) (Auto) 10.7, Eosinophils (%) (Auto) 0.6, Basophils (%) (Auto) 0.2, Neutrophils # (Auto ) 7.76, Lymphocytes # (Auto) 1.27, Monocytes # (Auto) 1.10, Eosinophils # (Auto ) 0.06, Basophils # (Auto) 0.02 04/21/18 22:28 Test 04/21/18 22:28 04/21/18 23:03 White Blood Count 10.24 K/uL (4.8-10.8) Red Blood Count 4.19 M/uL (4.2-5.4) Hemoglobin 9.0 g/dL (12.0-16.0) Hematocrit 30.2 % (37-47) Mean Corpuscular Volume 72.1 fL (80-100) Mean Corpuscular Hemoglobin 21.5 pg (25-34) Mean Corpuscular Hemoglobin Concent 29.8 g/dl (32-36) Platelet Count 336 K/uL (130-400) Mean Platelet Volume 8.7 fL (7.4-10.4) Neutrophils (%) (Auto) 75.8 % Lymphocytes (%) (Auto) 12.4 % Monocytes (%) (Auto) 10.7 % Eosinophils (%) (Auto) 0.6 % Basophils (%) (Auto) 0.2 % Neutrophils # (Auto) 7.76 K/uL (1.4-6.5) Lymphocytes # (Auto) 1.27 K/uL (1.2-3.4) Monocytes # (Auto) 1.10 K/uL (0.11-0.59) Eosinophils # (Auto) 0.06 K/uL (0-0.5) Basophils # (Auto) 0.02 K/uL (0-0.2) RDW Standard Deviation 51.7 fL (36.4-46.3) RDW Coefficient of Variation 20.1 % (11.5-14.5) Immature Granulocyte % (Auto) 0.3 % Immature Granulocyte # (Auto) 0.03 K/uL (0.00-0.02) Hypochromasia PRESENT Anisocytosis PRESENT Anion Gap 6.0 mmol/L (3-11) Est Creatinine Clear Calc Drug Dose 65.1 ml/min Estimated GFR () 75.0 Estimated GFR (Non- 64.7 BUN/Creatinine Ratio 7.1 (10-20) Calcium Level 7.9 mg/dl (8.5-10.1) Magnesium Level 1.9 mg/dl (1.8-2.4) Total Bilirubin 0.2 mg/dl (0.2-1) Direct Bilirubin 0.1 mg/dl (0-0.2) Aspartate Amino Transf (AST/SGOT) 13 U/L (15-37) Alanine Aminotransferase (ALT/SGPT) 11 U/L (12-78) Alkaline Phosphatase 78 U/L (45-117) Total Creatine Kinase 40 U/L (26-192) Troponin I < 0.015 ng/ml (0-0.045) Total Protein 6.4 gm/dl (6.4-8.2) Albumin 2.3 gm/dl (3.4-5.0) Thyroid Stimulating Hormone (TSH) 0.848 uIu/ml (0.300-4.500) Lyme Disease IgG Antibody NEG (NEG) Lyme Disease IgM Antibody NEG (NEG) Urine Color YELLOW Urine Appearance TURBID (CLEAR) Urine pH 7.0 (4.5-7.5) Urine Specific [place] 1.013 (1.000-1.030) Urine Protein 2+ (NEG) Urine Glucose (UA) NEG (NEG) Urine Ketones NEG (NEG) Urine Occult Blood 2+ (NEG) Urine Nitrite POS (NEG) Urine Bilirubin NEG (NEG) Urine Urobilinogen NEG (NEG) Urine Leukocyte Esterase LARGE (NEG) Urine WBC (Auto) >30 /hpf (0-5) Urine RBC (Auto) 10-30 /hpf (0-4) Urine Hyaline Casts (Auto) 5-10 /lpf (0-5) Urine Epithelial Cells (Auto) 20-30 /lpf (0-5) Urine Bacteria (Auto) 4+ (NEG) Urine Yeast (Auto) (NONE PRSENT) Medications Administered Medications (Trade) Dose Ordered Sig/Mirella Route Start Time Stop Time Status Last Admin Dose Admin Sodium Chloride 500 ml @ 999 mls/hr Q31M STAT IV 04/21/18 21:42 04/21/18 22:12 DC 04/21/18 21:54 999 MLS/HR Dicyclomine HCl (Bentyl Inj) 20 mg NOW ONCE IM 04/21/18 21:45 04/21/18 21:46 DC 04/21/18 21:55 20 MG Metoclopramide HCl (Reglan Inj) 10 mg NOW STAT IV 04/21/18 21:42 04/21/18 21:45 DC 04/21/18 21:54 10 MG Diphenhydramine HCl (Benadryl Inj) 12.5 mg NOW STAT IV 04/21/18 21:42 04/21/18 21:45 DC 04/21/18 21:54 12.5 MG Sodium Chloride 500 ml @ 999 mls/hr Q31M STAT IV 04/21/18 23:10 04/21/18 23:40 DC 04/21/18 23:40 999 MLS/HR Ceftriaxone Sodium (Rocephin Inj) 1 gm NOW STAT IV 04/21/18 23:31 04/21/18 23:32 DC 04/21/18 23:41 1 GM ED Course Prior records/ancillary studies reviewed and summarized above. Nursing notes reviewed. Additional history obtained from EMS. The patient's history was concerning for weakness, fatigue, abdominal pain, nearly passing out for 10 weeks. Differential diagnosis: Etiologies such as behavioral health concern, metabolic, infection, hypo/ hyperglycemia, electrolyte abnormalities, cardiac sources, intracerebral event, toxicologic, neurologic, as well as others were entertained. Physical examination: As above. ER treatment provided: IV Lock IV fluids, Bentyl, Reglan, Benadryl On reassessment the patient felt better. Diagnostics interpretation by me: ECG: Normal sinus, normal intervals, poor baseline, no acute ST-T wave changes. Impression normal sinus rhythm interpreted by myself I think arrhythmia is unlikely. EKG shows normal sinus rhythm with no interval abnormalities such as QT prolongation or WPW. There are no findings to suggest Brugada syndrome. Cardiac monitoring in the emergency department reveals no tachycardic or bradycardic dysrhythmia. Hypertrophic cardiomyopathy was considered but there are no clear historical elements pointing toward this. EKG is not suggestive. The QRS voltage is not extremely large and there are no suggestive Q waves. The labs revealed chronic anemia, stable per chart review. Patient is taking her iron supplements and does not always do this. Urine concerning for infection and sent for culture. Prior urine culture sensitive to Rocephin. neg Lyme Imaging studies: CT ABDOMEN & PELVIS With Contrast: Comparison 08/25/17 Urinary bladder wall thickening is present with a small focus of intraluminal air which could be related to recent catheterization or infection.. There is limited distention which does limit characterization. Surrounding stranding and scarring again noted with similar appearance to the previous exam. There is also mild distention of the bilateral renal collecting systems with urothelial thickening which could indicate component of ascending infection/pyelonephritis. There may be slight striation to the renal enhancement, though no evidence for drainable abscess. No obstructing stones visualized. No evidence for bowel obstruction. Mild intermittent colonic wall thickening is likely related to peristalsis. No significant pericolonic inflammatory changes. Mild focal air in the right gluteal subcutaneous fat. Query recent injection. L5 pars defects. Prominent degenerative changes at the L5-S1 level mild anterolisthesis. Stable 2 mm likely benign subpleural nodularity in the right lower lobe. Radiologist: Jasen Black MD CT HEAD: Comparison 10/24/2017 No evidence for acute intracranial hemorrhage, edema, or mass effect. Periventricular and subcortical white matter hypodensities are again present, nonspecific though could be related to chronic small vessel ischemia. No evidence for hydrocephalus. No acute findings in the visualized paranasal sinuses or mastoid air cells. No evidence for calvarial injury. Radiologist: Jasen Black MD HEART SCORE: Hx: high/mod/low suspicion: 0 ECG: ST depression/nonspecific changes/normal: 0 Age: Greater than 65/45-64/less than 45: 1 Risk factors: (Hypertension, hyperlipidemia, diabetes, coronary disease, tobacco use, cocaine use): 1 Troponin: Greater than 2 times normal limits/1-2 times normal limits/normal: 0 Total: 2 Exam and history seem consistent with pyelonephritis. Patient was offered admission and declined. She is requesting to go home and take oral antibiotics. She is informed to follow-up family care doctor today and take medications as directed. She was advised to rest, stay well-hydrated, take her iron supplements with vitamin C along with her antibiotics. She was advised to return to the ER immediately for admission, fevers, vomiting, worsening signs or symptoms or as needed. Patient was not vomiting. She was afebrile and nontoxic appearing.By the evaluation outlined above emergent etiologies such as electrolyte abnormalities, cardiac sources, intracerebral event, toxologic, neurologic, abnormalities blood glucose, metabolic, as well as others were deemed relatively unlikely. The pt informed about the findings as listed above. All questions were answered and pleased with the treatment. Return instructions were outlined and the patient was discharged in stable condition. Outpatient prescription management: Keflex Referral: The patient was referred back to primary care physician for follow-up in 2 to 3 days for a recheck of the current condition. Case reviewed with my attending The chart was completed utilizing [employer] Speech voice recognition software. Grammatical errors, random word insertions, pronoun errors, and incomplete sentences are an occassional consequence of this system due to software limitations, ambient noise, and hardware issues. Any formal questions or concerns about the content, text, or information contained within the body of this dictation should be directly addressed to the physician pediatric medical assistant for clarification. Medical Decision As above Medication Reconcilliation Current Medication List: was personally reviewed by me Blood Pressure Screening Patient's blood pressure: Normal blood pressure Impression Primary Impression: Pyelonephritis Departure Information Dispostion Home / Self-Care Condition GOOD Referrals Ricotta, Lavern M., DO (PCP) Patient Instructions [facility] Additional Instructions DO NOT drive, drink alcohol, operate machinery, or perform dangerous activities today. You were given medications in the ER that can affect your ability to safely function or operate a vehicle. Keflex 500 mg: Take one pill twice daily for 10 days for your urine infection. All antibiotics can cause diarrhea. If this occurs and you feel worse or it does not resolve in 1-2 days follow up with your doctor or return to the Emergency Department as this could be signs of serious underlying problems. Any medication can cause an allergic reaction, stop the pills immediately and return to the ER for rash, hives, breathing difficulties, or swelling. Zofran 4 mg: Take one every six hours as needed for nausea. Avoid alcohol, operating machinery or dangerous equipment, working on ladders or roofs, DRIVING , or situations where being under the influence may be dangerous. Acetaminophen(Tylenol) may be used for fever or pain. Use 1000mg every six hours as needed. Avoid using more than 3000mg in a 24 hour period. Rest and drink plenty of fluids as tolerated. Slow sips of water or sports drinks are recommended instead of large amounts all at once. Continue current medications. Once your stomach is settled start with a clear liquid diet (jello, soup broth, etc.) and then advance as tolerated. You should avoid full, heavy meals for about 24 hrs from the time your symptoms resolved. Return to the ER immediately for worsening or persistent abdominal/back pain, vomiting, fevers, worsening of your condition, or as needed. Follow up with your primary physician within 24 hours s for a recheck of the current condition.
[2018-04-22] MEDS ORDERED: CEPH500C2 PO (00:50)
--- NOTE | 2018-04-22 00:51 | EMERGENCY ROOM VISIT NOTE ---
ED Visit Note First contact with patient: 21:35 Staff note: I have reviewed the Patients chart and have discussed this case with my PA. I generally agree with the ED note and findings. Patient is a 57-year-old female with a UTI and a ascending infection possibly produce air within the bladder. She was given a dose of Rocephin IV. She refused admission after prolonged discussion with both myself and the PA. Risk and benefits were explained by myself. She was discharged follow-up with PCP within 24 hours.
[2018-04-22] MEDS ORDERED: CEPHALEXIN 500MG HOME PACK 1 EA BTL PO ONE (01:00)
[2018-04-22] MEDS ORDERED: ONDANSETRON HOME PACK 4MG OD TAB PO ONE (01:00)
[2018-04-22 01:45] VITALS: BP 159/108; PULSE 98; O2SAT 97
--- NOTE | 2018-04-22 07:04 | DIAGNOSTIC IMAGING REPORT ---
CT SCAN OF THE BRAIN WITHOUT IV CONTRAST CLINICAL HISTORY: Fall. Weakness. COMPARISON STUDY: 10/24/2017. TECHNIQUE: Unenhanced axial CT scan of the brain is performed from the vertex to the skull base. A dose lowering technique was utilized adhering to the principles of ALARA. CT DOSE: 537.48 mGy.cm FINDINGS: Brain parenchyma: There are age-related involutional changes noting mild subcortical and periventricular microangiopathic change. There is no hemorrhage, mass effect, or evidence of acute territorial ischemia by CT criteria. Tomas-white matter is preserved. No extra-axial fluid collection is seen. Ventricles, sulci, cisterns: Prominent secondary to involutional change. Intracranial vasculature: There is mild atherosclerotic calcification of the cavernous carotid arteries. Calvarium: The skeletal structures are osteopenic. No depressed calvarial fracture is seen. Sinuses and mastoids: The visualized paranasal sinuses are clear. The mastoid air cells are well pneumatized. Orbits: The bony orbits are grossly intact. IMPRESSION: There is no hemorrhage, mass effect, or evidence of acute territorial ischemia by CT criteria. Electronically signed by: Chadd Casanova M.D. 04/22/2018 7:02 AM Dictated Date/Time: 04/22/2018 7:00 AM
--- NOTE | 2018-04-22 08:03 | DIAGNOSTIC IMAGING REPORT ---
CT SCAN OF THE ABDOMEN AND PELVIS WITH IV CONTRAST CLINICAL HISTORY: Left lower quadrant abdominal pain. COMPARISON STUDY: Abdominal CT dated 12/20/2017 TECHNIQUE: Following the IV administration of 92 cc of Optiray 320, CT scan of the abdomen and pelvis is performed from the lung bases to the proximal femora. Images are reviewed in the axial, sagittal, and coronal planes. IV contrast was administered without complication. A dose lowering technique was utilized adhering to the principles of ALARA. CT DOSE: 345.27 mGy.cm FINDINGS: Lung bases: The heart is normal in size and without pericardial effusion. Emphysematous change is noted at the lung bases. There is no airspace consolidation or pleural effusion a calcified granuloma is seen at the right lung base. There is a tiny hiatal hernia. Liver: The contrast-enhanced liver is normal in size, contour, and attenuation. There is no intrahepatic biliary ductal dilatation. The hepatic veins and portal veins are patent. Gallbladder: Unremarkable. Spleen: Normal in size and attenuation. Pancreas: Unremarkable. Adrenal glands: Unremarkable. Kidneys: The contrast enhanced kidneys are normal in size and without hydronephrosis.. There is slightly heterogeneous enhancement of the right kidney. Large foci of cortical scarring are seen involving the renal pelvis bilaterally as well as the ureter seen throughout the right kidney. There is bilateral urothelial thickening and enhancement, with faint associated perinephric and periureteric stranding Abdominal vasculature: The abdominal aorta is normal in course and caliber noting mild to moderate atherosclerotic calcification. A stent is noted throughout the right external iliac artery. Bowel: There is rectal wall thickening. No bowel obstruction is seen. The appendix is not identified and reported surgically absent. Peritoneum: There is no intraperitoneal free air or abdominal ascites. Lymphadenopathy: None. Pelvic viscera: The bladder wall is markedly thickened and hyperemic. There is pericystic inflammation as well as gas within the bladder lumen. The appearance is typical for cystitis. The uterus is surgically absent. No adnexal lesion is seen. Skeletal structures: The skeletal structures are osteopenic. There are bilateral pars defects at L5 with grade 1 anterolisthesis, advanced disc space narrowing, and severe degenerative endplate sclerosis seen at L5-S1. No lytic or blastic lesions are seen. There is significant heterogeneity seen throughout the sacrum and medial micaela. Degenerative changes noted in the sacroiliac joints. Soft tissues: Small foci of subcutaneous gas within the right gluteal region are likely related to subcutaneous injections. IMPRESSION: 1. The bladder wall is markedly thickened and hyperemic. Comparison study inflammation and scarring are seen and there is gas within the bladder lumen. The appearance suggests cystitis. Correlation with clinical findings and urinalysis will be required. 2. There is urothelial thickening and enhancement seen involving the renal pelvis bilaterally and both ureters. There is faint associated perinephric and periureteric stranding, as was slightly heterogeneous enhancement of the right kidney. These findings suggest urinary tract infection/bilateral pyelonephritis. Correlation with clinical findings and urinalysis will again be required. 3. There is nonspecific rectal wall thickening, as well as marked heterogeneity involving the sacrum and medial micaela. These findings are nonspecific, but would be typical for a history of pelvic radiation. Correlation the patient's history will be essential. Some of the bladder findings could also be treatment related as the bladder has appeared similar over prior examinations. 4. Emphysema. 5. Additional findings as above. Electronically signed by: Chadd Casanova M.D. 04/22/2018 8:02 AM Dictated Date/Time: 04/22/2018 7:03 AM
--- NOTE | 2018-04-24 11:10 | Pharmacy Progress Note ---
ED Pharmacist Culture FollowUp Date of Service: Apr 24, 2018. Patient was sent home with a prescription for Keflex 500 mg BID x 10 days, which should cover the E. coli growing from the patient's urine culture.
== END 2018-04-22 01:46 | disposition home or self-care (01) ==
LOC: EDBD 21:23 → C.EDA 21:24
DX: N12 Tubulo-interstitial nephritis, not specified as acute or chronic (principal); F17.200 Nicotine dependence, unspecified, uncomplicated; E78.5 Hyperlipidemia, unspecified; F33.9 Major depressive disorder, recurrent, unspecified; F41.9 Anxiety disorder, unspecified; K21.9 Gastro-esophageal reflux disease without esophagitis

== ENCOUNTER 2018-04-29 14:23 | Emergency (ER) | payer OTHER ==
[~2018-04-29] VITALS: Ht 165.1 cm; Wt 79.0 kg
[~2018-04-29 14:23] MED LIST changes: -ADVIN25/60 INH; +CEPH500C2 PO; -IPRA1AER2 INH; -LORA-741 PO; -LPT40 PO; -LYR/50 PO; -POTA20TA13 PO; -PROB1CAP54 PO; -RBN/2 PO; -SPRIN/30 INH
[2018-04-29 14:33] VITALS: TEMP 37; Ht 165.1 cm; Wt 79.0 kg
[2018-04-29] MEDS ORDERED: SODIUM CHLORIDE 0.9% 1000ML 1,000 ML IV STA (14:37)
[2018-04-29] MEDS ORDERED: LORA-741 PO (14:59)
[2018-04-29 15:23] LABS: BASO % 0.2 %; BASO ABS # 0.03 K/uL (0-0.2); EOS % 1.7 %; EOS ABS # 0.21 K/uL (0-0.5); HEMOGLOBIN 9.6 g/dL (12.0-16.0); IG# 0.05 K/uL (0.00-0.02); LYMPH % 27.1 %; LYMPH ABS # 3.28 K/uL (1.2-3.4); MEAN CELL VOLUME 74.1 fL (80-100); MEAN CORPUSCULAR HEMOGLOBIN 22.2 pg (25-34); MEAN PLATELET VOLUME 8.2 fL (7.4-10.4); MONO % 5.6 %; MONO ABS # 0.68 K/uL (0.11-0.59); NEUT ABS # 7.87 K/uL (1.4-6.5); PLATELET COUNT 586 K/uL (130-400); RED CELL DISTRIBUTION WIDTH CV 21.7 % (11.5-14.5); WHITE BLOOD COUNT 12.12 K/uL (4.8-10.8)
[2018-04-29 15:30] LABS: PTT PATIENT 23.8 SECONDS (21.0-31.0)
[2018-04-29] MEDS ORDERED: IPRA1AER2 INH (15:39)
[2018-04-29] MEDS ORDERED: POTA20TA13 PO (15:39)
[2018-04-29] MEDS ORDERED: SPRIN/30 INH (15:39)
[2018-04-29] MEDS ORDERED: ADVIN25/60 INH (15:39)
[2018-04-29] MEDS ORDERED: RBN/2 PO (15:39)
[2018-04-29 15:44] LABS: ALBUMIN 2.4 gm/dl (3.4-5.0); CALCIUM 8.6 mg/dl (8.5-10.1); CREATININE 0.94 mg/dl (0.60-1.20); POTASSIUM 4.3 mmol/L (3.5-5.1); TOTAL PROTEIN 6.6 gm/dl (6.4-8.2)
[2018-04-29] MEDS ORDERED: VANCOMYCIN HCL 125 MG/2.5ML SOLN PO STA (16:35)
[2018-04-29] MEDS ORDERED: PLV75 PO (16:36)
[2018-04-29] MEDS ORDERED: CYM/30 PO (16:36)
[2018-04-29] MEDS ORDERED: FERR1TAB62 PO (16:36)
[2018-04-29] MEDS ORDERED: ONDA4TAB9 PO (16:36)
[2018-04-29] MEDS ORDERED: PANT40TA2 PO (16:36)
[2018-04-29] MEDS ORDERED: LISI-730 PO (16:36)
[2018-04-29] MEDS ORDERED: TRAZ1TAB48 PO (16:36)
[2018-04-29] MEDS ORDERED: CHOL100027 PO (16:40)
[2018-04-29] MEDS ORDERED: FIBETAB PO (16:42)
[2018-04-29] MEDS ORDERED: CEFDINIR 300 MG CAP PO STA (16:45)
[2018-04-29] MEDS ORDERED: RASPBERRY SYRUP 5 ML UDP PO ONE (17:00)
[2018-04-29] MEDS ORDERED: CEFD300C2 PO (17:11)
[2018-04-29] MEDS ORDERED: VANC5CAP PO (17:11)
[2018-04-29 17:50] VITALS: BP 128/69; PULSE 78; O2SAT 98
[2018-04-29] MEDS ORDERED: PROB1CAP54 PO (19:25)
--- NOTE | 2018-04-29 21:57 | EMERGENCY ROOM VISIT NOTE ---
History Report prepared by Vladislav: Brenna Vo Under the Supervision of: Dr. Morales Garcia M.D. First contact with patient: 14:24 Chief Complaint: ABDOMINAL PAIN Stated Complaint: AB PAIN, DIARRHEA History of Present Illness The patient is a 57 year old female who presents to the Emergency Room with complaints of worsening abdominal pain for the past 4 weeks. She was brought to the ED via EMS. She rates her discomfort as a 7/10 in severity. She admits to nausea but has not vomited. She denies any recent fevers or hematochezia. She has experienced intermittent diarrhea for the past 4 weeks as well and states she had 4 episodes of diarrhea prior to coming to the ED today. The patient reports she was placed on Keflex last week for a kidney infection, after coming here to the ED. She states she has a history of recurrent UTI's and admits to a history of hypertension, for which she takes daily Prevnar. She was not on any antibiotics prior to the initiation of her diarrhea 4 weeks ago. She also admits to a history of lymphedema and states her left leg is "always more swollen than the right", but notes she previously had her groin lymph nodes dissected. 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 A total of 10 systems reviewed and were otherwise negative. Past Medical & Surgical Medical Problems: (1) Anxiety (2) Back pain (3) Back pain (4) Cervical cancer (5) Dyslipidemia (6) GERD (gastroesophageal reflux disease) (7) H/O hemorrhagic cystitis (8) Hx of pyelonephritis (9) Hx of recurrent urinary tract infection (10) Hydroureteronephrosis (11) IBS (irritable bowel syndrome) (12) Major depressive disorder, recurrent episode with anxious distress (13) OAB (overactive bladder) (14) OCD (obsessive compulsive disorder) (15) Ureteral stricture (16) UTI (urinary tract infection) Surgical Problems: (1) H/O cystoscopy (2) History of hysterectomy (3) History of ureter stent (4) S/P appendectomy (5) S/P vascular surgery Family History Depression Hypertension MOTHER Social History Smoking Status: Heavy Tobacco Smoker Alcohol Use: occasionally Drug Use: other Marital Status: single Housing Status: lives alone Occupation Status: unemployed Current/Historical Medications Scheduled Atorvastatin (Lipitor), 40 MG PO DAILY Cefdinir (Omnicef), 300 MG PO Q12H Cephalexin Monohydrate (Keflex), 500 MG PO BID Cholecalciferol (Vitamin D 1000 Unit), 1,000 INTER.UNIT PO DAILY Clopidogrel Bisulfate (Clopidogrel), 75 MG PO QAM Duloxetine HCl (Cymbalta), 90 MG PO DAILY Ferrous Sulfate (Ferrous Sulfate), 325 MG PO BIDM Fiber (Fiber Complete), 62.5 MG PO DAILY Fluticasone Prop/Salmeterol (Advair Diskus 250/50 60 Dose), 1 PUFF INH BID Glycopyrrolate (Glycopyrrolate), 2 MG PO BID Lamotrigine (Lamictal), 150 MG PO BID Lisinopril (Lisinopril), 5 MG PO DAILY Pantoprazole (Pantoprazole Sodium), 40 MG PO QAM Potassium Chloride Microencaps (Potassium Chloride Er), 20 MEQ PO BID Probiotic Product (Acidophilus), 1 CAP PO DAILY Tiotropium [place] (Spiriva Handihaler), 1 CAP INH DAILY Trazodone Hcl (Desyrel), 50 MG PO HS Vancomycin Hcl (Vancomycin), 1 TAB PO QID Scheduled PRN Ipratropium-Albuterol (Combivent Respimat), 1 PUFF INH BID PRN for SOB/Wheezing Lorazepam (Ativan), 0.5 MG PO BID PRN for Anxiety Ondansetron (Ondansetron HCl), 4 MG PO Q8 PRN for Nausea Allergies Coded Allergies: Ciprofloxacin (Verified Allergy, Unknown, sores on tongue, 04/21/18) Gabapentin (Unverified Allergy, Unknown, unknown, 04/21/18) Meloxicam (Unverified Allergy, Unknown, unknown, 04/21/18) Paroxetine (Verified Allergy, Unknown, suicidal thoughts, 04/21/18) Varenicline (Verified Allergy, Unknown, suicidal thoughts, 04/21/18) Prednisone (Verified Adverse Reaction, Intermediate, "INTERNAL BLEEDING FROM KIDNEY", 04/21/18) Physical Exam Vital Signs Date Time Temp Pulse Resp B/P (MAP) Pulse Ox O2 Delivery O2 Flow Rate FiO2 04/29/18 17:50 78 18 128/69 98 04/29/18 16:12 88 20 138/92 94 Room Air 04/29/18 15:06 83 04/29/18 14:33 37.0 96 18 149/97 95 Room Air Physical Exam Constitutional: Vital signs reviewed. Eyes: Pupils are equal round reactive to light. Conjunctiva are noninjected. ENT: Pharynx is clear without erythema or exudate. Mucous membranes are dry. Neck supple without meningeal signs. Respiratory: Clear to auscultation bilaterally. Breath sounds are equal bilaterally. Cardiovascular: Regular rate and rhythm. No rubs or gallops. GI: Soft, nondistended and nontender. Bowel sounds are present. Musculoskeletal: Lymphedema of left lower extremity, no lower extremity tenderness. No CVA tenderness. Integumentary: No cyanosis. Neurological: The patient is awake and alert. No focal deficits. Psychiatric: Normal affect. Medical Decision & Procedures Laboratory Results 04/29/18 15:09 Red Blood Count 4.32, Mean Corpuscular Volume 74.1, Mean Corpuscular Hemoglobin 22.2, Mean Corpuscular Hemoglobin Concent 30.0, Mean Platelet Volume 8.2, Neutrophils (%) (Auto) 65.0, Lymphocytes (%) (Auto) 27.1, Monocytes (%) (Auto) 5.6, Eosinophils (%) (Auto) 1.7, Basophils (%) (Auto) 0.2, Neutrophils # (Auto) 7.87, Lymphocytes # (Auto) 3.28, Monocytes # (Auto) 0.68, Eosinophils # (Auto) 0.21, Basophils # (Auto) 0.03 04/29/18 15:09 Test 04/29/18 15:09 04/29/18 16:07 White Blood Count 12.12 K/uL (4.8-10.8) Red Blood Count 4.32 M/uL (4.2-5.4) Hemoglobin 9.6 g/dL (12.0-16.0) Hematocrit 32.0 % (37-47) Mean Corpuscular Volume 74.1 fL (80-100) Mean Corpuscular Hemoglobin 22.2 pg (25-34) Mean Corpuscular Hemoglobin Concent 30.0 g/dl (32-36) Platelet Count 586 K/uL (130-400) Mean Platelet Volume 8.2 fL (7.4-10.4) Neutrophils (%) (Auto) 65.0 % Lymphocytes (%) (Auto) 27.1 % Monocytes (%) (Auto) 5.6 % Eosinophils (%) (Auto) 1.7 % Basophils (%) (Auto) 0.2 % Neutrophils # (Auto) 7.87 K/uL (1.4-6.5) Lymphocytes # (Auto) 3.28 K/uL (1.2-3.4) Monocytes # (Auto) 0.68 K/uL (0.11-0.59) Eosinophils # (Auto) 0.21 K/uL (0-0.5) Basophils # (Auto) 0.03 K/uL (0-0.2) RDW Standard Deviation 57.0 fL (36.4-46.3) RDW Coefficient of Variation 21.7 % (11.5-14.5) Immature Granulocyte % (Auto) 0.4 % Immature Granulocyte # (Auto) 0.05 K/uL (0.00-0.02) Hypochromasia PRESENT Anisocytosis PRESENT Ovalocytes 1+ Prothrombin Time 10.5 SECONDS (9.0-12.0) Prothromb Time International Ratio 1.0 (0.9-1.1) Activated Partial Thromboplast Time 23.8 SECONDS (21.0-31.0) Partial Thromboplastin Ratio 0.9 Anion Gap 6.0 mmol/L (3-11) Est Creatinine Clear Calc Drug Dose 66.9 ml/min Estimated GFR () 77.0 Estimated GFR (Non- 66.4 BUN/Creatinine Ratio 6.7 (10-20) Calcium Level 8.6 mg/dl (8.5-10.1) Magnesium Level 2.2 mg/dl (1.8-2.4) Total Bilirubin 0.3 mg/dl (0.2-1) Direct Bilirubin 0.1 mg/dl (0-0.2) Aspartate Amino Transf (AST/SGOT) 14 U/L (15-37) Alanine Aminotransferase (ALT/SGPT) 10 U/L (12-78) Alkaline Phosphatase 95 U/L (45-117) Total Protein 6.6 gm/dl (6.4-8.2) Albumin 2.4 gm/dl (3.4-5.0) Lipase 73 U/L (73-393) Urine Color YELLOW Urine Appearance CLEAR (CLEAR) Urine pH 6.0 (4.5-7.5) Urine Specific [place] 1.015 (1.000-1.030) Urine Protein 2+ (NEG) Urine Glucose (UA) NEG (NEG) Urine Ketones NEG (NEG) Urine Occult Blood 2+ (NEG) Urine Nitrite NEG (NEG) Urine Bilirubin NEG (NEG) Urine Urobilinogen NEG (NEG) Urine Leukocyte Esterase MODERATE (NEG) Urine WBC (Auto) 10-30 /hpf (0-5) Urine RBC (Auto) >30 /hpf (0-4) Urine Hyaline Casts (Auto) 1-5 /lpf (0-5) Urine Epithelial Cells (Auto) >30 /lpf (0-5) Urine Bacteria (Auto) NEG (NEG) Urine Renal Epithelial Cells 0-5 /lpf (0-5) Laboratory results as reviewed by me. Medications Administered Medications (Trade) Dose Ordered Sig/Mirella Route Start Time Stop Time Status Last Admin Dose Admin Sodium Chloride 1,000 ml @ 999 mls/hr Q1H1M STAT IV 04/29/18 14:37 04/29/18 15:37 DC 04/29/18 15:18 999 MLS/HR Vancomycin HCl (Vancomycin Oral Soln) 125 mg Q6 STAT PO 04/29/18 16:35 04/29/18 16:36 DC 04/29/18 17:07 125 MG Cefdinir (Omnicef Cap) 300 mg ONE STAT PO 04/29/18 16:45 04/29/18 16:46 DC 04/29/18 17:06 300 MG Raspberry (Raspberry Syrup 5ml Cup) 5 ml ONE ONCE PO 04/29/18 17:00 04/29/18 17:01 DC 04/29/18 17:06 5 ML ED Course 1425: The patient was evaluated in room C6. A complete history and physical exam was performed. 1437: NSS 1000 ml @ 999 mls/hr IV. 1530: I reevaluated the patient. She was able to give us a stool sample which was green. She does not want a Lopez catheter because she thinks she can give us a clean catch urine sample. 1635: Vancomycin 125 mg PO. 1640: I reevaluated the patient. I discussed her test results. She will stop Keflex and I will place her on Omnicef and Vancomycin. She verbalized complete understanding and agreement. 1645: Cefdinir 300 mg PO. 1700: Raspberry Syrup 5 ml PO. Medical Decision This is a 57-year-old female presents with lower abdominal pain and diarrhea. Differential diagnosis includes dehydration, acute kidney injury, UTI, pyelonephritis, C. difficile, foodborne illness, functional diarrhea, irritable bowel syndrome. I did perform a limited focused review of portions of the patient's old chart on the electronic medical record. The patient was seen here on April 21, 2018 for 10 weeks of abdominal pain with intermittent diarrhea and fatigue. She has a history of IBS and her urine showed infection. She had a CT scan of the abdomen/pelvis, which showed her bladder wall was very thick, consistent with cystitis as well as some perinephric stranding, which was concerning for pyelonephritis. She was advised to come in for admission, but she declined and was discharged on Keflex. Her urine culture grew out edwards sensitive E-coli. Her Hemoglobin was 9 at the time. I did evaluate the patient as noted above. IV access was established. 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 I did order and personally review the patient's urine analysis as described above. She does have signs of infection. I did order and review the patient's blood work as noted in the electronic medical record. Her white blood cell count is elevated. I did order stool testing. C. difficile antigen test came back positive. I did treat patient with normal saline IV. I did treat patient with vancomycin for her C. difficile. The patient was reported to have pyelonephritis on her last visit. She still has signs of infection and so I advised her to stop the Keflex and put her on Omnicef. She was informed of her test results. She was discharged with a prescription for vancomycin for 12 days and Omnicef for 10 days. Medication Reconcilliation Current Medication List: was personally reviewed by me Blood Pressure Screening Patient's blood pressure: Elevated blood pressure Blood pressure disposition: Referred to PCP Impression Primary Impression: C. difficile colitis Additional Impression: UTI (urinary tract infection) Scribe Attestation The scribe's documentation has been prepared under my direct and personally reviewed by me in its entirety. I confirm that the note above accurately reflects all work, treatment, procedures, and medical decision making performed by me. Departure Information Dispostion Home / Self-Care Prescriptions Vancomycin Hcl (Vancomycin) 125 Mg Cap 1 TAB PO QID for 12 Days, #48 TABS Prov: Morales Garcia M.D. 04/29/18 Cefdinir (OMNICEF) 300 Mg Cap 300 MG PO Q12H for 10 Days, #20 CAP Prov: Morales Garcia M.D. 04/29/18 Referrals Lavern Minor DO (PCP) Patient Instructions Clostridium Difficile Infec, ED UTI Cystitis Female, My [facility] Additional Instructions You have been examined and treated today on an emergency basis only. This is not a substitute for, or an effort to provide, complete comprehensive medical care. It is impossible to recognize and treat all injuries or illnesses in a single emergency department visit. It is therefore important that you follow up closely with your physician. Call as soon as possible for an appointment. Return for worsening symptoms or if you develop fever, vomiting, or any other concerning symptoms. Stop Keflex. Take Omnicef instead. Problem Qualifiers Additional Impression: UTI (urinary tract infection) Urinary tract infection type: site unspecified Hematuria presence: with hematuria Qualified Codes: N39.0 - Urinary tract infection, site not specified ; R31.9 - Hematuria, unspecified
[2018-04-29] MEDS ORDERED: LPT40 PO (22:21)
== END 2018-04-29 17:51 | disposition home or self-care (01) ==
LOC: EDBD 14:23 → C.EDC 14:24
DX: A04.72 Enterocolitis due to Clostridium difficile, not specified as recurrent (principal); N39.0 Urinary tract infection, site not specified; I10 Essential (primary) hypertension; K58.9 Irritable bowel syndrome, unspecified; K21.9 Gastro-esophageal reflux disease without esophagitis; Z72.0 Tobacco use; Z79.3 Long term (current) use of hormonal contraceptives; Z79.899 Other long term (current) drug therapy; Z88.1 Allergy status to other antibiotic agents; Z88.8 Allergy status to other drugs, medicaments and biological substances

== ENCOUNTER 2018-09-12 18:32 | Inpatient (IN) ==
[2018-09-12] MEDS ORDERED: PROMETHAZINE HCL 25 MG in SODIUM CHLORIDE 0.9% 50 ML IV STA (18:48)
[2018-09-12] MEDS ORDERED: MoRPHine SULFATE 4 MG/ML 1 ML CARP\\VIAL IV STA (18:48)
[2018-09-12 18:59] LABS: Basophils # (auto) 0.02 K/uL (0-0.2); Basophils % (auto) 0.1 %; Eosinophils # (auto) 0.13 K/uL (0-0.5); Eosinophils % (auto) 0.9 %; Hematocrit (blood only) 46.9 % (37-47); Hemoglobin 16.1 g/dL (12.0-16.0); Immature Granulocytes # (auto) 0.08 K/uL (0.00-0.02); Immature Granulocytes % (auto) 0.6 %; Lymphocytes # (auto) 2.81 K/uL (1.2-3.4); Lymphocytes % (auto) 19.8 %; Mean Corpuscular Hgb Conc 34.3 g/dL (32-36); Mean Corpuscular Volume 90.5 fL (80-100); Mean Platelet Volume 9.2 fL (7.4-10.4); Monocytes # (auto) 0.88 K/uL (0.11-0.59); Monocytes % (auto) 6.2 %; Neutrophils # (auto) 10.28 K/uL (1.4-6.5); Neutrophils % (auto) 72.4 %; Platelet Count 484 K/uL (130-400); RDW Coefficient of Variation 13.3 % (11.5-14.5); RDW Standard Deviation 43.3 fL (36.4-46.3); Red Blood Count 5.18 M/uL (4.2-5.4)
[2018-09-12] MEDS ORDERED: SODIUM CHLORIDE 0.9% 1000ML 1,000 ML IV SCH (19:00)
[2018-09-12 19:14] LABS: Albumin Level 3.6 gm/dl (3.4-5.0); BUN Creatinine Ratio 7.3 (10-20); Calcium 10.2 mg/dl (8.5-10.1); Creatinine Clr Calc Pharmacy 35.8 ml/min; Est GFR (African American) 35.6; Est GFR (Non-African American) 30.7; Potassium 4.3 mmol/L (3.5-5.1)
[2018-09-12 19:16] LABS: Albumin Globulin Ratio 0.8 (0.9-2); Bilirubin,Total 0.6 mg/dl (0.1-1); Globulin 4.7 gm/dl (2.5-4.0); Total Protein 8.3 gm/dl (6.4-8.2)
--- NOTE | 2018-09-12 19:55 | Emergency Department Note ---
Entered by Lavonne Graff acting as a scribe for ED Provider Note CHIEF COMPLAINT: Abdominal pain HISTORY OF PRESENT ILLNESS: The patient is a 58 year old female with a history of chronic gastroenteritis, UTI, IBS, and C. Diff who presents to the Emergency Room with complaints of intermittent abdominal pain starting today. She describes her pain as "birthing pains." She states that her abdominal pain is accompanied by nausea, a dry mouth , weakness, fatigue, and heat over her face. The patient also notes that she has been having urinary symptoms which she saw Dr. Tapia in the ED for 3 weeks ago. She states that she had an infection on the inside lining of her bladder and is still experiencing symptoms including bladder pressure, sharp pain in her pelvic area, which she states is like "someone is trying to stick something pretty large" up her vagina, and spotting of pinkish blood. She notes that she is scheduled to see her urologist in October and have an ultrasound of the bladder. The patient further complains of diarrhea and C. Diff, for which she states she has been taking Vancomycin for the past 6 months. She also reports that she was also recently on Bactrim. The patient denies a history of bowel tumors and bowel surgeries. Pt denies LOC, headache, fevers, chills, diaphoresis, visual changes, neck pain , chest pain, breathing difficulties, vomiting, back pain, melena, hematochezia , numbness, lymphadenopathy, rash, or other complaints. REVIEW OF SYSTEMS: See HPI for pertinent positives and negatives. A total of ten systems were reviewed and were otherwise negative. PMHx/PSHx: Gastroenteritis, UTI, IBS, C. Diff SOCIAL HISTORY: Patient lives at home. PHYSICAL EXAM: GENERAL: Awake, alert, uncomfortable-appearing, in no distress HENT: Normocephalic, atraumatic. Oropharynx unremarkable. EYES: Normal conjunctiva. Sclera non-icteric. NECK: Inspection normal. Non-tender. Supple. No nuchal rigidity. FROM. No masses. RESPIRATORY: Clear to auscultation. No wheezes. No rales. Normal respiratory effort. CARDIAC: Normal rate. Normal rhythm. No murmurs. No rubs. Extremities warm and well perfused. Pulses equal. No JVD. GI: Soft, non-distended. Diffuse tenderness to palpation. No rebound or guarding. No masses. RECTAL: Deferred. MUSCULOSKELETAL: Atraumatic. Chest examination reveals no tenderness. The back is symmetrical on inspection without obvious abnormality. There is no CVA tenderness to palpation. No joint edema. LOWER EXTREMITIES: Calves are equal size bilaterally and non-tender. No edema. No discoloration. NEURO: Normal sensorium. No sensory or motor deficits noted. SKIN: No rash or jaundice noted. EMERGENCY DEPARTMENT COURSE: 1843: Past medical records reviewed. The patient was evaluated in room C6, and a complete history and physical examination were performed. 1937: I checked on the patient at this time. The patient initially refused a straight catheter, but after I explained the necessity of the catheter and educated the patient, she agreed to one. 2125: I reviewed the patient's case with Dr. Quarles - [facility]. 2133: I reevaluated the patient and updated her on her results. 2199: I reviewed the patient's case with Dr. Ly - Hospitalist, [facility]. Dr. Ly will evaluate the patient for further management. MEDICAL DECISION MAKING: Triage Nursing notes reviewed. The patient's presentation and history were concerning for abdominal pain. Etiologies such as appendicitis, diverticulitis, obstruction, inflammatory bowel disease, renal colic, PUD, biliary pathology, pancreatitis, mesenteric ischemia, aortic pathology, infections, genitourinary, UTI, perforated viscus, as well as others were entertained. Patient was evaluated. She notes a history of bowel problems as well as bladder issues. Records were reviewed. Recent culture showed multiple organisms. Cath urinalysis was ordered. Blood work was obtained. The patient had a mild leukocytosis. She also had mild elevation of her renal function. She was treated with fluids, Phenergan, and morphine for symptom control. The patient had an obstruction series performed. This is concerning for obstruction. CT imaging performed and confirmed small bowel obstruction. There is also concerns about a vesicovaginal fistula. The patient will need admission to the hospital and further workup. NG tube ordered. Consultation made with general surgery. Agreed with the NG tube placement and recommended medical admission. Consultation was made with internal medicine. IMPRESSION: Small bowel obstruction PLAN: Admit The scribe's documentation has been prepared under my direction and personally reviewed by me in its entirety. I confirm that the note above accurately reflects all work, treatment, procedures, and medical decision making performed by me. Impression & Plan Small bowel obstruction Past Med/Surg History Medical History Gastroenteritis Contusion (Acute) Traumatic ecchymosis of left shoulder (Acute) Back pain (Chronic) UTI (urinary tract infection) (Chronic) Ureteral stricture (Chronic) Pyelonephritis (Acute) Urinary incontinence (Acute) OCD (obsessive compulsive disorder) (Chronic) GERD (gastroesophageal reflux disease) (Chronic) Dyslipidemia (Chronic) Back pain (Chronic) Cervical cancer (Chronic) "s/p surgery and radiation" IBS (irritable bowel syndrome) (Chronic) OAB (overactive bladder) (Chronic) Hx of recurrent urinary tract infection (Chronic) Hx of pyelonephritis (Chronic) H/O hemorrhagic cystitis (Chronic) Anxiety (Chronic) Hydroureteronephrosis Major depressive disorder, recurrent episode with anxious distress C. difficile colitis (Acute) Generalized abdominal pain (Acute) Headache (Acute) Urinary tract infection (Acute) Surgical History History of hysterectomy (Chronic) S/P appendectomy (Chronic) S/P vascular surgery (Chronic) H/O cystoscopy (Chronic) Social History marital status: Current Living Situation: Alone current occupational status: unemployed and disabled Feels Safe at Home: Yes Safety Concerns: Feels Safe At This Time Smoking Status: Current every day smoker Tobacco Type: cigarettes Cigarettes per Day: 20 Tobacco Cessation Education Requested by Patient: No Hx Alcohol Use: No Hx Substance Use: Yes (HX OF IV DRUG USE; NO USE CURRENTLY) substance use type : does not use Beliefs That Will Affect Care: None Preferred Language: Yi Senior Policy Advisor Required: No Results & Data Vital Signs Vital Signs - 24 hr 09/12/18 18:40 09/12/18 18:48 09/12/18 20:21 Temperature 36.6 C Temperature Source Oral Sepsis Recent Fever Within 48 Hours No Sepsis Action Taken by Nursing No Action Required Pulse Rate 108 H 78 87 Pulse Rate [Apical] Pulse Rhythm Regular Pulse Rhythm [Apical] Pulse Strength [Apical] Respiratory Rate 26 H 18 Respiratory Effort / Characteristics Respiratory Depth Normal Respiratory Pattern Blood Pressure 119/85 Blood Pressure [Left Arm] Blood Pressure Mean 96 Blood Pressure Mean [Left Arm] Blood Pressure Position Sitting Blood Pressure Position [Left Arm] Pulse Oximetry 98 97 Oxygen Delivery Method Room Air Room Air 09/12/18 21:06 09/12/18 21:09 09/12/18 21:11 Temperature Temperature Source Sepsis Recent Fever Within 48 Hours Sepsis Action Taken by Nursing Pulse Rate 99 H 87 Pulse Rate [Apical] 96 H Pulse Rhythm Pulse Rhythm [Apical] Regular Pulse Strength [Apical] Normal Respiratory Rate 19 25 H 20 Respiratory Effort / Characteristics Non-Labored Respiratory Depth Normal Respiratory Pattern Regular Blood Pressure 121/66 Blood Pressure [Left Arm] 121/66 Blood Pressure Mean 84 Blood Pressure Mean [Left Arm] 84 Blood Pressure Position Blood Pressure Position [Left Arm] Sitting Pulse Oximetry 98 97 98 Oxygen Delivery Method Room Air 09/12/18 22:01 09/12/18 23:00 09/13/18 00:07 Temperature Temperature Source Sepsis Recent Fever Within 48 Hours Sepsis Action Taken by Nursing Pulse Rate 98 H Pulse Rate [Apical] 94 H 87 Pulse Rhythm Pulse Rhythm [Apical] Regular Pulse Strength [Apical] Normal Respiratory Rate 25 H 22 22 Respiratory Effort / Characteristics Non-Labored Spontaneous Respiratory Depth Normal Normal Respiratory Pattern Regular Blood Pressure 184/105 H Blood Pressure [Left Arm] 154/87 H 120/87 Blood Pressure Mean 131 Blood Pressure Mean [Left Arm] 109 98 Blood Pressure Position Blood Pressure Position [Left Arm] Lying Pulse Oximetry 94 91 Oxygen Delivery Method Room Air Room Air 09/13/18 00:53 Temperature 36.4 C L Temperature Source Oral Sepsis Recent Fever Within 48 Hours Sepsis Action Taken by Nursing Pulse Rate Pulse Rate [Apical] 16 L Pulse Rhythm Pulse Rhythm [Apical] Regular Pulse Strength [Apical] Normal Respiratory Rate 16 Respiratory Effort / Characteristics Non-Labored Respiratory Depth Normal Respiratory Pattern Regular Blood Pressure Blood Pressure [Left Arm] 149/95 H Blood Pressure Mean Blood Pressure Mean [Left Arm] 113 Blood Pressure Position Blood Pressure Position [Left Arm] Lying Pulse Oximetry 94 Oxygen Delivery Method Room Air Home Medications Current Medication List: was personally reviewed by me Laboratory Data Attestation: I reviewed the patient's lab results. Result diagrams: 09/12/18 18:43 09/12/18 18:43 Lab Results 09/12/18 09/12/18 09/12/18 Range/Units 18:43 18:43 19:50 WBC 14.20 H (4.8-10.8) K/uL RBC 5.18 (4.2-5.4) M/uL Hgb 16.1 H (12.0-16.0) g/dL Hct 46.9 (37-47) % MCV 90.5 (80-100) fL MCH 31.1 (25-34) pg MCHC 34.3 (32-36) g/dL RDW Std Deviation 43.3 (36.4-46.3) fL RDW Coeff of Rommel 13.3 (11.5-14.5) % Plt Count 484 H (130-400) K/uL MPV 9.2 (7.4-10.4) fL Immature Gran % (Auto) 0.6 % Neut % (Auto) 72.4 % Lymph % (Auto) 19.8 % Charles % (Auto) 6.2 % Eos % (Auto) 0.9 % Baso % (Auto) 0.1 % Immature Gran # (Auto) 0.08 H (0.00-0.02) K/uL Neut # (Auto) 10.28 H (1.4-6.5) K/uL Lymph # (Auto) 2.81 (1.2-3.4) K/uL Charles # (Auto) 0.88 H (0.11-0.59) K/uL Eos # (Auto) 0.13 (0-0.5) K/uL Baso # (Auto) 0.02 (0-0.2) K/uL Sodium 137 (136-145) mmol/L Potassium 4.3 (3.5-5.1) mmol/L Chloride 101 (98-107) mmol/L Carbon Dioxide 26 (21-32) mmol/L Anion Gap 9.0 (3-11) BUN 13 (7-18) mg/dl Creatinine 1.77 H (0.6-1.2) mg/dl Est Cr Clr Drug Dosing 35.8 ml/min Est GFR ( Amer) 35.6 Est GFR (Non-Af Amer) 30.7 BUN/Creatinine Ratio 7.3 L (10-20) Glucose 110 H (70-99) mg/dl Calcium 10.2 H (8.5-10.1) mg/dl Total Bilirubin 0.6 (0.1-1) mg/dl AST 14 L (15-37) U/L ALT 15 (12-78) U/L Alkaline Phosphatase 103 (45-117) U/L Total Protein 8.3 H (6.4-8.2) gm/dl Albumin 3.6 (3.4-5.0) gm/dl Globulin 4.7 H (2.5-4.0) gm/dl Albumin/Globulin Ratio 0.8 L (0.9-2) Lipase 124 (73-393) U/L Urine Color Cancelled Urine Appearance Cancelled Urine pH Cancelled Ur Specific [place] Cancelled Urine Protein Cancelled Urine Glucose (UA) Cancelled Urine Ketones Cancelled Urine Blood Cancelled Urine Nitrite Cancelled Urine Bilirubin Cancelled Urine Urobilinogen Cancelled Ur Leukocyte Esterase Cancelled Urine WBC (Auto) Cancelled Urine RBC (Auto) Cancelled U Hyaline Cast (Auto) Cancelled U Epithel Cells (Auto) Cancelled Urine Bacteria (Auto) Cancelled Ur Renal Epithelial Cell Cancelled Urine Crystals Cancelled Calcium Oxalate Crystal Cancelled Uric Acid Crystals Cancelled Triple Phos Crystals Cancelled Other Crystals Cancelled Amorphous Sediment Cancelled Granular Casts Cancelled Waxy Casts Cancelled RBC Casts Cancelled WBC Casts Cancelled Other Casts Cancelled Urine Mucus Cancelled Urine Other Cancelled Urine Trichomonas Cancelled Urine Yeast Cancelled Urine Sperm Cancelled Ur Oval Fat Bodies Cancelled Administered Medications Hydromorphone HCl (Dilaudid) 0.5 mg IV Q4H PRN PRN Reason: Pain Stop: 09/26/18 23:13 Last Admin: 09/12/18 23:30 Dose: 0.5 mg Sodium Chloride (Nss 1000ml) 1,000 mls @ 125 mls/hr IV .Q8H NANCY Stop: 10/12/18 23:14 Last Admin: 09/13/18 01:02 Dose: 125 mls/hr Discontinued Medications Benzocaine/Butamben/Tetracaine HCl (Cetacaine) Confirm Administered Dose 1 appln EXT .STK-MED ONE Stop: 09/12/18 21:54 Last Admin: 09/12/18 21:59 Dose: 1 appln Hydromorphone HCl (Dilaudid) 0.5 mg IV Q15M PRN PRN Reason: Pain Stop: 09/26/18 21:00 Last Admin: 09/12/18 21:10 Dose: 0.5 mg Promethazine HCl 25 mg/ Sodium (Chloride) 51 mls @ 204 mls/hr IV NOW STA Stop: 09/12/18 19:02 Last Infusion: 09/12/18 20:19 Dose: 0 mls/hr Admin: 09/12/18 19:34 Dose: 204 mls/hr Sodium Chloride (Nss 1000ml) 1,000 mls @ 999 mls/hr IV .Q1H1M NANCY Stop: 09/12/18 20:00 Last Infusion: 09/12/18 20:18 Dose: 0 mls/hr Admin: 09/12/18 19:08 Dose: 999 mls/hr Sodium Chloride (Nss 1000ml) 1,000 mls @ 125 mls/hr IV .Q8H STA Stop: 09/13/18 05:00 Last Infusion: 09/13/18 00:54 Dose: 0 mls/hr Admin: 09/12/18 21:10 Dose: 125 mls/hr Piperacillin Sod/Tazobactam Sod (Zosyn) 3.375 gm in 115 mls @ 230 mls/hr IV Q6H NANCY Stop: 09/14/18 23:14 Last Infusion: 09/13/18 00:55 Dose: 0 mls/hr Admin: 09/13/18 00:07 Dose: 230 mls/hr Morphine Sulfate (Morphine Sulfate) 2 mg IV NOW STA Stop: 09/12/18 18:49 Last Admin: 09/12/18 19:07 Dose: 2 mg Imaging Data Radiologist's Impression: Radiology results as stated below per my review and the radiologist's interpretation: CHEST AND ABDOMEN 2 VIEWS HISTORY: Generalized abdominal pain. Nausea. COMPARISON: [facility] 07/23/2018. Abdomen and pelvis CT 09/04/2018. Chest 10/24/2017. FINDINGS: Mild emphysema. The lungs are clear. The heart is normal in size. No pleural effusions. No pneumothorax. Right iliac stent is noted. Surgical clips within the deep pelvis. No pneumoperitoneum. No pneumatosis. Dilated loops of gas-filled small bowel seen within the midabdomen. These measure up to 3.7 cm in diameter. These demonstrate small fluid levels and therefore likely represent a small bowel obstruction. IMPRESSION: 1. Mild emphysema. 2. Dilated gas and fluid loops of small bowel within the midabdomen consistent with a small bowel obstruction. Electronically signed by: Jasen Boyle M.D. 09/12/2018 8:19 PM ABDOMEN AND PELVIS CT WITHOUT CONTRAST CT DOSE: 317.86 mGy.cm HISTORY: Mid abdominal pain. bowel obstruc TECHNIQUE: Multiaxial CT images of the abdomen and pelvis were performed without contrast. A dose lowering technique was utilized adhering to the principles of ALARA. COMPARISON STUDY: Abdomen and pelvis CT 09/04/2018. FINDINGS: Mild interstitial thickening at the lung bases. This is likely chronic. No pneumoperitoneum. No pneumatosis. Bilateral L5 spondylolysis with associated grade I spondylolisthesis. Patchy sclerosis within the sacrum may be due to post radiation changes. This remains unchanged. The unenhanced liver, gallbladder, pancreas, spleen, and adrenal glands are unremarkable. Right renal cortical scarring, unchanged. No renal or ureteral calculi. Mild fullness within the bilateral renal collecting systems without kadi hydronephrosis. This is improved. Mild urothelial thickening within the bilateral renal pelvises , unchanged. Multiple surgical clips seen within the retroperitoneum. No retroperitoneal lymphadenopathy. Bladder is decompressed and not well evaluated. Small of gas within the bladder lumen. There is also fluid and gas within the vaginal cuff. Therefore, this likely represents a vesicovaginal fistula. Mild thickening of the rectum. The anterior bladder wall is adhering to the anterior abdominal wall. This remains unchanged. Multiple dilated gas and fluid-filled loops of small bowel are seen throughout the abdomen. This is new compared to the prior study. A transition point appears to be located within the deep pelvis, therefore, this is consistent with a small bowel obstruction. Small bowel loops are dilated up to 3.7 cm. Trace pelvic fluid is noted. Right iliac stent is present. IMPRESSION: 1. Interval development of a small bowel obstruction with the transition point located in the deep pelvis. 2. Evidence for a vesicovaginal fistula. 3. Mild rectal wall thickening, unchanged. 4. Stable mild urothelial thickening of the bilateral renal pelvises. This could represent infectious process. Electronically signed by: Jasen Boyle M.D. 09/12/2018 9:07 PM Blood Pressure Blood Pressure Findings: Normal blood pressure Discharge Plan Visit Data Chief Complaint: Abdominal Pain Stated Complaint: AB PAIN ED Provider: Sunil Cook Discharge Problem: Small bowel obstruction Patient Disposition: Admitted As Inpatient Discharge Instructions Interventions: ED Discharge Assessment Last Done: 09/13/18 00:27 The scribe's documentation has been prepared under my direction and personally reviewed by me in its entirety. I confirm that the note above accurately reflects all work, treatment, procedures, and medical decision making performed by me.
--- NOTE | 2018-09-12 20:20 | XRay Report ---
CHEST AND ABDOMEN 2 VIEWS HISTORY: Generalized abdominal pain. Nausea. COMPARISON: [facility] 07/23/2018. Abdomen and pelvis CT 09/04/2018. Chest 10/24/2017. FINDINGS: Mild emphysema. The lungs are clear. The heart is normal in size. No pleural effusions. No pneumothorax. Right iliac stent is noted. Surgical clips within the deep pelvis. No pneumoperitoneum. No pneumatosis. Dilated loops of gas-filled small bowel seen within the midabdomen. These measure up to 3.7 cm in diameter. These demonstrate small fluid levels and therefore likely represent a small b owel obstruction. IMPRESSION: 1. Mild emphysema. 2. Dilated gas and fluid loops of small bowel within the midabdomen consistent with a small bowel obs truction. Electronically signed by: Jasen Boyle M.D. 09/12/2018 8:19 PM
[2018-09-12] MEDS ORDERED: HYDROmorphone INJ 0.5 MG/0.5 ML SYR IV PRN ×2 (21:01→23:14)
[2018-09-12] MEDS ORDERED: SODIUM CHLORIDE 0.9% 1000ML 1,000 ML IV STA (21:01)
--- NOTE | 2018-09-12 21:10 | CT Scan Report ---
ABDOMEN AND PELVIS CT WITHOUT CONTRAST CT DOSE: 317.86 mGy.cm HISTORY: Mid abdominal pain. bowel obstruc TECHNIQUE: Multiaxial CT images of the abdomen and pelvis were performed without contrast. A dose lo wering technique was utilized adhering to the principles of ALARA. COMPARISON STUDY: Abdomen and pelvis CT 09/04/2018. FINDINGS: Mild interstitial thickening at the lung bases. This is likely chronic. No pneumoperitoneum . No pneumatosis. Bilateral L5 spondylolysis with associated grade I spondylolisthesis. Patchy sclero sis within the sacrum may be due to post radiation changes. This remains unchanged. The unenhanced li tanya, gallbladder, pancreas, spleen, and adrenal glands are unremarkable. Right renal cortical scarrin g, unchanged. No renal or ureteral calculi. Mild fullness within the bilateral renal collecting syste ms without kadi hydronephrosis. This is improved. Mild urothelial thickening within the bilateral re nal pelvises, unchanged. Multiple surgical clips seen within the retroperitoneum. No retroperitoneal lymphadenopathy. Bladder is decompressed and not well evaluated. Small of gas within the bladder lume n. There is also fluid and gas within the vaginal cuff. Therefore, this likely represents a vesicovag inal fistula. Mild thickening of the rectum. The anterior bladder wall is adhering to the anterior ab dominal wall. This remains unchanged. Multiple dilated gas and fluid-filled loops of small bowel are seen throughout the abdomen. This is new compared to the prior study. A transition point appears to b e located within the deep pelvis, therefore, this is consistent with a small bowel obstruction. Small bowel loops are dilated up to 3.7 cm. Trace pelvic fluid is noted. Right iliac stent is present. IMPRESSION: 1. Interval development of a small bowel obstruction with the transition point located in the deep pe lvis. 2. Evidence for a vesicovaginal fistula. 3. Mild rectal wall thickening, unchanged. 4. Stable mild urothelial thickening of the bilateral renal pelvises. This could represent infectious process. Electronically signed by: Jasen Boyle M.D. 09/12/2018 9:07 PM
[2018-09-12] MEDS ORDERED: BENZOCAIN/TETRACA/BUTAM SPRAY 200 APPLN/20 GM SPRY EXT ONE (21:53)
[2018-09-12] MEDS ORDERED: CANNULA ONE (21:53)
--- NOTE | 2018-09-12 22:16 | History & Physical Report ---
Date of Service September 12, 2018 Assessment & Plan (1) Small bowel obstruction: 58-year-old female was admitted on 12 September 2018 for abdominal pain. Small bowel obstruction: As suggested by x-ray and CT a/p without contrast. Patient says she has a history of same, potentially related to prior cervical cancer radiation therapy in 1995. Presently afebrile, borderline tachycardic, with WBC 14. - NGT placed in the emergency room. - Will place empirically on Zosyn every 6 hours. - Pain and nausea control with Dilaudid, Zofran, and Compazine (all as needed). - Consulted general surgery. Elevated creatinine: Admit Cr 1.77. Recent comparisons around 1.1-1.2. CT notes concerns about bilateral renal pelvises thickening that may be infectious. Multiple other labs suggested concurrent dehydration as likely source. - IV fluids started. - Urine culture pending. Vesicovaginal fistula: As suggested by CT a/p without contrast. Says that her gynecology and urology specialists are in [place]. - Will hold off on consulting urology immediately. Depending on her resolution of her SBO, she may be able to have close follow-up with her ongoing providers. Right leg vascular disease: S/p prior stenting many years ago in [place]. Normally is on Plavix daily but patient says she missed all of her p.o. meds earlier today. - We will start her on Lovenox. Will leave to primary team if they wish to provide further prophylactic treatment versus hold her NG tube suction and provide Plavix p.o. Chronic medical issues: - Hyperlipidemia: On home Lipitor 40 mg daily. Held for now. - Asthma: Patient says is on Advair twice daily, Combivent twice daily, Spiriva every morning for asthma. - Bipolar: On Lamictal 150 mg twice daily. Held for now. - Hypertension: On lisinopril 5 mg every morning. Held for now. - Anxiety/depression: On lorazepam 0.5 mg twice daily as needed. On duloxetine 90 mg daily. Held for now. --- Patient notes she has a history of purposeful Ativan overdoses in the past. - GERD: On pantoprazole 40 mg every morning. Held and switched to protonix for now. - Low potassium and leg cramping: On potassium supplements 20 mEq twice daily. K 4.3 on admit. --- Held home med initially, recheck K in AM. - Insomnia: On trazodone 50 mg nightly. Held for now. - Chronic UTI: Says completed a 7-day Bactrim course on 28Dec. - C. difficile colitis: On vancomycin 125 mg p.o. QID. Says has appt with Dr. Wilder next week. --- Held for now. - Tobacco abuse: Smoking cessation education ordered. - History of hemorrhagic cystitis. Code status: Full code. Diet: NPO with NGT to low intermittent suction. DVT prophy: Lovenox. PT/OT: Deferred. Disbo: Admit to MedSurg. (2) Cervical cancer: (3) Elevated serum creatinine: (4) Vesicovaginal fistula: (5) S/P vascular surgery: (6) Dyslipidemia: (7) Asthma: (8) Bipolar 1 disorder: (9) Hypertension: (10) Anxiety: (11) Major depressive disorder, recurrent episode with anxious distress: (12) GERD (gastroesophageal reflux disease): (13) Hypokalemia: (14) Insomnia: (15) UTI (urinary tract infection): (16) C. difficile colitis: (17) Tobacco abuse: History of Present Illness Primary Care Provider: Lavern Minor 58-year-old female with a notable history of cervical cancer and related surgery /radiation therapy in 1995 presents with acute abdominal pain beginning around 1300 today. She says that it feels like a crampy, squeezing pain similar to a "birthing pain". She says she has a history of small bowel obstructions in the past, last at least a year ago, but it did not feel quite like this. She notes some nausea but denies any vomiting. She says she has ongoing loose stools related to the apparent diagnosis of C. difficile colitis perhaps 6 months ago. She says she has been on oral vancomycin ever since and has a pending appointment with Dr. Wilder next week. Only other current noted symptom is a mild generalized headache. Otherwise she denies any other acute concerns. Allergies Allergy/AdvReac Type Severity Reaction Status Date / Time Cipro Allergy Unknown sores on Verified 04/21/18 22:15 tongue ciprofloxacin Allergy Unknown sores on Verified 09/04/18 12:09 tongue gabapentin Allergy Unknown unknown Unverified 09/04/18 12:09 meloxicam Allergy Unknown unknown Unverified 09/04/18 12:09 paroxetine Allergy Unknown suicidal Verified 09/04/18 12:09 thoughts varenicline Allergy Unknown suicidal Verified 09/04/18 12:09 thoughts prednisone AdvReac Intermediate "INTERNAL Verified 09/04/18 12:09 BLEEDING FROM KIDNEY" Home Medications Home Medications Medication Instructions Recorded Confirmed Type atorvastatin [Lipitor] 40 mg PO QAM 06/21/18 09/12/18 History calcium polycarbophil [Fiber 1,250 mg PO QAM 06/21/18 09/12/18 History (calcium polycarbophil)] cholecalciferol (vitamin D3) 1,000 unit PO QAM 06/21/18 09/12/18 History [Vitamin D3] clopidogrel [Plavix] 75 mg PO QAM 06/21/18 09/12/18 History duloxetine 90 mg PO QAM 06/21/18 09/12/18 History ferrous sulfate 325 mg PO BIDM 06/21/18 09/12/18 History fluticasone-salmeterol [Advair 1 inh INHALATION BID 06/21/18 09/12/18 History Diskus] glycopyrrolate 2 mg PO BID 06/21/18 09/12/18 History ipratropium-albuterol [Combivent 1 puff INHALATION BID PRN 06/21/18 09/12/18 History Respimat] lactobacillus combination no.4 3,000 mmu cells PO QAM 06/21/18 09/12/18 History [Probiotic] lamotrigine 150 mg PO BID 06/21/18 09/12/18 History lisinopril 5 mg PO QAM 06/21/18 09/12/18 History lorazepam 0.5 mg PO BID PRN 06/21/18 09/12/18 History pantoprazole 40 mg PO QAM 06/21/18 09/12/18 History potassium chloride 20 meq PO BID 06/21/18 09/12/18 History tiotropium bromide [Spiriva with 1 cap INHALATION QAM 06/21/18 09/12/18 History HandiHaler] trazodone 50 mg PO HS 06/21/18 09/12/18 History Past Med/Surg History Medical History Gastroenteritis Contusion (Acute) Traumatic ecchymosis of left shoulder (Acute) Back pain (Chronic) UTI (urinary tract infection) (Chronic) Ureteral stricture (Chronic) Pyelonephritis (Acute) Urinary incontinence (Acute) OCD (obsessive compulsive disorder) (Chronic) GERD (gastroesophageal reflux disease) (Chronic) Dyslipidemia (Chronic) Back pain (Chronic) Cervical cancer (Chronic) "s/p surgery and radiation" IBS (irritable bowel syndrome) (Chronic) OAB (overactive bladder) (Chronic) Hx of recurrent urinary tract infection (Chronic) Hx of pyelonephritis (Chronic) H/O hemorrhagic cystitis (Chronic) Anxiety (Chronic) Hydroureteronephrosis Major depressive disorder, recurrent episode with anxious distress C. difficile colitis (Acute) Generalized abdominal pain (Acute) Headache (Acute) Urinary tract infection (Acute) Surgical History History of hysterectomy (Chronic) S/P appendectomy (Chronic) S/P vascular surgery (Chronic) H/O cystoscopy (Chronic) Social History marital status: current occupational status: unemployed and disabled Feels Safe at Home: Yes Smoking Status: Current every day smoker Preferred Language: Panamanian Visual Impairment: No Limitations Hearing Ability: Normal Review of Systems Constitutional: Denies fevers, chills, focal weakness Eyes: Denies any visual loss or diplopia ENT: Denies any ear/nose/throat pain or difficulty speaking or swallowing Respiratory: Denies any dyspnea, cough, hemoptysis Cardiovascular: Denies any chest pain or feeling of edema Gastrointestinal: See HPI. Musculoskeletal: Denies any acute extremity pains, myalgias, or focal weakness Skin: Denies any known acute rashes or lesions Neuro: Denies any acute focal weakness or numbness, or difficulties with speech or swallow. Psych: Denies present SI, HI. Physical Exam 2 Vital Signs (Past 24 Hours): Last Vital Signs Temp 36.6 C 09/12/18 18:40 Pulse 96 H 09/12/18 21:11 Resp 20 09/12/18 21:11 BP 121/66 09/12/18 21:11 Pulse Ox 98 09/12/18 21:11 Physical Exam: GENERAL: Awake, alert, appears comfortable if she is not moving around much, does not appear in acute distress. HENT: Normocephalic, atraumatic. Oropharynx unremarkable. EYES: Normal conjunctiva. Sclera non-icteric. NECK: Inspection normal. Non-tender. Supple and full ROM. No nuchal rigidity. CARDIAC: +S1S2 borderline but regular tachycardia, no murmurs. RESPIRATORY: Clear to auscultation. No wheezes or rales. Normal respiratory effort. GI: +BS, soft, non-distended. Positive tenderness to palpation primarily in bilateral upper quadrants. EXTREMITIES: No pedal edema or calf tenderness. Moving all extremities naturally and easily. NEURO: No gross neuro deficits. Lines: Right nare NG tube in place. PIV. Results & Data Laboratory Results 09/12/18 09/12/18 09/12/18 Range/Units 19:50 18:43 18:43 WBC 14.20 H (4.8-10.8) K/uL RBC 5.18 (4.2-5.4) M/uL Hgb 16.1 H (12.0-16.0) g/dL Hct 46.9 (37-47) % MCV 90.5 (80-100) fL MCH 31.1 (25-34) pg MCHC 34.3 (32-36) g/dL RDW Std Deviation 43.3 (36.4-46.3) fL RDW Coeff of Rommel 13.3 (11.5-14.5) % Plt Count 484 H (130-400) K/uL MPV 9.2 (7.4-10.4) fL Immature Gran % (Auto) 0.6 % Neut % (Auto) 72.4 % Lymph % (Auto) 19.8 % Bea[place]gard % (Auto) 6.2 % Eos % (Auto) 0.9 % Baso % (Auto) 0.1 % Immature Gran # (Auto) 0.08 H (0.00-0.02) K/uL Neut # (Auto) 10.28 H (1.4-6.5) K/uL Lymph # (Auto) 2.81 (1.2-3.4) K/uL Bea[place]gard # (Auto) 0.88 H (0.11-0.59) K/uL Eos # (Auto) 0.13 (0-0.5) K/uL Baso # (Auto) 0.02 (0-0.2) K/uL Sodium 137 (136-145) mmol/L Potassium 4.3 (3.5-5.1) mmol/L Chloride 101 (98-107) mmol/L Carbon Dioxide 26 (21-32) mmol/L Anion Gap 9.0 (3-11) BUN 13 (7-18) mg/dl Creatinine 1.77 H (0.6-1.2) mg/dl Est Cr Clr Drug Dosing 35.8 ml/min Est GFR ( Amer) 35.6 Est GFR (Non-Af Amer) 30.7 BUN/Creatinine Ratio 7.3 L (10-20) Glucose 110 H (70-99) mg/dl Calcium 10.2 H (8.5-10.1) mg/dl Total Bilirubin 0.6 (0.1-1) mg/dl AST 14 L (15-37) U/L ALT 15 (12-78) U/L Alkaline Phosphatase 103 (45-117) U/L Total Protein 8.3 H (6.4-8.2) gm/dl Albumin 3.6 (3.4-5.0) gm/dl Globulin 4.7 H (2.5-4.0) gm/dl Albumin/Globulin Ratio 0.8 L (0.9-2) Lipase 124 (73-393) U/L Urine Color Cancelled Urine Appearance Cancelled Urine pH Cancelled Ur Specific [place] Cancelled Urine Protein Cancelled Urine Glucose (UA) Cancelled Urine Ketones Cancelled Urine Blood Cancelled Urine Nitrite Cancelled Urine Bilirubin Cancelled Urine Urobilinogen Cancelled Ur Leukocyte Esterase Cancelled Urine WBC (Auto) Cancelled Urine RBC (Auto) Cancelled U Hyaline Cast (Auto) Cancelled U Epithel Cells (Auto) Cancelled Urine Bacteria (Auto) Cancelled Ur Renal Epithelial Cell Cancelled Urine Crystals Cancelled Calcium Oxalate Crystal Cancelled Uric Acid Crystals Cancelled Triple Phos Crystals Cancelled Other Crystals Cancelled Amorphous Sediment Cancelled Granular Casts Cancelled Waxy Casts Cancelled RBC Casts Cancelled WBC Casts Cancelled Other Casts Cancelled Urine Mucus Cancelled Urine Other Cancelled Urine Trichomonas Cancelled Urine Yeast Cancelled Urine Sperm Cancelled Ur Oval Fat Bodies Cancelled Diagnostic Findings CHEST AND ABDOMEN 2 VIEWS IMPRESSION: 1. Mild emphysema. 2. Dilated gas and fluid loops of small bowel within the midabdomen consistent with a small bowel obstruction. ABDOMEN AND PELVIS CT WITHOUT CONTRAST IMPRESSION: 1. Interval development of a small bowel obstruction with the transition point located in the deep pelvis. 2. Evidence for a vesicovaginal fistula. 3. Mild rectal wall thickening, unchanged. 4. Stable mild urothelial thickening of the bilateral renal pelvises. This could represent infectious process. Code Status & VTE Plan Code Status Full code VTE Prophylaxis Plan VTE Prophylaxis will be ordered: Yes Supervising Physician Co-Signing Physician Notes Attending addendum: I have physically seen this patient, have supervised the medical residents activities, and agree with the H&P unless as otherwise noted. Assessment and Plan: Small bowel obstruction/vesicovaginal fistula/bilateral pyelitis-- NPO NSS at 100 mils per hour Zofran 4 mg IV every 6 hours as needed Pantoprazole 40 mg IV daily Zosyn 3.375 mg IV every 8 hours. Acetaminophen 1000 mg IV every 8 hours as needed mild pain or temperature. Morphine sulfate 2 mg IV every 2 hours as needed moderate to severe pain. Consult general surgery. Acute kidney injury-- Creatinine 1.77 upon admission. NSS 100 mils per hour. Repeat laboratories in the a.m. Remaining orders and notations as noted. Resident Activity Tracking Resident Involvement: Resident Care Provided Care Provided: Adult Hospital Medicine
[2018-09-12] MEDS ORDERED: ONDANSETRON INJ 2 MG/ML 2 ML VIAL IV PRN (23:13)
[2018-09-12] MEDS ORDERED: PROCHLORPERAZINE 5 MG/ML 2 ML VIAL IV PRN (23:13)
[2018-09-12] MEDS ORDERED: PIPERACILLIN/TAZOBACTAM 3.375 GM/115 ML BAG IV SCH (23:15)
[2018-09-13] MEDS ORDERED: IPRATROPIUM BROMIDE/ALBUTEROL respimat INH INH PRN (00:44)
[2018-09-13] MEDS ORDERED: PIPERACILL/TAZOBAC CONSULT ACTIVE PRN (00:44)
[2018-09-13] MEDS: SODIUM CHLORIDE 0.9% 1000ML 1,000 ML IV SCH ×3 (01:02→17:20)
[2018-09-13] MEDS: HYDROmorphone INJ 0.5 MG/0.5 ML SYR IV PRN ×4 (04:49→19:57)
[2018-09-13] MEDS: PIPERACILLIN/TAZOBACTAM 3.375 GM in DEXTROSE 5% 100 ML IV SCH ×3 (04:54→22:14)
[2018-09-13 06:38] LABS: Basophils # (auto) 0.01 K/uL (0-0.2); Basophils % (auto) 0.1 %; Eosinophils # (auto) 0.12 K/uL (0-0.5); Eosinophils % (auto) 0.7 %; Hemoglobin 15.2 g/dL (12.0-16.0); Immature Granulocytes # (auto) 0.06 K/uL (0.00-0.02); Immature Granulocytes % (auto) 0.4 %; Lymphocytes # (auto) 1.56 K/uL (1.2-3.4); Lymphocytes % (auto) 9.2 %; Mean Corpuscular Hgb Conc 34.5 g/dL (32-36); Mean Corpuscular Volume 92.2 fL (80-100); Monocytes # (auto) 0.82 K/uL (0.11-0.59); Monocytes % (auto) 4.8 %; Neutrophils # (auto) 14.44 K/uL (1.4-6.5); Neutrophils % (auto) 84.8 %; Platelet Count 413 K/uL (130-400); RDW Coefficient of Variation 13.4 % (11.5-14.5); RDW Standard Deviation 44.3 fL (36.4-46.3); Red Blood Count 4.77 M/uL (4.2-5.4); White Blood Count 17.01 K/uL (4.8-10.8)
[2018-09-13 07:18] LABS: BUN Creatinine Ratio 9.7 (10-20); Calcium 8.4 mg/dl (8.5-10.1); Est GFR (African American) 43.1; Est GFR (Non-African American) 37.2; Potassium 4.5 mmol/L (3.5-5.1)
[2018-09-13] MEDS: FLUTICASONE/SALMETEROL 250/50 (ADVAIR) 14 PUFF/1 INHALER INH SCH ×2 (09:22→21:44)
[2018-09-13] MEDS: TIOTROPIUM BROMIDE 5 PUFF/90 MCG INH INH SCH (09:23)
--- NOTE | 2018-09-13 09:25 | Surgery Consultation ---
Date of Consultation September 13, 2018 Assessment & Plan (1) Small bowel obstruction: -pain improved with NGT -passing some flatus -agree with IVF -sips/chips sparingly -recheck KUB in AM -con't ngt at least through tomorrow Present on Admission?: Yes History of Present Illness Attending Physician: Ramsey Nielsen, DO History of Present Illness This is a 58YO female with a history of cervical cancer and ESHA with radiation therapy in 1995 presented with acute abdominal pain yesterday. A CT scan is suggestive of SBO. She is passing some flatus. She says the pain is crampy and better after her ngt was placed. She says she has a history of small bowel obstructions in the past, last at least a year ago. She had some nausea but denies any vomiting. She says she has ongoing loose stools related to the apparent diagnosis of C. difficile colitis perhaps 6 months ago. She says she has been on oral vancomycin ever since and has a pending appointment with Dr. Wilder next week. Allergies Allergy/AdvReac Type Severity Reaction Status Date / Time Cipro Allergy Unknown sores on Verified 04/21/18 22:15 tongue ciprofloxacin Allergy Unknown sores on Verified 09/04/18 12:09 tongue gabapentin Allergy Unknown unknown Unverified 09/04/18 12:09 meloxicam Allergy Unknown unknown Unverified 09/04/18 12:09 paroxetine Allergy Unknown suicidal Verified 09/04/18 12:09 thoughts varenicline Allergy Unknown suicidal Verified 09/04/18 12:09 thoughts prednisone AdvReac Intermediate "INTERNAL Verified 09/04/18 12:09 BLEEDING FROM KIDNEY" Home Medications Home Medications Medication Instructions Recorded Confirmed Type atorvastatin [Lipitor] 40 mg PO QAM 06/21/18 09/12/18 History calcium polycarbophil [Fiber 1,250 mg PO QAM 06/21/18 09/12/18 History (calcium polycarbophil)] cholecalciferol (vitamin D3) 1,000 unit PO QAM 06/21/18 09/12/18 History [Vitamin D3] clopidogrel [Plavix] 75 mg PO QAM 06/21/18 09/12/18 History duloxetine 90 mg PO QAM 06/21/18 09/12/18 History ferrous sulfate 325 mg PO BIDM 06/21/18 09/12/18 History fluticasone-salmeterol [Advair 1 inh INHALATION BID 06/21/18 09/12/18 History Diskus] glycopyrrolate 2 mg PO BID 06/21/18 09/12/18 History ipratropium-albuterol [Combivent 1 puff INHALATION BID PRN 06/21/18 09/12/18 History Respimat] lactobacillus combination no.4 3,000 mmu cells PO QAM 06/21/18 09/12/18 History [Probiotic] lamotrigine 150 mg PO BID 06/21/18 09/12/18 History lisinopril 5 mg PO QAM 06/21/18 09/12/18 History lorazepam 0.5 mg PO BID PRN 06/21/18 09/12/18 History pantoprazole 40 mg PO QAM 06/21/18 09/12/18 History potassium chloride 20 meq PO BID 06/21/18 09/12/18 History tiotropium bromide [Spiriva with 1 cap INHALATION QAM 06/21/18 09/12/18 History HandiHaler] trazodone 50 mg PO HS 06/21/18 09/12/18 History Patient History Medical History Gastroenteritis Contusion (Acute) Traumatic ecchymosis of left shoulder (Acute) Back pain (Chronic) UTI (urinary tract infection) (Chronic) Ureteral stricture (Chronic) Pyelonephritis (Acute) Urinary incontinence (Acute) OCD (obsessive compulsive disorder) (Chronic) GERD (gastroesophageal reflux disease) (Chronic) Dyslipidemia (Chronic) Back pain (Chronic) Cervical cancer (Chronic) "s/p surgery and radiation" IBS (irritable bowel syndrome) (Chronic) OAB (overactive bladder) (Chronic) Hx of recurrent urinary tract infection (Chronic) Hx of pyelonephritis (Chronic) H/O hemorrhagic cystitis (Chronic) Anxiety (Chronic) Hydroureteronephrosis Major depressive disorder, recurrent episode with anxious distress C. difficile colitis (Acute) Generalized abdominal pain (Acute) Headache (Acute) Urinary tract infection (Acute) Surgical History History of hysterectomy (Chronic) S/P appendectomy (Chronic) S/P vascular surgery (Chronic) H/O cystoscopy (Chronic) Social History marital status: Current Living Situation: Alone current occupational status: unemployed and disabled Feels Safe at Home: Yes Safety Concerns: Feels Safe At This Time Smoking Status: Current every day smoker Tobacco Type: cigarettes Cigarettes per Day: 20 Tobacco Cessation Education Requested by Patient: No Hx Alcohol Use: No Hx Substance Use: Yes (HX OF IV DRUG USE; NO USE CURRENTLY) substance use type : does not use Beliefs That Will Affect Care: None Preferred Language: Guyanese Supervisor Powdered Metal Required: No Review of Systems Constitutional: + anorexia; no fever and no chills Eyes: no problem reported Ear, Nose, Mouth, Throat: no problem reported Respiratory: no cough, no chest congestion, no dyspnea and no dyspnea on exertion Cardiovascular: no chest pain, no radiating jaw, neck or arm pain and no dyspnea Gastrointestinal: + abdominal pain and + nausea; no vomiting and no change in bowel habits (chronic c. diff with loose stools) Genitourinary (Female): no problem reported Musculoskeletal: no problem reported Integumentary: no problem reported Neurologic: no problem reported Psychiatric: + depression Endocrine: no problem reported Hematologic / Lymphatic: no problem reported Physical Exam 2 Vital Signs (Past 24 Hours): Last Vital Signs Temp 36.7 C 09/13/18 07:56 Pulse 89 09/13/18 07:56 Resp 18 09/13/18 07:56 BP 114/70 09/13/18 07:56 Pulse Ox 90 09/13/18 07:56 Constitutional: well developed; no acute distress ENMT: external ear and nose normal, oropharynx normal Neck: trachea midline Cardiovascular: RRR, no murmur, no edema Gastrointestinal (Abdomen): Inspection/Auscultation: + abdomen distended and normal bowel sounds Percussion/Palpation: + abdomen tender (mild) and abdomen soft Musculoskeletal: Head/Neck/Chest: normocephalic and head atraumatic Skin: no rashes, warm and dry Psychiatric: Orientation: alert and oriented x 3 Results & Data Diagnostic Findings ABDOMEN AND PELVIS CT WITHOUT CONTRAST CT DOSE: 317.86 mGy.cm HISTORY: Mid abdominal pain. bowel obstruc TECHNIQUE: Multiaxial CT images of the abdomen and pelvis were performed without contrast. A dose lowering technique was utilized adhering to the principles of ALARA. COMPARISON STUDY: Abdomen and pelvis CT 09/04/2018. FINDINGS: Mild interstitial thickening at the lung bases. This is likely chronic. No pneumoperitoneum. No pneumatosis. Bilateral L5 spondylolysis with associated grade I spondylolisthesis. Patchy sclerosis within the sacrum may be due to post radiation changes. This remains unchanged. The unenhanced liver, gallbladder, pancreas, spleen, and adrenal glands are unremarkable. Right renal cortical scarring, unchanged. No renal or ureteral calculi. Mild fullness within the bilateral renal collecting systems without kadi hydronephrosis. This is improved. Mild urothelial thickening within the bilateral renal pelvises , unchanged. Multiple surgical clips seen within the retroperitoneum. No retroperitoneal lymphadenopathy. Bladder is decompressed and not well evaluated. Small of gas within the bladder lumen. There is also fluid and gas within the vaginal cuff. Therefore, this likely represents a vesicovaginal fistula. Mild thickening of the rectum. The anterior bladder wall is adhering to the anterior abdominal wall. This remains unchanged. Multiple dilated gas and fluid-filled loops of small bowel are seen throughout the abdomen. This is new compared to the prior study. A transition point appears to be located within the deep pelvis, therefore, this is consistent with a small bowel obstruction. Small bowel loops are dilated up to 3.7 cm. Trace pelvic fluid is noted. Right iliac stent is present. IMPRESSION: 1. Interval development of a small bowel obstruction with the transition point located in the deep pelvis. 2. Evidence for a vesicovaginal fistula. 3. Mild rectal wall thickening, unchanged. 4. Stable mild urothelial thickening of the bilateral renal pelvises. This could represent infectious process.
[2018-09-13] MEDS: ENOXAPARIN INJ 40 MG/0.4 ML SYR SQ SCH (09:27)
[2018-09-13] MEDS ORDERED: ACETAMINOPHEN 65 ML IV PRN (10:00)
[2018-09-13] MEDS: PANTOprazole 40 MG in SYRINGE 0 ML IV SCH (12:12)
--- NOTE | 2018-09-13 12:44 | Hospitalist Progress Note ---
Date of Service September 13, 2018 Assessment & Plan (1) Small bowel obstruction: - This is likely the result of cervical CA/radiation with H/O ESHA - Maintain NGT likely until tomorrow - Did have a copious BM with loose stool with some that was formed and reporting significant relief in symptoms - Will allow sips/chips and likely can soon advance diet to clears - KUB planned for AM - Leukocytosis continues to climb and will maintain Zosyn therapy - Gen Surg following - discussed patient at bedside - plan as above Disposition: Likely can advanced diet tomorrow and await UCx - possible D/C next 1-2 days Present on Admission?: Yes (2) Elevated serum creatinine: - Cr of 1.77 upon admission and improved to 1.51 with baseline appearing around 1.1-1.2 - CT with b/l renal pelvic thickening that is possibly infectious - Continue NSS at 125 mL/hr Present on Admission?: Yes (3) Vesicovaginal fistula: - Suggested on CT imaging - Patient reports she has seen a Urologist in [place] as well as 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 difficile colitis: - Appears she was diagnosed around April with testing in ED to confirm. - She reports long-standing diarrhea since and has needed multiple Abx due to frequent UTIs - She was referred to ID and has a F/U with Dr. Wilder on Friday - She had a copious BM today which was loose but some formed stool present - Currently on full dosing Vancomycin QID which is held while NGT is placed - per ID outpatient note anticipating long taper Present on Admission?: Yes (5) UTI (urinary tract infection): - Reports completed a course of Bactrim on 11 September - This is an ongoing issue with frequent courses of Abx - per PCP notes they recommended she see a Urologist however she has reclined to do so - UCx here growing gram neg bacilli and will await results - currently on Zosyn - should really have outpatient F/U with Urology to address this fistula - may need suppressive coverage? - await UCx - She has a H/O hemorrhagic cystitis Present on Admission?: Yes (6) Dyslipidemia: - Atorvastatin 40 mg daily Present on Admission?: Yes (7) Asthma: - Without exacerbation - Advair BID; Albuterol PRN Present on Admission?: Yes (8) Bipolar 1 disorder: - H/O Anxiety/Depression/Suicide Attempts/Opiate Overuse - Reports purposeful overdose on Ativan in the past; Reports she had dependence on pain medication as well - Oral meds held due to NGT but can be resumed once removed - Ativan 0.25 mg IV PRN Present on Admission?: Yes (9) Hypertension: - Lisinopril 5 mg daily - on hold currently Present on Admission?: Yes (10) Cervical cancer: - NOTED - No current treatment/cured Subjective Patient seen and evaluated. Experiencing some anxiety but overall reports feeling improved. Has intermittent cramping abdominal pain she describes as feeling like she is in labor She does report some flatus this AM only but did have a significant bowel movement she describes "as a weeks worth" and reporting significant relief from that. Appears a lot more comfortable and less anxious at this time. Tolerating Ice chips without issue. Constitutional: + anorexia; no fever and no chills Ear, Nose, Mouth, Throat: + dry mouth and + sore throat Respiratory: no cough and no dyspnea Cardiovascular: no chest pain and no palpitations Gastrointestinal: + abdominal pain, + cramping and + diarrhea/loose stools; no nausea, no vomiting, no blood in stools and no melena Physical Exam 2 Vital Signs (Past 24 Hours): Last Vital Signs Temp 36.7 C 09/13/18 07:56 Pulse 89 09/13/18 07:56 Resp 18 09/13/18 07:56 BP 114/70 09/13/18 07:56 Pulse Ox 90 09/13/18 07:56 Constitutional: well developed and well nourished; no acute distress and not ill appearing Eyes: + anicteric sclerae ENMT: NGT in R nare Neck: trachea midline Respiratory: normal respiratory effort, lungs clear to auscultation Cardiovascular: Rate/Rhythm: regular rate and regular rhythm Gastrointestinal (Abdomen): Inspection/Auscultation: + abdomen distended ( initially but reducing since BM) and normal bowel sounds Percussion/Palpation : abdomen soft; abdomen nontender Musculoskeletal: Head/Neck/Chest: normocephalic, head atraumatic and neck supple Skin: no rashes, warm and dry Neurologic: moves all extremities Psychiatric: A+Ox3, euthymic affect
[2018-09-14] MEDS: SODIUM CHLORIDE 0.9% 1000ML 1,000 ML IV SCH ×2 (02:00→10:53)
[2018-09-14] MEDS: PIPERACILLIN/TAZOBACTAM 3.375 GM in DEXTROSE 5% 100 ML IV SCH (06:03)
[2018-09-14 06:49] LABS: INR 1.1 (0.9-1.1); Prothrombin Time 10.7 Seconds (9.0-12.0)
--- NOTE | 2018-09-14 07:38 | XRay Report ---
KUB CLINICAL HISTORY: Enteric tube placement. FINDINGS: An AP, portable, supine abdominal radiograph is correlated with abdominal CT dated 09/12/20 18. An enteric tube has been placed. This projects over the gastroesophageal junction with the side h oles located at the level of the diaphragm. There is no radiographic evidence of high-grade bowel obs truction. Gas is noted in the colon. No evidence of intraperitoneal free air is seen on this supine i mage. The lung bases are clear as visualized. There are no abnormal abdominal calcifications. Right i liac artery stents are in place. The bony structures are grossly intact. IMPRESSION: 1. An enteric tube has been placed. This projects over the gastroesophageal junction with the side ho les at the level of the diaphragm. This should likely be advanced. 2. There is no radiographic evidence of high-grade small bowel obstruction. Electronically signed by: Chadd Casanova M.D. 09/14/2018 7:37 AM
[2018-09-14 07:50] LABS: Basophils # (auto) 0.01 K/uL (0-0.2); Basophils % (auto) 0.1 %; Eosinophils # (auto) 0.13 K/uL (0-0.5); Eosinophils % (auto) 1.7 %; Hemoglobin 13.1 g/dL (12.0-16.0); Immature Granulocytes # (auto) 0.03 K/uL (0.00-0.02); Immature Granulocytes % (auto) 0.4 %; Lymphocytes # (auto) 1.61 K/uL (1.2-3.4); Lymphocytes % (auto) 21.1 %; Mean Corpuscular Hgb Conc 33.6 g/dL (32-36); Mean Corpuscular Volume 91.8 fL (80-100); Mean Platelet Volume 9.3 fL (7.4-10.4); Monocytes # (auto) 0.56 K/uL (0.11-0.59); Monocytes % (auto) 7.3 %; Neutrophils # (auto) 5.29 K/uL (1.4-6.5); Neutrophils % (auto) 69.4 %; Platelet Count 321 K/uL (130-400); RDW Coefficient of Variation 13.3 % (11.5-14.5); RDW Standard Deviation 43.8 fL (36.4-46.3); Red Blood Count 4.25 M/uL (4.2-5.4); White Blood Count 7.63 K/uL (4.8-10.8)
[2018-09-14 07:58] LABS: BUN Creatinine Ratio 11.5 (10-20); Calcium 8.5 mg/dl (8.5-10.1); Creatinine Clr Calc Pharmacy 64.1 ml/min; Est GFR (African American) 78.4; Est GFR (Non-African American) 67.7; Potassium 3.7 mmol/L (3.5-5.1)
[2018-09-14] MEDS: ENOXAPARIN INJ 40 MG/0.4 ML SYR SQ SCH (10:11)
[2018-09-14] MEDS: TIOTROPIUM BROMIDE 5 PUFF/90 MCG INH INH SCH (10:11)
[2018-09-14] MEDS: FLUTICASONE/SALMETEROL 250/50 (ADVAIR) 14 PUFF/1 INHALER INH SCH ×2 (10:11→20:10)
[2018-09-14] MEDS: PANTOprazole 40 MG in SYRINGE 0 ML IV SCH (11:05)
[2018-09-14] MEDS: ERTAPENEM SODIUM 1,000 MG in SODIUM CHLORIDE 0.9% 50 ML IV SCH (11:27)
--- NOTE | 2018-09-14 12:16 | Surgery Progress Note ---
Date of Service September 14, 2018 Assessment & Plan (1) Small bowel obstruction: -Resolving - afebrile, leukocytosis resolved - + bowel function - KUB today showing no evidence of high-grade SBO, air in the colon Plan: Continue conservative measures Discontinue NGT Start sips of clear liquids, advised to go slowly OOB to chair and ambulate Continue IV fluids Dr. Mcfarlane has seen and examined patient, agrees with above Subjective stiff neck loose stools no nausea or vomiting + abdominal pain still present "grumbling" Physical Exam 2 Vital Signs (Past 24 Hours): Last Vital Signs Temp 36.4 C L 09/14/18 07:30 Pulse 88 09/14/18 07:30 Resp 16 09/14/18 07:30 BP 145/78 H 09/14/18 07:30 Pulse Ox 95 09/14/18 07:30 Constitutional: WD/WN, vitals as above no acute distress (sleeping on encounter) Respiratory: normal respiratory effort; no respiratory distress Gastrointestinal (Abdomen): Inspection/Auscultation: abdomen normal to inspection and normal bowel sounds; abdomen not distended Percussion/ Palpation: + abdomen tender and abdomen soft; no guarding and abdomen not rigid NGT with dark brown output Skin: no rashes, warm and dry Psychiatric: A+Ox3, euthymic affect Results & Data Laboratory Results 09/14/18 09/14/18 09/14/18 Range/Units 06:01 06:01 05:53 WBC 7.63 (4.8-10.8) K/uL RBC 4.25 (4.2-5.4) M/uL Hgb 13.1 (12.0-16.0) g/dL Hct 39.0 (37-47) % MCV 91.8 (80-100) fL MCH 30.8 (25-34) pg MCHC 33.6 (32-36) g/dL RDW Std Deviation 43.8 (36.4-46.3) fL RDW Coeff of Rommel 13.3 (11.5-14.5) % Plt Count 321 (130-400) K/uL MPV 9.3 (7.4-10.4) fL Immature Gran % (Auto) 0.4 % Neut % (Auto) 69.4 % Lymph % (Auto) 21.1 % Wake % (Auto) 7.3 % Eos % (Auto) 1.7 % Baso % (Auto) 0.1 % Immature Gran # (Auto) 0.03 H (0.00-0.02) K/uL Neut # (Auto) 5.29 (1.4-6.5) K/uL Lymph # (Auto) 1.61 (1.2-3.4) K/uL Wake # (Auto) 0.56 (0.11-0.59) K/uL Eos # (Auto) 0.13 (0-0.5) K/uL Baso # (Auto) 0.01 (0-0.2) K/uL PT 10.7 (9.0-12.0) Seconds INR 1.1 (0.9-1.1) Sodium 140 (136-145) mmol/L Potassium 3.7 D (3.5-5.1) mmol/L Chloride 110 H (98-107) mmol/L Carbon Dioxide 21 (21-32) mmol/L Anion Gap 9.0 (3-11) BUN 11 (7-18) mg/dl Creatinine 0.92 D (0.6-1.2) mg/dl Est Cr Clr Drug Dosing 64.1 ml/min Est GFR ( Amer) 78.4 Est GFR (Non-Af Amer) 67.7 BUN/Creatinine Ratio 11.5 (10-20) Glucose 77 (70-99) mg/dl Calcium 8.5 (8.5-10.1) mg/dl Diagnostic Findings KUB CLINICAL HISTORY: Enteric tube placement. FINDINGS: An AP, portable, supine abdominal radiograph is correlated with abdominal CT dated 09/12/2018. An enteric tube has been placed. This projects over the gastroesophageal junction with the side holes located at the level of the diaphragm. There is no radiographic evidence of high-grade bowel obstruction. Gas is noted in the colon. No evidence of intraperitoneal free air is seen on this supine image. The lung bases are clear as visualized. There are no abnormal abdominal calcifications. Right iliac artery stents are in place. The bony structures are grossly intact. IMPRESSION: 1. An enteric tube has been placed. This projects over the gastroesophageal junction with the side holes at the level of the diaphragm. This should likely be advanced. 2. There is no radiographic evidence of high-grade small bowel obstruction.
--- NOTE | 2018-09-14 13:02 | Hospitalist Progress Note ---
Date of Service September 14, 2018 Assessment & Plan (1) Small bowel obstruction: - This is likely the result of cervical CA/radiation with H/O ESHA - NGT was removed this AM and continues to move her bowels which is liquid but with some elements of formed stool - Will advance to clear liquids today and monitor as per surgical recommendations should advance slowly - KUB this AM shows resolution of SBO - Leukocytosis resolved - Gen Surg following - discussed with Lynette Valle PA-C - plan as above (2) Elevated serum creatinine: - Cr at baseline at this time - likely some prerenal elements given SBO/ UTI - CT with b/l renal pelvic thickening that is possibly infectious and ongoing - follows with Urology in [place] (3) Vesicovaginal fistula: - Suggested on CT imaging - Patient reports she has seen a Urologist in [place] as well as 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 difficile colitis: - Appears she was diagnosed around April with testing in ED to confirm. - She reports long-standing diarrhea since and has needed multiple Abx due to frequent UTIs - She was referred to ID and has a F/U with Dr. Wilder on Friday - per outpatient records plans to do long taper due to needing frequent Abx - She had a copious BM today which was loose but some formed stool present - Currently on full dosing Vancomycin QID which was initially held due to NGT and will resume at this time (5) UTI (urinary tract infection): - Reports completed a course of Bactrim on 11 September - This is an ongoing issue with frequent courses of Abx - per PCP notes they recommended she see a Urologist however she has declined to do so however patient states she is awaiting a follow-up with them due to her bladder wall thickening - UCx here growing enterobacter cloacae that has some resistance - due to listed allergy to Cipro (mouth sores) will convert to Invanz 1 g IV daily and it was resistant to Zosyn that she was placed on - patient reports she is asymptomatic at this time - She has a H/O hemorrhagic cystitis (6) Dyslipidemia: - Atorvastatin 40 mg daily (7) Asthma: - Without exacerbation - Advair BID; Albuterol PRN (8) Bipolar 1 disorder: - H/O Anxiety/Depression/Suicide Attempts/Opiate Overuse - Reports purposeful overdose on Ativan in the past; Reports she had dependence on pain medication as well - Will resume Trazadone 50 mg HS; Lamictal 150 mg BID; Duloxetine 90 mg daily - Ativan 0.25 mg IV PRN (9) Hypertension: - Lisinopril 5 mg daily (10) Cervical cancer: - NOTED - No current treatment/cured Subjective Reports improvement in her abdominal pain but still having cramping pain which may be the diarrhea/maybe cystitis that is contributing her her discomfort as well Advanced to clear liquids today and monitor and will advance slowly to prevent worsening of issues Her UCx is growing enterobacter cloacae which is resistant to Zosyn. She has an allergy to Cipro which is just sores in the mouth and isn't sure if she has ever had Levaquin. Will convert to Invanz while she is hospitalized. She is asymptomatic in regards to her normal urinary symptoms She sees a Urologist from [place] and states she is awaiting a follow-up due to her bladder wall thickening - given this fistula she is likely going to be at increased risk for UTIs Discussed with Gen Surg. NGT will be removed today and slow advancement of diet She verbalizes no other complaints at this time other than fatigue Constitutional: + fatigue; no fever and no chills Ear, Nose, Mouth, Throat: + dry mouth and + sore throat Respiratory: no cough and no dyspnea Cardiovascular: no chest pain and no palpitations Gastrointestinal: + cramping and + diarrhea/loose stools; no nausea, no vomiting , no blood in stools and no melena Genitourinary (Female): no dysuria, no difficulty urinating and no pelvic pain Integumentary: no rash Physical Exam 2 Vital Signs (Past 24 Hours): Last Vital Signs Temp 36.4 C L 09/14/18 07:30 Pulse 88 09/14/18 07:30 Resp 16 09/14/18 07:30 BP 145/78 H 09/14/18 07:30 Pulse Ox 95 09/14/18 07:30 Constitutional: well developed and well nourished; no acute distress and not ill appearing Eyes: + anicteric sclerae Neck: trachea midline Respiratory: normal respiratory effort, lungs clear to auscultation Cardiovascular: Rate/Rhythm: regular rate and regular rhythm Gastrointestinal (Abdomen): Inspection/Auscultation: + abdomen distended ( initially but reducing since BM) and normal bowel sounds Percussion/Palpation : abdomen soft; abdomen nontender Musculoskeletal: Head/Neck/Chest: normocephalic, head atraumatic and neck supple Skin: no rashes, warm and dry Neurologic: moves all extremities Psychiatric: A+Ox3, euthymic affect
[2018-09-14] MEDS: RASPBERRY SYRUP 5 ML UDP PO SCH ×3 (13:54→23:43)
[2018-09-14] MEDS: VANCOMYCIN HCL 125 MG/2.5ML SOLN PO SCH ×3 (13:54→23:43)
[2018-09-14] MEDS: TRAZODONE HCL 50 MG TAB PO SCH (20:06)
[2018-09-14] MEDS: lamoTRIgine 100 MG TAB PO SCH (20:11)
[2018-09-14] MEDS: LORazepam 0.25 MG/0.5 ML VIAL IV PRN (21:49)
[2018-09-15] MEDS: VANCOMYCIN HCL 125 MG/2.5ML SOLN PO SCH ×3 (05:48→17:35)
[2018-09-15] MEDS: RASPBERRY SYRUP 5 ML UDP PO SCH ×3 (05:48→17:35)
[2018-09-15 07:12] LABS: INR 1.1 (0.9-1.1); Prothrombin Time 10.7 Seconds (9.0-12.0)
[2018-09-15] MEDS: FLUTICASONE/SALMETEROL 250/50 (ADVAIR) 14 PUFF/1 INHALER INH SCH ×2 (08:13→21:38)
[2018-09-15] MEDS: DULOXETINE HCL 30 MG CAP PO SCH (08:14)
[2018-09-15] MEDS: CLOPIDOGREL BISULFATE 75 MG TAB PO SCH (08:14)
[2018-09-15] MEDS: ENOXAPARIN INJ 40 MG/0.4 ML SYR SQ SCH (08:15)
[2018-09-15] MEDS: TIOTROPIUM BROMIDE 5 PUFF/90 MCG INH INH SCH (08:16)
[2018-09-15] MEDS: lamoTRIgine 100 MG TAB PO SCH ×2 (08:19→21:39)
[2018-09-15] MEDS: LISINOPRIL 5 MG TAB PO SCH (08:20)
[2018-09-15] MEDS: PANTOprazole 40 MG TAB PO SCH (08:21)
[2018-09-15 09:17] LABS: BUN Creatinine Ratio 6.4 (10-20); Calcium 8.7 mg/dl (8.5-10.1); Est GFR (African American) 88.8; Est GFR (Non-African American) 76.6
[2018-09-15 09:18] LABS: Hematocrit (blood only) 38.9 % (37-47); Hemoglobin 13.6 g/dL (12.0-16.0); Mean Corpuscular Volume 89.6 fL (80-100); Platelet Count 313 K/uL (130-400); RDW Coefficient of Variation 12.8 % (11.5-14.5); RDW Standard Deviation 41.6 fL (36.4-46.3); Red Blood Count 4.34 M/uL (4.2-5.4); White Blood Count 6.84 K/uL (4.8-10.8)
[2018-09-15] MEDS ORDERED: POTASSIUM CHLORIDE 20 MEQ TABCR PO ONE (09:34)
--- NOTE | 2018-09-15 10:36 | Hospitalist Progress Note ---
Addendum entered and electronically signed by Tsering Marie PA-C 09/15/18 17:02: Addendum (Blank) Addendum September 15, 2018 17:01 Diarrhea: Will repeat C. diff testing; pt. was initally diagnosed in April 2018 but has not had improvement. Consulting ID as noted below for evaluation. Original Note: Date of Service September 15, 2018 Assessment & Plan (1) Small bowel obstruction: - Likely related to history of cervical CA treatment and ESHA. - Most recent KUB 09/14 showed no evidence of high grade obstruction. - NG tube removed on 09/14; is having diarrhea (chronic for patient in setting of C. diff). - General surgery following, appreciate input. - Advance diet as tolerated -- pt. did not tolerate CLD with broth over last 12 hours. (2) Elevated serum creatinine: - Creatinine elevated in setting of pre-renal losses; now back to baseline , was 0.83 this morning. - Monitor renal function daily. (3) Vesicovaginal fistula: - Visualized on CT A/P. - Follows with urology and gynecology at [place] -- will need appt following discharge. (4) C. difficile colitis: - Diagnosed ~April 2018; has had ongoing issues since diagnosis with minimal improvement on PO Vancomycin. - Continues to have diarrhea; on Vancomycin 125 mg PO QID. - F/u with Dr. Wilder from ID scheduled on 09/16 -- will consult as inpatient. - Caution with overuse of abx in setting of recurrent C. diff colitis. (5) UTI (urinary tract infection): - Completed Bactrim course on 09/11; UC on 09/12 was +Enterobacter cloacae and Enterococcus faecalis - CT A/P showed stable urothelial thickening of bilat renal pelvises, likely to represent infectious process. Had worsening leukocytosis while on Zosyn which is now resolved with changing to ertapenem - Also has vesicovaginal fistula contributing to frequent UTIs. - Continue Ertapenem based on sensitivities, started on 09/14/18 (resisistant to Zosyn & has allergy to Cipro)--> may need PICC line for 7-10 days of IV antibiotics so can go home if otherwise improved--> today day#2 - Will need to follow up with [facility] for evaluation of chronic issues on imaging studies. (6) Dyslipidemia: - Continue Atorvastatin 40 mg PO daily. (7) Bipolar 1 disorder: - H/o Anxiety/Depression/Suicide Attempts/Opiate Overuse - Has overdosed on Ativan in the past along with admitting to pain medication addiction. - Continue Trazodone 50 mg qhs, Lamictal 150 mg BID and Cymbalta 90 mg qAM. - Ativan 0.25 mg IV q6hr prn. (8) Hypertension: - Continue Lisinopril 5 mg daily as prescribed. (9) Cervical cancer: - No current treatment. (10) GERD (gastroesophageal reflux disease): - Continue Protonix 40 mg PO daily as prescribed. -consider discontinuation of this if possible given h/o C. diff colitis (11) COPD (chronic obstructive pulmonary disease): - No evidence of acute exacerbation. - Continue home Spiriva and Advair as prescribed with albuterol prn. (12) Peripheral arterial disease: - H/o arterial stent placement in Right external iliac artery. - Continue Plavix & Statin as prescribed. (13) Coronary artery disease: - Continue Plavix 75 mg daily as prescribed. (14) Iron deficiency anemia: Hgb is now normal, no longer microcytic. Unclear cause of Fe-def anemia--> need to find out if has had GI workup as an outpatient. - Will resume Ferrous sulfate 325 mg BID at discharge. -check Hemoccult stool here (15) Hypokalemia: - K level 3.0 -- ordered KCl 40 mEq PO and 20 mEq IV. - Will resume home KCl 20 mEq PO BID this evening. - Monitor levels qAM. (16) DVT prophylaxis: - Lovenox 40 mg subQ qAM. Dispo: Discharge possibly on 09/16/18 if pt. is tolerating diet, but awaiting ID consultation and may need PICC line and arrangements for home IV abx Consult CM Supervising Physician Co-Signing Physician Notes PA Supervision Note: I did not personally see or examine the patient today, but I verified all do points of YVAN Marie's assessment and plan with the following exceptions/ additions: None Subjective Pt. is improved overall today. She has ongoing abd discomfort but denies abd pain. Pt. tolerated jello with her meal but could not eat broth due to development of nausea. She is having diarrhea; states this has been an issue for >5 months with no improvement on PO Vancomycin. She was scheduled to see ID as outpatient but may miss appt due to inpt status -- consider inpt ID consult. Stools are described as loose, oily with no formed content. Will continue to monitor today, advance diet if tolerated. General surgery also following. Review of Systems All systems reviewed & are unremarkable except as noted in HPI & below Constitutional: + weakness and + anorexia; no fever and no chills Respiratory: no cough and no dyspnea Cardiovascular: no chest pain, no palpitations and no edema Gastrointestinal: + abdominal pain, + nausea and + diarrhea/loose stools; no vomiting and no constipation Genitourinary (Female): no difficulty urinating Musculoskeletal: no joint pain Allergy / Immunological: no rash Physical Exam 2 Vital Signs (Past 24 Hours): Last Vital Signs Temp 36.4 C L 09/15/18 07:00 Pulse 77 09/15/18 07:00 Resp 16 09/15/18 07:00 BP 123/79 09/15/18 07:00 Pulse Ox 99 09/15/18 09:00 Physical Exam: General: Chronically ill appearing female HEENT: NC/AT; PERRLA with EOMI; [place] conjunctiva, MMM Neck: Supple and nontender Cardiac: RRR Lungs: CTA bilaterally Abdomen: Bowel hypoactive x 4; tenderness to moderate palpation over most of abdomen. Rectal: Deferred : Deferred Back: NO spinous tenderness Extremities: Warm. No edema present Neuro: No focal weakness Skin: No rash Results & Data Laboratory Results 09/15/18 09/15/18 09/15/18 Range/Units 06:30 06:30 06:27 WBC 6.84 (4.8-10.8) K/uL RBC 4.34 (4.2-5.4) M/uL Hgb 13.6 (12.0-16.0) g/dL Hct 38.9 (37-47) % MCV 89.6 (80-100) fL MCH 31.3 (25-34) pg MCHC 35.0 (32-36) g/dL RDW Std Deviation 41.6 (36.4-46.3) fL RDW Coeff of Rommel 12.8 (11.5-14.5) % Plt Count 313 (130-400) K/uL MPV 9.0 (7.4-10.4) fL PT 10.7 (9.0-12.0) Seconds INR 1.1 (0.9-1.1) Sodium 140 (136-145) mmol/L Potassium 3.0 L D (3.5-5.1) mmol/L Chloride 108 H (98-107) mmol/L Carbon Dioxide 24 (21-32) mmol/L Anion Gap 8.0 (3-11) BUN 5 L D (7-18) mg/dl Creatinine 0.83 (0.6-1.2) mg/dl Est Cr Clr Drug Dosing 71.0 ml/min Est GFR ( Amer) 88.8 Est GFR (Non-Af Amer) 76.6 BUN/Creatinine Ratio 6.4 L (10-20) Glucose 102 H (70-99) mg/dl Calcium 8.7 (8.5-10.1) mg/dl
[2018-09-15] MEDS: POTASSIUM CHLORIDE / WTR 10 MEQ/100 ML PLCT IV SCH ×2 (11:10→13:03)
--- NOTE | 2018-09-15 12:02 | Surgery Progress Note ---
Date of Service September 15, 2018 doing better, passed gas and BM, no abdominal pain, no nausea, no vomiting, Assessment & Plan (1) Small bowel obstruction: -Resolving - afebrile, leukocytosis resolved - + bowel function - KUB today showing no evidence of high-grade SBO, air in the colon Plan: Continue conservative measures Discontinue NGT Start sips of clear liquids, advised to go slowly OOB to chair and ambulate Continue IV fluids Dr. Mcfarlane has seen and examined patient, agrees with above 09/15/2018 12:04pm doing better, continue treatment full liquid diet, will F/U Subjective stiff neck loose stools no nausea or vomiting + abdominal pain still present "grumbling" Constitutional: + anorexia; no fever and no chills Gastrointestinal: + abdominal pain and + nausea; no vomiting and no change in bowel habits (chronic c. diff with loose stools) Psychiatric: + depression Physical Exam 2 Vital Signs (Past 24 Hours): Last Vital Signs Temp 36.4 C L 09/15/18 07:00 Pulse 77 09/15/18 07:00 Resp 16 09/15/18 07:00 BP 123/79 09/15/18 07:00 Pulse Ox 99 09/15/18 09:00 Constitutional: WD/WN, vitals as above Neck: trachea midline, no thyromegaly Respiratory: normal respiratory effort, lungs clear to auscultation Cardiovascular: RRR, no murmur, no edema Gastrointestinal (Abdomen): Percussion/Palpation: abdomen soft NT, ND BS+ Neurologic: awake Psychiatric: Orientation: alert and oriented x 3 Results & Data Laboratory Results Abnormal lab results 09/15/18 Range/Units 06:30 Potassium 3.0 L D (3.5-5.1) mmol/L Chloride 108 H (98-107) mmol/L BUN 5 L D (7-18) mg/dl BUN/Creatinine Ratio 6.4 L (10-20) Glucose 102 H (70-99) mg/dl
[2018-09-15] MEDS ORDERED: SODIUM CHLORIDE 0.9% 500 ML IV SCH (12:45)
[2018-09-15] MEDS: ERTAPENEM SODIUM 1,000 MG in SODIUM CHLORIDE 0.9% 50 ML IV SCH (13:00)
[2018-09-15] MEDS: LORazepam 0.25 MG/0.5 ML VIAL IV PRN (17:29)
[2018-09-15] MEDS: NICOTINE 21 MG/24 HR TDSY TD SCH (19:34)
[2018-09-15] MEDS: POTASSIUM CHLORIDE 20 MEQ TABCR PO SCH (21:38)
[2018-09-15] MEDS: TRAZODONE HCL 50 MG TAB PO SCH (21:39)
[2018-09-16] MEDS: RASPBERRY SYRUP 5 ML UDP PO SCH ×3 (00:41→21:28)
[2018-09-16] MEDS: VANCOMYCIN HCL 125 MG/2.5ML SOLN PO SCH ×3 (00:41→21:34)
[2018-09-16 07:16] LABS: Hematocrit (blood only) 36.2 % (37-47); Hemoglobin 12.5 g/dL (12.0-16.0); Mean Corpuscular Hgb Conc 34.5 g/dL (32-36); Mean Corpuscular Volume 89.8 fL (80-100); Mean Platelet Volume 8.8 fL (7.4-10.4); Platelet Count 314 K/uL (130-400); RDW Coefficient of Variation 13.1 % (11.5-14.5); RDW Standard Deviation 42.6 fL (36.4-46.3); Red Blood Count 4.03 M/uL (4.2-5.4); White Blood Count 4.96 K/uL (4.8-10.8)
[2018-09-16 07:50] LABS: BUN Creatinine Ratio 5.7 (10-20); Calcium 9.1 mg/dl (8.5-10.1); Creatinine Clr Calc Pharmacy 72.8 ml/min; Est GFR (African American) 91.5; Est GFR (Non-African American) 78.9; Magnesium 1.9 mg/dl (1.8-2.4); Potassium 3.6 mmol/L (3.5-5.1)
[2018-09-16] MEDS: CLOPIDOGREL BISULFATE 75 MG TAB PO SCH (08:31)
[2018-09-16] MEDS: DULOXETINE HCL 30 MG CAP PO SCH (08:32)
[2018-09-16] MEDS: LISINOPRIL 5 MG TAB PO SCH (08:32)
[2018-09-16] MEDS: PANTOprazole 40 MG TAB PO SCH (08:32)
[2018-09-16] MEDS: lamoTRIgine 100 MG TAB PO SCH ×2 (08:33→21:28)
[2018-09-16] MEDS: POTASSIUM CHLORIDE 20 MEQ TABCR PO SCH ×2 (08:33→21:27)
[2018-09-16] MEDS: ATORVASTATIN 40 MG TAB PO SCH (08:33)
[2018-09-16] MEDS: TIOTROPIUM BROMIDE 5 PUFF/90 MCG INH INH SCH (08:34)
[2018-09-16] MEDS: FLUTICASONE/SALMETEROL 250/50 (ADVAIR) 14 PUFF/1 INHALER INH SCH ×2 (08:35→21:27)
[2018-09-16] MEDS: NICOTINE 21 MG/24 HR TDSY TD SCH (08:35)
[2018-09-16] MEDS: ENOXAPARIN INJ 40 MG/0.4 ML SYR SQ SCH (08:35)
--- NOTE | 2018-09-16 10:02 | Infectious Disease Consult ---
Date of Consultation September 16, 2018 Assessment & Plan (1) Urinary tract infection: Great urinary tract infection in the setting of fistula, with cultures positive for Enterobacter and enterococcus. Would recommend 7-day course of IV ertapenem given lack of alternatives. (2) C. difficile colitis: Patient with C. difficile colitis with significant risk of recurrent disease. Would recommend tapering course of vancomycin, decreasing to 125 mg twice daily for the next 2 weeks, then once daily thereafter. Would schedule patient for follow-up with Dr. Wilder in 2-3 weeks. History of Present Illness Reason for Consultation: C. difficile, complicated UTI Attending Physician: Mary Koroma MD History of Present Illness 58-year-old female with history of cervical cancer status post surgery, radiation therapy, chemotherapy 20+ years ago, was diagnosed in April with C. difficile colitis and has been on vancomycin therapy since then, who was admitted to the hospital on September 12 with 1 day history of acute abdominal pain associated with diarrhea. Was found to have evidence of small bowel obstruction and has been treated conservatively with improvement. Continues to have some diarrhea, repeat C. difficile toxin assay negative. Patient has been without fever, no worsening diarrhea or abdominal pain since admission. Was found also to have positive urine culture with abnormal urinalysis with cultures growing Enterobacter and enterococcus. Has been on ertapenem with improvement. Denies any flank pain. Allergies Allergy/AdvReac Type Severity Reaction Status Date / Time Cipro Allergy Unknown sores on Verified 04/21/18 22:15 tongue ciprofloxacin Allergy Unknown sores on Verified 09/04/18 12:09 tongue gabapentin Allergy Unknown unknown Unverified 09/04/18 12:09 meloxicam Allergy Unknown unknown Unverified 09/04/18 12:09 paroxetine Allergy Unknown suicidal Verified 09/04/18 12:09 thoughts varenicline Allergy Unknown suicidal Verified 09/04/18 12:09 thoughts prednisone AdvReac Intermediate "INTERNAL Verified 09/04/18 12:09 BLEEDING FROM KIDNEY" Home Medications Home Medications Medication Instructions Recorded Confirmed Type atorvastatin [Lipitor] 40 mg PO QAM 06/21/18 09/12/18 History calcium polycarbophil [Fiber 1,250 mg PO QAM 06/21/18 09/12/18 History (calcium polycarbophil)] cholecalciferol (vitamin D3) 1,000 unit PO QAM 06/21/18 09/12/18 History [Vitamin D3] clopidogrel [Plavix] 75 mg PO QAM 06/21/18 09/12/18 History duloxetine 90 mg PO QAM 06/21/18 09/12/18 History ferrous sulfate 325 mg PO BIDM 06/21/18 09/12/18 History fluticasone-salmeterol [Advair 1 inh INHALATION BID 06/21/18 09/12/18 History Diskus] glycopyrrolate 2 mg PO BID 06/21/18 09/12/18 History ipratropium-albuterol [Combivent 1 puff INHALATION BID PRN 06/21/18 09/12/18 History Respimat] lactobacillus combination no.4 3,000 mmu cells PO QAM 06/21/18 09/12/18 History [Probiotic] lamotrigine 150 mg PO BID 06/21/18 09/12/18 History lisinopril 5 mg PO QAM 06/21/18 09/12/18 History lorazepam 0.5 mg PO BID PRN 06/21/18 09/12/18 History pantoprazole 40 mg PO QAM 06/21/18 09/12/18 History potassium chloride 20 meq PO BID 06/21/18 09/12/18 History tiotropium bromide [Spiriva with 1 cap INHALATION QAM 06/21/18 09/12/18 History HandiHaler] trazodone 50 mg PO HS 06/21/18 09/12/18 History ertapenem 1 gm IV DAILY 3 Days #3 ea 09/16/18 Rx Patient History Medical History Gastroenteritis Contusion (Acute) Traumatic ecchymosis of left shoulder (Acute) Back pain (Chronic) UTI (urinary tract infection) (Chronic) Ureteral stricture (Chronic) Pyelonephritis (Acute) Urinary incontinence (Acute) OCD (obsessive compulsive disorder) (Chronic) GERD (gastroesophageal reflux disease) (Chronic) Dyslipidemia (Chronic) Back pain (Chronic) Cervical cancer (Chronic) "s/p surgery and radiation" IBS (irritable bowel syndrome) (Chronic) OAB (overactive bladder) (Chronic) Hx of recurrent urinary tract infection (Chronic) Hx of pyelonephritis (Chronic) H/O hemorrhagic cystitis (Chronic) Anxiety (Chronic) Hydroureteronephrosis Major depressive disorder, recurrent episode with anxious distress C. difficile colitis (Chronic) Generalized abdominal pain (Acute) Headache (Acute) Urinary tract infection (Acute) Surgical History History of hysterectomy (Chronic) S/P appendectomy (Chronic) S/P vascular surgery (Chronic) H/O cystoscopy (Chronic) Family History Other No significant family history Social History marital status: Current Living Situation: Alone current occupational status: unemployed and disabled Feels Safe at Home: Yes Safety Concerns: Feels Safe At This Time Smoking Status: Current every day smoker Cigarettes per Day: 20 Do You Dip or Chew Tobacco: No Second Hand Exposure: No Hx Alcohol Use: No Hx Substance Use: Yes (HX OF IV DRUG USE; NO USE CURRENTLY) substance use type : does not use Beliefs That Will Affect Care: None Communication Ability: Effective Review of Systems All systems reviewed and are negative except as per HPI Physical Exam 2 Vital Signs (Past 24 Hours): Last Vital Signs Temp 36.5 C 09/16/18 07:39 Pulse 70 09/16/18 07:39 Resp 16 09/16/18 07:39 BP 112/71 09/16/18 07:39 Pulse Ox 96 09/16/18 07:39 Constitutional: WD/WN, vitals as above comfortable; no acute distress Eyes: PERRL, conjunctivae normal, anicteric sclerae ENMT: external ear and nose normal, oropharynx normal Neck: trachea midline, no thyromegaly neck nontender Respiratory: normal respiratory effort, lungs clear to auscultation normal percussion; does not use accessory muscles Cardiovascular: Rate/Rhythm: regular rate and regular rhythm Heart Sounds: normal S1 and normal S2; no gallop, no murmur and no cardiac rub Vessels: normal peripheral pulses; no JVD Gastrointestinal (Abdomen): Inspection/Auscultation: abdomen normal to inspection and normal bowel sounds Percussion/Palpation: + abdomen tender; no hepatosplenomegaly and no abdominal mass Musculoskeletal: no cyanosis or clubbing, extremities motor strength 5/5 Spine: thoracic spine normal to inspection and lumbar spine normal to inspection ; no cervical spinal tenderness Skin: no rashes, warm and dry normal turgor; no lesions Neurologic: patellar DTR's 2+ bilat, sensation intact no focal motor deficits Psychiatric: A+Ox3, euthymic affect Orientation: cooperative Lymphatic: no cervical or axillary lymphadenopathy no inguinal lymphadenopathy Results & Data Laboratory Results Short CBC 09/16/18 Range/Units 07:01 WBC 4.96 (4.8-10.8) K/uL Hgb 12.5 (12.0-16.0) g/dL Hct 36.2 L (37-47) % Plt Count 314 (130-400) K/uL BMP 09/16/18 07:01 Sodium 142 Potassium 3.6 D Chloride 110 H Carbon Dioxide 27 BUN 5 L Creatinine 0.81 Glucose 88 Calcium 9.1 Diagnostic Findings Microbiology 09/12/18 19:50 Urine,Straight Cath Urine Culture - Preliminary Enterobacter cloacae Enterococcus faecalis ABDOMEN AND PELVIS CT WITHOUT CONTRAST CT DOSE: 317.86 mGy.cm HISTORY: Mid abdominal pain. bowel obstruc TECHNIQUE: Multiaxial CT images of the abdomen and pelvis were performed without contrast. A dose lowering technique was utilized adhering to the principles of ALARA. COMPARISON STUDY: Abdomen and pelvis CT 09/04/2018. FINDINGS: Mild interstitial thickening at the lung bases. This is likely chronic. No pneumoperitoneum. No pneumatosis. Bilateral L5 spondylolysis with associated grade I spondylolisthesis. Patchy sclerosis within the sacrum may be due to post radiation changes. This remains unchanged. The unenhanced liver, gallbladder, pancreas, spleen, and adrenal glands are unremarkable. Right renal cortical scarring, unchanged. No renal or ureteral calculi. Mild fullness within the bilateral renal collecting systems without kadi hydronephrosis. This is improved. Mild urothelial thickening within the bilateral renal pelvises , unchanged. Multiple surgical clips seen within the retroperitoneum. No retroperitoneal lymphadenopathy. Bladder is decompressed and not well evaluated. Small of gas within the bladder lumen. There is also fluid and gas within the vaginal cuff. Therefore, this likely represents a vesicovaginal fistula. Mild thickening of the rectum. The anterior bladder wall is adhering to the anterior abdominal wall. This remains unchanged. Multiple dilated gas and fluid-filled loops of small bowel are seen throughout the abdomen. This is new compared to the prior study. A transition point appears to be located within the deep pelvis, therefore, this is consistent with a small bowel obstruction. Small bowel loops are dilated up to 3.7 cm. Trace pelvic fluid is noted. Right iliac stent is present. IMPRESSION: 1. Interval development of a small bowel obstruction with the transition point located in the deep pelvis. 2. Evidence for a vesicovaginal fistula. 3. Mild rectal wall thickening, unchanged. 4. Stable mild urothelial thickening of the bilateral renal pelvises. This could represent infectious process. Electronically signed by: Jasen Boyle M.D. 09/12/2018 9:07 PM Dictated: 09/12/18 2055 _ (1) Urinary tract infection Encounter type: Hematuria presence: without hematuria Indwelling urinary catheter type: Urinary tract infection type: acute cystitis Qualified Code(s) : N30.00 - Acute cystitis without hematuria
--- NOTE | 2018-09-16 10:47 | Surgery Progress Note ---
Date of Service September 16, 2018 Assessment & Plan (1) Small bowel obstruction: -Resolving - afebrile, leukocytosis resolved - + bowel function, loose stools c. diff negative Plan: No acute surgical intervention required. Would advance diet to full liquids and then as tolerated. Recommend low fiber diet for next few weeks. From surgical standpoint, okay for discharge however discusssed pt with Tsering Marie PA-C who states she is getting IV Ertepenem for UTI and would like for her to get another day of IV abx. Our services signing off, please call with questions or concerns Dr. Mckeon has seen and examined pt, agrees with above. Subjective sleeping on encounter no abdominal pain no nausea or vomiting tolerating clear liquids still having loose stools Physical Exam 2 Vital Signs (Past 24 Hours): Last Vital Signs Temp 36.5 C 09/16/18 07:39 Pulse 70 09/16/18 07:39 Resp 16 09/16/18 07:39 BP 112/71 09/16/18 07:39 Pulse Ox 96 09/16/18 07:39 Constitutional: WD/WN, vitals as above no acute distress (sleeping on encounter) Respiratory: normal respiratory effort; no respiratory distress Gastrointestinal (Abdomen): Inspection/Auscultation: abdomen normal to inspection; abdomen not distended Percussion/Palpation: abdomen soft; abdomen nontender, no guarding and abdomen not rigid Skin: no rashes, warm and dry Psychiatric: A+Ox3, euthymic affect
--- NOTE | 2018-09-16 12:08 | Hospitalist Progress Note ---
Addendum entered and electronically signed by Tsering Ariza PA-C 09/16/18 17:46: Addendum (Blank) Addendum September 16, 2018 17:41 Bleeding is likely related to vaginal source per gynecology exam, may be cervical cancer recurrence vs. fistula vs. other. Will continue to monitor hgb, CBC ordered at 23:00. Discontinued Plavix and Lovenox, will monitor for improvement in bleeding. Pt. will need transferred to tertiary care center for further work up if bleeding does not resolve. Original Note: Date of Service September 16, 2018 Assessment & Plan (1) Small bowel obstruction: - Likely related to history of cervical CA treatment and ESHA. - Most recent KUB 09/14 showed no evidence of high grade obstruction. - NG tube removed on 09/14; is having regular BMs. - General surgery following, appreciate input. - Advance to full liquid diet as tolerated. (2) Acute bleeding: - Developed acute bleeding from unknown source this afternoon -- may be related to vaginal bleeding vs. urethra. - Rectal exam did not show evidence of acute bleed/hemorrhoid. - CBC ordered to evaluate for drop in hemoglobin. - Will consult gynecology for evaluation of vaginal bleeding due to h/o cervical cancer. (3) Elevated serum creatinine: - Creatinine elevated in setting of pre-renal losses; now back to baseline. - Monitor renal function daily. (4) Vesicovaginal fistula: - Visualized on CT A/P. - Follows with urology and gynecology at [facility] -- will need to follow up over next few weeks. (5) C. difficile colitis: - Diagnosed ~April 2018; has had intermittent diarrhea since diagnosis. - C. diff testing on 09/15/2018 was negative. - Consulted ID, appreciate input. - Decrease Vancomycin 125 mg to BID for 2 weeks (end date:09/28/2018) then daily dosing. - Will need to follow up with Dr. Wilder in 2-3 weeks. (6) UTI (urinary tract infection): - Completed Bactrim course on 09/11; UC on 09/12 was +Enterobacter cloacae and Enterococcus faecalis - CT A/P showed stable urothelial thickening of bilat renal pelvises, likely representing infectious process. - Also has vesicovaginal fistula contributing to frequent UTIs. - Continue Ertapenem for a 7 day course (end date: 09/20/2018) -- will need to establish PIV and arrange home nursing for IV abx. - Will need to follow up with Maggie Rea for evaluation of chronic issues. (7) Dyslipidemia: - Continue Atorvastatin 40 mg PO daily. (8) Bipolar 1 disorder: - H/o Anxiety/Depression/Suicide Attempts/Opiate Overuse - Has overdosed on Ativan in the past along with admitting to pain medication addiction. - Continue Trazodone 50 mg qhs, Lamictal 150 mg BID and Cymbalta 90 mg qAM. - Ativan 0.25 mg IV q6hr prn. (9) Hypertension: - Continue Lisinopril 5 mg daily as prescribed. (10) Cervical cancer: - No current treatment. (11) GERD (gastroesophageal reflux disease): - Continue Protonix 40 mg PO daily as prescribed. (12) COPD (chronic obstructive pulmonary disease): - No evidence of acute exacerbation. - Continue home Spiriva and Advair as prescribed with albuterol prn. (13) Peripheral arterial disease: - H/o arterial stent placement in Right external iliac artery. - Continue Plavix & Statin as prescribed. (14) Coronary artery disease: - Continue Plavix 75 mg daily as prescribed. (15) Iron deficiency anemia: - Unclear etiology of anemia; now resolved, hgb is back to baseline. - Hemoccult stool was negative. (16) Hypokalemia: - K level 3.6. - Continue home KCl 20 mEq PO BID. (17) DVT prophylaxis: - Lovenox 40 mg subQ qAM. Dispo: Will need IV Ertapenem to complete 7 day course (end date: 09/20/2018) (18) Acute kidney injury: Supervising Physician Co-Signing Physician Notes Attending Attestation - Chart reviewed in detail, and care plan d/w YVAN Ariza multiple times today. I agree w/ the do components of her documentation. Patient had been receiving Rx for SBO (resolved), UTI (resolving), and h/o c. diff colitis. Stay was complicated by acute kidney injury - also resolved. Today developed profuse bleeding when she sat on the toilet. Ms. Ariza reassessed the patient and it was thought to be vaginal in origin. Risk Control Analyst was consulted, and due to the amount of blood in the vagina it was difficult to locate a source/location for the bleeding. She has prior h/o cervical cancer, and there is now concern she could have recurrent cancer. Plavix and lovenox were both held. Fried Cake Maker recommended urology consultation for cystoscopy due to the above issues. Urology to perform outpatient work-up/cystoscopy. Plan - Cont IV ertapenem; hold plavix/lovenox; serial H/H's; vancomycin PO for h/o c diff; very low threshold for tertiary care center transfer with ongoing vaginal bleeding. Jatin Mcknight MD Subjective Patient is doing well overall today. Fatigue is slightly improved. Denies abdominal discomfort or pain. She has been tolerating a clear liquid diet with the exception of broth. Will advance to full liquid diet. Diarrhea is stable -- pt. reports that diarrhea comes and goes. She sometimes has multiple bowel movements per day but will become constipated for periods of time. C. diff testing was negative yesterday; will decrease Vanco PO to BID for 2 weeks then daily per ID. Pt. will also need to complete a course of Ertapenem for UTI. Review of Systems All systems reviewed & are unremarkable except as noted in HPI & below Constitutional: + fatigue and + weakness; no fever and no chills Respiratory: no cough and no dyspnea Cardiovascular: no chest pain, no palpitations and no edema Gastrointestinal: + diarrhea/loose stools; no abdominal pain, no nausea and no vomiting Genitourinary (Female): no difficulty urinating Allergy / Immunological: no rash Physical Exam 2 Vital Signs (Past 24 Hours): Last Vital Signs Temp 36.7 C 09/16/18 11:53 Pulse 72 09/16/18 11:53 Resp 20 09/16/18 11:53 BP 127/83 09/16/18 11:53 Pulse Ox 98 09/16/18 11:53 Physical Exam: General: Chronically ill appearing female HEENT: NC/AT; PERRLA with EOMI; [place] conjunctiva, MMM Neck: Supple and nontender Cardiac: RRR Lungs: CTA bilaterally Abdomen: Bowel normoactive x 4; nontender to light palpation. Extremities: Warm. No edema present Neuro: No focal weakness Skin: No rash Results & Data Laboratory Results 09/16/18 09/16/18 09/16/18 Range/Units 07:01 07:01 05:45 WBC 4.96 (4.8-10.8) K/uL RBC 4.03 L (4.2-5.4) M/uL Hgb 12.5 (12.0-16.0) g/dL Hct 36.2 L (37-47) % MCV 89.8 (80-100) fL MCH 31.0 (25-34) pg MCHC 34.5 (32-36) g/dL RDW Std Deviation 42.6 (36.4-46.3) fL RDW Coeff of Rommel 13.1 (11.5-14.5) % Plt Count 314 (130-400) K/uL MPV 8.8 (7.4-10.4) fL Sodium 142 (136-145) mmol/L Potassium 3.6 D (3.5-5.1) mmol/L Chloride 110 H (98-107) mmol/L Carbon Dioxide 27 (21-32) mmol/L Anion Gap 5.0 (3-11) BUN 5 L (7-18) mg/dl Creatinine 0.81 (0.6-1.2) mg/dl Est Cr Clr Drug Dosing 72.8 ml/min Est GFR ( Amer) 91.5 Est GFR (Non-Af Amer) 78.9 BUN/Creatinine Ratio 5.7 L (10-20) Glucose 88 (70-99) mg/dl Calcium 9.1 (8.5-10.1) mg/dl Magnesium 1.9 (1.8-2.4) mg/dl Stool Occult Bld Scrn Negative (Negative) Stl C. diff Tox B Gene (Neg) 09/15/18 Range/Units 19:47 WBC (4.8-10.8) K/uL RBC (4.2-5.4) M/uL Hgb (12.0-16.0) g/dL Hct (37-47) % MCV (80-100) fL MCH (25-34) pg MCHC (32-36) g/dL RDW Std Deviation (36.4-46.3) fL RDW Coeff of Rommel (11.5-14.5) % Plt Count (130-400) K/uL MPV (7.4-10.4) fL Sodium (136-145) mmol/L Potassium (3.5-5.1) mmol/L Chloride (98-107) mmol/L Carbon Dioxide (21-32) mmol/L Anion Gap (3-11) BUN (7-18) mg/dl Creatinine (0.6-1.2) mg/dl Est Cr Clr Drug Dosing ml/min Est GFR ( Amer) Est GFR (Non-Af Amer) BUN/Creatinine Ratio (10-20) Glucose (70-99) mg/dl Calcium (8.5-10.1) mg/dl Magnesium (1.8-2.4) mg/dl Stool Occult Bld Scrn (Negative) Stl C. diff Tox B Gene Neg C.diff Toxin B (Neg)
[2018-09-16] MEDS: ERTAPENEM SODIUM 1,000 MG in SODIUM CHLORIDE 0.9% 50 ML IV SCH (12:35)
[2018-09-16] MEDS ORDERED: FLUCONAZOLE 100 MG TAB PO ONE (12:48)
[2018-09-16 15:00] LABS: Hematocrit (blood only) 36.6 % (37-47); Hemoglobin 12.6 g/dL (12.0-16.0); Mean Corpuscular Hgb Conc 34.4 g/dL (32-36); Platelet Count 347 K/uL (130-400); RDW Coefficient of Variation 13.3 % (11.5-14.5); RDW Standard Deviation 43.8 fL (36.4-46.3); Red Blood Count 4.02 M/uL (4.2-5.4); White Blood Count 6.22 K/uL (4.8-10.8)
--- NOTE | 2018-09-16 17:45 | Consultation Report ---
DATE OF CONSULTATION: 09/16/2018 REASON FOR CONSULT: Vaginal bleeding. REQUESTING PHYSICIAN: YVAN Sharif. HISTORY OF PRESENT ILLNESS: The patient is a 58-year-old female, who came in through the ER on 09/12/2018 with a small-bowel obstruction starting out with abdominal pain. She presented, was seen and evaluated by Surgery. CT scan was done originally for the small-bowel obstruction and it was determined that she had a vesicovaginal fistula that was known to her. She had been seeing a specialist in Urology and Gynecology in [place]. She is status post hysterectomy for stage IIB cervical cancer in 1995 followed by postop external beam radiation therapy and brachytherapy twice. She had a recurrence of abnormal Pap in January of this year. She was seen in [place] subsequently and had a biopsy done, which did not show any recurrence at that time. Today, she presents with bleeding vaginally which was significant and at today's visit, a pelvic exam was performed. Pelvic exam revealed blood in the vault. No definite mass was noted due to the patient's inability to tolerate the exam. Bimanual exam revealed narrowing of the vagina with severe atrophic changes. There was a thickening at the apex with abnormal tissue that was palpated. This could either represent a vesicovaginal fistula or a recurrence of cervical cancer at the cuff at the apex. Hemoglobin dropped from yesterday to today from 13.6 to 12.6, one gram drop is significant. This patient is asymptomatic, has not had any pain or any prior vaginal bleeding. ASSESSMENT AND PLAN: Probable vesicovaginal fistula as a result of her past radiation therapy. She may have a recurrence of her disease from cervical cancer at the cuff. Recommendation would be to transfer this patient to [facility] to the Medical Service with a consult to Dr. Paris, the PHOTOTYPES[employer]TING E[employer]MENT MONITOR oncologist that has seen her previously. She will probably either need radiation to control the bleeding or followup surgery. If cystoscopy has not been done, this is also recommended to make sure there is no extension of disease into the bladder. We will follow as needed.
[2018-09-16] MEDS ORDERED: LOPERAMIDE HCL 2 MG CAP PO PRN (18:49)
[2018-09-16] MEDS: TRAZODONE HCL 50 MG TAB PO SCH (21:27)
[2018-09-16 23:09] LABS: Hematocrit (blood only) 36.4 % (37-47); Hemoglobin 12.2 g/dL (12.0-16.0); Mean Corpuscular Hgb Conc 33.5 g/dL (32-36); Mean Corpuscular Volume 91.5 fL (80-100); Mean Platelet Volume 9.3 fL (7.4-10.4); Platelet Count 343 K/uL (130-400); RDW Coefficient of Variation 13.4 % (11.5-14.5); RDW Standard Deviation 44.1 fL (36.4-46.3); Red Blood Count 3.98 M/uL (4.2-5.4); White Blood Count 6.56 K/uL (4.8-10.8)
[2018-09-17] MEDS: FLUTICASONE/SALMETEROL 250/50 (ADVAIR) 14 PUFF/1 INHALER INH SCH ×2 (07:19→20:54)
[2018-09-17] MEDS: lamoTRIgine 100 MG TAB PO SCH ×2 (07:19→20:55)
[2018-09-17] MEDS: PANTOprazole 40 MG TAB PO SCH (07:20)
[2018-09-17] MEDS: LISINOPRIL 5 MG TAB PO SCH (07:20)
[2018-09-17] MEDS: POTASSIUM CHLORIDE 20 MEQ TABCR PO SCH ×2 (07:20→20:55)
[2018-09-17] MEDS: DULOXETINE HCL 30 MG CAP PO SCH (07:21)
[2018-09-17] MEDS: ATORVASTATIN 40 MG TAB PO SCH (07:21)
[2018-09-17] MEDS: TIOTROPIUM BROMIDE 5 PUFF/90 MCG INH INH SCH (07:21)
[2018-09-17] MEDS: RASPBERRY SYRUP 5 ML UDP PO SCH ×2 (07:22→20:56)
[2018-09-17] MEDS: NICOTINE 21 MG/24 HR TDSY TD SCH (07:23)
[2018-09-17] MEDS: VANCOMYCIN HCL 125 MG/2.5ML SOLN PO SCH ×2 (07:23→21:02)
[2018-09-17 07:30] LABS: Hematocrit (blood only) 38.1 % (37-47); Hemoglobin 12.7 g/dL (12.0-16.0); Mean Corpuscular Hgb Conc 33.3 g/dL (32-36); Mean Corpuscular Volume 92.5 fL (80-100); Mean Platelet Volume 9.1 fL (7.4-10.4); Platelet Count 328 K/uL (130-400); RDW Coefficient of Variation 13.7 % (11.5-14.5); RDW Standard Deviation 45.5 fL (36.4-46.3); Red Blood Count 4.12 M/uL (4.2-5.4); White Blood Count 6.27 K/uL (4.8-10.8)
[2018-09-17 08:10] LABS: BUN Creatinine Ratio 4.3 (10-20); Calcium 9.3 mg/dl (8.5-10.1); Creatinine Clr Calc Pharmacy 66.2 ml/min; Est GFR (African American) 81.6; Est GFR (Non-African American) 70.4; Potassium 4.2 mmol/L (3.5-5.1)
[2018-09-17] MEDS ORDERED: ERGOCALCIFEROL 50,000 UNITS CAP PO SCH (10:00)
[2018-09-17] MEDS: ERTAPENEM SODIUM 1,000 MG in SODIUM CHLORIDE 0.9% 50 ML IV SCH (11:43)
--- NOTE | 2018-09-17 13:02 | Hospitalist Progress Note ---
Date of Service September 17, 2018 Assessment & Plan (1) Small bowel obstruction: - Likely related to history of cervical CA treatment and ESHA. - Most recent KUB 09/14 showed resolution of obstruction. - NG tube removed on 09/14. - General surgery following, appreciate input. - Advance to low residue diet this morning. (2) Vaginal bleeding: - Developed acute vaginal bleeding on 09/16/2018; has h/o cervical cancer in remission. - [facility] gynecology consulted, may be related to vesicovaginal fistula vs. recurrence of cervical cancer. - Bleeding now resolving; if symptoms return, she will need transferred to [facility] for qm consultant-onc consult. - If discharged to home, will need close follow up with [facility] gynecology. - Curbsided urology, will also need outpatient cystoscopy. Urology will call patient to arrange procedure. - Monitor CBC qAM -- hemoglobin has been stable ~12. - Holding home Plavix and prophylactic Lovenox in setting of acute bleed. (3) Elevated serum creatinine: - Creatinine elevated in setting of pre-renal losses; now back to baseline. - Monitor renal function daily. (4) Vesicovaginal fistula: - Visualized on CT A/P. - Will need to follow with gynecology and urology as outpatient. (5) C. difficile colitis: - Diagnosed ~April 2018; has had intermittent diarrhea since diagnosis. - C. diff testing on 09/15/2018 was negative. - Consulted ID, appreciate input. - Decreased Vancomycin 125 mg to BID for 2 weeks (end date:09/28/2018) then daily dosing. - Will need follow up with Dr. Wilder in 2-3 weeks. (6) UTI (urinary tract infection): - Completed Bactrim course on 09/11; UC on 09/12 was +Enterobacter cloacae and Enterococcus faecalis - CT A/P showed stable urothelial thickening of bilat renal pelvises, likely representing infectious process. - Also has vesicovaginal fistula contributing to frequent UTIs. - Continue Ertapenem for a 7 day course (end date: 09/20/2018) -- home nursing is arranged for IV abx. (7) Dyslipidemia: - Continue Atorvastatin 40 mg PO daily. (8) Bipolar 1 disorder: - H/o Anxiety/Depression/Suicide Attempts/Opiate Overuse - Has overdosed on Ativan in the past along with admitting to pain medication addiction. - Continue Trazodone 50 mg qhs, Lamictal 150 mg BID and Cymbalta 90 mg qAM. - Ativan 0.25 mg IV q6hr prn. (9) Hypertension: - Continue Lisinopril 5 mg daily as prescribed. (10) Cervical cancer: - No current treatment. (11) GERD (gastroesophageal reflux disease): - Continue Protonix 40 mg PO daily as prescribed. (12) COPD (chronic obstructive pulmonary disease): - No evidence of acute exacerbation. - Continue home Spiriva and Advair as prescribed with albuterol prn. (13) Peripheral arterial disease: - H/o arterial stent placement in Right external iliac artery. - Continue statin as prescribed; holding Plavix in setting of acute bleed. (14) Coronary artery disease: - Holding Plavix in setting of acute bleed. (15) Iron deficiency anemia: - Unclear etiology of anemia; now resolved, hgb is back to baseline. - Hemoccult stool was negative. - Restarted home ferrous sulfate 325 mg BID. (16) Hypokalemia: - K level 4.2. - Continue home KCl 20 mEq PO BID. (17) DVT prophylaxis: - Hold Lovenox in setting of acute bleed. Dispo: Will need IV Ertapenem to complete 7 day course (end date: 09/20/2018). Discharge likely tomorrow, 09/18/2018. Supervising Physician Co-Signing Physician Notes Attending Attestation - Chart reviewed in detail, and care plan d/w YVAN Ariza. I agree w/ the do components of her documentation. Fortunately the pt's vaginal bleeding has STOPPED and H/H have remained stable. MARTÍN has resolved. SBO is resolving. Remains on IV ertapenem for MDR UTI and vanco PO for h/o c. diff. Cont to hold plavix and lovenox. Has 2 indications for plavix - CAD and h/o LE stent for PAD. Thus, resume plavix at earliest time it is deemed safe from a qm consultant standpoint. For now, though, continue to hold. Observe; no discharge today. Jatin Mcknight MD Subjective Pt. is fatigued today, states she is feeling worse than yesterday. She has not been able to tolerate broth but is eating a full liquid diet. Will advance to low residue today. Pt. developed vaginal bleeding yesterday afternoon, hemoglobin remained stable. Gynecology consulted and completed a partial pelvic exam -- pt. is bleeding from vaginal source. She will need transferred to tertiary care if bleeding persists for qm consultant-onc consult. If bleeding remains stable, she will likely be discharged to home with close follow up. Review of Systems All systems reviewed & are unremarkable except as noted in HPI & below Constitutional: + fatigue and + weakness; no fever and no chills Respiratory: no cough and no dyspnea Cardiovascular: no chest pain, no palpitations and no edema Gastrointestinal: + diarrhea/loose stools; no abdominal pain, no nausea, no vomiting and no constipation Genitourinary (Female): + abnormal vaginal bleeding (see HPI); no vaginal dryness, no vaginal odor, no vaginal itching and no pelvic pain Musculoskeletal: no joint pain Allergy / Immunological: no rash Physical Exam 2 Vital Signs (Past 24 Hours): Last Vital Signs Temp 36.6 C 09/17/18 07:11 Pulse 69 09/17/18 07:11 Resp 16 09/17/18 07:11 BP 146/79 H 09/17/18 07:11 Pulse Ox 97 09/17/18 07:11 Physical Exam: General: Chronically ill appearing female HEENT: NC/AT; PERRLA with EOMI; [place] conjunctiva, MMM Neck: Supple and nontender Cardiac: RRR Lungs: CTA bilaterally Abdomen: Bowel normoactive x 4; nontender to palpation : exam per gynecology note. Extremities: Warm. No edema present Neuro: No focal weakness Skin: No rash Results & Data Laboratory Results 09/17/18 09/17/18 09/16/18 Range/Units 07:19 07:19 22:45 WBC 6.27 6.56 (4.8-10.8) K/uL RBC 4.12 L 3.98 L (4.2-5.4) M/uL Hgb 12.7 12.2 (12.0-16.0) g/dL Hct 38.1 36.4 L (37-47) % MCV 92.5 91.5 (80-100) fL MCH 30.8 30.7 (25-34) pg MCHC 33.3 33.5 (32-36) g/dL RDW Std Deviation 45.5 44.1 (36.4-46.3) fL RDW Coeff of Rommel 13.7 13.4 (11.5-14.5) % Plt Count 328 343 (130-400) K/uL MPV 9.1 9.3 (7.4-10.4) fL Sodium 143 (136-145) mmol/L Potassium 4.2 D (3.5-5.1) mmol/L Chloride 110 H (98-107) mmol/L Carbon Dioxide 26 (21-32) mmol/L Anion Gap 7.0 (3-11) BUN 4 L (7-18) mg/dl Creatinine 0.89 (0.6-1.2) mg/dl Est Cr Clr Drug Dosing 66.2 ml/min Est GFR ( Amer) 81.6 Est GFR (Non-Af Amer) 70.4 BUN/Creatinine Ratio 4.3 L (10-20) Glucose 84 (70-99) mg/dl Calcium 9.3 (8.5-10.1) mg/dl Magnesium 2.0 (1.8-2.4) mg/dl 09/16/18 Range/Units 14:48 WBC 6.22 (4.8-10.8) K/uL RBC 4.02 L (4.2-5.4) M/uL Hgb 12.6 (12.0-16.0) g/dL Hct 36.6 L (37-47) % MCV 91.0 (80-100) fL MCH 31.3 (25-34) pg MCHC 34.4 (32-36) g/dL RDW Std Deviation 43.8 (36.4-46.3) fL RDW Coeff of Rommel 13.3 (11.5-14.5) % Plt Count 347 (130-400) K/uL MPV 9.0 (7.4-10.4) fL Sodium (136-145) mmol/L Potassium (3.5-5.1) mmol/L Chloride (98-107) mmol/L Carbon Dioxide (21-32) mmol/L Anion Gap (3-11) BUN (7-18) mg/dl Creatinine (0.6-1.2) mg/dl Est Cr Clr Drug Dosing ml/min Est GFR ( Amer) Est GFR (Non-Af Amer) BUN/Creatinine Ratio (10-20) Glucose (70-99) mg/dl Calcium (8.5-10.1) mg/dl Magnesium (1.8-2.4) mg/dl
--- NOTE | 2018-09-17 14:26 | Infectious Disease Progress Nt ---
Date of Service September 17, 2018 Assessment & Plan (1) Urinary tract infection: Great urinary tract infection in the setting of fistula, with cultures positive for Enterobacter and enterococcus. Would recommend 7-day course of IV ertapenem given lack of alternatives. (2) C. difficile colitis: Patient with C. difficile colitis with significant risk of recurrent disease. Would recommend tapering course of vancomycin, decreasing to 125 mg twice daily for the next 2 weeks, then once daily thereafter. Would schedule patient for follow-up with Dr. Wilder in 2-3 weeks. Subjective Patient seen in follow-up for UTI and C. difficile colitis. Patient had episode of vaginal bleeding, now appears to have subsided. If recurs, transferred to [facility] being considered. No new urinary complaints. No fever. No increase in diarrhea. Review of Systems All systems reviewed & are unremarkable except as noted in HPI & below Physical Exam 2 Vital Signs (Past 24 Hours): Last Vital Signs Temp 36.6 C 09/17/18 07:11 Pulse 69 09/17/18 07:11 Resp 16 09/17/18 07:11 BP 146/79 H 09/17/18 07:11 Pulse Ox 97 09/17/18 07:11 Constitutional: WD/WN, vitals as above comfortable; no acute distress Eyes: PERRL, conjunctivae normal, anicteric sclerae ENMT: external ear and nose normal, oropharynx normal Neck: trachea midline, no thyromegaly neck nontender Respiratory: normal respiratory effort, lungs clear to auscultation normal percussion; does not use accessory muscles Cardiovascular: Rate/Rhythm: regular rate and regular rhythm Heart Sounds: normal S1 and normal S2; no gallop, no murmur and no cardiac rub Vessels: normal peripheral pulses; no JVD Gastrointestinal (Abdomen): Inspection/Auscultation: abdomen normal to inspection and normal bowel sounds Percussion/Palpation: + abdomen tender; no hepatosplenomegaly and no abdominal mass Musculoskeletal: no cyanosis or clubbing, extremities motor strength 5/5 Spine: thoracic spine normal to inspection and lumbar spine normal to inspection ; no cervical spinal tenderness Skin: no rashes, warm and dry normal turgor; no lesions Neurologic: patellar DTR's 2+ bilat, sensation intact no focal motor deficits Psychiatric: A+Ox3, euthymic affect Orientation: cooperative Lymphatic: no cervical or axillary lymphadenopathy no inguinal lymphadenopathy Results & Data Laboratory Results Short CBC 09/16/18 09/16/18 09/17/18 Range/Units 14:48 22:45 07:19 WBC 6.22 6.56 6.27 (4.8-10.8) K/uL Hgb 12.6 12.2 12.7 (12.0-16.0) g/dL Hct 36.6 L 36.4 L 38.1 (37-47) % Plt Count 347 343 328 (130-400) K/uL BMP 09/17/18 07:19 Sodium 143 Potassium 4.2 D Chloride 110 H Carbon Dioxide 26 BUN 4 L Creatinine 0.89 Glucose 84 Calcium 9.3 Diagnostic Findings Microbiology 09/15/18 19:47 Stool Escherichia coli Shiga Toxins - Preliminary 09/15/18 19:47 Stool Stool Culture - Preliminary Stephanie albicans 09/12/18 19:50 Urine,Straight Cath Urine Culture - Final Enterobacter cloacae Enterococcus faecalis _ (1) Urinary tract infection Encounter type: Hematuria presence: without hematuria Indwelling urinary catheter type: Urinary tract infection type: acute cystitis Qualified Code(s) : N30.00 - Acute cystitis without hematuria
[2018-09-17] MEDS: FERROUS SULFATE 325 MG TAB PO SCH (18:23)
[2018-09-17] MEDS: LORazepam 0.25 MG/0.5 ML VIAL IV PRN (20:54)
[2018-09-17] MEDS: TRAZODONE HCL 50 MG TAB PO SCH (20:57)
[2018-09-17 23:09] VITALS: TEMP 98.1
[2018-09-18 07:31] VITALS: O2SAT 97
[2018-09-18] MEDS: TIOTROPIUM BROMIDE 5 PUFF/90 MCG INH INH SCH (08:23)
[2018-09-18] MEDS: FLUTICASONE/SALMETEROL 250/50 (ADVAIR) 14 PUFF/1 INHALER INH SCH (08:24)
[2018-09-18] MEDS: RASPBERRY SYRUP 5 ML UDP PO SCH (08:24)
[2018-09-18] MEDS: LISINOPRIL 5 MG TAB PO SCH (08:24)
[2018-09-18] MEDS: lamoTRIgine 100 MG TAB PO SCH (08:25)
[2018-09-18] MEDS: NICOTINE 21 MG/24 HR TDSY TD SCH (08:26)
[2018-09-18] MEDS: DULOXETINE HCL 30 MG CAP PO SCH (08:26)
[2018-09-18] MEDS: ATORVASTATIN 40 MG TAB PO SCH (08:27)
[2018-09-18] MEDS: PANTOprazole 40 MG TAB PO SCH (08:27)
[2018-09-18] MEDS: FERROUS SULFATE 325 MG TAB PO SCH (08:28)
[2018-09-18] MEDS: POTASSIUM CHLORIDE 20 MEQ TABCR PO SCH (08:28)
[2018-09-18] MEDS: VANCOMYCIN HCL 125 MG/2.5ML SOLN PO SCH (08:34)
[2018-09-18 08:41] LABS: Hematocrit (blood only) 38.5 % (37-47); Mean Corpuscular Hgb Conc 33.8 g/dL (32-36); Mean Corpuscular Volume 91.9 fL (80-100); Mean Platelet Volume 8.6 fL (7.4-10.4); Platelet Count 340 K/uL (130-400); RDW Coefficient of Variation 13.5 % (11.5-14.5); RDW Standard Deviation 44.9 fL (36.4-46.3); Red Blood Count 4.19 M/uL (4.2-5.4); White Blood Count 6.28 K/uL (4.8-10.8)
[2018-09-18 09:17] LABS: BUN Creatinine Ratio 4.7 (10-20); Calcium 9.4 mg/dl (8.5-10.1); Creatinine Clr Calc Pharmacy 60.1 ml/min; Est GFR (African American) 72.7; Est GFR (Non-African American) 62.7; Potassium 3.9 mmol/L (3.5-5.1)
[2018-09-18] MEDS: ERTAPENEM SODIUM 1,000 MG in SODIUM CHLORIDE 0.9% 50 ML IV SCH (12:47)
[2018-09-18 13:23] VITALS: BP 126/70; PULSE 72
--- NOTE | 2018-09-18 14:36 | Discharge Summary ---
Date of Service September 18, 2018 Admission HPI Per Admitting Provider 58-year-old female with a notable history of cervical cancer and related surgery /radiation therapy in 1995 presents with acute abdominal pain beginning around 1300 today. She says that it feels like a crampy, squeezing pain similar to a "birthing pain". She says she has a history of small bowel obstructions in the past, last at least a year ago, but it did not feel quite like this. She notes some nausea but denies any vomiting. She says she has ongoing loose stools related to the apparent diagnosis of C. difficile colitis perhaps 6 months ago. She says she has been on oral vancomycin ever since and has a pending appointment with Dr. Wilder next week. Only other current noted symptom is a mild generalized headache. Otherwise she denies any other acute concerns. Admission Exam Per Admitting Provider GENERAL: Awake, alert, appears comfortable if she is not moving around much, does not appear in acute distress. HENT: Normocephalic, atraumatic. Oropharynx unremarkable. EYES: Normal conjunctiva. Sclera non-icteric. NECK: Inspection normal. Non-tender. Supple and full ROM. No nuchal rigidity. CARDIAC: +S1S2 borderline but regular tachycardia, no murmurs. RESPIRATORY: Clear to auscultation. No wheezes or rales. Normal respiratory effort. GI: +BS, soft, non-distended. Positive tenderness to palpation primarily in bilateral upper quadrants. EXTREMITIES: No pedal edema or calf tenderness. Moving all extremities naturally and easily. NEURO: No gross neuro deficits. Lines: Right nare NG tube in place. PIV. Principal Diagnosis Small Bowel Obstruction Discharge Exam General: Chronically ill appearing female HEENT: NC/AT; PERRLA with EOMI; [place] conjunctiva, MMM Neck: Supple and nontender Cardiac: RRR Lungs: CTA bilaterally Abdomen: Bowel normoactive x 4; nontender to palpation : did not complete on day of discharge. Extremities: Warm. No edema present Neuro: No focal weakness Skin: No rash Discharge Data Allergies Allergy/AdvReac Type Severity Reaction Status Date / Time Cipro Allergy Unknown sores on Verified 04/21/18 22:15 tongue ciprofloxacin Allergy Unknown sores on Verified 09/20/18 00:46 tongue gabapentin Allergy Unknown unknown Unverified 09/20/18 00:46 meloxicam Allergy Unknown unknown Unverified 09/20/18 00:46 paroxetine Allergy Unknown suicidal Verified 09/20/18 00:46 thoughts varenicline Allergy Unknown suicidal Verified 09/20/18 00:46 thoughts prednisone AdvReac Intermediate "INTERNAL Verified 09/20/18 00:46 BLEEDING FROM KIDNEY" Consultations 09/15/18 14:36 Consult Infectious Diseases Routine 09/16/18 14:33 Consult Gynecology Routine 09/12/18 21:29 ED Decision to Admit Stat 09/13/18 00:44 Consult General Surgery Routine Ordered Studies 09/12/18 20:23 CT abd pelvis wo con Stat Hospital Course (1) Small bowel obstruction: Ms. Cuello initially presented with a small bowel obstruction in the setting of history of cervical CA and ESHA. KUB on 09/12 showed dilated gas and fluid loops of small bowel consistent with SBO. General surgery was consulted and NG tube was placed for decompression. NG tube was removed on 09/14. KUB showed resolution of obstruction. Her diet was advanced; she will be discharged on a low residue diet. (2) Vaginal bleeding: Pt. developed acute vaginal bleeding on 09/16/2018. Due to history of cervical CA, gynecology was consulted. They recommended transfer to a tertiary care center if symptoms persisted for a cement and concrete plant worker/onc consult. Case was also discussed with urology as pt. may require a cystoscopy. They did not complete a formal consult but plan to call the patient to set up procedure. H/H was monitored and remained stable. Home Plavix was discontinued along with ppx Lovenox. Bleeding resolved by 09/17/2018. Pt. will need to follow up with [facility] gynecology -- her appt is currently scheduled on 10/06/2018. Appt with urology is scheduled on 10/20/2017. On day of discharge, pt. had pink discharge but no evidence of acute bleeding. If she returns to ER with vaginal bleeding, she will need directly transferred to [facility] with a consult to Dr. Paris from cement and concrete plant worker/onc. (3) Elevated serum creatinine: Renal function was elevated, likely related to pre-renal losses. She had improvement with IV fluids/increased PO intake. (4) Vesicovaginal fistula: Visualized on CT A/P. Pt. will follow up with [facility] gynecology and urology as noted above. (5) C. difficile colitis: Diagnosed ~April 2018; has had intermittent diarrhea since diagnosis. C. diff testing was negative on 09/23/2018. ID was consulted due to ongoing diarrhea. Dr. Simon recommended decreasing Vanc dose to BID x 2 weeks then daily. Dose will be decreased on 09/29/2018. She will follow up with Dr. Wilder in Sep 2018. (6) UTI (urinary tract infection): Completed Bactrim course on 09/11; UC on 09/12 was +Enterobacter cloacae and Enterococcus faecalis. CT showed stable urothelial thickening of bilat renal pelvises. Pt. also has a fistula contributing to multiple UTIs. She was initially placed on Zosyn; IV abx were changed to Ertapenem per sensitivities. Home nursing is arranged for IV abx on 09/19 and 09/20 to complete a 7 day course. (7) Dyslipidemia: Continued Atorvastatin 40 mg PO daily. (8) Bipolar 1 disorder: H/o Anxiety/Depression/Suicide Attempts/Opiate Overuse. Has overdosed on Ativan in the past along with admitting to pain medication addiction. Continued Trazodone 50 mg qhs, Lamictal 150 mg BID and Cymbalta 90 mg qAM with Ativan 0.25 mg IV q6hr prn. (9) Hypertension: Continued Lisinopril 5 mg daily as prescribed. (10) Cervical cancer: No current treatment. There is a concern for recurrence in the setting of vaginal bleeding. Will follow up with [facility] Gynecology for evaluation. (11) GERD (gastroesophageal reflux disease): Continued Protonix 40 mg PO daily as prescribed. (12) COPD (chronic obstructive pulmonary disease): No evidence of acute exacerbation. Continued home Spiriva and Advair as prescribed with albuterol prn. (13) Peripheral arterial disease: H/o arterial stent placement in Right external iliac artery. Continued statin as prescribed; Plavix was held starting 09/16/18 due to bleeding. Will continue to hold following discharge pending evaluation by gynecology. (14) Coronary artery disease: Holding Plavix following discharge in setting of acute bleed. (15) Iron deficiency anemia: Unclear etiology of anemia; now resolved, hgb is back to baseline. Hemoccult stool was negative. Home ferrous sulfate 325 mg BID was restarted prior to discharge. (16) Hypokalemia: Potassium was monitored and replaced as needed. (17) DVT prophylaxis: Prophylactic lovenox was held due to acute bleeding. She was stable for discharge to home on 09/18/2018. Home nursing was arranged for IV abx. She will follow up with gynecology on 10/06/2018 and urology on 2018. Total Time Total Time Spent Total Time Spent (In Minutes): >30 minutes Total Time Includes: Examination of the Patient, Discharge Planning, Medication Reconciliation, Communication With Other Providers and Other Discharge Plan Discharge Items Patient Disposition: Home - Home Health Services Reason For Visit: SBO Discharge Diagnosis: Small Bowel Obstruction Condition: Fair Discharge Goals: Decrease discomfort, Diagnostic testing, Improve function, Increase independence, Improve nutritional status, Prevent disease and Therapeutic intervention Activity: As commented below Lifting: Gradually increase as tolerated Exercise/Sports: Gradually increase as tolerated Non-emergency contact: Primary Care Provider Call non-emergency contact if: you have any medication questions, your symptoms worsen, your pain is worsening and you have a fever Follow-up/Referrals: [facility] [Outside] - 10/20/18 12:30 pm (Please, follow up at [facility] with Dr. Stephy Mcdermott (urology), as previously scheduled, on FridayOctober 20. You will need to be there at 12:30 pm for labs. *If you need to change this appointment, call the office at [phone]. *I am having your records from this hospitalization faxed to Cr. Mcdermott and Dr. Metcalf's offices. If they can arrange earlier appointments, they will contact you.) Lavern Minor [Primary Care Provider] - 09/24/18 10:00 am (Please, follow up with Dr. Minor's office with her associate, Dr. Blair, on September 24 at 10:00 am. *This office is located beside [facility]. If you need to change this appointment, call the office at [phone].) Swathi Wilder DO [Physician] - 10/02/18 1:00 pm (Please, follow up with Dr. Wilder (infectious disease specialist) on FridayOctober 02 at 1:00 pm. *This office is located in [address] of [facility] - big building next to this hospital. If you need to change this appointment, call the office at [phone].) Kait Paris [Non-Staff] - 10/06/18 10:30 am (Please, follow up with Dr. Paris (gynecologic oncologist) on FridayOctober 06 at 10:30 am. *This office is [facility] at [facility] The address is [address] [place] [address] in [place]. The office phone number is [phone].) Toby Metcalf, [Outside Practitioners] - 10/29/18 12:45 pm (Please, follow up at [facility] in [place] with Dr. Toby Metcalf (gynecology ) on October 29 at 12:45 pm. *This office is located at [address] [place] [address] in [place]. If you need to change this appointment, call the office at [phone].) Diet: Low Fiber Other Ambulatory Orders: Complete Blood Count no Diff (Routine) Timeframe: 3 Days Location: Determined by Patient Ordered By: Tsering Miller Provider Instructions: 1. Small Bowel Obstruction * Please continue a low residue/low fiber diet at home. 2. Vaginal Bleeding * Please follow up with [facility] gynecology as scheduled on October 29, 2018. * Please follow up with [facility] urology as scheduled on October 20, 2018. * A script was provided for lab work to monitor your blood counts next week. Results will be faxed to your primary care provider. * Continue to hold home Plavix -- this medication can cause increased bleeding. * Monitor for signs of recurrent bleeding -- if you develop vaginal bleeding following discharge, you will need to call your family doctor or go to the ER for further evaluation. 3. C. difficile Colitis * Please continue Vancomycin 125 mg twice daily to complete a 2 week course ( end date: 09/28/2018). Taper dose to once daily starting on 09/29/2018. * Please follow up with Dr. Wilder as scheduled on October 02, 2018. 4. Urinary Tract Infection * Please continue Ertapenem 1 gm IV daily to complete a 7 day course. * Home nursing has been arranged for infusion of this medication. * You will need a dose on FridaySep 19 and FridaySep 20. * Peripheral IV will be removed following completion of IV antibiotics. 5. Coronary Artery Disease * Continue statin as prescribed. * Plavix has been discontinued due to acute bleeding. You will need to follow up with your family doctor to determine if you should restart this medication. 6. Iron Deficiency Anemia * Continue Ferrous sulfate 325 mg twice daily. * You will need to discuss indication for a repeat colonoscopy to determine underlying source of iron deficiency anemia. 7. Please call your family doctor or go to the ER if you develop the following: * Chest pain or shortness of breath. * Severe, watery diarrhea. * Increased vaginal bleeding or pelvic pain. Prescriptions: Discontinued clopidogrel [Plavix] 75 mg Tablet 75 mg PO QAM RF: 0 glycopyrrolate 2 mg Tablet 2 mg PO BID RF: 0 Stand-Alone Forms: [facility] Discharge Orders: Discharge Order (Routine); Ordered 09/18/18 Ordered By: Mary Koroma Admission Data Admit Date/Time: 09/12/18 23:13 Attending Provider: Mary Koroma Admit Provider: Pepe Mckenzie Primary Care Provider: Lavern Minor Other Providers: Honorio Ly ; José Luis Quarles ; Ramsey Nielsen ; Swathi Wilder ; Jorge Luis Nath Service: Surgical Services Other Interventions: Discharge Summary Assessment (RN) Last Done: 09/18/18 13:21 Pending Studies at Discharge: No DC Date/Time DO NOT enter until pt leaves facility: 09/18/18 14:38 Supervising Physician Co-Signing Physician Notes YVAN Supervision Note: I personally saw and examined the patient. I verified all do points and agree with YVAN Marie with the following exceptions and/or additions: The patient was having no abdominal pain or nausea on the day of discharge. She was tolerating p.o. She had no further vaginal bleeding. She remained afebrile. He had a long discussion about her conditions and what to do if things got worse again. Our nurse navigator worked very hard to get her in [facility] appointment with gynecologic oncology after discharge given the vaginal bleeding that she had here and the possibility of recurrence of cervical cancer as well as the vesicovaginal fistula with recurrent UTIs. -Stable for discharge to home to finish out IV imipenem, small bowel obstruction is resolved, needs close follow-up on vaginal bleeding and vesicovaginal fistula with urology and gynecologic Vitals reviewed Gen: AAOx3, NAD HEENT: Anicteric sclerae, EOMI CV: RRR no mgr nl S1S2 Pulm: CTAB no wcr Abd: +BS soft NT ND no masses or hernias Ext: No edema, 2+ DP pulses Skin: No rashes, warm/dry Neuro: Full strength throughout
== END 2018-09-18 14:38 | disposition home health service (06) | DRG 389 ==
LOC: ED 18:32 → 3N 23:13 → SUATTDRO 23:13 → 3N 09-13 00:27
DX: K58.9 Irritable bowel syndrome, unspecified; A04.72 Enterocolitis due to Clostridium difficile, not specified as recurrent; E87.6 Hypokalemia; Z92.3 Personal history of irradiation; N82.0 Vesicovaginal fistula; E78.5 Hyperlipidemia, unspecified; J44.9 Chronic obstructive pulmonary disease, unspecified; F17.210 Nicotine dependence, cigarettes, uncomplicated; I73.9 Peripheral vascular disease, unspecified; F31.9 Bipolar disorder, unspecified; K21.9 Gastro-esophageal reflux disease without esophagitis; K56.609 Unspecified intestinal obstruction, unspecified as to partial versus complete obstruction; I10 Essential (primary) hypertension; Z85.41 Personal history of malignant neoplasm of cervix uteri; N93.9 Abnormal uterine and vaginal bleeding, unspecified; D50.9 Iron deficiency anemia, unspecified; N17.9 Acute kidney failure, unspecified; F17.200 Nicotine dependence, unspecified, uncomplicated; N39.0 Urinary tract infection, site not specified; I25.10 Atherosclerotic heart disease of native coronary artery without angina pectoris

== ENCOUNTER 2018-09-20 | Observation (INO) ==
[2018-09-20 00:54] LABS: Basophils # (auto) 0.04 K/uL (0-0.2); Basophils % (auto) 0.4 %; Eosinophils % (auto) 3.2 %; Hematocrit (blood only) 40.7 % (37-47); Immature Granulocytes # (auto) 0.06 K/uL (0.00-0.02); Immature Granulocytes % (auto) 0.6 %; Lymphocytes # (auto) 3.53 K/uL (1.2-3.4); Lymphocytes % (auto) 37.9 %; Mean Corpuscular Hgb Conc 34.4 g/dL (32-36); Mean Corpuscular Volume 91.1 fL (80-100); Monocytes # (auto) 0.73 K/uL (0.11-0.59); Monocytes % (auto) 7.8 %; Neutrophils # (auto) 4.66 K/uL (1.4-6.5); Neutrophils % (auto) 50.1 %; Platelet Count 413 K/uL (130-400); RDW Coefficient of Variation 13.4 % (11.5-14.5); RDW Standard Deviation 43.9 fL (36.4-46.3); Red Blood Count 4.47 M/uL (4.2-5.4); White Blood Count 9.32 K/uL (4.8-10.8)
[2018-09-20 01:03] LABS: iSTAT Hemoglobin 13.6 g/dl (12.0-16.0); iSTAT Ionized Calcium 1.18 mmol/l (1.12-1.32)
[2018-09-20 01:15] LABS: Alanine Aminotransferase 15 U/L (12-78); Albumin Level 3.1 gm/dl (3.4-5.0); Alkaline Phosphatase 76 U/L (45-117); Aspartate Aminotransferase 17 U/L (15-37); BUN Creatinine Ratio 8.6 (10-20); Bilirubin Direct < 0.1 mg/dl (0-0.2); Bilirubin,Total 0.3 mg/dl (0.2-1); Blood Urea Nitrogen 10 mg/dl (7-18); Calcium 9.3 mg/dl (8.5-10.1); Carbon Dioxide 23 mmol/L (21-32); Chloride 107 mmol/L (98-107); Creatinine Clr Calc Pharmacy 50.5 ml/min; Est GFR (African American) 57.5; Est GFR (Non-African American) 49.6; Glucose 95 mg/dl (70-99); Sodium 139 mmol/L (136-145); Total Protein 7.2 gm/dl (6.4-8.2)
[2018-09-20 01:30] LABS: Appearance Urine Cloudy (Clear); Glucose Urine UA Negative (Negative); Ketones Urine Negative (Negative); Leukocyte Esterase Urine 2+ (Negative); Nitrite Urine Negative (Negative); Protein Urine 2+ (Negative); Urobilinogen Urine Negative (Negative)
[2018-09-20 01:31] LABS: Color Urine Yellow
[2018-09-20 01:33] LABS: Bilirubin Urine Negative (Negative); Ictotest Urine Negative (Negative)
== END 2018-09-20 11:52 | disposition short-term general hospital (02) ==
LOC: 3N → ED → SUATTDRO 03:37 → 3N 04:50

== ENCOUNTER 2019-03-22 21:45 | Inpatient (IN) ==
--- OUTSIDE RECORDS SUMMARY | 2019-03-22 21:48 | External Medical Summary | Continuity of Care Document ---
:1960 Author Name Kimani Rea, Provider Address Unavailable Unavailable , Care Team Providers Name Role Phone Unavailable Unavailable Unavailable [email or web address], [email or web address] DORIS Rea, IVAN Menjivar Unavailable Unavailable Kishore BANDA Unavailable Unavailable Unavailable Unavailable Unavailable Problems Hematuria (599.70) (R31.9) Urinary incontinence (788.30) (R32) History of Clostridium difficile colitis (V12.79) (Z86.19) Status: Resolved Lymphedema of lower extremity (457.1) (I89.0) Smokes 1 pack or more of cigarettes per day (305.1) (F17.210 ) GERD without esophagitis (530.81) (K21.9) Benign essential hypertension (401.1) (I10) Daytime hypersomnolence (780.54) (G47.19) Fibromyalgia (729.1) (M79.7) Depression (311) (F32.9) Chronic obstructive pulmonary disease (496) (J44.9) Chronic kidney disease (585.9) (N18.9) Vitamin D deficiency (268.9) (E55.9) Anemia (285.9) (D64.9) Elevated liver function tests (790.6) (R94.5) Peripheral arterial disease (443.9) (I73.9) Hepatitis C virus infection (070.70) (B19.20) Bipolar affective disorder (296.80) (F31.9) Anxiety (300.00) (F41.9) History of thrombocytosis (V12.3) (Z86.2) Lumbar disc disease (722.93) (M51.9) Obsessive compulsive disorder (300.3) (F42.9) Opioid dependence in remission (304.03) (F11.21) History of alcohol abuse (305.03) (F10.11) Narcotic abuse (305.40) (F11.10) Mild sleep apnea (780.57) (G47.30) Radiation cystitis (595.82) (N30.40) Vesicovaginal fistula (619.0) (N82.0) Noncompliant bladder (596.52) (N31.9) Hyperlipidemia (272.4) (E78.5) Allergies and Adverse Reactions Ciprofloxacin HCl TABS (Allergy) doxycycline (Allergy) Gabapentin TABS (Allergy) meloxicam (Allergy) PARoxetine HCl TABS (Allergy) predniSONE TABS (Allergy) varenicline (Allergy) Medications DULoxetine HCl - 30 MG Oral Capsule Andree yed Release Particles; Take three capsules, 90 mg, by mouth daily. , Jorge LuisDSuzy Start: 30-Oct-2017 Refills: 0 Vitamin E 400 UNIT Oral Capsule; TAKE ONE TABLET BY [facility] DAILY IN THE MORNING. Álvaro Start: 30-Oct-2017 Refills: 0 Fiber Complete Oral Tablet; Take one tablet by mouth daily. , Otto.DSuzy Start: 30-Oct-2017 Refills: 0 Advair Diskus 250-50 MCG/DOSE Inhalation Aerosol Powder Breath Activated; INHALE 1 PUFF TWICE DAILY. DO Ivan Minor 14 Inhaler Pack Quantity: 1 Refills: 5 Combivent Respimat 20-100 MCG/ACT Inhala tion Aerosol Solution; BY INHALATION TWICE DAILY NEEDED FOR SOB OR WHEEZING , M.D. Start: Refills: 0 4 GM Inhaler Klor-Con M20 20 MEQ Oral Tablet Extended Release; Take 1 tablet twice daily NIKKI Dixon Quantity: 180 Refills: 1 Lisinopril 5 MG Oral Tablet; TAKE 1 TABLET DAILY. Tiny Minor Start: 04-Jul-2017 Quantity: 30 Refills: 5 Ferrous Sulfate 325 (65 Fe) MG Oral Tabl et; TAKE 1 TABLET TWICE DAILY WITH MEALS. NIKKI Dixon Start: 14-Apr-2018 Quantity: 60 Refills: 5 Ondansetron HCl - 4 MG Oral Tablet; TAKE 1 TABLET BY MOUTH EVERY 8 HOURS NEEDED FOR NAUSEA. BERTHA Harris Start: 02-Mar-2018 Quantity: 21 Refills: 0 Vitamin D 1000 UNIT Oral Tablet; TAKE 1 TABLET DAILY. , M.D. Start: 14-Apr-2018 Refills: 0 Ativan 0.5 MG Oral Tablet; TAKE 1 TAB DAILY NEEDED , M.D. Refills: 0 Probiotic Oral Capsule; Take one capsule daily , M.D. Start: 29-Aug-2017 Refills: 0 Atorvastatin Calcium 40 MG Oral Tablet; Take 1 tablet daily DO Ivan Minor Start: 18-Nov-2017 Quantity: 30 Refills: 5 Pantoprazole Sodium 40 MG Oral Tablet Delayed Release; TAKE 1 TABLET DAILY. NIKKI Dixon Quantity: 30 Refills: 5 Donepezil HCl - 5 MG Oral Tablet; TAKE 1 TABLET DAILY DIR ECTED. , M.D. Start: 26-Aug-2018 Refills: 0 Glycopyrrolate 2 MG Oral Tablet; TAKE 1 TABLET TWICE DAILY. DO Ivan Minor Quantity: 60 Refills: 0 lamoTRIgine 150 MG Oral Tablet; TAKE 1 TABLET TWICE DAILY. , M.D. Refills: 0 Vitamin C 500 MG Oral Capsule; One tablet my mouth daily in the morning. , M.D. Start: 30-Oct-2017 Refills: 0 Spiriva HandiHaler 18 MCG Inhalation Cap jostin; INHALE CONTENTS OF 1 CAPSULE ONCE DAILY. NIKKI Dixon Start: 29-Aug-2017 Quantity: 30 Refills: 3 Clopidogrel Bisulfate 75 MG Oral Tablet; TAKE 1 TABLET DAILY. NIKKI Dixon Quantity: 90 Refills: 3 Potassium Chloride ER 20 MEQ Oral Tablet Extended Release; Take 1 tablet twice daily , M.D. Start: 23-Sep-2018 Quantity: 60 Refills: 6 Procedures History of Hysterectomy Status: Complete d History of Appendectomy Status: Complete d History of arterial stent placement Stat us: Completed History of lymphadenectomy Status: Compl eted Immunizations Pneumococcal polysaccharide vaccine, 23 valent On: 04-Apr-20 15 Tdap On: 07-Feb-2017 14:41 Lot #: [id number], SANOFI PASTEUR Fluzone Quadrivalent 0.5 ML Intramuscular Suspension On: Jun-2017 13:43 Lot #: [id number], SANOFI PASTEUR Pneumovax 23 25 MCG/0.5ML Injection Injectable On: 28-Aug-20 17 Family History Father Family history of Alcohol abuse (305.00) (F10.10) Status: Ac tive Sister Family history of Alcohol abuse (305.00) (F10.10) Status: Ac tive Family history of Anxiety (300.00) (F41.9) Status: Active Family history of depression (V17.0) (Z81.8) Status: Active Family history of Drug abuse (305.90) (F19.10) Status: Activ e Family history of hypertension (V17.49) (Z82.49) Status: Act susan Family history of lung disease (V19.8) (Z83.6) Status: Activ e Plan of Treatment Planned Observations Planned Goals not documented Results No Known Results Results not documented Encounters Appointment; Ivan Minor DO 27-Nov-2018 11:20 Encounter Diagnosis: Problem not documented Appointment; Swathi Wilder DO 02-Oct-2018 13:00 Encounter Diagnosis: Problem not documented Appointment; Salo Banda DO 26-Aug-2018 8:40 Encounter Diagnosis: Problem not documented Appointment; Swathi Wilder DO 02-Jun-2018 11:30 Encounter Diagnosis: Problem not documented Appointment; Saravanan Dixon CRNP 20-May-2018 13:00 Encounter Diagnosis: Problem not documented Appointment; Juhi Harris PA-C 13-Apr-2018 12:40 Encounter Diagnosis: Problem not documented Appointment; Juhi Harris PA-C 02-Mar-2018 15:00 Encounter Diagnosis: Problem not documented Appointment; Juhi Harris PA-C 31-Dec-2017 15:00 Encounter Diagnosis: Problem not documented Appointment; Juhi Harris PA-C 26-Nov-2017 12:00 Encounter Diagnosis: Problem not documented Appointment; Juhi Harris PA-C 07-Nov-2017 13:30 Encounter Diagnosis: Problem not documented Appointment; Ivan Minor DO 17-Oct-2017 15:40 Encounter Diagnosis: Problem not documented Appointment; Juhi Harris PA-C 06-Oct-2017 12:45 Encounter Diagnosis: Problem not documented Appointment; Juhi Harris PA-C 26-Sep-2017 13:30 Encounter Diagnosis: Problem not documented Appointment; Ivan Minor DO 04-Jul-2017 13:20 Encounter Diagnosis: Problem not documented
[2019-03-22] MEDS ORDERED: SODIUM CHLORIDE 0.9% 1000ML 1,000 ML IV SCH (22:00)
[2019-03-22 22:01] LABS: Basophils # (auto) 0.01 K/uL (0-0.2); Basophils % (auto) 0.1 %; Eosinophils % (auto) 0.9 %; Hematocrit (blood only) 43.5 % (37-47); Immature Granulocytes # (auto) 0.04 K/uL (0.00-0.02); Immature Granulocytes % (auto) 0.3 %; Lymphocytes # (auto) 1.58 K/uL (1.2-3.4); Lymphocytes % (auto) 13.5 %; Mean Corpuscular Hgb Conc 34.5 g/dL (32-36); Mean Corpuscular Volume 90.1 fL (80-100); Mean Platelet Volume 9.1 fL (7.4-10.4); Monocytes # (auto) 0.74 K/uL (0.11-0.59); Monocytes % (auto) 6.3 %; Neutrophils # (auto) 9.22 K/uL (1.4-6.5); Neutrophils % (auto) 78.9 %; Platelet Count 573 K/uL (130-400); RDW Coefficient of Variation 13.2 % (11.5-14.5); Red Blood Count 4.83 M/uL (4.2-5.4); White Blood Count 11.69 K/uL (4.8-10.8)
[2019-03-22 22:19] LABS: Albumin Level 3.2 gm/dl (3.4-5.0); BUN Creatinine Ratio 13.9 (10-20); Calcium 9.8 mg/dl (8.5-10.1); Creatinine Clr Calc Pharmacy 43.8 ml/min; Est GFR (African American) 58.1; Est GFR (Non-African American) 50.1
[2019-03-22 22:22] LABS: Albumin Globulin Ratio 0.7 (0.9-2); Bilirubin,Total 0.6 mg/dl (0.2-1); Globulin 4.5 gm/dl (2.5-4.0); Total Protein 7.7 gm/dl (6.4-8.2)
[2019-03-22 22:27] LABS: iSTAT Hemoglobin 12.6 g/dl (12.0-16.0); iSTAT Ionized Calcium 1.1 mmol/l (1.12-1.32); iSTAT Potassium 3.7 mEq/L (3.3-5.0)
[2019-03-22] MEDS ORDERED: IOVERSOL 100ml IV PRN (22:30)
--- NOTE | 2019-03-22 23:05 | CT Scan Report ---
CT OF THE ABDOMEN AND PELVIS WITH CONTRAST CLINICAL HISTORY: Abdominal pain. History of bowel obstruction. COMPARISON STUDY: CT of the abdomen and pelvis September 20, 2018. TECHNIQUE: Following IV administration of 94 mL of Optiray-320, axial images of the abdomen and pelvi s were obtained from the lung bases to the proximal femurs. Images were reviewed in the axial, sagitt al, and coronal planes. IV contrast was administered without complication. Automated exposure contro l was utilized for the study. A dose lowering technique was utilized adhering to the principles of A AL. CT DOSE: 255.54 mGy.cm FINDINGS: Lung bases are clear. No pneumatosis, free air or portal venous gas is present. The liver, spleen, adrenal glands, left kidney and pancreas are unremarkable. Right renal scarring is unchanged. There is no hydronephrosis. A small amount of abdominal and pelvic ascites is noted. The proximal to mid small bowel is fluid-filled and mildly dilated. Transition point within the pelvis is noted on a xial image 325 of 416. Distal small bowel is decompressed. Pelvic infiltration is unchanged from ryan ier exams. Rectal wall thickening is again noted. There is wall thickening of the bladder and gas wit hin the bladder. There may be a vesicovaginal fistula. Sclerotic changes within the iliac bones and s acrum suggest previous radiation. This is unchanged. IMPRESSION: 1. Findings consistent with a moderate grade small bowel obstruction with transition point within the pelvis. Small abdominal and pelvic ascites. No pneumatosis, free air or portal venous gas. 2. Persistent pelvic infiltration and rectal wall thickening which is similar to prior exams. The fin dings may be related to radiation therapy. Suspected vesicovaginal fistula. 3. No hydronephrosis. Electronically signed by: Angel Mata M.D. 03/22/2019 11:03 PM
--- NOTE | 2019-03-22 23:24 | Emergency Department Note ---
Entered by Keegan Sales acting as a scribe for Amadeo Rojas DO History of Present Illness General Chief complaint: Abdominal Pain Stated complaint: AB PAIN Time Seen by Provider: 03/22/19 21:46 Source: patient History of Present Illness Provider complaint: Abdominal pain Onset (ago): hour(s) (Just prior to arrival ) Location: abdomen Radiation: non-radiation Pain Consistency: + constant Relieved By: + none Exacerbated By: + none Associated symptoms: no fever/chills and no nausea/vomiting The patient is a 58 year old female who presents to the Emergency Room with complaints of constant lower abdominal pain that started just prior to arrival. The patient states the pain is progressively getting better since receiving 50mcg of Fentanyl and 4mg of Zofran by EMS en route. The patient has an extensive abdominal history including IBS, SBO, and a hysterectomy that was performed to treat cervical cancer. When the patient had cancer, she also was treated with radiation. The patient is homeless, but is staying with a friend at the moment. She is getting all of her medications and has not missed any doses. The patient denies any nausea, vomiting, hematochezia, or hematemesis. The patient does smoke cigarettes. Home Medications Home Medications Medication Instructions Recorded Confirmed Type atorvastatin 40 mg PO PM 11/15/18 03/22/19 History donepezil [Aricept] 5 mg PO HS 11/15/18 03/22/19 History duloxetine 90 mg PO DAILY 11/15/18 03/22/19 History fluticasone propion-salmeterol 1 inh INHALATION BID 11/15/18 03/22/19 History [Advair Diskus] lamotrigine [Lamictal] 150 mg PO BID 11/15/18 03/22/19 History lisinopril 5 mg PO DAILY 11/15/18 03/22/19 History lorazepam [Ativan] 0.5 mg PO BID PRN 11/15/18 03/22/19 History pantoprazole 40 mg PO DAILY 11/15/18 03/22/19 History potassium chloride 20 meq PO BID 11/15/18 03/22/19 History tiotropium bromide [Spiriva with 1 cap INHALATION DAILY 11/15/18 03/22/19 History HandiHaler] ascorbic acid (vitamin C) [Vitamin 500 mg PO DAILY 12/02/18 03/22/19 History C] glycopyrrolate 2 mg PO BID 12/02/18 03/22/19 History ipratropium-albuterol [Combivent 1 puff INHALATION BID 12/02/18 03/22/19 History Respimat] lactobacillus combination no.4 3,000 mmu cells PO DAILY 12/02/18 03/22/19 History [Probiotic] psyllium husk [Fiber-Caps 0.52 g PO DAILY 12/02/18 03/22/19 History (psyllium husk)] vitamin E 400 unit PO DAILY 12/02/18 03/22/19 History ferrous sulfate 325 mg (65 mg See Rx Instructions PO BID #60 tab 03/17/19 03/22/19 Rx iron) tablet clopidogrel 75 mg PO DAILY 03/22/19 03/22/19 History memantine [Namenda] 5 mg PO QAM 03/22/19 03/22/19 History Allergies Allergy/AdvReac Type Severity Reaction Status Date / Time paroxetine Allergy Severe suicidal Verified 03/22/19 23:22 thoughts varenicline Allergy Severe suicidal Verified 03/22/19 23:22 thoughts Cipro Allergy Unknown sores on Verified 04/21/18 22:15 tongue ciprofloxacin Allergy Unknown sores on Verified 03/22/19 23:22 tongue gabapentin Allergy Unknown unknown Verified 03/22/19 23:23 meloxicam Allergy Unknown unknown Verified 12/14/18 16:45 prednisone AdvReac Intermediate "INTERNAL Verified 12/14/18 16:45 BLEEDING FROM KIDNEY" Past Med/Surg History Medical History Hypertension (Chronic) Bipolar 1 disorder (Chronic) Asthma (Chronic) Vesicovaginal fistula (Chronic) OCD (obsessive compulsive disorder) (Chronic) Dyslipidemia (Chronic) Anxiety (Chronic) Major depressive disorder, recurrent episode with anxious distress 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) Back pain Cervical cancer "s/p surgery and radiation" Contusion H/O hemorrhagic cystitis Hydroureteronephrosis IBS (irritable bowel syndrome) OAB (overactive bladder) Pyelonephritis Traumatic ecchymosis of left shoulder Ureteral stricture Urinary incontinence Surgical History H/O cystoscopy History of hysterectomy S/P appendectomy S/P vascular surgery Family History Other No significant family history Social History Preferred Language: Kinyarwanda Communication Ability: Effective Visual Impairment: No Limitations Hearing Ability: Normal Beliefs That Will Affect Care: None marital status: Current Living Situation: Alone current occupational status: unemployed and disabled Feels Safe at Home: Yes Smoking Status: Current every day smoker Tobacco Type: cigarettes Cigarettes Per Day: 20 Second Hand Exposure: No Hx Alcohol Use: No Review of Systems See HPI for pertinent positives & negatives. and A total of 10 systems reviewed and were otherwise negative Physical Exam Vital Signs Vital Signs - 24 hr 03/22/19 21:57 03/22/19 22:04 Temperature 36.8 C Temperature Source Oral Sepsis Recent Fever Within 48 Hours No Sepsis New/Unexplained Change in Mental Status No Sepsis Action Taken by Nursing No Action Required Pulse Rate 98 H Respiratory Rate 20 Respiratory Effort / Characteristics Non-Labored Spontaneous Respiratory Depth Normal Respiratory Pattern Regular Blood Pressure 146/97 H Blood Pressure Mean 113 Blood Pressure Position Sitting Pulse Oximetry 99 99 Oxygen Delivery Method Room Air Room Air GENERAL: Patient is awake, alert, and in no acute distress.Patient is resting comfortably and showing no signs of anxiety EYES: The conjunctivae are clear. The pupils are round and reactive. EARS, NOSE, MOUTH AND THROAT: The nose is without any evidence of any deformity. Mucous membranes are moist.Tongue is midline NECK: The neck is nontender and supple. RESPIRATORY: Normal respiratory effort is noted. There is no evidence of whee zing rhonchi or rales to auscultation. CARDIOVASCULAR: Regular rate and rhythm noted. There no murmurs rubs or gallops normal S1 normal S2 GASTROINTESTINAL: The abdomen is mildly distended but soft. Bowel sounds are present in all quadrants. Abdomen is nontender. No guarding or rigidity elicited. MUSCULOSKELETAL/EXTREMITIES: There is no evidence of gross deformity. Full range of motion is noted in the hips and shoulders. SKIN: There is no obvious evidence of any rash. There are no petechiae, pallor or cyanosis noted. Pedal edema bilaterally, left greater than right. No signs of cellulitis. NEUROLOGIC: Patient is awake alert and oriented x3. Course 2146: Past medical records reviewed. The patient was evaluated in room A12B, and a complete history and physical examination were performed. 2251: I spoke to Dr. Ly [facility] Hospitalist about the patient's case and he is going to accept her for further evaluation. Consultations Consultation #1: I spoke to Dr. Malachi Mo [facility] Hospitalist about the patient's case and he is going to accept her for further evaluation. Time: 22:51 Administered Medications Ioversol (Optiray 320 100ml) 100 ml IV ONCE PRN PRN Reason: Interaction Checking Stop: 03/26/19 22:29 Last Admin: 03/22/19 22:31 Dose: 94 ml Documented by: [id number] Discontinued Medications Sodium Chloride (Nss 1000ml) 1,000 mls @ 999 mls/hr IV .Q1H1M NANCY Stop: 03/22/19 23:00 Last Admin: 03/22/19 22:26 Dose: 999 mls/hr Documented by: [id number] Medical Decision Making Differential Diagnosis Differential diagnoses includes but is not limited to gastritis, peptic ulcer disease, GERD, gallbladder disease, pancreatitis, small bowel obstruction, acute coronary syndrome, pericarditis, ischemic bowel, irritable bowel disease, irritable bowel syndrome, appendicitis, diverticulitis, malignancy, hernia, urinary tract infection, torsion, perforation, trauma, infectious. Medical Records Attestation: I reviewed the patient's medical records. Home Medications Current Medication List: was personally reviewed by me Laboratory Data Attestation: I reviewed the patient's lab results. Result diagrams: 03/22/19 21:19 03/22/19 21:19 Lab Results 03/22/19 03/22/19 03/22/19 Range/Units 21:19 21:19 22:15 WBC 11.69 H (4.8-10.8) K/uL RBC 4.83 (4.2-5.4) M/uL Hgb 15.0 (12.0-16.0) g/dL POC Hgb 12.6 (12.0-16.0) g/dl Hct 43.5 (37-47) % POC Hct 37 (37-47) % MCV 90.1 (80-100) fL MCH 31.1 (25-34) pg MCHC 34.5 (32-36) g/dL RDW Std Deviation 43.0 (36.4-46.3) fL RDW Coeff of Rommel 13.2 (11.5-14.5) % Plt Count 573 H (130-400) K/uL MPV 9.1 (7.4-10.4) fL Immature Gran % (Auto) 0.3 % Neut % (Auto) 78.9 % Lymph % (Auto) 13.5 % [place] % (Auto) 6.3 % Eos % (Auto) 0.9 % Baso % (Auto) 0.1 % Immature Gran # (Auto) 0.04 H (0.00-0.02) K/uL Neut # (Auto) 9.22 H (1.4-6.5) K/uL Lymph # (Auto) 1.58 (1.2-3.4) K/uL [place] # (Auto) 0.74 H (0.11-0.59) K/uL Eos # (Auto) 0.10 (0-0.5) K/uL Baso # (Auto) 0.01 (0-0.2) K/uL POC Sodium 139 (135-144) mEq/L Sodium 140 (136-145) mmol/L POC Potassium 3.7 (3.3-5.0) mEq/L Potassium 4.0 (3.5-5.1) mmol/L POC Chloride 103 (101-112) mEq/L Chloride 105 (98-107) mmol/L Carbon Dioxide 25 (21-32) mmol/L POC Total CO2 24 (24-31) mEq/l Anion Gap 10.0 (3-11) POC Anion Gap 17.0 (16-25) mmol/L POC BUN 15 (7-18) mg/dl BUN 16 (7-18) mg/dl Creatinine 1.18 (0.6-1.2) mg/dl POC Creatinine 1.0 (0.6-1.3) mg/dl Est Cr Clr Drug Dosing 43.8 ml/min Est GFR ( Amer) 58.1 Est GFR (Non-Af Amer) 50.1 BUN/Creatinine Ratio 13.9 (10-20) Glucose 147 H (70-99) mg/dl POC Glucose (other) 126 H (70-99) mg/dl Calcium 9.8 (8.5-10.1) mg/dl POC Ioniz Calcium Abbie 1.10 L (1.12-1.32) mmol/l Total Bilirubin 0.6 (0.2-1) mg/dl AST 12 L (15-37) U/L ALT 14 (12-78) U/L Alkaline Phosphatase 102 (45-117) U/L Total Protein 7.7 (6.4-8.2) gm/dl Albumin 3.2 L (3.4-5.0) gm/dl Globulin 4.5 H (2.5-4.0) gm/dl Albumin/Globulin Ratio 0.7 L (0.9-2) Lipase 76 (73-393) U/L Imaging Data Radiologist's Impression: CT the abdomen and pelvis was obtained in the emergency department. The report was reviewed. CT OF THE ABDOMEN AND PELVIS WITH CONTRAST CLINICAL HISTORY: Abdominal pain. History of bowel obstruction. COMPARISON STUDY: CT of the abdomen and pelvis September 20, 2018. TECHNIQUE: Following IV administration of 94 mL of Optiray-320, axial images of the abdomen and pelvis were obtained from the lung bases to the proximal femurs. Images were reviewed in the axial, sagittal, and coronal planes. IV contrast was administered without complication. Automated exposure control was utilized for the study. A dose lowering technique was utilized adhering to the principles of ALARA. CT DOSE: 255.54 mGy.cm FINDINGS: Lung bases are clear. No pneumatosis, free air or portal venous gas is present. The liver, spleen, adrenal glands, left kidney and pancreas are unremarkable. Right renal scarring is unchanged. There is no hydronephrosis. A small amount of abdominal and pelvic ascites is noted. The proximal to mid small bowel is fluid-filled and mildly dilated. Transition point within the pelvis is noted on axial image 325 of 416. Distal small bowel is decompressed. Pelvic infiltration is unchanged from earlier exams. Rectal wall thickening is again noted. There is wall thickening of the bladder and gas within the bladder. There may be a vesicovaginal fistula. Sclerotic changes within the iliac bones and sacrum suggest previous radiation. This is unchanged. IMPRESSION: 1. Findings consistent with a moderate grade small bowel obstruction with transition point within the pelvis. Small abdominal and pelvic ascites. No pneumatosis, free air or portal venous gas. 2. Persistent pelvic infiltration and rectal wall thickening which is similar to prior exams. The findings may be related to radiation therapy. Suspected v esicovaginal fistula. 3. No hydronephrosis. Electronically signed by: Angel Mata M.D. 03/22/2019 11:03 PM Blood Pressure Blood Pressure Findings: Elevated blood pressure Blood Pressure Disposition: Referred to patients primary care provider BLAYNE Perez The patient is a 58-year-old female who has a history of ovarian pathology who presented to the emergency department for an evaluation of abdominal pain. The patient has a history of bowel obstruction in the past. The patient was treated with IV fluids and IV pain medication prior to arrival. Upon arrival to the emergency department she was feeling much better. I discussed the patient's laboratory and radiographic studies with her. She was found to have signs of bowel obstruction on CT. I discussed her case with the on-call [facility] hospitalist. They have agreed to evaluate the patient in the emergency department for further management and disposition. The patient continued to have no vomiting and her pain was significantly improved. Impression & Plan Small bowel obstruction, Abdominal pain Discharge Plan Visit Data Chief Complaint: Abdominal Pain Stated Complaint: AB PAIN ED Provider: Amadeo Rojas Discharge Problem: Small bowel obstruction, Abdominal pain Forms Stand Alone Forms: Call Back Authorization, My [facility] Prescriptions Prescriptions: No Action ferrous sulfate 325 mg (65 mg iron) tablet See Rx Instructions mg PO BID Qty: 60 RF: 5 glycopyrrolate 1 mg Tablet 2 mg PO BID RF: 0 ascorbic acid (vitamin C) [Vitamin C] 500 mg Tablet 500 mg PO DAILY RF: 0 vitamin E 400 unit Capsule 400 unit PO DAILY RF: 0 psyllium husk [Fiber-Caps (psyllium husk)] 0.52 gram Capsule 0.52 g PO DAILY RF: 0 Probiotic 3 billion cell Capsule 3,000 mmu cells PO DAILY RF: 0 Combivent Respimat 20-100 mcg/actuation Mist 1 puff Inhalation BID RF: 0 clopidogrel 75 mg tablet 75 mg PO DAILY RF: 0 memantine [Namenda] 5 mg tablet 5 mg PO QAM RF: 0 fluticasone propion-salmeterol [Advair Diskus] 250-50 mcg/dose Blister With Device 1 inh INHALATION BID RF: 0 atorvastatin 40 mg Tablet 40 mg PO PM RF: 0 donepezil [Aricept] 5 mg Tablet 5 mg PO HS RF: 0 lorazepam [Ativan] 0.5 mg Tablet 0.5 mg PO BID PRN (Reason: Anxiety) RF: 0 duloxetine 30 mg Capsule,Delayed Release(Dr/Ec) 90 mg PO DAILY RF: 0 lamotrigine [Lamictal] 150 mg Tablet 150 mg PO BID RF: 0 lisinopril 5 mg Tablet 5 mg PO DAILY RF: 0 Spiriva with HandiHaler 18 mcg Capsule, W/Inhalation Device 1 cap INHALATION DAILY RF: 0 pantoprazole 40 mg Tablet,Delayed Release (Dr/Ec) 40 mg PO DAILY RF: 0 potassium chloride 20 mEq Tablet Extended Release 20 meq PO BID RF: 0 Referrals Referrals: Lavern Minor DO [Primary Care Provider] - Discharge Problem: Abdominal pain Qualifiers: Abdominal location: generalized Qualified Code(s): R10.84 - Generalized abdominal pain The scribe's documentation has been prepared under my direction and personally reviewed by me in its entirety. I confirm that the note above accurately reflects all work, treatment, procedures, and medical decision making performed by me.
--- NOTE | 2019-03-22 23:52 | History & Physical Report ---
Date of Service March 22, 2019 Assessment & Plan (1) Small bowel obstruction: 58-year-old female was admitted on 22 March 2019 for abdominal pain and small bowel obstruction. Small bowel obstruction: Noted history of the same, most recently in September 2018, in part related to hysterectomy/radiation treatment for cervical cancer in 1995. Also has a known vesicovaginal fistula. Presently symptoms began around 2200 on 07Jul. - Was treated with Zofran and fentanyl via EMS with good pain and nausea relief. - In ED, afebrile, borderline tachycardic, mildly hypertensive, with normal room SpO2. WBC 11. Normal LFTs and lipase. CT a/p with contrast noted moderate grade SBO with transition point in the pelvis (see full report). - Will keep n.p.o. Try to avoid NGT placement (partially due to patient's request). Maintain IVF. Zofran IV as needed for nausea. IV Tylenol and morphine as needed for pain. Consult to general surgery. - Thought about starting empiric antibiotics in case of risk of bacterial translocation due to colonic stasis. However, patient is afebrile, borderline tachycardic, with a rather normal WBC. Last BM reported day prior to admit. Will hold off for now. Ongoing medical issues (patient's p.o. meds are being held due to n.p.o.): - Hypertension, hyperlipidemia, PAD, CAD: Continue home atorvastatin, lisinopril. - COPD: Continue home Advair, Combivent, Spiriva. - Bipolar I disorder, anxiety, depression: Continue home duloxetine and Lamictal. - Dementia: Continue home Aricept and amantadine. - GERD: Continue home pantoprazole. - Iron deficiency anemia: Admit Hb 15.0. Continue home iron. - Insomnia: Is presently off of previous trazodone. - Hypokalemia and leg cramping: Continue home potassium supplementation. Admit K 4.0. - C. difficile in Apr 2018: Patient says her stools have always been loose ever since then. - Left leg lymphedema: Status post radiation treatments. - Recurrent UTIs. History of hemorrhagic cystitis. - Tobacco abuse: We will provide nicotine patch as inpatient. Code status: Full code. Diet: N.p.o. Holding her above p.o. meds temporarily. DVT prophy: Lovenox. PT/OT: Deferred. Disbo: Admit to [facility] for observation. (2) Hypertension: (3) Hyperlipidemia: (4) Coronary artery disease: (5) COPD (chronic obstructive pulmonary disease): (6) Bipolar 1 disorder: (7) Anxiety: (8) Depression: (9) Dementia: (10) GERD (gastroesophageal reflux disease): (11) Iron deficiency anemia: (12) Insomnia: (13) Hypokalemia: (14) Leg cramping: (15) History of Clostridioides difficile infection: (16) Lymphedema of left leg: (17) Recurrent UTI: (18) History of hemorrhagic cystitis: (19) Tobacco abuse: (20) Vesicovaginal fistula: (21) Peripheral arterial disease: History of Present Illness Primary Care Provider: Lavern Minor DO 58-year-old female presents emergency department via EMS with a rather sudden onset of lower abdominal pain beginning around 10 PM on 07Jul. She has a notable history of multiple small bowel obstructions thought to be related to her history of cervical cancer s/p hysterectomy and radiation treatment in 1995. Last SBO admission was September 2018. Patient says that initially on onset of her abdominal pain she thought it might be related to "IBS type stuff" in hopes that it would self-resolve. However, she says the pain got progressively worse throughout the day which made her more worried that she may have a partial SBO progressing to a complete obstruction. She has had nothing p.o. all day with the exception of trying some fluids around 7 PM but had immediate emesis afterwards. Denies passing flatus as well. Says last bowel movement was on 07Jul and was loose, non-bloody, consistent with bowel movements ever since diagnosed with C. difficile in April 2018. She denies any concurrent symptoms or other acute concerns. - Past medical history includes small bowel obstruction, cervical cancer in 1995 s/p hysterectomy and radiation, hypertension, hyperlipidemia, PAD, CAD, COPD, bipolar 1, anxiety, depression, dementia, GERD, iron deficiency anemia, insomnia, hypokalemia, leg cramps, C. difficile in April 2018, left leg lymphedema, recurrent UTIs, hemorrhagic cystitis. - Past surgical history includes hysterectomy, appendectomy, right external iliac artery stent. - Social history includes smoking 1 pack/day. Denies alcohol use. Is presently homeless but staying with a friend. Allergies Allergy/AdvReac Type Severity Reaction Status Date / Time paroxetine Allergy Severe suicidal Verified 03/22/19 23:22 thoughts varenicline Allergy Severe suicidal Verified 03/22/19 23:22 thoughts Cipro Allergy Unknown sores on Verified 04/21/18 22:15 tongue ciprofloxacin Allergy Unknown sores on Verified 03/22/19 23:22 tongue gabapentin Allergy Unknown unknown Verified 03/22/19 23:23 meloxicam Allergy Unknown unknown Verified 03/22/19 23:24 prednisone AdvReac Intermediate "INTERNAL Verified 03/22/19 23:24 BLEEDING FROM KIDNEY" Home Medications Home Medications Medication Instructions Recorded Confirmed Type atorvastatin 40 mg PO PM 11/15/18 03/22/19 History donepezil [Aricept] 5 mg PO HS 11/15/18 03/22/19 History duloxetine 90 mg PO DAILY 11/15/18 03/22/19 History fluticasone propion-salmeterol 1 inh INHALATION BID 11/15/18 03/22/19 History [Advair Diskus] lamotrigine [Lamictal] 150 mg PO BID 11/15/18 03/22/19 History lisinopril 5 mg PO DAILY 11/15/18 03/22/19 History lorazepam [Ativan] 0.5 mg PO BID PRN 11/15/18 03/22/19 History pantoprazole 40 mg PO DAILY 11/15/18 03/22/19 History potassium chloride 20 meq PO BID 11/15/18 03/22/19 History tiotropium bromide [Spiriva with 1 cap INHALATION DAILY 11/15/18 03/22/19 History HandiHaler] ascorbic acid (vitamin C) [Vitamin 500 mg PO DAILY 12/02/18 03/22/19 History C] glycopyrrolate 2 mg PO BID 12/02/18 03/22/19 History ipratropium-albuterol [Combivent 1 puff INHALATION BID 12/02/18 03/22/19 History Respimat] lactobacillus combination no.4 3,000 mmu cells PO DAILY 12/02/18 03/22/19 History [Probiotic] psyllium husk [Fiber-Caps 0.52 g PO DAILY 12/02/18 03/22/19 History (psyllium husk)] vitamin E 400 unit PO DAILY 12/02/18 03/22/19 History ferrous sulfate 325 mg (65 mg See Rx Instructions PO BID #60 tab 03/17/19 03/22/19 Rx iron) tablet clopidogrel 75 mg PO DAILY 03/22/19 03/22/19 History memantine [Namenda] 5 mg PO QAM 03/22/19 03/22/19 History Past Med/Surg History Medical History Hypertension (Chronic) Bipolar 1 disorder (Chronic) Asthma (Chronic) Vesicovaginal fistula (Chronic) OCD (obsessive compulsive disorder) (Chronic) Dyslipidemia (Chronic) Anxiety (Chronic) Major depressive disorder, recurrent episode with anxious distress 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) Back pain Cervical cancer "s/p surgery and radiation" Contusion H/O hemorrhagic cystitis Hydroureteronephrosis IBS (irritable bowel syndrome) OAB (overactive bladder) Pyelonephritis Traumatic ecchymosis of left shoulder Ureteral stricture Urinary incontinence Surgical History H/O cystoscopy History of hysterectomy S/P appendectomy S/P vascular surgery Family History Other No significant family history Social History Preferred Language: Estonian Communication Ability: Effective Visual Impairment: No Limitations Hearing Ability: Normal 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 Beliefs That Will Affect Care: None marital status: Current Living Situation: Alone current occupational status: unemployed and disabled Feels Safe at Home: Yes Safety Concerns: Feels Safe At This Time Smoking Status: Current every day smoker Tobacco Type: cigarettes Cigarettes Per Day: 20 Do You Dip or Chew Tobacco: No Second Hand Exposure: Yes Hx Alcohol Use: No Hx Substance Use: No Review of Systems Review of Systems: Constitutional: Denies fevers, chills, focal weakness Eyes: Denies any visual loss or diplopia ENT: Denies any ear/nose/throat pain or difficulty speaking or swallowing Respiratory: Denies any dyspnea, cough, hemoptysis Cardiovascular: Denies any chest pain or feeling of edema Gastrointestinal: Positive abdominal pain, nausea and vomiting. Denies diarrhea. Musculoskeletal: Denies any acute extremity pains, myalgias, or focal weakness Skin: Denies any known acute rashes or lesions Neuro: Denies any headache, acute focal weakness or numbness, or difficulties with speech or swallow. Physical Exam Physical Exam: GENERAL: Awake, alert, well-appearing, overall appears rather comfortable with occasional waves of abdominal pain but not in overt distress. HENT: Normocephalic, atraumatic. Oropharynx unremarkable except absent teeth. EYES: Normal conjunctiva. Sclera non-icteric. NECK: Inspection normal. Supple and full ROM. No nuchal rigidity. CARDIAC: +S1S2 RRR, no murmurs. RESPIRATORY: Clear to auscultation. No wheezes or rales. Normal respiratory effort. Occasional harsh cough in the room. GI: +BS, soft, non-distended. Positive generalized tenderness to palpation. No rebound or guarding. EXTREMITIES: Moving all extremities naturally and easily. Diffuse left leg lymphedema. No edema of the right calf or ankle. NEURO: No gross neuro deficits. Results & Data Vital Signs (Past 12 Hours) Vital Signs Temp Pulse Resp BP Pulse Ox 03/22/19 22:04 99 03/22/19 21:57 36.8 C 98 H 20 146/97 H 99 Laboratory Results 03/22/19 03/22/19 03/22/19 Range/Units 22:15 21:19 21:19 WBC 11.69 H (4.8-10.8) K/uL RBC 4.83 (4.2-5.4) M/uL Hgb 15.0 (12.0-16.0) g/dL POC Hgb 12.6 (12.0-16.0) g/dl Hct 43.5 (37-47) % POC Hct 37 (37-47) % MCV 90.1 (80-100) fL MCH 31.1 (25-34) pg MCHC 34.5 (32-36) g/dL RDW Std Deviation 43.0 (36.4-46.3) fL RDW Coeff of Rommel 13.2 (11.5-14.5) % Plt Count 573 H (130-400) K/uL MPV 9.1 (7.4-10.4) fL Immature Gran % (Auto) 0.3 % Neut % (Auto) 78.9 % Lymph % (Auto) 13.5 % Cowley % (Auto) 6.3 % Eos % (Auto) 0.9 % Baso % (Auto) 0.1 % Immature Gran # (Auto) 0.04 H (0.00-0.02) K/uL Neut # (Auto) 9.22 H (1.4-6.5) K/uL Lymph # (Auto) 1.58 (1.2-3.4) K/uL Cowley # (Auto) 0.74 H (0.11-0.59) K/uL Eos # (Auto) 0.10 (0-0.5) K/uL Baso # (Auto) 0.01 (0-0.2) K/uL POC Sodium 139 (135-144) mEq/L Sodium 140 (136-145) mmol/L POC Potassium 3.7 (3.3-5.0) mEq/L Potassium 4.0 (3.5-5.1) mmol/L POC Chloride 103 (101-112) mEq/L Chloride 105 (98-107) mmol/L Carbon Dioxide 25 (21-32) mmol/L POC Total CO2 24 (24-31) mEq/l Anion Gap 10.0 (3-11) POC Anion Gap 17.0 (16-25) mmol/L POC BUN 15 (7-18) mg/dl BUN 16 (7-18) mg/dl Creatinine 1.18 (0.6-1.2) mg/dl POC Creatinine 1.0 (0.6-1.3) mg/dl Est Cr Clr Drug Dosing 43.8 ml/min Est GFR ( Amer) 58.1 Est GFR (Non-Af Amer) 50.1 BUN/Creatinine Ratio 13.9 (10-20) Glucose 147 H (70-99) mg/dl POC Glucose (other) 126 H (70-99) mg/dl Calcium 9.8 (8.5-10.1) mg/dl POC Ioniz Calcium Abbie 1.10 L (1.12-1.32) mmol/l Total Bilirubin 0.6 (0.2-1) mg/dl AST 12 L (15-37) U/L ALT 14 (12-78) U/L Alkaline Phosphatase 102 (45-117) U/L Total Protein 7.7 (6.4-8.2) gm/dl Albumin 3.2 L (3.4-5.0) gm/dl Globulin 4.5 H (2.5-4.0) gm/dl Albumin/Globulin Ratio 0.7 L (0.9-2) Lipase 76 (73-393) U/L Medications Administered Ioversol (Optiray 320 100ml) 100 ml IV ONCE PRN PRN Reason: Interaction Checking Stop: 03/26/19 22:29 Last Admin: 03/22/19 22:31 Dose: 94 ml Documented by: [id number] Discontinued Medications Sodium Chloride (Nss 1000ml) 1,000 mls @ 999 mls/hr IV .Q1H1M NANCY Stop: 03/22/19 23:00 Last Infusion: 03/22/19 23:34 Dose: 0 mls/hr Documented by: [id number] Admin: 03/22/19 22:26 Dose: 999 mls/hr Documented by: [id number] Code Status & VTE Plan Code Status Full code VTE Prophylaxis Plan VTE Prophylaxis will be ordered: Yes Supervising Physician Co-Signing Physician Notes Attending addendum: I have physically seen this patient, have supervised the medical residents activities, and agree with the H&P unless as otherwise noted. Assessment and Plan: Small bowel obstruction- Previous admission September 2018 for same diagnosis. NPO Zofran 4 mg IV every 6 as PRN pain Zosyn 4.5 g IV every 8 hours IV fluids Famotidine 20 mg IV every 12 hours. Patient prefers no NG tube at this time. Serial laboratories. Stool for culture and C. difficile colitis. Of note, patient has C. difficile colitis in the past. Consult general surgery Remaining orders and notations as noted. PG Care Time/CCT Total # of Minutes Spent Total Time Spent with Patient: Total time spent is greater than 50% in coordination of care (as documented) at patient's floor/unit and/or counseling patient: Resident Activity Tracking Resident Involvement: Resident Care Provided Care Provided: Adult Hospital Medicine
[2019-03-23] MEDS ORDERED: LACTATED RINGER'S 1,000 ML IV SCH (01:03)
[2019-03-23] MEDS ORDERED: ACETAMINOPHEN 65 ML IV PRN (01:03)
[2019-03-23] MEDS: MoRPHine SULFATE 2 MG/ML CARP IV PRN ×3 (01:41→07:35)
[2019-03-23] MEDS: ONDANSETRON INJ 2 MG/ML 2 ML VIAL IV PRN (01:53)
[2019-03-23 06:41] LABS: Basophils # (auto) 0.01 K/uL (0-0.2); Basophils % (auto) 0.1 %; Eosinophils # (auto) 0.14 K/uL (0-0.5); Hemoglobin 13.1 g/dL (12.0-16.0); Immature Granulocytes # (auto) 0.02 K/uL (0.00-0.02); Immature Granulocytes % (auto) 0.3 %; Lymphocytes % (auto) 24.5 %; Mean Corpuscular Hgb Conc 33.6 g/dL (32-36); Mean Corpuscular Volume 90.3 fL (80-100); Mean Platelet Volume 8.8 fL (7.4-10.4); Monocytes # (auto) 0.62 K/uL (0.11-0.59); Monocytes % (auto) 8.9 %; Neutrophils # (auto) 4.45 K/uL (1.4-6.5); Neutrophils % (auto) 64.2 %; Platelet Count 444 K/uL (130-400); RDW Coefficient of Variation 13.1 % (11.5-14.5); RDW Standard Deviation 43.1 fL (36.4-46.3); Red Blood Count 4.32 M/uL (4.2-5.4); White Blood Count 6.94 K/uL (4.8-10.8)
[2019-03-23 06:52] LABS: Prothrombin Time 10.4 Seconds (9.0-12.0)
[2019-03-23 07:12] LABS: BUN Creatinine Ratio 17.5 (10-20); Calcium 8.6 mg/dl (8.5-10.1); Creatinine Clr Calc Pharmacy 57.4 ml/min; Est GFR (African American) 80.5; Est GFR (Non-African American) 69.5; Potassium 4.3 mmol/L (3.5-5.1)
[2019-03-23] MEDS: TIOTROPIUM BROMIDE 5 PUFF/90 MCG INH INH SCH (07:39)
[2019-03-23] MEDS: FLUTICASONE/SALMETEROL 250/50 (ADVAIR) 14 PUFF/1 INHALER INH SCH ×2 (07:40→20:52)
[2019-03-23] MEDS: IPRATROPIUM BROMIDE/ALBUTEROL respimat INH INH SCH ×3 (07:41→20:56)
[2019-03-23] MEDS: ENOXAPARIN INJ 40 MG/0.4 ML SYR SQ SCH (07:42)
[2019-03-23] MEDS: NICOTINE 14 MG/24 HR PATCH TD SCH (07:46)
--- NOTE | 2019-03-23 08:59 | Surgery Consultation ---
Date of Consultation March 23, 2019 Assessment & Plan (1) Small bowel obstruction: Her symptoms have improved overnight without NG. Will increase IVF, can have ice. Repeat XR tomorrow, if still improving consider clears. Supervising Physician Co-Signing Physician Notes Pnt S&E, agree with above. H/O hysterectomy and pelvic radiation w/ vesicovaginal fistula and h/o non op bowel obstructions, admitted for partial sbo. Feels better this today, had bm. Continue ice chips, will advance to clears if doing well tomorrow. History of Present Illness Attending Physician: Ramsey Nielsen DO History of Present Illness 58 y/o female with history of hysterectomy and recurrent bowel obstructions admitted last night with 24 hours of pain, bloating, nausea, some vomiting. Feels better today, less pain, bloating improved, however no flatus. Has waves of pain and nausea, no further vomiting. Last admitted over New Years for SBO. Has not had surgery for obstructions in the past. Has been following with [facility] urology for vesicovaginal fistula but does not want to have conduit. She did not want an NG last night on admission. Allergies Allergy/AdvReac Type Severity Reaction Status Date / Time paroxetine Allergy Severe suicidal Verified 03/22/19 23:22 thoughts varenicline Allergy Severe suicidal Verified 03/22/19 23:22 thoughts Cipro Allergy Unknown sores on Verified 04/21/18 22:15 tongue ciprofloxacin Allergy Unknown sores on Verified 03/22/19 23:22 tongue gabapentin Allergy Unknown unknown Verified 03/22/19 23:23 meloxicam Allergy Unknown unknown Verified 03/22/19 23:24 prednisone AdvReac Intermediate "INTERNAL Verified 03/22/19 23:24 BLEEDING FROM KIDNEY" Home Medications Home Medications Medication Instructions Recorded Confirmed Type atorvastatin 40 mg PO PM 11/15/18 03/22/19 History donepezil [Aricept] 5 mg PO HS 11/15/18 03/22/19 History duloxetine 90 mg PO DAILY 11/15/18 03/22/19 History fluticasone propion-salmeterol 1 inh INHALATION BID 11/15/18 03/22/19 History [Advair Diskus] lamotrigine [Lamictal] 150 mg PO BID 11/15/18 03/22/19 History lisinopril 5 mg PO DAILY 11/15/18 03/22/19 History lorazepam [Ativan] 0.5 mg PO BID PRN 11/15/18 03/22/19 History pantoprazole 40 mg PO DAILY 11/15/18 03/22/19 History potassium chloride 20 meq PO BID 11/15/18 03/22/19 History tiotropium bromide [Spiriva with 1 cap INHALATION DAILY 11/15/18 03/22/19 History HandiHaler] ascorbic acid (vitamin C) [Vitamin 500 mg PO DAILY 12/02/18 03/22/19 History C] glycopyrrolate 2 mg PO BID 12/02/18 03/22/19 History ipratropium-albuterol [Combivent 1 puff INHALATION BID 12/02/18 03/22/19 History Respimat] lactobacillus combination no.4 3,000 mmu cells PO DAILY 12/02/18 03/22/19 History [Probiotic] psyllium husk [Fiber-Caps 0.52 g PO DAILY 12/02/18 03/22/19 History (psyllium husk)] vitamin E 400 unit PO DAILY 12/02/18 03/22/19 History ferrous sulfate 325 mg (65 mg See Rx Instructions PO BID #60 tab 03/17/19 03/22/19 Rx iron) tablet clopidogrel 75 mg PO DAILY 03/22/19 03/22/19 History memantine [Namenda] 5 mg PO QAM 03/22/19 03/22/19 History Patient History Medical History Hypertension (Chronic) Bipolar 1 disorder (Chronic) Asthma (Chronic) Vesicovaginal fistula (Chronic) OCD (obsessive compulsive disorder) (Chronic) Dyslipidemia (Chronic) Anxiety (Chronic) Major depressive disorder, recurrent episode with anxious distress 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) Back pain Cervical cancer "s/p surgery and radiation" Contusion H/O hemorrhagic cystitis Hydroureteronephrosis IBS (irritable bowel syndrome) OAB (overactive bladder) Pyelonephritis Traumatic ecchymosis of left shoulder Ureteral stricture Urinary incontinence Surgical History H/O cystoscopy History of hysterectomy S/P appendectomy S/P vascular surgery Family History Other No significant family history Social History Preferred Language: Romanian Communication Ability: Effective Visual Impairment: No Limitations Hearing Ability: Normal 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 Trimmer Required: No Beliefs That Will Affect Care: None marital status: Current Living Situation: Alone current occupational status: unemployed and disabled Feels Safe at Home: Yes Safety Concerns: Feels Safe At This Time Smoking Status: Current every day smoker Tobacco Type: cigarettes Cigarettes Per Day: 20 Do You Dip or Chew Tobacco: No Second Hand Exposure: Yes Hx Alcohol Use: No Hx Substance Use: No Review of Systems Gastrointestinal: + abdominal pain, + bloating, + nausea and + vomiting Physical Exam Constitutional: WD/WN, vitals as above no acute distress Respiratory: normal respiratory effort Cardiovascular: Rate/Rhythm: regular rate Gastrointestinal (Abdomen): Inspection/Auscultation: + abdomen distended (minimal) Percussion/Palpation: + abdomen tender (minimal generalized) and abdomen soft; no guarding Skin: no rashes, warm and dry Results & Data Vital Signs (Past 12 Hours) Vital Signs Temp Pulse Pulse Resp BP BP Pulse Ox 03/23/19 07:56 36.7 C 78 18 133/86 95 03/23/19 07:52 36.8 C 71 18 156/60 H 93 03/23/19 01:56 36.8 C 91 H 16 150/72 H 97 03/23/19 00:50 36.8 C 91 H 16 150/72 H 97 03/23/19 00:25 82 18 116/83 95 03/22/19 22:04 99 03/22/19 21:57 36.8 C 98 H 20 146/97 H 99
[2019-03-23] MEDS: D5W AND 1/2NSS 1,000 ML IV SCH ×2 (09:30→18:02)
[2019-03-23] MEDS ORDERED: KETOROLAC TROMETHAMINE 15 MG/ML VIAL IV ONE (13:47)
--- NOTE | 2019-03-23 16:19 | Hospitalist Progress Note ---
Date of Service March 23, 2019 Assessment & Plan (1) Small bowel obstruction: Small bowel obstruction: Noted history of the same, most recently in September 2018, in part related to hysterectomy/radiation treatment for cervical cancer in 1995. Also has a known vesicovaginal fistula. Presently symptoms began around 2200 on 07Jul - opening up slowly, less distension, less pain, some flatus and BM will allow ice chips plan for KUB tomorrow, if improved then start clears patient agrees with taking it slowly d/w general surgery, would want to avoid surgery if possible due to h/o fistula and cervical cancer s/p radiation continue Zofran PRN Ongoing medical issues (patient's p.o. meds are being held due to n.p.o.): - Hypertension, hyperlipidemia, PAD, CAD: Continue home atorvastatin, lisinopril. - COPD: Continue home Advair, Combivent, Spiriva. - Bipolar I disorder, anxiety, depression: Continue home duloxetine and Lamictal. - Dementia: Continue home Aricept and amantadine. - GERD: Continue home pantoprazole. - Iron deficiency anemia: Admit Hb 15.0. Continue home iron. - Insomnia: Is presently off of previous trazodone. - Hypokalemia and leg cramping: Continue home potassium supplementation. Admit K 4.0. - C. difficile in Apr 2018: Patient says her stools have always been loose ever since then. - Left leg lymphedema: Status post radiation treatments. - Recurrent UTIs. History of hemorrhagic cystitis. - Tobacco abuse: We will provide nicotine patch as inpatient. (2) History of Clostridioides difficile infection: (3) Hypokalemia: (4) Depression: (5) Coronary artery disease: (6) Hyperlipidemia: (7) Abdominal pain: (8) [place]-vesical fistula: Subjective patient feeling better, still a little sore d/w Dr. Rubio, will advance diet to ice chips check KUB in the AM, plan for possible clears patient agrees with this plan, wants to take things slow Review of Systems Review of Systems: All systems reviewed & are unremarkable except as noted in HPI & below Constitutional: no fever, no chills and no sweats Respiratory: no cough and no dyspnea Cardiovascular: no chest pain and no edema Gastrointestinal: + abdominal pain and + constipation; no nausea, no vomiting, no diarrhea/loose stools and no blood in stools Physical Exam Constitutional: WD/WN, vitals as above Eyes: PERRL, conjunctivae normal, anicteric sclerae ENMT: external ear and nose normal, oropharynx normal Neck: trachea midline, no thyromegaly Respiratory: normal respiratory effort, lungs clear to auscultation Cardiovascular: RRR, no murmur, no edema Gastrointestinal (Abdomen): Inspection/Auscultation: + abdomen distended and + hypoactive bowel sounds; no abdominal edema Percussion/Palpation: + abdomen tender and abdomen soft; no guarding and abdomen not rigid Musculoskeletal: no cyanosis or clubbing, extremities motor strength 5/5 Skin: no rashes, warm and dry Neurologic: patellar DTR's 2+ bilat, sensation intact and PERRL, EOMI, accommodation nl, no face palsy, no dysarthria Psychiatric: A+Ox3, euthymic affect Lymphatic: no cervical or axillary lymphadenopathy Results & Data Vital Signs (Past 12 Hours) Vital Signs Temp Pulse Resp BP Pulse Ox 03/23/19 15:58 36.6 C 78 16 129/81 95 03/23/19 07:56 36.7 C 78 18 133/86 95 03/23/19 07:52 36.8 C 71 18 156/60 H 93 Laboratory Results Laboratory Results - last 24 hr 03/22/19 03/22/19 03/22/19 21:19 21:19 22:15 WBC 11.69 H RBC 4.83 Hgb 15.0 POC Hgb 12.6 Hct 43.5 POC Hct 37 MCV 90.1 MCH 31.1 MCHC 34.5 RDW Std Deviation 43.0 RDW Coeff of [place] 13.2 Plt Count 573 H MPV 9.1 Immature Gran % (Auto) 0.3 Neut % (Auto) 78.9 Lymph % (Auto) 13.5 [place] % (Auto) 6.3 Eos % (Auto) 0.9 Baso % (Auto) 0.1 Immature Gran # (Auto) 0.04 H Neut # (Auto) 9.22 H Lymph # (Auto) 1.58 [place] # (Auto) 0.74 H Eos # (Auto) 0.10 Baso # (Auto) 0.01 PT INR POC Sodium 139 Sodium 140 POC Potassium 3.7 Potassium 4.0 POC Chloride 103 Chloride 105 Carbon Dioxide 25 POC Total CO2 24 Anion Gap 10.0 POC Anion Gap 17.0 POC BUN 15 BUN 16 Creatinine 1.18 POC Creatinine 1.0 Est Cr Clr Drug Dosing 43.8 Est GFR ( Amer) 58.1 Est GFR (Non-Af Amer) 50.1 BUN/Creatinine Ratio 13.9 Glucose 147 H POC Glucose (other) 126 H Calcium 9.8 POC Ioniz Calcium Abbie 1.10 L Total Bilirubin 0.6 AST 12 L ALT 14 Alkaline Phosphatase 102 Total Protein 7.7 Albumin 3.2 L Globulin 4.5 H Albumin/Globulin Ratio 0.7 L Lipase 76 03/23/19 03/23/19 03/23/19 06:23 06:23 06:23 WBC 6.94 RBC 4.32 Hgb 13.1 POC Hgb Hct 39.0 POC Hct MCV 90.3 MCH 30.3 MCHC 33.6 RDW Std Deviation 43.1 RDW Coeff of [place] 13.1 Plt Count 444 H MPV 8.8 Immature Gran % (Auto) 0.3 Neut % (Auto) 64.2 Lymph % (Auto) 24.5 [place] % (Auto) 8.9 Eos % (Auto) 2.0 Baso % (Auto) 0.1 Immature Gran # (Auto) 0.02 Neut # (Auto) 4.45 Lymph # (Auto) 1.70 [place] # (Auto) 0.62 H Eos # (Auto) 0.14 Baso # (Auto) 0.01 PT 10.4 INR 1.0 POC Sodium Sodium 140 POC Potassium Potassium 4.3 POC Chloride Chloride 107 Carbon Dioxide 28 POC Total CO2 Anion Gap 5.0 POC Anion Gap POC BUN BUN 16 Creatinine 0.90 POC Creatinine Est Cr Clr Drug Dosing 57.4 Est GFR ( Amer) 80.5 Est GFR (Non-Af Amer) 69.5 BUN/Creatinine Ratio 17.5 Glucose 109 H POC Glucose (other) Calcium 8.6 POC Ioniz Calcium Abbie Total Bilirubin AST ALT Alkaline Phosphatase Total Protein Albumin Globulin Albumin/Globulin Ratio Lipase Medications Administered Current Inpatient Medications Albuterol (Combivent Respimat) 1 puffs INH BID NANCY Stop: 04/22/19 08:59 Last Admin: 03/23/19 07:41 Dose: 1 puffs Documented by: Enoxaparin Sodium (Lovenox) 40 mg SQ Q24H NANCY Stop: 04/22/19 08:59 Last Admin: 03/23/19 07:42 Dose: 40 mg Documented by: Acetaminophen (Ofirmev) 65 mls @ 200 mls/hr IV Q4H PRN PRN Reason: Pain Stop: 04/22/19 01:02 Dextrose/Sodium Chloride (D5w And 1/2nss) 1,000 mls @ 125 mls/hr IV .Q8H NANCY Stop: 04/22/19 09:14 Last Admin: 03/23/19 09:30 Dose: 125 mls/hr Documented by: Ioversol (Optiray 320 100ml) 100 ml IV ONCE PRN PRN Reason: Interaction Checking Stop: 03/26/19 22:29 Last Admin: 03/22/19 22:31 Dose: 94 ml Documented by: Miscellaneous (Remove Nicoderm Patch) 1 ea N/A HS NANCY Stop: 04/22/19 20:59 Morphine Sulfate (Morphine Sulfate) 2 mg IV Q2H PRN PRN Reason: Pain Stop: 04/06/19 01:02 Last Admin: 03/23/19 07:35 Dose: 2 mg Documented by: Nicotine (Nicoderm Cq) 14 mg TD QAM NANCY Stop: 04/22/19 08:59 Last Admin: 03/23/19 07:46 Dose: Not Given Documented by: Ondansetron HCl (Zofran) 4 mg IV Q6H PRN PRN Reason: Nausea Stop: 04/22/19 01:02 Last Admin: 03/23/19 01:53 Dose: 4 mg Documented by: Fluticasone/Salmeterol (Advair Diskus 250/50) 1 puffs INH BID NANCY Stop: 04/22/19 08:59 Last Admin: 03/23/19 07:40 Dose: 1 puffs Documented by: Tiotropium [place] (Spiriva) 1 puffs INH DAILY NANCY Stop: 04/22/19 08:59 Last Admin: 03/23/19 07:39 Dose: 1 puffs Documented by: PG Care Time/CCT Total # of Minutes Spent Total Time Spent with Patient: Total time spent is greater than 50% in coordination of care (as documented) at patient's floor/unit and/or counseling patient: (1) Abdominal pain Abdominal location: generalized Qualified Code(s): R10.84 - Generalized abdominal pain
[2019-03-23] MEDS: LORazepam 0.5 MG TAB PO PRN (19:39)
[2019-03-24] MEDS: D5W AND 1/2NSS 1,000 ML IV SCH ×2 (03:26→08:42)
--- NOTE | 2019-03-24 07:25 | XRay Report ---
KUB HISTORY: Small bowel obstruction. Follow-up. COMPARISON: Abdomen and pelvis CT 03/22/2019. FINDINGS: Interval improvement in the dilated loops of small bowel consistent with a resolving small bowel obstruction. There is gas within the colon. A right iliac stent is noted. No renal calculi. No ureteral calculi. No pneumoperitoneum or pneumatosis. IMPRESSION: Above findings consistent with a resolving small bowel obstruction. Electronically signed by: Jasen Boyle M.D. 03/24/2019 7:24 AM
[2019-03-24 08:35] LABS: BUN Creatinine Ratio 12.3 (10-20); Calcium 8.5 mg/dl (8.5-10.1); Creatinine Clr Calc Pharmacy 71.8 ml/min; Est GFR (African American) 105.5; Potassium 3.5 mmol/L (3.5-5.1)
[2019-03-24] MEDS: NICOTINE 14 MG/24 HR PATCH TD SCH (08:41)
[2019-03-24] MEDS: ENOXAPARIN INJ 40 MG/0.4 ML SYR SQ SCH (08:43)
[2019-03-24] MEDS: FLUTICASONE/SALMETEROL 250/50 (ADVAIR) 14 PUFF/1 INHALER INH SCH ×2 (08:43→22:06)
[2019-03-24] MEDS: IPRATROPIUM BROMIDE/ALBUTEROL respimat INH INH SCH ×2 (08:43→22:06)
[2019-03-24] MEDS: TIOTROPIUM BROMIDE 5 PUFF/90 MCG INH INH SCH (08:44)
[2019-03-24] MEDS ORDERED: ACETAMINOPHEN 500 MG TAB PO PRN (08:50)
--- NOTE | 2019-03-24 08:50 | Surgery Progress Note ---
Date of Service March 24, 2019 Assessment & Plan (1) Small bowel obstruction: improved gas pattern on KUB will start clears, consider full liquids later today add K+ to IVF Subjective scant flatus, large BM, c/o headache, no nausea Physical Exam Gastrointestinal (Abdomen): Inspection/Auscultation: abdomen not distended Percussion/Palpation: + abdomen tender (mild) Results & Data Vital Signs (Past 12 Hours) Vital Signs Temp Pulse Resp BP Pulse Ox 03/24/19 07:00 36.6 C 72 20 119/78 99 03/23/19 23:40 36.8 C 73 18 111/67 97
[2019-03-24] MEDS: D5W AND 1/2NSS + 20MEQ KCL 20 MEQ/1,000 ML BAG IV SCH ×2 (09:19→18:29)
[2019-03-24 12:57] LABS: Appearance Urine Cloudy (Clear); Bacteria Urine Automated 4+ (Negative); Bilirubin Urine Negative (Negative); Blood Urine 2+ (Negative); Color Urine Yellow; Epithelial Cell Urine Auto >30 /lpf (0-5); Glucose Urine UA Negative (Negative); Ketones Urine Negative (Negative); Leukocyte Esterase Urine 3+ (Negative); Nitrite Urine Positive (Negative); Urobilinogen Urine Negative (Negative); WBC Urine Automated >30 /hpf (0-5); pH Urine 7.5 (4.5-7.5)
[2019-03-24 13:11] LABS: Protein Urine 2+ (Negative)
--- NOTE | 2019-03-24 13:36 | Hospitalist Progress Note ---
Date of Service March 24, 2019 Assessment & Plan (1) Small bowel obstruction: Small bowel obstruction: Noted history of the same, most recently in September 2018, in part related to hysterectomy/radiation treatment for cervical cancer in 1995. Also has a known vesicovaginal fistula. Presently symptoms began around 2200 on 07Jul - continues to improve today, less distension, less pain had a BM last night, no nausea or vomiting KUB today shows improved bowel gas pattern advance diet to full liquids today d/w general surgery, would want to avoid surgery if possible due to h/o fistula and cervical cancer s/p radiation continue Zofran PRN Ongoing medical issues (patient's p.o. meds are being held due to n.p.o.): - Hypertension, hyperlipidemia, PAD, CAD: Continue home atorvastatin, lisinopril. - COPD: Continue home Advair, Combivent, Spiriva. - Bipolar I disorder, anxiety, depression: Continue home duloxetine and Lamictal. - Dementia: Continue home Aricept and amantadine. - GERD: Continue home pantoprazole. - Iron deficiency anemia: Admit Hb 15.0. Continue home iron. - Insomnia: Is presently off of previous trazodone. - Hypokalemia and leg cramping: Continue home potassium supplementation. K is 3.5 today - C. difficile in Apr 2018: Patient says her stools have always been loose ever since then. - Left leg lymphedema: Status post radiation treatments. - Recurrent UTIs. History of hemorrhagic cystitis. - Tobacco abuse: We will provide nicotine patch as inpatient. (2) Headache: severe, behind both eyes no relief with Toradol IV yesterday will try a dose of Imitrex and look for improvement, treat like a migraine (3) Hypertension: (4) Hyperlipidemia: (5) Coronary artery disease: (6) COPD (chronic obstructive pulmonary disease): (7) Bipolar 1 disorder: (8) Anxiety: (9) Depression: (10) Dementia: (11) GERD (gastroesophageal reflux disease): (12) Iron deficiency anemia: (13) Insomnia: (14) Hypokalemia: (15) Leg cramping: (16) History of Clostridioides difficile infection: (17) Lymphedema of left leg: (18) Recurrent UTI: (19) History of hemorrhagic cystitis: (20) Tobacco abuse: (21) Vesicovaginal fistula: (22) Peripheral arterial disease: Subjective doing better, large BM last night, tolerating clears today no nausea or vomiting KUB this morning shows improving small bowel gas pattern less pain today discussed with Dr. Rubio, agrees that we can advance to full liquids, maybe d/c tomorrow patient's main complaint is headache, described like it is behind her eyes says her eye balls hurt she has been laying in bed with lights off, helps a little no relief with Toradol yesterday will try some Imitrex SQ today reviewed labs, K is 3.5, Cr stable Review of Systems Review of Systems: All systems reviewed & are unremarkable except as noted in HPI & below Physical Exam Constitutional: WD/WN, vitals as above Eyes: PERRL, conjunctivae normal, anicteric sclerae ENMT: external ear and nose normal, oropharynx normal Neck: trachea midline, no thyromegaly Respiratory: normal respiratory effort, lungs clear to auscultation Cardiovascular: RRR, no murmur, no edema Gastrointestinal (Abdomen): Inspection/Auscultation: normal bowel sounds; abdomen not distended and no abdominal edema Percussion/Palpation: + abdomen tender and abdomen soft; no guarding and abdomen not rigid Musculoskeletal: no cyanosis or clubbing, extremities motor strength 5/5 Skin: no rashes, warm and dry Neurologic: patellar DTR's 2+ bilat, sensation intact and PERRL, EOMI, accommodation nl, no face palsy, no dysarthria Psychiatric: A+Ox3, euthymic affect Lymphatic: no cervical or axillary lymphadenopathy Results & Data Vital Signs (Past 12 Hours) Vital Signs Temp Pulse Resp BP Pulse Ox 03/24/19 07:00 36.6 C 72 20 119/78 99 Laboratory Results Laboratory Results - last 24 hr 03/24/19 03/24/19 07:37 12:15 Sodium 142 Potassium 3.5 D Chloride 111 H Carbon Dioxide 26 Anion Gap 6.0 BUN 9 D Creatinine 0.72 Est Cr Clr Drug Dosing 71.8 Est GFR ( Amer) 105.5 Est GFR (Non-Af Amer) 91.0 BUN/Creatinine Ratio 12.3 Glucose 94 Calcium 8.5 Urine Color Yellow Urine Appearance Cloudy A Urine pH 7.5 Ur Specific [place] 1.010 Urine Protein 2+ H Urine Glucose (UA) Negative Urine Ketones Negative Urine Blood 2+ H Urine Nitrite Positive A Urine Bilirubin Negative Urine Urobilinogen Negative Ur Leukocyte Esterase 3+ H Urine WBC (Auto) >30 H Urine RBC (Auto) 10-30 H U Hyaline Cast (Auto) 1-5 U Epithel Cells (Auto) >30 H Urine Bacteria (Auto) 4+ H Urine Yeast Not Reportable Diagnostic Findings KUB HISTORY: Small bowel obstruction. Follow-up. COMPARISON: Abdomen and pelvis CT 03/22/2019. FINDINGS: Interval improvement in the dilated loops of small bowel consistent with a resolving small bowel obstruction. There is gas within the colon. A right iliac stent is noted. No renal calculi. No ureteral calculi. No pneumoperitoneum or pneumatosis. IMPRESSION: Above findings consistent with a resolving small bowel obstruction. Medications Administered Current Inpatient Medications Acetaminophen (Tylenol) 1,000 mg PO Q6H PRN PRN Reason: Pain Stop: 04/23/19 08:49 Last Admin: 03/24/19 08:59 Dose: 1,000 mg Documented by: Albuterol (Combivent Respimat) 1 puffs INH BID NANCY Stop: 04/22/19 08:59 Last Admin: 03/24/19 08:43 Dose: 1 puffs Documented by: Enoxaparin Sodium (Lovenox) 40 mg SQ Q24H NANCY Stop: 04/22/19 08:59 Last Admin: 03/24/19 08:43 Dose: 40 mg Documented by: Acetaminophen (Ofirmev) 65 mls @ 200 mls/hr IV Q4H PRN PRN Reason: Pain Stop: 04/22/19 01:02 Last Infusion: 03/23/19 18:02 Dose: Infused Documented by: Potassium Chloride/Dextrose/Sod Cl (D5w And 1/2nss + 20meq Kcl) 20 meq in 1,000 mls @ 100 mls/hr IV .Q10H NANCY Stop: 04/23/19 08:59 Last Admin: 03/24/19 09:19 Dose: 100 mls/hr Documented by: Ioversol (Optiray 320 100ml) 100 ml IV ONCE PRN PRN Reason: Interaction Checking Stop: 03/26/19 22:29 Last Admin: 03/22/19 22:31 Dose: 94 ml Documented by: Lorazepam (Ativan) 0.5 mg PO Q12H PRN PRN Reason: Anxiety Stop: 04/22/19 19:18 Last Admin: 03/23/19 19:39 Dose: 0.25 mg Documented by: Miscellaneous (Remove Nicoderm Patch) 1 ea N/A HS [facility] Stop: 04/22/19 20:59 Last Admin: 03/23/19 20:53 Dose: Not Given Documented by: Morphine Sulfate (Morphine Sulfate) 2 mg IV Q2H PRN PRN Reason: Pain Stop: 04/06/19 01:02 Last Admin: 03/23/19 07:35 Dose: 2 mg Documented by: Nicotine (Nicoderm Cq) 14 mg TD QAM [facility] Stop: 04/22/19 08:59 Last Admin: 03/24/19 08:41 Dose: 14 mg Documented by: Ondansetron HCl (Zofran) 4 mg IV Q6H PRN PRN Reason: Nausea Stop: 04/22/19 01:02 Last Admin: 03/23/19 01:53 Dose: 4 mg Documented by: Fluticasone/Salmeterol (Advair Diskus 250/50) 1 puffs INH BID [facility] Stop: 04/22/19 08:59 Last Admin: 03/24/19 08:43 Dose: 1 puffs Documented by: Tiotropium [place] (Spiriva) 1 puffs INH DAILY [facility] Stop: 04/22/19 08:59 Last Admin: 03/24/19 08:44 Dose: 1 puffs Documented by: PG Care Time/CCT Total # of Minutes Spent Total Time Spent with Patient: Total time spent is greater than 50% in coordination of care (as documented) at patient's floor/unit and/or counseling patient:
[2019-03-24] MEDS ORDERED: SUMAtriptan succinate 6 MG/0.5 ML VIAL SQ STA (13:52)
[2019-03-24] MEDS: ONDANSETRON INJ 2 MG/ML 2 ML VIAL IV PRN (22:06)
[2019-03-24] MEDS: LORazepam 0.5 MG TAB PO PRN (22:54)
[2019-03-25] MEDS: D5W AND 1/2NSS + 20MEQ KCL 20 MEQ/1,000 ML BAG IV SCH ×2 (04:43→14:24)
[2019-03-25] MEDS: FLUTICASONE/SALMETEROL 250/50 (ADVAIR) 14 PUFF/1 INHALER INH SCH ×2 (09:10→22:15)
[2019-03-25] MEDS: ENOXAPARIN INJ 40 MG/0.4 ML SYR SQ SCH (09:10)
[2019-03-25] MEDS: IPRATROPIUM BROMIDE/ALBUTEROL respimat INH INH SCH ×2 (09:10→22:15)
[2019-03-25] MEDS: TIOTROPIUM BROMIDE 5 PUFF/90 MCG INH INH SCH (09:12)
[2019-03-25] MEDS: NICOTINE 14 MG/24 HR PATCH TD SCH (09:12)
[2019-03-25] MEDS: LORazepam 0.5 MG TAB PO PRN (09:14)
[2019-03-25] MEDS ORDERED: LORazepam 0.5 MG TAB PO PRN (10:17)
[2019-03-25] MEDS: ASCORBIC ACID 500 MG TAB PO SCH (11:58)
[2019-03-25] MEDS: DULOXETINE HCL 30 MG CAP PO SCH (11:58)
[2019-03-25] MEDS: POTASSIUM CHLORIDE 20 MEQ TABCR PO SCH ×2 (11:59→22:15)
[2019-03-25] MEDS: lamoTRIgine 100 MG TAB PO SCH ×2 (11:59→22:15)
[2019-03-25] MEDS: PANTOprazole 40 MG TAB PO SCH (12:00)
[2019-03-25] MEDS: MEMANTINE HCL 5 MG TAB PO SCH (12:00)
[2019-03-25] MEDS: GLYCOPYRROLATE 1 MG TAB PO SCH ×2 (12:01→22:15)
--- NOTE | 2019-03-25 14:58 | Surgery Progress Note ---
Date of Service March 25, 2019 Assessment & Plan (1) Small bowel obstruction: resolving sbo advance diet dispo per primary team surgery will sign off, call with questions or concerns Subjective 58 y/o f with h/o hysterectomy and pelvic radiation, here for partial sbo. Tolerating fulls, no abdominal pain, +flatus and bm. feels much better Physical Exam Constitutional: WD/WN, vitals as above Gastrointestinal (Abdomen): normal bowel sounds, soft, nontender, no hepatosplenomegaly Results & Data Vital Signs (Past 12 Hours) Vital Signs Temp Pulse Resp BP Pulse Ox 03/25/19 07:45 36.9 C 75 18 168/81 H 94
--- NOTE | 2019-03-25 15:07 | Hospitalist Progress Note ---
Date of Service March 25, 2019 Assessment & Plan (1) Small bowel obstruction: Small bowel obstruction: Noted history of the same, most recently in September 2018, in part related to hysterectomy/radiation treatment for cervical cancer in 1995. Also has a known vesicovaginal fistula. Presently symptoms began around 2200 on 07Jul - nearly resolved, no distention, no pain advance to low fiber diet + flatus, no nausea or vomiting KUB 03/25 showed improved bowel gas pattern d/w general surgery, would want to avoid surgery if possible due to h/o fistula and cervical cancer s/p radiation continue Zofran PRN Ongoing medical issues (resume PO medications) - Hypertension, hyperlipidemia, PAD, CAD: Continue home atorvastatin, lisinopril. - COPD: Continue home Advair, Combivent, Spiriva. - Bipolar I disorder, anxiety, depression: Continue home duloxetine and Lamictal. - Dementia: Continue home Aricept and amantadine. - GERD: Continue home pantoprazole. - Iron deficiency anemia: Admit Hb 15.0. Continue home iron. - Insomnia: Is presently off of previous trazodone. - Hypokalemia and leg cramping: Continue home potassium supplementation. K is 3.5 today - C. difficile in Apr 2018: Patient says her stools have always been loose ever since then. - Left leg lymphedema: Status post radiation treatments. - Recurrent UTIs. History of hemorrhagic cystitis. - Tobacco abuse: We will provide nicotine patch as inpatient. (2) Headache: severe, behind both eyes resolved with Imitrex SQ yesterday (3) Hypertension: (4) Hyperlipidemia: (5) Coronary artery disease: (6) COPD (chronic obstructive pulmonary disease): (7) Bipolar 1 disorder: (8) Anxiety: (9) Depression: (10) Dementia: (11) GERD (gastroesophageal reflux disease): (12) Iron deficiency anemia: (13) Insomnia: (14) Hypokalemia: (15) Leg cramping: (16) History of Clostridioides difficile infection: (17) Lymphedema of left leg: (18) Recurrent UTI: (19) History of hemorrhagic cystitis: (20) Tobacco abuse: (21) Vesicovaginal fistula: urine coming out of vaginal, incontinent causing some irritation and pain discussed that she needs to follow up with her urologist (22) Peripheral arterial disease: Subjective patient tolerating full liquids, will advance to low fiber diet moving bowels, passing flatus, no nausea/vomiting headache is gone after dose of Imitrex SQ c/o foul odor from her vaginal, said that her vagina is incredibly painful with a female pharmacist intern in the room, performed limited pelvic exam discussed that the only clinical finding was that she was having urine come out of her vagina discussed with her that this is what happens with vesicovaginal fistula she said that her urologist had discussed ileal conduit in the past but she refused discussed with Dr. Rubio, SBO resolving, no surgical needs, he plans to sign off Review of Systems Review of Systems: All systems reviewed & are unremarkable except as noted in HPI & below Respiratory: no cough and no dyspnea Cardiovascular: no chest pain and no edema Genitourinary: + vaginal odor and + pelvic pain Physical Exam Constitutional: WD/WN, vitals as above Eyes: PERRL, conjunctivae normal, anicteric sclerae ENMT: external ear and nose normal, oropharynx normal Neck: trachea midline, no thyromegaly Respiratory: normal respiratory effort, lungs clear to auscultation Cardiovascular: RRR, no murmur, no edema Gastrointestinal (Abdomen): Inspection/Auscultation: normal bowel sounds; abdomen not distended and no abdominal edema Percussion/Palpation: abdomen soft; abdomen nontender, no guarding and abdomen not rigid Musculoskeletal: no cyanosis or clubbing, extremities motor strength 5/5 Skin: no rashes, warm and dry Neurologic: patellar DTR's 2+ bilat, sensation intact and PERRL, EOMI, accommodation nl, no face palsy, no dysarthria Psychiatric: A+Ox3, euthymic affect Genitourinary: no vaginal lesions, no adnexal mass (external genitalia normal, foul odor which smelled like urine) Lymphatic: no cervical or axillary lymphadenopathy Results & Data Vital Signs (Past 12 Hours) Vital Signs Temp Pulse Resp BP Pulse Ox 03/25/19 07:45 36.9 C 75 18 168/81 H 94 Medications Administered Current Inpatient Medications Acetaminophen (Tylenol) 1,000 mg PO Q6H PRN PRN Reason: Pain Stop: 04/23/19 08:49 Last Admin: 03/24/19 08:59 Dose: 1,000 mg Documented by: Albuterol (Combivent Respimat) 1 puffs INH BID NANCY Stop: 04/22/19 08:59 Last Admin: 03/25/19 09:10 Dose: Not Given Documented by: Ascorbic Acid (Vitamin C) 500 mg PO DAILY NANCY Stop: 04/24/19 10:44 Last Admin: 03/25/19 11:58 Dose: 500 mg Documented by: Atorvastatin Calcium (Lipitor) 40 mg PO PM NANCY Stop: 04/24/19 20:59 Clopidogrel Bisulfate (Plavix) 75 mg PO DAILY NANCY Stop: 04/25/19 08:59 Donepezil HCl (Aricept) 5 mg PO HS NANCY Stop: 04/24/19 20:59 Duloxetine HCl (Cymbalta) 90 mg PO DAILY [facility] Stop: 04/24/19 10:59 Last Admin: 03/25/19 11:58 Dose: 90 mg Documented by: Enoxaparin Sodium (Lovenox) 40 mg SQ Q24H NANCY Stop: 04/22/19 08:59 Last Admin: 03/25/19 09:10 Dose: 40 mg Documented by: Glycopyrrolate (Robinul) 2 mg PO BID NANCY Stop: 04/24/19 10:59 Last Admin: 03/25/19 12:01 Dose: 2 mg Documented by: Acetaminophen (Ofirmev) 65 mls @ 200 mls/hr IV Q4H PRN PRN Reason: Pain Stop: 04/22/19 01:02 Last Infusion: 03/23/19 18:02 Dose: Infused Documented by: Potassium Chloride/Dextrose/Sod Cl (D5w And 1/2nss + 20meq Kcl) 20 meq in 1,000 mls @ 100 mls/hr IV .Q10H NANCY Stop: 04/23/19 08:59 Last Admin: 03/25/19 14:24 Dose: 100 mls/hr Documented by: Ioversol (Optiray 320 100ml) 100 ml IV ONCE PRN PRN Reason: Interaction Checking Stop: 03/26/19 22:29 Last Admin: 03/22/19 22:31 Dose: 94 ml Documented by: Lactobacillus Acidophilus (Floranex) 4 tab PO DAILY [facility]; Protocol Stop: 04/25/19 08:59 Lamotrigine (Lamictal) 150 mg PO BID [facility] Stop: 04/24/19 10:59 Last Admin: 03/25/19 11:59 Dose: 150 mg Documented by: Lisinopril (Zestril) 5 mg PO DAILY [facility] Stop: 04/25/19 08:59 Lorazepam (Ativan) 0.5 mg PO Q12H PRN PRN Reason: Anxiety Stop: 04/22/19 19:18 Last Admin: 03/25/19 09:14 Dose: 0.5 mg Documented by: Lorazepam (Ativan) 0.5 mg PO BID PRN PRN Reason: Anxiety Stop: 04/24/19 10:16 Memantine (Namenda) 5 mg PO QAM [facility] Stop: 04/24/19 10:59 Last Admin: 03/25/19 12:00 Dose: 5 mg Documented by: Miscellaneous (Remove Nicoderm Patch) 1 ea N/A HS [facility] Stop: 04/22/19 20:59 Last Admin: 03/24/19 22:07 Dose: 1 ea Documented by: Morphine Sulfate (Morphine Sulfate) 2 mg IV Q2H PRN PRN Reason: Pain Stop: 04/06/19 01:02 Last Admin: 03/23/19 07:35 Dose: 2 mg Documented by: Nicotine (Nicoderm Cq) 14 mg TD QAM [facility] Stop: 04/22/19 08:59 Last Admin: 03/25/19 09:12 Dose: 14 mg Documented by: Ondansetron HCl (Zofran) 4 mg IV Q6H PRN PRN Reason: Nausea Stop: 04/22/19 01:02 Last Admin: 03/24/19 22:06 Dose: 4 mg Documented by: Pantoprazole Sodium (Protonix) 40 mg PO DAILY [facility] Stop: 04/24/19 10:59 Last Admin: 03/25/19 12:00 Dose: 40 mg Documented by: Potassium Chloride (Klor-Con M20) 20 meq PO BID [facility] Stop: 04/24/19 10:59 Last Admin: 03/25/19 11:59 Dose: 20 meq Documented by: Psyllium Hydrophilic Mucilloid (Metamucil) 1 pkt PO DAILY [facility]; Protocol Stop: 04/25/19 08:59 Fluticasone/Salmeterol (Advair Diskus 250/50) 1 puffs INH BID [facility] Stop: 04/22/19 08:59 Last Admin: 03/25/19 09:10 Dose: 1 puffs Documented by: Tiotropium [place] (Spiriva) 1 puffs INH DAILY NANCY Stop: 04/22/19 08:59 Last Admin: 03/25/19 09:12 Dose: 1 puffs Documented by: Vitamin E (Vitamin E) 400 units PO DAILY NANCY Stop: 04/25/19 08:59 PG Care Time/CCT Total # of Minutes Spent Total Time Spent with Patient: Total time spent is greater than 50% in coordination of care (as documented) at patient's floor/unit and/or counseling patient:
[2019-03-25] MEDS ORDERED: ATORVASTATIN 40 MG TAB PO SCH (21:00)
[2019-03-25] MEDS ORDERED: DONEPEZIL HCL 5 MG TAB PO SCH (21:00)
[2019-03-26] MEDS: D5W AND 1/2NSS + 20MEQ KCL 20 MEQ/1,000 ML BAG IV SCH (00:13)
[2019-03-26 07:33] LABS: Hematocrit (blood only) 33.4 % (37-47); Hemoglobin 10.9 g/dL (12.0-16.0); Mean Corpuscular Hgb Conc 32.6 g/dL (32-36); Mean Corpuscular Volume 89.8 fL (80-100); Mean Platelet Volume 8.8 fL (7.4-10.4); Platelet Count 337 K/uL (130-400); RDW Standard Deviation 42.4 fL (36.4-46.3); Red Blood Count 3.72 M/uL (4.2-5.4); White Blood Count 4.93 K/uL (4.8-10.8)
[2019-03-26] MEDS ORDERED: CLOPIDOGREL BISULFATE 75 MG TAB PO SCH (09:00)
[2019-03-26] MEDS ORDERED: TOCOPHERYL, DL-ALPHA 400 UNITS CAP PO SCH (09:00)
[2019-03-26] MEDS ORDERED: LISINOPRIL 5 MG TAB PO SCH (09:00)
[2019-03-26] MEDS ORDERED: LACTOBACILLUS ACIDOPHILUS (FLORANEX) TAB PO SCH (09:00)
[2019-03-26] MEDS ORDERED: PSYLLIUM 58.6% POWDER PACKET PO SCH (09:00)
[2019-03-26] MEDS: MEMANTINE HCL 5 MG TAB PO SCH (09:01)
[2019-03-26] MEDS: ASCORBIC ACID 500 MG TAB PO SCH (09:01)
[2019-03-26] MEDS: DULOXETINE HCL 30 MG CAP PO SCH (09:01)
[2019-03-26] MEDS: GLYCOPYRROLATE 1 MG TAB PO SCH (09:01)
[2019-03-26] MEDS: PANTOprazole 40 MG TAB PO SCH (09:02)
[2019-03-26] MEDS: POTASSIUM CHLORIDE 20 MEQ TABCR PO SCH (09:02)
[2019-03-26] MEDS: lamoTRIgine 100 MG TAB PO SCH (09:03)
[2019-03-26] MEDS: TIOTROPIUM BROMIDE 5 PUFF/90 MCG INH INH SCH (09:04)
[2019-03-26] MEDS: FLUTICASONE/SALMETEROL 250/50 (ADVAIR) 14 PUFF/1 INHALER INH SCH (09:04)
[2019-03-26] MEDS: ENOXAPARIN INJ 40 MG/0.4 ML SYR SQ SCH (09:04)
[2019-03-26] MEDS: NICOTINE 14 MG/24 HR PATCH TD SCH (09:05)
[2019-03-26] MEDS: IPRATROPIUM BROMIDE/ALBUTEROL respimat INH INH SCH (09:05)
[2019-03-26] MEDS ORDERED: Nursing to Pharmacy Communication ONE (09:15)
[2019-03-26] MEDS ORDERED: D5W AND 1/2NSS + 20MEQ KCL 20 MEQ/1,000 ML BAG IV SCH (09:30)
--- NOTE | 2019-03-26 12:40 | Discharge Summary ---
Date of Service March 26, 2019 Admission HPI Per Admitting Provider 58-year-old female presents emergency department via EMS with a rather sudden onset of lower abdominal pain beginning around 10 PM on 07Jul. She has a notable history of multiple small bowel obstructions thought to be related to her history of cervical cancer s/p hysterectomy and radiation treatment in 1995. Last SBO admission was September 2018. Patient says that initially on onset of her abdominal pain she thought it might be related to "IBS type stuff" in hopes that it would self-resolve. However, she says the pain got progressively worse throughout the day which made her more worried that she may have a partial SBO progressing to a complete obstruction. She has had nothing p.o. all day with the exception of trying some fluids around 7 PM but had immediate emesis afterwards. Denies passing flatus as well. Says last bowel movement was on 07Jul and was loose, non-bloody, consistent with bowel movements ever since diagnosed with C. difficile in April 2018. She denies any concurrent symptoms or other acute concerns. - Past medical history includes small bowel obstruction, cervical cancer in 1995 s/p hysterectomy and radiation, hypertension, hyperlipidemia, PAD, CAD, COPD, bipolar 1, anxiety, depression, dementia, GERD, iron deficiency anemia, insomnia, hypokalemia, leg cramps, C. difficile in April 2018, left leg lymphedema, recurrent UTIs, hemorrhagic cystitis. - Past surgical history includes hysterectomy, appendectomy, right external iliac artery stent. - Social history includes smoking 1 pack/day. Denies alcohol use. Is presently homeless but staying with a friend. Principal Diagnosis Partial small bowel obstruction Discharge Exam Constitutional WD/WN, vitals as above Eyes PERRL, conjunctivae normal, anicteric sclerae ENMT external ear and nose normal, oropharynx normal Neck trachea midline, no thyromegaly Respiratory normal respiratory effort, lungs clear to auscultation Cardiovascular RRR, no murmur, no edema Gastrointestinal (Abdomen) Inspection/Auscultation: normal bowel sounds; abdomen not distended and no abdominal edema Percussion/Palpation: abdomen soft; abdomen nontender, no guarding and abdomen not rigid Musculoskeletal no cyanosis or clubbing, extremities motor strength 5/5 Skin no rashes, warm and dry Neurologic patellar DTR's 2+ bilat, sensation intact and PERRL, EOMI, accommodation nl, no face palsy, no dysarthria Psychiatric A+Ox3, euthymic affect Lymphatic no cervical or axillary lymphadenopathy Discharge Data Allergies Allergy/AdvReac Type Severity Reaction Status Date / Time paroxetine Allergy Severe suicidal Verified 03/22/19 23:22 thoughts varenicline Allergy Severe suicidal Verified 03/22/19 23:22 thoughts Cipro Allergy Unknown sores on Verified 04/21/18 22:15 tongue ciprofloxacin Allergy Unknown sores on Verified 03/22/19 23:22 tongue gabapentin Allergy Unknown unknown Verified 03/22/19 23:23 meloxicam Allergy Unknown unknown Verified 03/22/19 23:24 prednisone AdvReac Intermediate "INTERNAL Verified 03/22/19 23:24 BLEEDING FROM KIDNEY" Consultations 03/22/19 22:39 ED Decision to Admit Stat 03/23/19 01:03 Consult General Surgery Routine Ordered Studies 03/22/19 21:48 CT abd pelvis IV con only Stat Hospital Course (1) Small bowel obstruction: Small bowel obstruction: Noted history of the same, most recently in September 2018, in part related to hysterectomy/radiation treatment for cervical cancer in 1995. Also has a known vesicovaginal fistula. Presently symptoms began around 2200 on 07Jul - resolved, no distention, no pain tolerating low fiber diet + flatus and BM, no nausea or vomiting KUB 03/25 showed improved bowel gas pattern d/w general surgery, would want to avoid surgery if possible due to h/o fistula and cervical cancer s/p radiation continue Zofran PRN Ongoing medical issues (resume PO medications) - Hypertension, hyperlipidemia, PAD, CAD: Continue home atorvastatin, lisinopril. - COPD: Continue home Advair, Combivent, Spiriva. - Bipolar I disorder, anxiety, depression: Continue home duloxetine and Lamictal. - Dementia: Continue home Aricept and amantadine. - GERD: Continue home pantoprazole. - Iron deficiency anemia: Admit Hb 15.0. Continue home iron. - Insomnia: Is presently off of previous trazodone. - Hypokalemia and leg cramping: Continue home potassium supplementation. K is 3.5 today - C. difficile in Apr 2018: Patient says her stools have always been loose ever since then. - Left leg lymphedema: Status post radiation treatments. - Recurrent UTIs. History of hemorrhagic cystitis. - Tobacco abuse: We will provide nicotine patch as inpatient. (2) Vesicovaginal fistula: urine coming out of vaginal, incontinent causing some irritation and pain discussed that she needs to follow up with her urologist reports she has appt with Urology at [facility] (3) Headache: severe, behind both eyes resolved with Imitrex SQ yesterday (4) Hypertension: (5) Hyperlipidemia: (6) Coronary artery disease: (7) COPD (chronic obstructive pulmonary disease): (8) Bipolar 1 disorder: (9) Anxiety: (10) Depression: (11) Dementia: (12) GERD (gastroesophageal reflux disease): (13) Iron deficiency anemia: (14) Insomnia: (15) Hypokalemia: (16) Leg cramping: (17) History of Clostridioides difficile infection: (18) Lymphedema of left leg: (19) Recurrent UTI: (20) History of hemorrhagic cystitis: (21) Tobacco abuse: (22) Peripheral arterial disease: Total Time Total Time Spent Total Time Spent (In Minutes): 31 minutes Total Time Includes: Examination of the Patient, Discharge Planning, Medication Reconciliation and Communication With Other Providers (general surgery) Discharge Plan Discharge Items Patient Disposition: Home - Self-Care Reason For Visit: SMALL BOWEL OBSTRUCTION Discharge Diagnosis: Partial small bowel obstruction, resolved Vesicovaginal fistula Condition: Good Discharge Goals: Improve disease control, Improve function and Specific goals Specific Goals: follow up with urology to discuss fistula Activity: Resume your previous activity Non-emergency contact: Primary Care Provider and Urologist Call non-emergency contact if: you have any medication questions, your symptoms worsen, your pain is not controlled and you have a fever Follow-up/Referrals: Lavern Minor DO [Primary Care Provider] - 03/29/19 10:15 am (Please, follow up at Dr. Minor's office with her associate, Saravanan JORDAN, on FridayMarch 29 at 10:15 am. *If you need to change this appointment, call their office at [phone].) Diet: Regular Addtl Provider Instructions: Medications: no changes Partial small bowel obstruction resolved with conservative measures best advice is to stay well hydrated, use fiber supplement, stay active prone to repeated obstruction due to adhesions in pelvis from radiation Vesicovaginal fistula this is a connection between bladder and anterior vaginal wall results in urine leaking into vagina which is causing pain and irritation recommend that you keep your follow up appt with urology at [facility] discuss options to prevent this FOLLOW UP - Dr. Minor on 03/29 Prescriptions: Continued ferrous sulfate 325 mg (65 mg iron) tablet See Rx Instructions mg PO BID Qty: 60 RF: 5 glycopyrrolate 1 mg Tablet 2 mg PO BID RF: 0 ascorbic acid (vitamin C) [Vitamin C] 500 mg Tablet 500 mg PO DAILY RF: 0 vitamin E 400 unit Capsule 400 unit PO DAILY RF: 0 psyllium husk [Fiber-Caps (psyllium husk)] 0.52 gram Capsule 0.52 g PO DAILY RF: 0 Probiotic 3 billion cell Capsule 3,000 mmu cells PO DAILY RF: 0 Combivent Respimat 20-100 mcg/actuation Mist 1 puff Inhalation BID RF: 0 memantine [Namenda] 5 mg tablet 5 mg PO QAM RF: 0 clopidogrel 75 mg tablet 75 mg PO DAILY RF: 0 fluticasone propion-salmeterol [Advair Diskus] 250-50 mcg/dose Blister With Device 1 inh INHALATION BID RF: 0 atorvastatin 40 mg Tablet 40 mg PO PM RF: 0 donepezil [Aricept] 5 mg Tablet 5 mg PO HS RF: 0 lorazepam [Ativan] 0.5 mg Tablet 0.5 mg PO BID PRN (Reason: Anxiety) RF: 0 duloxetine 30 mg Capsule,Delayed Release(Dr/Ec) 90 mg PO DAILY RF: 0 lamotrigine [Lamictal] 150 mg Tablet 150 mg PO BID RF: 0 lisinopril 5 mg Tablet 5 mg PO DAILY RF: 0 Spiriva with HandiHaler 18 mcg Capsule, W/Inhalation Device 1 cap INHALATION DAILY RF: 0 pantoprazole 40 mg Tablet,Delayed Release (Dr/Ec) 40 mg PO DAILY RF: 0 potassium chloride 20 mEq Tablet Extended Release 20 meq PO BID RF: 0 Stand-Alone Forms: Call Back Authorization, [facility] Discharge Orders: Discharge Order (Routine); Ordered 03/26/19 Ordered By: Ramsey Nielsen Admission Data Admit Date/Time: 03/23/19 00:03 Attending Provider: Morales,Peter W Admit Provider: Pepe Mckenzie Primary Care Provider: Lavern Minor Other Providers: Honorio Ly ; Dino Krueger Service: Surgical Services
== END 2019-03-26 13:38 | disposition home or self-care (01) | DRG 389 ==
LOC: ED 21:45 → 3N 03-23 00:03 → SUATTDRO 03-23 00:03 → 3N 03-23 00:30

== ENCOUNTER 2019-04-30 00:42 | Inpatient (IN) ==
[2019-04-30] MEDS ORDERED: SODIUM CHLORIDE 0.9% 1000ML 1,000 ML IV ONE (01:15)
[2019-04-30] MEDS ORDERED: LORazepam 2 MG/ML VIAL (IM USE) IM STA (01:51)
[2019-04-30 02:35] LABS: Basophils # (auto) 0.03 K/uL (0-0.2); Basophils % (auto) 0.2 %; Eosinophils # (auto) 0.05 K/uL (0-0.5); Eosinophils % (auto) 0.4 %; Hematocrit (blood only) 34.9 % (37-47); Hemoglobin 12.1 g/dL (12.0-16.0); Immature Granulocytes # (auto) 0.03 K/uL (0.00-0.02); Immature Granulocytes % (auto) 0.2 %; Lymphocytes # (auto) 1.57 K/uL (1.2-3.4); Lymphocytes % (auto) 12.5 %; Mean Corpuscular Hgb Conc 34.7 g/dL (32-36); Mean Corpuscular Volume 89.5 fL (80-100); Mean Platelet Volume 8.9 fL (7.4-10.4); Monocytes % (auto) 5.6 %; Neutrophils % (auto) 81.1 %; Platelet Count 398 K/uL (130-400); RDW Coefficient of Variation 13.9 % (11.5-14.5); RDW Standard Deviation 45.4 fL (36.4-46.3); White Blood Count 12.58 K/uL (4.8-10.8)
[2019-04-30 02:45] LABS: Partial Thromboplastin Ratio 0.9; Partial Thromboplastin Time 24.1 Seconds (21.0-31.0); Prothrombin Time 10.3 Seconds (9.0-12.0)
[2019-04-30 02:55] LABS: Albumin Level 3.5 gm/dl (3.4-5.0); BUN Creatinine Ratio 15.9 (10-20); Calcium 10.4 mg/dl (8.5-10.1); Creatinine Clr Calc Pharmacy 26.5 ml/min; Est GFR (African American) 31.6; Est GFR (Non-African American) 27.3; Potassium 4.6 mmol/L (3.5-5.1)
[2019-04-30 02:57] LABS: Albumin Globulin Ratio 0.9 (0.9-2); Bilirubin,Total 0.7 mg/dl (0.2-1); Globulin 3.7 gm/dl (2.5-4.0); Total Protein 7.2 gm/dl (6.4-8.2)
[2019-04-30 03:26] LABS: Appearance Urine Turbid (Clear); Bilirubin Urine Negative (Negative); Blood Urine 3+ (Negative); Color Urine Yellow; Glucose Urine UA Negative (Negative); Ketones Urine 2+ (Negative); Leukocyte Esterase Urine 2+ (Negative); Nitrite Urine Positive (Negative); Protein Urine 3+ (Negative); Urobilinogen Urine Negative (Negative)
[2019-04-30 03:47] LABS: Epithelial Cell Urine >30 /lpf (0-5); RBC Urine >30 /hpf (0-4); WBC Urine >30 /hpf (0-5)
[2019-04-30 03:48] LABS: Bacteria Urine 2+ (Negative)
[2019-04-30] MEDS ORDERED: cefTRIAXone SODIUM 1,000 MG/50 ML BAG IV STA (03:53)
[2019-04-30] MEDS: SODIUM CHLORIDE 0.9% 500 ML IV SCH ×4 (04:08→19:16)
[2019-04-30] MEDS ORDERED: IPRATROPIUM BROMIDE/ALBUTEROL respimat INH INH PRN (04:35)
[2019-04-30] MEDS ORDERED: ONDANSETRON 4 MG TAB PO PRN (04:35)
--- NOTE | 2019-04-30 04:37 | History & Physical Report ---
Date of Service April 30, 2019 Assessment & Plan (1) UTI (urinary tract infection): Patient admitted to the hospital with altered mental status, elevated WBC, and abnormal UA. UA POINTS TOWARDS A UTI. LIKELY UNCOMPLICATED (CYSTITIS) Previous urine culture from March showed pansensitive E. coli Placed on ceftriaxone. (2) Acute metabolic encephalopathy: Due to UTI. - See above (3) Ezel-vesical fistula: Due to cervical cancer and required treatments. Causing her repeat UTIs. Per notes, she has been following with outside surgeon for repair. - No inpatient needs (4) Bipolar affective disorder: Long-standing psychiatry history, including multiple admissions for SI. - Is currently on a 302 from her father. -Consult psych - Continue home meds (5) Benign essential hypertension: BP presently in good control in the hospital. - Continue lisinopril (6) COPD (chronic obstructive pulmonary disease): Breathing is baseline. - Continue home inhalers (7) DVT prophylaxis: SCDs - Low DVT risk per admission calculator History of Present Illness Chief Complaint: Altered mental status Primary Care Provider: Lavern Minor, DO 58 yo female who arrives to the emergency department via a 302. As she arrived she was disheveled, and manic. Patient was given benzodiazepine to calm her down, WHICH APPEARS TO HAVE SEDATED HER. Patient curently is sleeping, opens eyes with verbal stimuli but then goes to sleep. She does not provide significant medical history. Allergies Allergy/AdvReac Type Severity Reaction Status Date / Time paroxetine Allergy Severe suicidal Verified 04/07/19 23:56 thoughts varenicline Allergy Severe suicidal Verified 04/07/19 23:56 thoughts Cipro Allergy Unknown sores on Verified 04/21/18 22:15 tongue ciprofloxacin Allergy Unknown sores on Verified 04/07/19 23:56 tongue doxycycline Allergy Unknown Unknown Verified 04/07/19 23:56 gabapentin Allergy Unknown unknown Verified 04/07/19 23:56 meloxicam Allergy Unknown unknown Verified 04/07/19 23:56 prednisone AdvReac Intermediate "INTERNAL Verified 04/07/19 23:56 BLEEDING FROM KIDNEY" baby powder AdvReac Severe asthma Uncoded 04/07/19 23:56 attacks Home Medications Home Medications Medication Instructions Recorded Confirmed Type Spiriva with HandiHaler 1 cap INHALATION QAM 11/15/18 04/30/19 History fluticasone propion-salmeterol 1 inh INHALATION BID 11/15/18 04/30/19 History [Advair Diskus] potassium chloride 20 meq PO BID 11/15/18 04/30/19 History Combivent Respimat 1 puff INHALATION BID PRN 12/02/18 04/30/19 History psyllium husk [Fiber-Caps 0.52 g PO QAM 12/02/18 04/30/19 History (psyllium husk)] vitamin E 400 unit PO QAM 12/02/18 04/30/19 History clopidogrel 75 mg PO QAM 03/22/19 04/30/19 History Lactobacillus 1 cap PO QAM cap 03/30/19 04/30/19 History acidophilus-Bifidobac.animalis 31 billion cell capsule glycopyrrolate 2 mg tablet 2 mg PO BID #60 tab 03/30/19 04/30/19 History ondansetron HCl 4 mg tablet 4 mg PO Q8H PRN #21 tab 03/30/19 04/30/19 History acetaminophen [Tylenol] 0 mg PO Q6H PRN 04/02/19 04/30/19 History ferrous sulfate 325 mg PO BID 04/02/19 04/30/19 History lisinopril 5 mg tablet 5 mg PO DAILY #90 tab 04/26/19 04/30/19 Rx pantoprazole 40 mg tablet,delayed 40 mg PO QAM #30 tab 04/26/19 04/30/19 Rx release amoxicillin-pot clavulanate 1 tab PO BIDM 7 Days #14 tab 05/05/19 Rx donepezil [Aricept] 5 mg PO HS #30 tab 05/05/19 Rx duloxetine 30 mg PO TID 30 Days #90 cap 05/05/19 Rx lamotrigine [Lamictal] 150 mg PO BID 30 Days #60 tab 05/05/19 Rx lorazepam [Ativan] 0.5 mg PO BID PRN #60 tab 05/05/19 Rx memantine [Namenda] 5 mg PO QAM #30 tab 05/05/19 Rx Past Med/Surg History Medical History Anemia (Acute) Benign essential hypertension (Acute) Bipolar affective disorder (Acute) Chronic kidney disease (Acute) Fibromyalgia (Acute) GERD without esophagitis (Acute) Hepatitis C virus infection (Acute) Lumbar disc disease (Acute) Narcotic abuse (Acute) Opioid dependence in remission (Acute) Radiation cystitis (Acute) History of hemorrhagic cystitis Recurrent UTI Lymphedema of left leg History of Clostridioides difficile infection Hypokalemia Dementia Depression Coronary artery disease Hyperlipidemia Abdominal pain (Acute) Abnormal vaginal bleeding (Chronic) Ezel-vesical fistula (Acute) 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) Back pain Cervical cancer "s/p surgery and radiation" Contusion H/O hemorrhagic cystitis Hydroureteronephrosis IBS (irritable bowel syndrome) OAB (overactive bladder) Pyelonephritis Traumatic ecchymosis of left shoulder Ureteral stricture Urinary incontinence Surgical History H/O cystoscopy History of hysterectomy S/P appendectomy S/P vascular surgery Family History Father Alcohol abuse Sister Alcohol abuse Anxiety Drug abuse Depression Hypertension Lung disease Other No significant family history Social History Preferred Language: Austrian Communication Ability: Effective Visual Impairment: No Limitations Hearing Ability: Normal Glove Boarder Required: No Beliefs That Will Affect Care: None marital status: Current Living Situation: Alone and Homeless Current Living Situation Comment: friend current occupational status: unemployed and disabled Feels Safe at Home: Yes Smoking Status: Current every day smoker Tobacco Type: cigarettes ; Age Started Using Tobacco: 15 ; packs per day: 1.5 ; Cigarettes Per Day: 20 ; Second Hand Exposure: Yes ; Hx Alcohol Use: No Hx Substance Use: Yes substance use type: does not use and marijuana Substance Use Type Other:: Narcotic abuse reported in history Last Used Substance: Unknown Other Diet Comment: has dentures Dental Care, Regularly: Yes Physical Activity Frequency: Does not Exercise Review of Systems Review of Systems: Unobtainable due to reduced consciousness Physical Exam Constitutional: WD/WN, vitals as above + altered mental status and + disheveled Eyes: PERRL, conjunctivae normal, anicteric sclerae ENMT: external ear and nose normal, oropharynx normal Neck: trachea midline, no thyromegaly Respiratory: normal respiratory effort, lungs clear to auscultation Cardiovascular: RRR, no murmur, no edema Gastrointestinal (Abdomen): normal bowel sounds, soft, nontender, no hepatosplenomegaly Skin: no rashes, warm and dry Psychiatric: Apperance: + disheveled Lymphatic: no cervical or axillary lymphadenopathy Results & Data Vital Signs (Past 12 Hours) Vital Signs Temp Pulse Pulse Resp BP BP Pulse Ox 04/30/19 04:08 92 H 18 124/80 96 04/30/19 03:19 100 H 18 155/93 H 96 04/30/19 01:30 95 04/30/19 00:50 36.8 C 118 H 18 135/87 95 PG Care Time/CCT Total # of Minutes Spent Total Time Spent with Patient: Total time spent is greater than 50% in coordination of care (as documented) at patient's floor/unit and/or counseling patient: (1) UTI (urinary tract infection) Hematuria presence: without hematuria Urinary tract infection type: site uns pecified Qualified Code(s): N39.0 - Urinary tract infection, site not specified
[2019-04-30] MEDS ORDERED: ACETAMINOPHEN 325 MG TAB PO PRN (04:39)
--- NOTE | 2019-04-30 07:28 | Emergency Department Note ---
Entered by Truman Amaro acting as a scribe for History of Present Illness General Chief complaint: Urinary Symptoms Stated complaint: UTI Time Seen by Provider: 04/30/19 00:44 Source: patient and other (nurse) History of Present Illness Onset (ago): week(s) 3 Location: back Pain Consistency: + constant Current Pain Intensity: 8 Associated symptoms: + other (Positive for confusion and left leg swelling.) The patient is a 58 year old female who presents to the emergency department with complaints of constant back pain beginning three weeks ago. Per nurse, the patients kids were unable to take care of the patient and took her to her fathers house. She states that the patients father is also not able to take care of her, and she notes that he then called police who brought the patient into the emergency department today. She reports that the patient is on a warrant because she is not able to take care of herself. The patient states that she was in the emergency department three weeks ago for a UTI but she notes that she did not take her antibiotics. She reports that she still likely has a UTI. She also complains of confusion and left leg swelling. She rates her back pain as an 8/10. Home Medications Home Medications Medication Instructions Recorded Confirmed Type Spiriva with HandiHaler 1 cap INHALATION QAM 11/15/18 04/30/19 History atorvastatin 40 mg PO HS 11/15/18 04/30/19 History donepezil [Aricept] 5 mg PO HS 11/15/18 04/30/19 History duloxetine 30 mg PO TID 11/15/18 04/30/19 History fluticasone propion-salmeterol 1 inh INHALATION BID 11/15/18 04/30/19 History [Advair Diskus] lamotrigine [Lamictal] 150 mg PO BID 11/15/18 04/30/19 History lorazepam [Ativan] 0.5 mg PO BID PRN 11/15/18 04/30/19 History potassium chloride 20 meq PO BID 11/15/18 04/30/19 History Combivent Respimat 1 puff INHALATION BID PRN 12/02/18 04/30/19 History psyllium husk [Fiber-Caps 0.52 g PO QAM 12/02/18 04/30/19 History (psyllium husk)] vitamin E 400 unit PO QAM 12/02/18 04/30/19 History clopidogrel 75 mg PO QAM 03/22/19 04/30/19 History memantine [Namenda] 5 mg PO QAM 03/22/19 04/30/19 History Lactobacillus 1 cap PO QAM cap 03/30/19 04/30/19 History acidophilus-Bifidobac.animalis 31 billion cell capsule glycopyrrolate 2 mg tablet 2 mg PO BID #60 tab 03/30/19 04/30/19 History ondansetron HCl 4 mg tablet 4 mg PO Q8H PRN #21 tab 03/30/19 04/30/19 History acetaminophen [Tylenol] 0 mg PO Q6H PRN 04/02/19 04/30/19 History ferrous sulfate 325 mg PO BID 04/02/19 04/30/19 History lisinopril 5 mg tablet 5 mg PO DAILY #90 tab 04/26/19 04/30/19 Rx pantoprazole 40 mg tablet,delayed 40 mg PO QAM #30 tab 04/26/19 04/30/19 Rx release metronidazole 500 mg PO BID 04/30/19 04/30/19 History tetracycline 500 mg PO TID 04/30/19 04/30/19 History Allergies Allergy/AdvReac Type Severity Reaction Status Date / Time paroxetine Allergy Severe suicidal Verified 04/07/19 23:56 thoughts varenicline Allergy Severe suicidal Verified 04/07/19 23:56 thoughts Cipro Allergy Unknown sores on Verified 04/21/18 22:15 tongue ciprofloxacin Allergy Unknown sores on Verified 04/07/19 23:56 tongue doxycycline Allergy Unknown Unknown Verified 04/07/19 23:56 gabapentin Allergy Unknown unknown Verified 04/07/19 23:56 meloxicam Allergy Unknown unknown Verified 04/07/19 23:56 prednisone AdvReac Intermediate "INTERNAL Verified 04/07/19 23:56 BLEEDING FROM KIDNEY" baby powder AdvReac Severe asthma Uncoded 04/07/19 23:56 attacks Past Med/Surg History Medical History Anemia (Acute) Benign essential hypertension (Acute) Bipolar affective disorder (Acute) Chronic kidney disease (Acute) Fibromyalgia (Acute) GERD without esophagitis (Acute) Hepatitis C virus infection (Acute) Lumbar disc disease (Acute) Narcotic abuse (Acute) Opioid dependence in remission (Acute) Radiation cystitis (Acute) History of hemorrhagic cystitis Recurrent UTI Lymphedema of left leg History of Clostridioides difficile infection Hypokalemia Dementia Depression Coronary artery disease Hyperlipidemia Abdominal pain (Acute) Abnormal vaginal bleeding (Chronic) 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) Back pain Cervical cancer "s/p surgery and radiation" Contusion H/O hemorrhagic cystitis Hydroureteronephrosis IBS (irritable bowel syndrome) OAB (overactive bladder) Pyelonephritis Traumatic ecchymosis of left shoulder Ureteral stricture Urinary incontinence Surgical History H/O cystoscopy History of hysterectomy S/P appendectomy S/P vascular surgery Family History Father Alcohol abuse Sister Alcohol abuse Anxiety Drug abuse Depression Hypertension Lung disease Other No significant family history Social History Preferred Language: Bulgarian Communication Ability: Effective Visual Impairment: No Limitations Hearing Ability: Normal Group Social Worker Required: No Beliefs That Will Affect Care: None marital status: Current Living Situation: Alone and Homeless Current Living Situation Comment: friend current occupational status: unemployed and disabled Feels Safe at Home: Yes Safety Concerns: Feels Safe At This Time Smoking Status: Current every day smoker Tobacco Type: cigarettes ; Age Started Using Tobacco: 15 ; packs per day: 1.5 ; Cigarettes Per Day: 20 ; Second Hand Exposure: Yes ; Hx Alcohol Use: No Hx Substance Use: Yes substance use type: does not use and marijuana Substance Use Type Other:: Narcotic abuse reported in history Last Used Substance: Unknown Other Diet Comment: has dentures Dental Care, Regularly: Yes Physical Activity Frequency: Does not Exercise Review of Systems See HPI for pertinent positives & negatives. and A total of 10 systems reviewed and were otherwise negative Physical Exam Vital Signs Vital Signs - 24 hr 04/30/19 00:50 04/30/19 01:30 04/30/19 03:19 Temperature 36.8 C Temperature Source Oral Sepsis Recent Fever Within 48 Hours No Sepsis New/Unexplained Change in Mental Status No Sepsis Action Taken by Nursing No Action Required Pulse Rate 118 H Pulse Rate [Finger] 100 H Respiratory Rate 18 18 Respiratory Effort / Characteristics Non-Labored Respiratory Depth Normal Respiratory Pattern Regular Blood Pressure 135/87 Blood Pressure [Right Arm] 155/93 H Blood Pressure Mean 103 Blood Pressure Mean [Right Arm] 113 Pulse Oximetry 95 95 96 Oxygen Delivery Method Room Air Room Air Room Air 04/30/19 04:08 Temperature Temperature Source Sepsis Recent Fever Within 48 Hours Sepsis New/Unexplained Change in Mental Status Sepsis Action Taken by Nursing Pulse Rate Pulse Rate [Finger] 92 H Respiratory Rate 18 Respiratory Effort / Characteristics Respiratory Depth Normal Respiratory Pattern Blood Pressure Blood Pressure [Right Arm] 124/80 Blood Pressure Mean Blood Pressure Mean [Right Arm] 94 Pulse Oximetry 96 Oxygen Delivery Method Room Air General: Appears manic, smells of urine, unkempt. HEENT: Head - normocephalic and atraumatic Pupils are equal, round, and reactive to light. Extraocular eye muscles are intact, and sclera are anicteric. Nose - moist nasal mucosa without discharge. Mouth - moist buccal mucosa. Oropharynx is nonerythematous and there is no tonsillar exudate or edema noted. Neck: Supple; no JVD, nuchal rigidity, cervical lymphadenopathy. Heart: Regular rate and rhythm. There is a normal S1 and S2 with no murmurs, clicks, or gallops appreciated. Lungs: Clear to auscultation bilaterally with no wheezes, rales, or rhonchi. Abdomen: Soft, completely nontender, nondistended, with good bowel sounds. There are no palpable pulsatile masses or hepatosplenomegaly. There is no guarding, rigidity, or rebound noted. Extremities: No evidence of cyanosis or clubbing. There are easily palpable peripheral pulses. Edema of the left leg compared to the right. Skin: warm and dry with good turgor and no rashes. Course 0055: The patient was evaluated in room A2. A complete history and physical examination were performed. Nursing notes and previous electronic medical records were reviewed. IV lock was established and labs were drawn as above. 0202: The patient was quite agitated and moving around. She would not cooperate for laboratory testing. Lorazepam 1mg IM 0212: I reevaluated and updated the patient. She is much more relaxed. 0228: Sodium Chloride 1000 mls @ 999 mls/hr IV 0337: Per review of previous microbiology reports, the patient had proteus and E. coli that were pansensitive except for imipenem. 0402: I rechecked the patient. She was sleeping and her vitals were stable. 0407: Upon reevaluation, the patient is stable. I discussed the findings and the treatment plan with the patient. She expresses agreement and understanding. I spoke with Dr. Ventura of the [facility] Hospitalist Service. The patient will be evaluated for further management. 0408: Sodium Chloride 500 mls @ 125 mls/hr IV, Ceftriaxone Sodium 1000mg in 50 mls @ 100 mls/hr IV Consultations Consultation #1: I reviewed the patient's case with Dr. Ventura - Hospitalist, [facility]. He will evaluate the patient for further management. Time: 04:07 Administered Medications Sodium Chloride (Nss) 500 mls @ 125 mls/hr IV .Q4H NANCY Stop: 05/30/19 03:59 Last Admin: 04/30/19 04:08 Dose: 125 mls/hr Documented by: [id number] Discontinued Medications Sodium Chloride (Nss 1000ml) 1,000 mls @ 999 mls/hr IV .Q1H1M ONE Stop: 04/30/19 02:15 Last Infusion: 04/30/19 03:38 Dose: 0 mls/hr Documented by: [id number] Admin: 04/30/19 02:28 Dose: 999 mls/hr Documented by: [id number] Ceftriaxone Sodium (Rocephin) 1,000 mg in 50 mls @ 100 mls/hr IV NOW STA Stop: 04/30/19 04:22 Last Infusion: 04/30/19 04:38 Dose: 0 mls/hr Documented by: [id number] Admin: 04/30/19 04:08 Dose: 100 mls/hr Documented by: [id number] Lorazepam (Ativan) 1 mg IM NOW STA Stop: 04/30/19 01:52 Last Admin: 04/30/19 02:02 Dose: 1 mg Documented by: [id number] Medical Decision Making Differential Diagnosis Differential diagnoses include: anxiety, encephalopathy, UTI, mood disorder, and thought disorder. Medical Records Attestation: I reviewed the patient's medical records. Home Medications Current Medication List: was personally reviewed by me Laboratory Data Attestation: I reviewed the patient's lab results. Result diagrams: 04/30/19 02:21 04/30/19 02:21 Lab Results 04/30/19 04/30/19 04/30/19 Range/Units 02:21 02:21 02:21 WBC 12.58 H (4.8-10.8) K/uL RBC 3.90 L (4.2-5.4) M/uL Hgb 12.1 (12.0-16.0) g/dL Hct 34.9 L (37-47) % MCV 89.5 (80-100) fL MCH 31.0 (25-34) pg MCHC 34.7 (32-36) g/dL RDW Std Deviation 45.4 (36.4-46.3) fL RDW Coeff of Rommel 13.9 (11.5-14.5) % Plt Count 398 (130-400) K/uL MPV 8.9 (7.4-10.4) fL Immature Gran % (Auto) 0.2 % Neut % (Auto) 81.1 % Lymph % (Auto) 12.5 % [place] % (Auto) 5.6 % Eos % (Auto) 0.4 % Baso % (Auto) 0.2 % Immature Gran # (Auto) 0.03 H (0.00-0.02) K/uL Neut # (Auto) 10.20 H (1.4-6.5) K/uL Lymph # (Auto) 1.57 (1.2-3.4) K/uL [place] # (Auto) 0.70 H (0.11-0.59) K/uL Eos # (Auto) 0.05 (0-0.5) K/uL Baso # (Auto) 0.03 (0-0.2) K/uL PT 10.3 (9.0-12.0) Seconds INR 1.0 (0.9-1.1) APTT 24.1 (21.0-31.0) Seconds PTT Ratio 0.9 Sodium 137 (136-145) mmol/L Potassium 4.6 (3.5-5.1) mmol/L Chloride 105 (98-107) mmol/L Carbon Dioxide 24 (21-32) mmol/L Anion Gap 8.0 (3-11) BUN 31 H (7-18) mg/dl Creatinine 1.95 H (0.6-1.2) mg/dl Est Cr Clr Drug Dosing 26.5 ml/min Est GFR ( Amer) 31.6 Est GFR (Non-Af Amer) 27.3 BUN/Creatinine Ratio 15.9 (10-20) Glucose 89 (70-99) mg/dl Lactate (0.4-2.0) mmol/L Calcium 10.4 H (8.5-10.1) mg/dl Total Bilirubin 0.7 (0.2-1) mg/dl AST 32 (15-37) U/L ALT 25 (12-78) U/L Alkaline Phosphatase 70 (45-117) U/L Total Protein 7.2 (6.4-8.2) gm/dl Albumin 3.5 (3.4-5.0) gm/dl Globulin 3.7 (2.5-4.0) gm/dl Albumin/Globulin Ratio 0.9 (0.9-2) Urine Color Urine Appearance (Clear) Urine pH (4.5-7.5) Ur Specific [place] (1.000-1.030) Urine Protein (Negative) Urine Glucose (UA) (Negative) Urine Ketones (Negative) Urine Blood (Negative) Urine Nitrite (Negative) Urine Bilirubin (Negative) Urine Urobilinogen (Negative) Ur Leukocyte Esterase (Negative) Urine RBC (0-4) /hpf Urine WBC (0-5) /hpf Ur Epithelial Cells (0-5) /lpf Urine Bacteria (Negative) Hyaline Casts (0-5) /lpf 04/30/19 04/30/19 Range/Units 02:21 03:18 WBC (4.8-10.8) K/uL RBC (4.2-5.4) M/uL Hgb (12.0-16.0) g/dL Hct (37-47) % MCV (80-100) fL MCH (25-34) pg MCHC (32-36) g/dL RDW Std Deviation (36.4-46.3) fL RDW Coeff of Rommel (11.5-14.5) % Plt Count (130-400) K/uL MPV (7.4-10.4) fL Immature Gran % (Auto) % Neut % (Auto) % Lymph % (Auto) % [place] % (Auto) % Eos % (Auto) % Baso % (Auto) % Immature Gran # (Auto) (0.00-0.02) K/uL Neut # (Auto) (1.4-6.5) K/uL Lymph # (Auto) (1.2-3.4) K/uL [place] # (Auto) (0.11-0.59) K/uL Eos # (Auto) (0-0.5) K/uL Baso # (Auto) (0-0.2) K/uL PT (9.0-12.0) Seconds INR (0.9-1.1) APTT (21.0-31.0) Seconds PTT Ratio Sodium (136-145) mmol/L Potassium (3.5-5.1) mmol/L Chloride (98-107) mmol/L Carbon Dioxide (21-32) mmol/L Anion Gap (3-11) BUN (7-18) mg/dl Creatinine (0.6-1.2) mg/dl Est Cr Clr Drug Dosing ml/min Est GFR ( Amer) Est GFR (Non-Af Amer) BUN/Creatinine Ratio (10-20) Glucose (70-99) mg/dl Lactate 0.9 (0.4-2.0) mmol/L Calcium (8.5-10.1) mg/dl Total Bilirubin (0.2-1) mg/dl AST (15-37) U/L ALT (12-78) U/L Alkaline Phosphatase (45-117) U/L Total Protein (6.4-8.2) gm/dl Albumin (3.4-5.0) gm/dl Globulin (2.5-4.0) gm/dl Albumin/Globulin Ratio (0.9-2) Urine Color Yellow Urine Appearance Turbid A (Clear) Urine pH 7.0 (4.5-7.5) Ur Specific [place] 1.020 (1.000-1.030) Urine Protein 3+ H (Negative) Urine Glucose (UA) Negative (Negative) Urine Ketones 2+ H (Negative) Urine Blood 3+ H (Negative) Urine Nitrite Positive A (Negative) Urine Bilirubin Negative (Negative) Urine Urobilinogen Negative (Negative) Ur Leukocyte Esterase 2+ H (Negative) Urine RBC >30 H (0-4) /hpf Urine WBC >30 H (0-5) /hpf Ur Epithelial Cells >30 H (0-5) /lpf Urine Bacteria 2+ H (Negative) Hyaline Casts 10-30 H (0-5) /lpf Imaging Data Radiologist's Impression: Radiology results as stated below per my review and the radiologist's interpretation: CHEST X-RAY: No pulmonary infiltrate or pleural effusions. Blood Pressure Blood Pressure Findings: Normal blood pressure Blood Pressure Disposition: did not require urgent referral MDM Narrative The patient is a 58 year old female who presents to the emergency department with complaints of constant back pain beginning three weeks ago. The patient developed an altered mental status over the past couple of days and has a strong smell of urine. She has a previous history of urinary tract infections. The patient was treated with IV Rocephin and the case was discussed with the [facility] Hospitalist group. There is a 302 petition on the patient's chart because of her inability to care for herself. This will go with her until she is medically cleared. Impression & Plan UTI (urinary tract infection), Acute kidney injury, Altered mental status Discharge Plan Visit Data *Final* Discharge Date/Time: 04/30/19 05:11 Chief Complaint: Urinary Symptoms Stated Complaint: UTI ED Provider: Zeina Wright Discharge Problem: UTI (urinary tract infection), Acute kidney injury, Altered mental status Patient Disposition: Admitted As Inpatient Discharge Instructions Interventions: ED Discharge Assessment Last Done: 04/30/19 05:11 Discharge Problem: UTI (urinary tract infection) Qualifiers: Urinary tract infection type: site unspecified Hematuria presence: without hematuria Qualified Code(s): N39.0 - Urinary tract infection, site not specified Altered mental status Qualifiers: Altered mental status type: unspecified Qualified Code(s): R41.82 - Altered mental status, unspecified The scribe's documentation has been prepared under my direction and personally reviewed by me in its entirety. I confirm that the note above accurately reflects all work, treatment, procedures, and medical decision making performed by me.
--- NOTE | 2019-04-30 08:15 | XRay Report ---
XR chest 1V portable HISTORY: Sepsis COMPARISON: Chest 04/08/2019. FINDINGS: The lungs are clear. Cardiac silhouette is normal in size. No pleural effusions. No pneumot horax. IMPRESSION: No acute process. Electronically signed by: Jasen Boyle M.D. 04/30/2019 8:13 AM
[2019-04-30] MEDS ORDERED: [UNRECOGNIZED DRUG - OTHER] PO SCH (09:00)
[2019-04-30] MEDS ORDERED: LISINOPRIL 5 MG TAB PO SCH (09:00)
[2019-04-30] MEDS ORDERED: CEFEPIME 2,000 MG in SYRINGE 7.5 ML IV SCH (11:00)
[2019-04-30] MEDS: FERROUS SULFATE 325 MG TAB PO SCH ×2 (11:05→17:37)
[2019-04-30] MEDS: FLUTICASONE/SALMETEROL 250/50 (ADVAIR) 14 PUFF/1 INHALER INH SCH ×2 (11:05→20:59)
[2019-04-30] MEDS: DULOXETINE HCL 30 MG CAP PO SCH (11:06)
[2019-04-30] MEDS: POTASSIUM CHLORIDE 20 MEQ TABCR PO SCH ×2 (11:07→21:01)
[2019-04-30] MEDS: lamoTRIgine 100 MG TAB PO SCH ×2 (11:07→20:59)
[2019-04-30] MEDS: PSYLLIUM 58.6% POWDER PACKET PO SCH (11:08)
[2019-04-30] MEDS: PANTOprazole 40 MG TAB PO SCH (11:08)
[2019-04-30] MEDS: CLOPIDOGREL BISULFATE 75 MG TAB PO SCH (11:08)
[2019-04-30] MEDS: MEMANTINE HCL 5 MG TAB PO SCH (11:08)
[2019-04-30] MEDS: GLYCOPYRROLATE 1 MG TAB PO SCH ×2 (11:08→21:02)
[2019-04-30] MEDS: TIOTROPIUM BROMIDE 5 PUFF/90 MCG INH INH SCH (11:09)
[2019-04-30] MEDS: TOCOPHERYL, DL-ALPHA 400 UNITS CAP PO SCH (11:09)
--- NOTE | 2019-04-30 11:44 | Infectious Disease Consult ---
Date of Consultation April 30, 2019 Assessment & Plan (1) UTI (urinary tract infection): agree with cefepime, will add vanco pending culture results as E. faeclais noted on outpt urine culture 04/24. will follow blood and urine culture results. History of Present Illness Attending Physician: Mary Koroma MD pt admitted on 302, change in mental status, manic behavior. she is currently on 1:1 but calm and appropriate on my exam. She has fistula and was recently started on tetracycline and flagyl for uti, unclear where specimen was obtained, no old ua but urine culture from 04/24 growing 50k Enterobacter, 100k E. faecalis and >100k gardenella. She was tolerating abx well. no f/c. no abd pain, no n/v/d. she does smell of urine todaty but denies any incontinenece. no cp, sob, cough, peres. Enterobacter sensitive to cefepime, cipro, macrobid, doxy. Other pathogens had no sensitivities available. Repeat blood and urine cultures pending. UA >30 wbc, rbc, ep cell. +2 bacteria. afebrile, wbc 12, creat 1.9. She was placed on Cefepime in ER, tolerating well. ID consulted for uti. Allergies Allergy/AdvReac Type Severity Reaction Status Date / Time paroxetine Allergy Severe suicidal Verified 04/07/19 23:56 thoughts varenicline Allergy Severe suicidal Verified 04/07/19 23:56 thoughts Cipro Allergy Unknown sores on Verified 04/21/18 22:15 tongue ciprofloxacin Allergy Unknown sores on Verified 04/07/19 23:56 tongue doxycycline Allergy Unknown Unknown Verified 04/07/19 23:56 gabapentin Allergy Unknown unknown Verified 04/07/19 23:56 meloxicam Allergy Unknown unknown Verified 04/07/19 23:56 prednisone AdvReac Intermediate "INTERNAL Verified 04/07/19 23:56 BLEEDING FROM KIDNEY" baby powder AdvReac Severe asthma Uncoded 04/07/19 23:56 attacks Home Medications Home Medications Medication Instructions Recorded Confirmed Type Spiriva with HandiHaler 1 cap INHALATION QAM 11/15/18 04/30/19 History atorvastatin 40 mg PO HS 11/15/18 04/30/19 History donepezil [Aricept] 5 mg PO HS 11/15/18 04/30/19 History duloxetine 30 mg PO TID 11/15/18 04/30/19 History fluticasone propion-salmeterol 1 inh INHALATION BID 11/15/18 04/30/19 History [Advair Diskus] lamotrigine [Lamictal] 150 mg PO BID 11/15/18 04/30/19 History lorazepam [Ativan] 0.5 mg PO BID PRN 11/15/18 04/30/19 History potassium chloride 20 meq PO BID 11/15/18 04/30/19 History Combivent Respimat 1 puff INHALATION BID PRN 12/02/18 04/30/19 History psyllium husk [Fiber-Caps 0.52 g PO QAM 12/02/18 04/30/19 History (psyllium husk)] vitamin E 400 unit PO QAM 12/02/18 04/30/19 History clopidogrel 75 mg PO QAM 03/22/19 04/30/19 History memantine [Namenda] 5 mg PO QAM 03/22/19 04/30/19 History Lactobacillus 1 cap PO QAM cap 03/30/19 04/30/19 History acidophilus-Bifidobac.animalis 31 billion cell capsule glycopyrrolate 2 mg tablet 2 mg PO BID #60 tab 03/30/19 04/30/19 History ondansetron HCl 4 mg tablet 4 mg PO Q8H PRN #21 tab 03/30/19 04/30/19 History acetaminophen [Tylenol] 0 mg PO Q6H PRN 04/02/19 04/30/19 History ferrous sulfate 325 mg PO BID 04/02/19 04/30/19 History lisinopril 5 mg tablet 5 mg PO DAILY #90 tab 04/26/19 04/30/19 Rx pantoprazole 40 mg tablet,delayed 40 mg PO QAM #30 tab 04/26/19 04/30/19 Rx release metronidazole 500 mg PO BID 04/30/19 04/30/19 History tetracycline 500 mg PO TID 04/30/19 04/30/19 History Patient History Medical History Anemia (Acute) Benign essential hypertension (Acute) Bipolar affective disorder (Acute) Chronic kidney disease (Acute) Fibromyalgia (Acute) GERD without esophagitis (Acute) Hepatitis C virus infection (Acute) Lumbar disc disease (Acute) Narcotic abuse (Acute) Opioid dependence in remission (Acute) Radiation cystitis (Acute) History of hemorrhagic cystitis Recurrent UTI Lymphedema of left leg History of Clostridioides difficile infection Hypokalemia Dementia Depression Coronary artery disease Hyperlipidemia Abdominal pain (Acute) Abnormal vaginal bleeding (Chronic) [place]akes[place]-vesical fistula (Acute) 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) Back pain Cervical cancer "s/p surgery and radiation" Contusion H/O hemorrhagic cystitis Hydroureteronephrosis IBS (irritable bowel syndrome) OAB (overactive bladder) Pyelonephritis Traumatic ecchymosis of left shoulder Ureteral stricture Urinary incontinence Surgical History H/O cystoscopy History of hysterectomy S/P appendectomy S/P vascular surgery Family History Father Alcohol abuse Sister Alcohol abuse Anxiety Drug abuse Depression Hypertension Lung disease Other No significant family history Social History Preferred Language: Pashto Communication Ability: Effective Visual Impairment: No Limitations Hearing Ability: Normal Youth Liaison Officer Required: No Beliefs That Will Affect Care: None marital status: Current Living Situation: Alone and Homeless Current Living Situation Comment: friend current occupational status: unemployed and disabled Feels Safe at Home: Yes Safety Concerns: Feels Safe At This Time Smoking Status: Current every day smoker Tobacco Type: cigarettes ; Age Started Using Tobacco: 15 ; packs per day: 1.5 ; Cigarettes Per Day: 20 ; Second Hand Exposure: Yes ; Hx Alcohol Use: No Hx Substance Use: Yes substance use type: does not use and marijuana Substance Use Type Other:: Narcotic abuse reported in history Last Used Substance: Unknown Other Diet Comment: has dentures Dental Care, Regularly: Yes Physical Activity Frequency: Does not Exercise Review of Systems Review of Systems: All systems reviewed & are unremarkable except as noted in HPI & below Physical Exam Constitutional: WD/WN, vitals as above Eyes: PERRL, conjunctivae normal, anicteric sclerae ENMT: external ear and nose normal, oropharynx normal Neck: normal visual inspection Respiratory: normal respiratory effort, lungs clear to auscultation Cardiovascular: RRR, no murmur, no edema Gastrointestinal (Abdomen): normal bowel sounds, soft, nontender, no hepatosplenomegaly Musculoskeletal: no cyanosis or clubbing, extremities motor strength 5/5 Skin: no rashes, warm and dry Psychiatric: A+Ox3, euthymic affect Results & Data Vital Signs (Past 12 Hours) Vital Signs Temp Pulse Pulse Resp BP BP Pulse Ox 04/30/19 11:13 36.8 C 102 H 20 128/74 100 04/30/19 06:00 36.8 C 99 H 20 129/89 95 04/30/19 04:08 92 H 18 124/80 96 04/30/19 03:19 100 H 18 155/93 H 96 04/30/19 01:30 95 04/30/19 00:50 36.8 C 118 H 18 135/87 95 PG Care Time/CCT Total # of Minutes Spent Total Time Spent with Patient: Total time spent is greater than 50% in coordination of care (as documented) at patient's floor/unit and/or counseling patient: (1) UTI (urinary tract infection) Hematuria presence: without hematuria Urinary tract infection type: site unspecified Qualified Code(s): N39.0 - Urinary tract infection, site not specified
[2019-04-30] MEDS ORDERED: VANCOMYCIN CONSULT ACTIVE PRN (11:49)
[2019-04-30] MEDS ORDERED: VANCOMYCIN HCL 1,000 MG in SODIUM CHLORIDE 0.9% 250 ML IV ONE (12:15)
--- NOTE | 2019-04-30 12:54 | Pharmacy Report ---
Pharmacy Abx Initial Consult - Date of Service April 30, 2019 - Pharmacy Dosing Scope Date of Consult: 04/30/19 Consultation requested by: Dr. Wilder Pharmacy is consulted to initiate Vancomycin IV dosing therapy, order appropriate labs and adjust drug dose/frequency. - Subjective The patient is a 58 year old F admitted on 04/30/19 04:28. - Objective Height: 5 ft 5 in Weight: 54.6 kg Vital Signs (Past 12hrs): Vital Signs Temp Pulse Pulse Resp BP BP Pulse Ox 04/30/19 11:13 36.8 C 102 H 20 128/74 100 04/30/19 06:00 36.8 C 99 H 20 129/89 95 04/30/19 04:08 92 H 18 124/80 96 04/30/19 03:19 100 H 18 155/93 H 96 04/30/19 01:30 95 04/30/19 00:50 36.8 C 118 H 18 135/87 95 Lab Results (24hrs): Laboratory Tests (24 Hours) 04/30/19 04/30/19 02:21 02:21 WBC 12.58 H Neut # (Auto) 10.20 H Creatinine 1.95 H Est Cr Clr Drug Dosing 26.5 Micro Results: 04/30/19 03:18 Urine Culture - Pending Urine,Clean Catch 04/30/19 02:21 Aerobic Blood Culture - Pending Blood Anaerobic Blood Culture - Pending 04/30/19 01:19 Aerobic Blood Culture - Pending Blood Anaerobic Blood Culture - Pending - Risk Factors for Resistance * Hospitalization for 48 hours or more within the past 90 days - Assessment & Plan Assessment 58 year old F admitted 04/30/19 for UTI 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 Patient reports never taking these antibiotics at home. Urine culture at this time grew 50,000 Enterobacter, 100,000 E. faecalis and > 100,000 Gardenella. Enterobacter is sensitive to cefepime, cipro, macrobid, and doxycycline. Pending sensitivities of E. faecalis . Of note, patient does have listed allergies to ciprofloxacin (sores on tongue) and doxycycline (unknown) Patient does appear to be in MARTÍN upon admission with SCr 1.95 mg/dL, CrCl 26.5 mL/min, BUN 31 mg/dL Plan IV Vancomycin and Cefepime for treatment of complicated UTI Vancomycin IV * Estimated PK Parameters: Vd 0.65 L/kg, Gael 0.022 hr-1, t1/2 31.5 hrs * Loading dose: 1,000 mg (~ 18 mg/kg) * Maintenance dose: None as of now given MART[facility]N * Goal trough level for complicated UTI: 15 to 20 mcg/mL * Random level ordered for 05/01/19 with AM labs given expected half-life and MART[facility]N Pharmacy will continue to follow and will adjust dose/frequency as necessary. Thank you.
[2019-04-30] MEDS ORDERED: Nursing to Pharmacy Communication ONE (16:38)
--- NOTE | 2019-04-30 18:34 | Communication Note ---
Date of Service: April 30, 2019
[2019-04-30] MEDS: SODIUM CHLORIDE 0.9% 1000ML 1,000 ML IV SCH (18:47)
[2019-04-30] MEDS: ATORVASTATIN 40 MG TAB PO SCH (21:03)
[2019-04-30] MEDS: DONEPEZIL HCL 5 MG TAB PO SCH (21:04)
[2019-04-30 21:55] LABS: Creatinine Clr Calc Pharmacy 46.9 ml/min; Est GFR (African American) 63.2; Est GFR (Non-African American) 54.5
--- NOTE | 2019-04-30 22:48 | Pharmacy Report ---
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 Patient reports never taking these antibiotics at home. Urine culture at this time grew 50,000 Enterobacter, 100,000 E. faecalis and > 100,000 Gardenella. Enterobacter is sensitive to cefepime, cipro, macrobid, and doxycycline. Pending sensitivities of E. faecalis . Of note, patient does have listed allergies to ciprofloxacin (sores on tongue) and doxycycline (unknown) Patient does appear to be in MART[place]N upon admission with SCr 1.95 mg/dL, CrCl 26.5 mL/min, BUN 31 mg/dL Random Vancomycin level at 2105 hours this evening reported at 11.4 mcg/ml. This level was lowered than predicted based on population parameters thus necessitating repeat maintenance dose this evening. Once MARTÍN appears resolved, will implement ongoing scheduled dosing replacing dosing by serial levels. Plan Vancomycin * Random level of 11.4 mcg/mL is subtherapeutic * Will give an additional one time maintenance dose this evening 1000mg (18.3 mg/kg) * Goal trough level for UTI complicated: 15 to 20 mcg/mL * Defer next level based on Scr with AM labs Pharmacy will continue to follow and will adjust dose/frequency as necessary. Thank you.
[2019-05-01] MEDS ORDERED: VANCOMYCIN HCL 1,000 MG in SODIUM CHLORIDE 0.9% 250 ML IV ONE
--- NOTE | 2019-05-01 01:46 | History & Physical Bridge Note ---
Date of Service April 30, 2019 History & Physical Bridge Note I have examined the patient, reviewed the History & Physical and in the interval since the performance of the History & Physical I have noted the following changes of clinical significance: Pt improved overall. Reports back pain is now completely resolved. No abd pain, no N/V. no CP/SOB. Is very upset with her father for "dumping" her off at the ER. Reports a great sense of loneliness for the last 10 years, does not feel suicidal but has thoughts of being better off . Feels upset with her situation of being homeless. Vitals reviewed Agitated, upset at times, NAD, AAOx3 RRR no mgr CTAB no wcr Abd +BS soft NT ND Ext no edema or calf tenderness 58 yo female with multiple medical problems including h/o colo-vesicular fistula, cervical CA, smoker, HTN, anemia, CKD, FM, GERD, HCV, CAD, HL, and Bipolar disorder, here with UTI and acute metabolic encphalopathy. Her father filled out a 302 warrant stating she is a danger to herself as she cannot care for herself. Discussed case with wood flour millerliaison engineer and Psych will see her -continue home meds -added on abx with IV Cefepime for the Enterobacter in recent Ur cx, and ID added IV Vanco for the Enterococcus
[2019-05-01] MEDS: SODIUM CHLORIDE 0.9% 1000ML 1,000 ML IV SCH ×3 (04:50→20:46)
[2019-05-01 06:02] LABS: Basophils # (auto) 0.01 K/uL (0-0.2); Basophils % (auto) 0.2 %; Eosinophils # (auto) 0.14 K/uL (0-0.5); Eosinophils % (auto) 2.1 %; Hematocrit (blood only) 31.2 % (37-47); Hemoglobin 10.3 g/dL (12.0-16.0); Immature Granulocytes # (auto) 0.01 K/uL (0.00-0.02); Immature Granulocytes % (auto) 0.2 %; Lymphocytes # (auto) 1.56 K/uL (1.2-3.4); Lymphocytes % (auto) 23.5 %; Mean Corpuscular Volume 92.3 fL (80-100); Mean Platelet Volume 8.9 fL (7.4-10.4); Monocytes # (auto) 0.59 K/uL (0.11-0.59); Monocytes % (auto) 8.9 %; Neutrophils # (auto) 4.34 K/uL (1.4-6.5); Neutrophils % (auto) 65.1 %; Platelet Count 286 K/uL (130-400); RDW Coefficient of Variation 14.4 % (11.5-14.5); RDW Standard Deviation 48.7 fL (36.4-46.3); Red Blood Count 3.38 M/uL (4.2-5.4); White Blood Count 6.65 K/uL (4.8-10.8)
[2019-05-01 06:36] LABS: BUN Creatinine Ratio 17.3 (10-20); Calcium 8.1 mg/dl (8.5-10.1); Creatinine Clr Calc Pharmacy 60.7 ml/min; Est GFR (African American) 86.3; Est GFR (Non-African American) 74.5; Potassium 4.1 mmol/L (3.5-5.1)
[2019-05-01] MEDS: TOCOPHERYL, DL-ALPHA 400 UNITS CAP PO SCH (11:04)
[2019-05-01] MEDS: GLYCOPYRROLATE 1 MG TAB PO SCH ×2 (11:04→20:47)
[2019-05-01] MEDS: FERROUS SULFATE 325 MG TAB PO SCH ×2 (11:04→17:28)
[2019-05-01] MEDS: PANTOprazole 40 MG TAB PO SCH (11:05)
[2019-05-01] MEDS: MEMANTINE HCL 5 MG TAB PO SCH (11:05)
[2019-05-01] MEDS: CLOPIDOGREL BISULFATE 75 MG TAB PO SCH (11:05)
[2019-05-01] MEDS: lamoTRIgine 100 MG TAB PO SCH ×2 (11:05→20:48)
[2019-05-01] MEDS: TIOTROPIUM BROMIDE 5 PUFF/90 MCG INH INH SCH (11:06)
[2019-05-01] MEDS: POTASSIUM CHLORIDE 20 MEQ TABCR PO SCH ×2 (11:06→20:49)
[2019-05-01] MEDS: DULOXETINE HCL 30 MG CAP PO SCH (11:06)
[2019-05-01] MEDS: FLUTICASONE/SALMETEROL 250/50 (ADVAIR) 14 PUFF/1 INHALER INH SCH ×2 (11:06→20:47)
[2019-05-01] MEDS: PSYLLIUM 58.6% POWDER PACKET PO SCH (11:07)
[2019-05-01] MEDS ORDERED: CEFEPIME 1,000 MG in SYRINGE 0 ML IV SCH (12:00)
[2019-05-01] MEDS ORDERED: CEFEPIME 2,000 MG in SYRINGE 0 ML IV SCH (12:00)
[2019-05-01] MEDS ORDERED: CEFEPIME 1,000 MG in SYRINGE 0 ML IV ONE (12:15)
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
[2019-05-01] MEDS: VANCOMYCIN HCL 750 MG in SODIUM CHLORIDE 0.9% 250 ML IV SCH (17:27)
[2019-05-01] MEDS: DONEPEZIL HCL 5 MG TAB PO SCH (20:47)
[2019-05-01] MEDS: ATORVASTATIN 40 MG TAB PO SCH (20:48)
[2019-05-02] MEDS: CEFEPIME 2,000 MG in SYRINGE 0 ML IV SCH ×2 (00:18→11:48)
[2019-05-02] MEDS: SODIUM CHLORIDE 0.9% 1000ML 1,000 ML IV SCH ×3 (06:05→18:00)
[2019-05-02 06:44] LABS: Creatinine Clr Calc Pharmacy 67.9 ml/min; Est GFR (African American) 98.8; Est GFR (Non-African American) 85.3
[2019-05-02] MEDS: POTASSIUM CHLORIDE 20 MEQ TABCR PO SCH ×2 (08:30→21:47)
[2019-05-02] MEDS: VANCOMYCIN HCL 750 MG in SODIUM CHLORIDE 0.9% 250 ML IV SCH (08:40)
[2019-05-02] MEDS: lamoTRIgine 100 MG TAB PO SCH ×2 (08:41→21:47)
[2019-05-02] MEDS: FLUTICASONE/SALMETEROL 250/50 (ADVAIR) 14 PUFF/1 INHALER INH SCH ×2 (08:41→21:47)
[2019-05-02] MEDS: FERROUS SULFATE 325 MG TAB PO SCH ×2 (08:41→17:25)
[2019-05-02] MEDS: TIOTROPIUM BROMIDE 5 PUFF/90 MCG INH INH SCH (08:42)
[2019-05-02] MEDS: GLYCOPYRROLATE 1 MG TAB PO SCH ×2 (08:42→21:47)
[2019-05-02] MEDS: MEMANTINE HCL 5 MG TAB PO SCH (08:43)
[2019-05-02] MEDS: DULOXETINE HCL 30 MG CAP PO SCH (08:43)
[2019-05-02] MEDS: PSYLLIUM 58.6% POWDER PACKET PO SCH (08:44)
[2019-05-02] MEDS: CLOPIDOGREL BISULFATE 75 MG TAB PO SCH (08:44)
[2019-05-02] MEDS: TOCOPHERYL, DL-ALPHA 400 UNITS CAP PO SCH (08:44)
[2019-05-02] MEDS: PANTOprazole 40 MG TAB PO SCH (11:47)
[2019-05-02] MEDS ORDERED: SUMAtriptan succinate 6 MG/0.5 ML VIAL SQ STA (13:31)
[2019-05-02] MEDS ORDERED: LORazepam 0.5 MG TAB PO PRN (15:27)
--- NOTE | 2019-05-02 15:27 | Hospitalist Progress Note ---
Date of Service May 02, 2019 Assessment & Plan (1) UTI (urinary tract infection): Patient admitted to the hospital with altered mental status, elevated WBC, and abnormal UA. - Seen by ID given her complex history - treated initially with vanc & cefepime - urine culture growing Enterococcus, sensitive to PCN, ampicillin change to Augmentin today, complete 10-14 day course (2) Acute metabolic encephalopathy: Due to UTI. resolved with abx (3) [place]-vesical fistula: Due to cervical cancer and required treatments. Causing her repeat UTIs. Per notes, she has been following with outside surgeon for repair. - No inpatient needs again, stressed that she needs follow up to consider repair, will continue to have UTIs (4) Bipolar affective disorder: Long-standing psychiatry history, including multiple admissions for SI. - Is currently on a 302 from her father. - Cleared by psychiatrist - Does not need a 1:1 sitter, not suicidal - Continue home meds will need safe discharge plan, living situation needs to be clarified use Ativan PRN (5) Benign essential hypertension: BP presently in good control in the hospital. - Continue lisinopril (6) COPD (chronic obstructive pulmonary disease): Breathing is baseline. - Continue home inhalers (7) DVT prophylaxis: SCDs - Low DVT risk per admission calculator Subjective patient feeling tired today c/o mild headache behind her eyes, similar to ELLIS in the past not much of an appetite reviewed labs, discussed with her that the urine culture grew Enterococcus will taper abx discussed that we will need a better/safer home environement prior to discharge she said that her father is working on that CM will help tomorrow Review of Systems Review of Systems: All systems reviewed & are unremarkable except as noted in HPI & below Constitutional: + fatigue, + weakness and + daytime sleepiness; no fever Respiratory: no cough and no dyspnea Cardiovascular: no chest pain and no edema Neurologic: + headache(s) Psychiatric: + anxiety; no depression and no suicidal ideation Physical Exam Constitutional: WD/WN, vitals as above Eyes: PERRL, conjunctivae normal, anicteric sclerae ENMT: external ear and nose normal, oropharynx normal Neck: trachea midline, no thyromegaly Respiratory: normal respiratory effort, lungs clear to auscultation Cardiovascular: RRR, no murmur, no edema Gastrointestinal (Abdomen): normal bowel sounds, soft, nontender, no hepatosplenomegaly Musculoskeletal: no cyanosis or clubbing, extremities motor strength 5/5 Skin: no rashes, warm and dry Neurologic: patellar DTR's 2+ bilat, sensation intact and PERRL, EOMI, accommodation nl, no face palsy, no dysarthria Psychiatric: Orientation: alert and oriented x 3 Affect: + anxious affect Lymphatic: no cervical or axillary lymphadenopathy Results & Data Vital Signs (Past 12 Hours) Vital Signs Temp Pulse Resp BP Pulse Ox 05/02/19 14:57 36.8 C 70 20 150/90 H 97 05/02/19 07:55 36.5 C 69 20 151/80 H 95 Laboratory Results Laboratory Results - last 24 hr 05/02/19 06:02 Creatinine 0.76 Est Cr Clr Drug Dosing 67.9 Est GFR ( Amer) 98.8 Est GFR (Non-Af Amer) 85.3 Medications Administered Current Inpatient Medications Acetaminophen (Tylenol) 650 mg PO Q4H PRN PRN Reason: pain/fever Stop: 05/30/19 04:38 Last Admin: 05/01/19 11:07 Dose: 650 mg Documented by: Albuterol (Combivent Respimat) 1 puffs INH BID PRN PRN Reason: Shortness Of Breath Or Wheezing Stop: 05/30/19 04:34 Amoxicillin/Clavulanate Potassium (Augmentin 875mg) 1 tab PO BIDM [facility]; Protocol Stop: 05/12/19 16:59 Atorvastatin Calcium (Lipitor) 40 mg PO [facility] Stop: 05/30/19 20:59 Last Admin: 05/01/19 20:48 Dose: 40 mg Documented by: Clopidogrel Bisulfate (Plavix) 75 mg PO QAM [facility] Stop: 05/30/19 08:59 Last Admin: 05/02/19 08:44 Dose: 75 mg Documented by: Donepezil HCl (Aricept) 5 mg PO [facility] Stop: 05/30/19 20:59 Last Admin: 05/01/19 20:47 Dose: 5 mg Documented by: Duloxetine HCl (Cymbalta) 90 mg PO DAILY [facility] Stop: 05/30/19 08:59 Last Admin: 05/02/19 08:43 Dose: 90 mg Documented by: Ferrous Sulfate (Feosol) 325 mg PO BIDM [facility] Stop: 05/30/19 07:59 Last Admin: 05/02/19 08:41 Dose: 325 mg Documented by: Glycopyrrolate (Robinul) 2 mg PO BID [facility] Stop: 05/30/19 08:59 Last Admin: 05/02/19 08:42 Dose: 2 mg Documented by: Sodium Chloride (Nss 1000ml) 1,000 mls @ 75 mls/hr IV .[id number] [facility] Stop: 05/30/19 03:59 Last Admin: 05/02/19 08:44 Dose: 125 mls/hr Documented by: Lamotrigine (Lamictal) 150 mg PO BID [facility] Stop: 05/30/19 08:59 Last Admin: 05/02/19 08:41 Dose: 150 mg Documented by: Lisinopril (Zestril) 5 mg PO DAILY [facility] Stop: 05/30/19 08:59 Last Admin: 04/30/19 11:09 Dose: Not Given Documented by: Lorazepam (Ativan) 0.5 mg PO BID PRN PRN Reason: Anxiety Stop: 05/30/19 04:34 Memantine (Namenda) 5 mg PO QAM [facility] Stop: 05/30/19 08:59 Last Admin: 05/02/19 08:43 Dose: 5 mg Documented by: Ondansetron HCl (Zofran Tab) 4 mg PO Q8H PRN PRN Reason: Nausea Stop: 05/30/19 04:34 Pantoprazole Sodium (Protonix) 40 mg PO QAM [facility] Stop: 05/30/19 08:59 Last Admin: 05/02/19 11:47 Dose: 40 mg Documented by: Potassium Chloride (Klor-Con M20) 20 meq PO BID [facility] Stop: 05/30/19 08:59 Last Admin: 05/02/19 08:30 Dose: 20 meq Documented by: Psyllium Hydrophilic Mucilloid (Metamucil) 1 pkt PO DAILY [facility] Stop: 05/30/19 08:59 Last Admin: 05/02/19 08:44 Dose: 1 pkt Documented by: Fluticasone/Salmeterol (Advair Diskus 250/50) 1 puffs INH BID [facility] Stop: 05/30/19 08:59 Last Admin: 05/02/19 08:41 Dose: 1 puffs Documented by: Tiotropium [place] (Spiriva) 1 puffs INH QAM [facility] Stop: 05/30/19 08:59 Last Admin: 05/02/19 08:42 Dose: 1 puffs Documented by: Vitamin E (Vitamin E) 400 units PO QAM [facility] Stop: 05/30/19 08:59 Last Admin: 05/02/19 08:44 Dose: 400 units Documented by: PG Care Time/CCT Total # of Minutes Spent Total Time Spent with Patient: Total time spent is greater than 50% in coordination of care (as documented) at patient's floor/unit and/or counseling patient: (1) UTI (urinary tract infection) Hematuria presence: without hematuria Urinary tract infection type: site unspecified Qualified Code(s): N39.0 - Urinary tract infection, site not specified
[2019-05-02] MEDS: LORazepam 0.5 MG TAB PO PRN (15:42)
[2019-05-02] MEDS: AMOXICILLIN/CLAVULANATE 875 MG TAB PO SCH (17:25)
[2019-05-02] MEDS: DONEPEZIL HCL 5 MG TAB PO SCH (21:47)
[2019-05-02] MEDS: ATORVASTATIN 40 MG TAB PO SCH (21:47)
[2019-05-03 07:14] LABS: Creatinine Clr Calc Pharmacy 59.3 ml/min; Est GFR (African American) 83.9; Est GFR (Non-African American) 72.4
[2019-05-03] MEDS: AMOXICILLIN/CLAVULANATE 875 MG TAB PO SCH ×2 (08:57→17:20)
[2019-05-03] MEDS: SODIUM CHLORIDE 0.9% 1000ML 1,000 ML IV SCH (08:58)
[2019-05-03] MEDS: FERROUS SULFATE 325 MG TAB PO SCH ×2 (08:58→17:20)
[2019-05-03] MEDS: FLUTICASONE/SALMETEROL 250/50 (ADVAIR) 14 PUFF/1 INHALER INH SCH ×2 (08:59→21:34)
[2019-05-03] MEDS: DULOXETINE HCL 30 MG CAP PO SCH (09:00)
[2019-05-03] MEDS: POTASSIUM CHLORIDE 20 MEQ TABCR PO SCH ×2 (09:00→21:35)
[2019-05-03] MEDS: lamoTRIgine 100 MG TAB PO SCH ×2 (09:00→21:35)
[2019-05-03] MEDS: MEMANTINE HCL 5 MG TAB PO SCH (09:01)
[2019-05-03] MEDS: GLYCOPYRROLATE 1 MG TAB PO SCH ×2 (09:02→21:36)
[2019-05-03] MEDS: PANTOprazole 40 MG TAB PO SCH (09:02)
[2019-05-03] MEDS: CLOPIDOGREL BISULFATE 75 MG TAB PO SCH (09:02)
[2019-05-03] MEDS: TIOTROPIUM BROMIDE 5 PUFF/90 MCG INH INH SCH (09:02)
[2019-05-03] MEDS: TOCOPHERYL, DL-ALPHA 400 UNITS CAP PO SCH (09:03)
[2019-05-03] MEDS: PSYLLIUM 58.6% POWDER PACKET PO SCH (09:04)
--- NOTE | 2019-05-03 09:32 | Infectious Disease Progress Nt ---
Date of Service May 03, 2019 Assessment & Plan (1) UTI (urinary tract infection): Makayla with Augmentin, would give 7 days. ok for d/c from ID standpoint when otherwise stable. Subjective urine culture growing E. faecalis, resistant to doxy only. She is transitioned to Augmentin and is tolerating well. afebrile. blood cultures negative. Results & Data Vital Signs (Past 12 Hours) Vital Signs Temp Pulse Resp BP Pulse Ox 05/03/19 07:30 36.8 C 74 16 151/87 H 97 05/02/19 22:29 36.8 C 74 18 138/78 95 Laboratory Results Microbiology 04/30/19 03:18 Urine,Clean Catch Urine Culture - Final Enterococcus faecalis 04/30/19 02:21 Blood Aerobic Blood Culture - Preliminary No growth in Aerobic bottle after 48 hours. 04/30/19 02:21 Blood Anaerobic Blood Culture - Preliminary No growth in Anaerobic bottle after 48 hours. 04/30/19 01:19 Blood Aerobic Blood Culture - Preliminary No growth in Aerobic bottle after 48 hours. 04/30/19 01:19 Blood Anaerobic Blood Culture - Final PG Care Time/CCT Total # of Minutes Spent Total Time Spent with Patient: Total time spent is greater than 50% in coordination of care (as documented) at patient's floor/unit and/or counseling patient: (1) UTI (urinary tract infection) Hematuria presence: without hematuria Urinary tract infection type: site unspecified Qualified Code(s): N39.0 - Urinary tract infection, site not specified
--- NOTE | 2019-05-03 13:03 | Hospitalist Progress Note ---
Date of Service May 03, 2019 Assessment & Plan (1) UTI (urinary tract infection): Patient admitted to the hospital with altered mental status, elevated WBC, and abnormal UA. - Seen by ID given her complex history - treated initially with vanc & cefepime - urine culture growing Enterococcus, sensitive to PCN, ampicillin change to Augmentin complete just 7 days total (2) Acute metabolic encephalopathy: Due to UTI. resolved with abx (3) [place]-vesical fistula: Due to cervical cancer and required treatments. Causing her repeat UTIs. Per notes, she has been following with outside surgeon for repair. - No inpatient needs again, stressed that she needs follow up to consider repair, will continue to have UTIs (4) Bipolar affective disorder: Long-standing psychiatry history, including multiple admissions for SI. - Is currently on a 302 from her father. - Cleared by psychiatrist - Does not need a 1:1 sitter, not suicidal - Continue home meds will need safe discharge plan, living situation needs to be clarified use Ativan PRN (5) Benign essential hypertension: BP presently in good control in the hospital. - Continue lisinopril (6) COPD (chronic obstructive pulmonary disease): Breathing is baseline. - Continue home inhalers (7) Chronic kidney disease (CKD), stage II (mild): Cr back to baseline (8) Acute kidney injury: treated with IV fluids, resolved at this time (9) DVT prophylaxis: SCDs - Low DVT risk per admission calculator Disposition: working on short term placement her outpatient lease out worker will need to continue to work on detention housing Subjective patient laying in bed, not doing much today still has a mild headache she just doesn't feel well, can't pinpoint it, she is tired she asks about going outside, discussed that it would be fine will stop fluids so she can be off the IV not eating well but this has been ongoing discussed with CM, will try for short term placement at SNF therapy evaluations ordered discussed with ID, appreciate their input Review of Systems Review of Systems: All systems reviewed & are unremarkable except as noted in HPI & below Constitutional: + fatigue, + weakness and + daytime sleepiness; no fever Neurologic: + headache(s) Psychiatric: + anxiety; no depression and no suicidal ideation Physical Exam Constitutional: WD/WN, vitals as above Eyes: PERRL, conjunctivae normal, anicteric sclerae ENMT: external ear and nose normal, oropharynx normal Neck: trachea midline, no thyromegaly Respiratory: normal respiratory effort, lungs clear to auscultation Cardiovascular: RRR, no murmur, no edema Gastrointestinal (Abdomen): normal bowel sounds, soft, nontender, no hepatosplenomegaly Musculoskeletal: no cyanosis or clubbing, extremities motor strength 5/5 Skin: no rashes, warm and dry Neurologic: patellar DTR's 2+ bilat, sensation intact and PERRL, EOMI, accommodation nl, no face palsy, no dysarthria Psychiatric: Orientation: alert and oriented x 3 Affect: + anxious affect Lymphatic: no cervical or axillary lymphadenopathy Results & Data Vital Signs (Past 12 Hours) Vital Signs Temp Pulse Resp BP Pulse Ox 05/03/19 07:30 36.8 C 74 16 151/87 H 97 Laboratory Results Laboratory Results - last 24 hr 05/03/19 06:16 Creatinine 0.87 Est Cr Clr Drug Dosing 59.3 Est GFR ( Amer) 83.9 Est GFR (Non-Af Amer) 72.4 Medications Administered Current Inpatient Medications Acetaminophen (Tylenol) 650 mg PO Q4H PRN PRN Reason: pain/fever Stop: 05/30/19 04:38 Last Admin: 05/01/19 11:07 Dose: 650 mg Documented by: Albuterol (Combivent Respimat) 1 puffs INH BID PRN PRN Reason: Shortness Of Breath Or Wheezing Stop: 05/30/19 04:34 Amoxicillin/Clavulanate Potassium (Augmentin 875mg) 1 tab PO BIDM [facility]; Protocol Stop: 05/12/19 16:59 Last Admin: 05/03/19 08:57 Dose: 1 tab Documented by: Atorvastatin Calcium (Lipitor) [address] [facility] Stop: 05/30/19 20:59 Last Admin: 05/02/19 21:47 Dose: 40 mg Documented by: Clopidogrel Bisulfate (Plavix) 75 mg PO [facility] Stop: 05/30/19 08:59 Last Admin: 05/03/19 09:02 Dose: 75 mg Documented by: Donepezil HCl (Aricept) [address] [facility] Stop: 05/30/19 20:59 Last Admin: 05/02/19 21:47 Dose: 5 mg Documented by: Duloxetine HCl (Cymbalta) 90 mg PO DAILY [facility] Stop: 05/30/19 08:59 Last Admin: 05/03/19 09:00 Dose: 90 mg Documented by: Ferrous Sulfate (Feosol) 325 mg PO BIDM [facility] Stop: 05/30/19 07:59 Last Admin: 05/03/19 08:58 Dose: 325 mg Documented by: Glycopyrrolate (Robinul) 2 mg PO BID [facility] Stop: 05/30/19 08:59 Last Admin: 05/03/19 09:02 Dose: 2 mg Documented by: Lamotrigine (Lamictal) 150 mg PO BID [facility] Stop: 05/30/19 08:59 Last Admin: 05/03/19 09:00 Dose: 150 mg Documented by: Lisinopril (Zestril) 5 mg PO DAILY [facility] Stop: 05/30/19 08:59 Last Admin: 04/30/19 11:09 Dose: Not Given Documented by: Lorazepam (Ativan) 0.5 mg PO BID PRN PRN Reason: Anxiety Stop: 05/30/19 04:34 Last Admin: 05/03/19 13:19 Dose: 0.5 mg Documented by: Lorazepam (Ativan) 0.5 mg PO Q12 PRN PRN Reason: Anxiety Stop: 06/01/19 15:26 Memantine (Namenda) 5 mg PO QAM [facility] Stop: 05/30/19 08:59 Last Admin: 05/03/19 09:01 Dose: 5 mg Documented by: Ondansetron HCl (Zofran Tab) 4 mg PO Q8H PRN PRN Reason: Nausea Stop: 05/30/19 04:34 Pantoprazole Sodium (Protonix) 40 mg PO QAM [facility] Stop: 05/30/19 08:59 Last Admin: 05/03/19 09:02 Dose: 40 mg Documented by: Potassium Chloride (Klor-Con M20) 20 meq PO BID [facility] Stop: 05/30/19 08:59 Last Admin: 05/03/19 09:00 Dose: 20 meq Documented by: Psyllium Hydrophilic Mucilloid (Metamucil) 1 pkt PO DAILY [facility] Stop: 05/30/19 08:59 Last Admin: 05/03/19 09:04 Dose: Not Given Documented by: Fluticasone/Salmeterol (Advair Diskus 250/50) 1 puffs INH BID [facility] Stop: 05/30/19 08:59 Last Admin: 05/03/19 08:59 Dose: 1 puffs Documented by: Tiotropium [place] (Spiriva) 1 puffs INH QAM [facility] Stop: 05/30/19 08:59 Last Admin: 05/03/19 09:02 Dose: 1 puffs Documented by: Vitamin E (Vitamin E) 400 units PO QAM [facility] Stop: 05/30/19 08:59 Last Admin: 05/03/19 09:03 Dose: 400 units Documented by: PG Care Time/CCT Total # of Minutes Spent Total Time Spent with Patient: Total time spent is greater than 50% in regulatory coordinator rdination of care (as documented) at patient's floor/unit and/or counseling patient: (1) UTI (urinary tract infection) Hematuria presence: without hematuria Urinary tract infection type: site unspecified Qualified Code(s): N39.0 - Urinary tract infection, site not specified
[2019-05-03] MEDS: LORazepam 0.5 MG TAB PO PRN (13:19)
[2019-05-03] MEDS: DONEPEZIL HCL 5 MG TAB PO SCH (21:34)
[2019-05-03] MEDS: ATORVASTATIN 40 MG TAB PO SCH (21:36)
[2019-05-04 07:37] LABS: Hematocrit (blood only) 33.2 % (37-47); Hemoglobin 11.3 g/dL (12.0-16.0); Mean Platelet Volume 8.2 fL (7.4-10.4); Platelet Count 331 K/uL (130-400); RDW Coefficient of Variation 13.5 % (11.5-14.5); RDW Standard Deviation 45.5 fL (36.4-46.3); Red Blood Count 3.65 M/uL (4.2-5.4); White Blood Count 5.34 K/uL (4.8-10.8)
[2019-05-04 08:07] LABS: BUN Creatinine Ratio 4.3 (10-20); Calcium 8.9 mg/dl (8.5-10.1); Creatinine Clr Calc Pharmacy 65.3 ml/min; Est GFR (African American) 94.3; Est GFR (Non-African American) 81.4; Potassium 4.1 mmol/L (3.5-5.1)
[2019-05-04] MEDS: AMOXICILLIN/CLAVULANATE 875 MG TAB PO SCH ×2 (09:20→19:01)
[2019-05-04] MEDS: FERROUS SULFATE 325 MG TAB PO SCH ×2 (09:21→19:01)
[2019-05-04] MEDS: FLUTICASONE/SALMETEROL 250/50 (ADVAIR) 14 PUFF/1 INHALER INH SCH ×2 (09:21→21:45)
[2019-05-04] MEDS: DULOXETINE HCL 30 MG CAP PO SCH (09:22)
[2019-05-04] MEDS: POTASSIUM CHLORIDE 20 MEQ TABCR PO SCH ×2 (09:23→21:46)
[2019-05-04] MEDS: lamoTRIgine 100 MG TAB PO SCH ×2 (09:24→21:45)
[2019-05-04] MEDS: PSYLLIUM 58.6% POWDER PACKET PO SCH (09:24)
[2019-05-04] MEDS: PANTOprazole 40 MG TAB PO SCH (09:25)
[2019-05-04] MEDS: GLYCOPYRROLATE 1 MG TAB PO SCH ×2 (09:25→21:46)
[2019-05-04] MEDS: CLOPIDOGREL BISULFATE 75 MG TAB PO SCH (09:25)
[2019-05-04] MEDS: MEMANTINE HCL 5 MG TAB PO SCH (09:25)
[2019-05-04] MEDS: TIOTROPIUM BROMIDE 5 PUFF/90 MCG INH INH SCH (09:26)
[2019-05-04] MEDS: TOCOPHERYL, DL-ALPHA 400 UNITS CAP PO SCH (09:27)
[2019-05-04] MEDS: LORazepam 0.5 MG TAB PO PRN (13:37)
[2019-05-04] MEDS: NICOTINE 14 MG/24 HR PATCH TD SCH (15:54)
--- NOTE | 2019-05-04 16:05 | Hospitalist Progress Note ---
Date of Service May 04, 2019 Assessment & Plan (1) UTI (urinary tract infection): Patient admitted to the hospital with altered mental status, elevated WBC, and abnormal UA. - Seen by ID given her complex history - treated initially with vanc & cefepime - urine culture growing Enterococcus, sensitive to PCN, ampicillin change to Augmentin complete just 7 days total no fever, WBC normal, no symptoms (2) Acute metabolic encephalopathy: Due to UTI. resolved with abx (3) [place]-vesical fistula: Due to cervical cancer and required treatments. Causing her repeat UTIs. Per notes, she has been following with outside surgeon for repair. - No inpatient needs again, stressed that she needs follow up to consider repair, will continue to have UTIs (4) Bipolar affective disorder: Long-standing psychiatry history, including multiple admissions for SI. - Is currently on a 302 from her father. - Cleared by psychiatrist - Does not need a 1:1 sitter, not suicidal - Continue home meds will need safe discharge plan, living situation needs to be clarified use Ativan PRN (5) Benign essential hypertension: BP presently in good control in the hospital. - Continue lisinopril (6) COPD (chronic obstructive pulmonary disease): Breathing is baseline. - Continue home inhalers (7) Chronic kidney disease (CKD), stage II (mild): Cr back to baseline (8) Acute kidney injury: treated with IV fluids, resolved at this time (9) DVT prophylaxis: SCDs - Low DVT risk per admission calculator Disposition: working on short term placement her outpatient social media marketing analyst will need to continue to work on wireless telegrapher housing hopeful for d/c tomorrow Subjective patient sleeping most of the day admits that she is a little more depressed, did not go outside yesterday she understands that it is going to be difficult to get her a safe living situation may need to go to intermediate if her friend cannot take her in she cannot go with her family she is eating a little more today and headache less intense Review of Systems Review of Systems: All systems reviewed & are unremarkable except as noted in HPI & below Psychiatric: + depression; no anxiety Physical Exam Constitutional: WD/WN, vitals as above Eyes: PERRL, conjunctivae normal, anicteric sclerae ENMT: external ear and nose normal, oropharynx normal Neck: trachea midline, no thyromegaly Respiratory: normal respiratory effort, lungs clear to auscultation Cardiovascular: RRR, no murmur, no edema Gastrointestinal (Abdomen): normal bowel sounds, soft, nontender, no hepatosplenomegaly Musculoskeletal: no cyanosis or clubbing, extremities motor strength 5/5 Skin: no rashes, warm and dry Neurologic: patellar DTR's 2+ bilat, sensation intact and PERRL, EOMI, accommodation nl, no face palsy, no dysarthria Psychiatric: Orientation: alert and oriented x 3 Affect: + depressed affect Mood: + depressed mood Lymphatic: no cervical or axillary lymphadenopathy Results & Data Vital Signs (Past 12 Hours) Vital Signs Temp Pulse Resp BP Pulse Ox 05/04/19 14:57 36.4 C L 84 16 143/84 H 97 05/04/19 07:34 36.6 C 71 16 149/82 H 99 Laboratory Results Laboratory Results - last 24 hr 05/04/19 05/04/19 07:21 07:21 WBC 5.34 RBC 3.65 L Hgb 11.3 L Hct 33.2 L MCV 91.0 MCH 31.0 MCHC 34.0 RDW Std Deviation 45.5 RDW Coeff of [place] 13.5 Plt Count 331 MPV 8.2 Sodium 147 H Potassium 4.1 Chloride 113 H Carbon Dioxide 29 Anion Gap 5.0 BUN 3 L Creatinine 0.79 Est Cr Clr Drug Dosing 65.3 Est GFR ( Amer) 94.3 Est GFR (Non-Af Amer) 81.4 BUN/Creatinine Ratio 4.3 L Glucose 86 Calcium 8.9 Medications Administered Current Inpatient Medications Acetaminophen (Tylenol) 650 mg PO Q4H PRN PRN Reason: pain/fever Stop: 05/30/19 04:38 Last Admin: 05/01/19 11:07 Dose: 650 mg Documented by: Albuterol (Combivent Respimat) 1 puffs INH BID PRN PRN Reason: Shortness Of Breath Or Wheezing Stop: 05/30/19 04:34 Amoxicillin/Clavulanate Potassium (Augmentin 875mg) 1 tab PO BIDM [facility]; Protocol Stop: 05/12/19 16:59 Last Admin: 05/04/19 09:20 Dose: 1 tab Documented by: Atorvastatin Calcium (Lipitor) 40 mg PO [facility] Stop: 05/30/19 20:59 Last Admin: 05/03/19 21:36 Dose: 40 mg Documented by: Clopidogrel Bisulfate (Plavix) 75 mg PO QAM [facility] Stop: 05/30/19 08:59 Last Admin: 05/04/19 09:25 Dose: 75 mg Documented by: Donepezil HCl (Aricept) 5 mg PO HS [facility] Stop: 05/30/19 20:59 Last Admin: 05/03/19 21:34 Dose: 5 mg Documented by: Duloxetine HCl (Cymbalta) 90 mg PO DAILY [facility] Stop: 05/30/19 08:59 Last Admin: 05/04/19 09:22 Dose: 90 mg Documented by: Ferrous Sulfate (Feosol) 325 mg PO BIDM [facility] Stop: 05/30/19 07:59 Last Admin: 05/04/19 09:21 Dose: 325 mg Documented by: Glycopyrrolate (Robinul) 2 mg PO BID [facility] Stop: 05/30/19 08:59 Last Admin: 05/04/19 09:25 Dose: 2 mg Documented by: Lamotrigine (Lamictal) 150 mg PO BID [facility] Stop: 05/30/19 08:59 Last Admin: 05/04/19 09:24 Dose: 150 mg Documented by: Lisinopril (Zestril) 5 mg PO DAILY [facility] Stop: 05/30/19 08:59 Last Admin: 04/30/19 11:09 Dose: Not Given Documented by: Lorazepam (Ativan) 0.5 mg PO BID PRN PRN Reason: Anxiety Stop: 05/30/19 04:34 Last Admin: 05/04/19 13:37 Dose: 0.5 mg Documented by: Lorazepam (Ativan) 0.5 mg PO Q12 PRN PRN Reason: Anxiety Stop: 06/01/19 15:26 Memantine (Namenda) 5 mg PO QAM [facility] Stop: 05/30/19 08:59 Last Admin: 05/04/19 09:25 Dose: 5 mg Documented by: Miscellaneous (Remove Nicoderm Patch) 1 ea N/A [facility] Stop: 06/03/19 20:59 Nicotine (Nicoderm Cq) 14 mg TD QAM [facility] Stop: 06/03/19 14:59 Last Admin: 05/04/19 15:54 Dose: 14 mg Documented by: Ondansetron HCl (Zofran Tab) 4 mg PO Q8H PRN PRN Reason: Nausea Stop: 05/30/19 04:34 Pantoprazole Sodium (Protonix) 40 mg PO QAM [facility] Stop: 05/30/19 08:59 Last Admin: 05/04/19 09:25 Dose: 40 mg Documented by: Potassium Chloride (Klor-Con M20) 20 meq PO BID [facility] Stop: 05/30/19 08:59 Last Admin: 05/04/19 09:23 Dose: 20 meq Documented by: Psyllium Hydrophilic Mucilloid (Metamucil) 1 pkt PO DAILY [facility] Stop: 05/30/19 08:59 Last Admin: 05/04/19 09:24 Dose: Not Given Documented by: Fluticasone/Salmeterol (Advair Diskus 250/50) 1 puffs INH BID [facility] Stop: 05/30/19 08:59 Last Admin: 05/04/19 09:21 Dose: 1 puffs Documented by: Tiotropium [place] (Spiriva) 1 puffs INH QAM [facility] Stop: 05/30/19 08:59 Last Admin: 05/04/19 09:26 Dose: 1 puffs Documented by: Vitamin E (Vitamin E) 400 units PO QAM [facility] Stop: 05/30/19 08:59 Last Admin: 05/04/19 09:27 Dose: 400 units Documented by: PG Care Time/CCT Total # of Minutes Spent Total Time Spent with Patient: Total time spent is greater than 50% in coordination of care (as documented) at patient's floor/unit and/or counseling patient: (1) UTI (urinary tract infection) Hematuria presence: without hematuria Urinary tract infection type: site unspecified Qualified Code(s): N39.0 - Urinary tract infection, site not specified
[2019-05-04] MEDS: ATORVASTATIN 40 MG TAB PO SCH (21:46)
[2019-05-04] MEDS: DONEPEZIL HCL 5 MG TAB PO SCH (21:46)
[2019-05-05] MEDS: AMOXICILLIN/CLAVULANATE 875 MG TAB PO SCH (09:16)
[2019-05-05] MEDS: FLUTICASONE/SALMETEROL 250/50 (ADVAIR) 14 PUFF/1 INHALER INH SCH (09:17)
[2019-05-05] MEDS: DULOXETINE HCL 30 MG CAP PO SCH (09:17)
[2019-05-05] MEDS: FERROUS SULFATE 325 MG TAB PO SCH (09:17)
[2019-05-05] MEDS: POTASSIUM CHLORIDE 20 MEQ TABCR PO SCH (09:18)
[2019-05-05] MEDS: lamoTRIgine 100 MG TAB PO SCH (09:19)
[2019-05-05] MEDS: MEMANTINE HCL 5 MG TAB PO SCH (09:20)
[2019-05-05] MEDS: NICOTINE 14 MG/24 HR PATCH TD SCH (09:20)
[2019-05-05] MEDS: PSYLLIUM 58.6% POWDER PACKET PO SCH (09:20)
[2019-05-05] MEDS: GLYCOPYRROLATE 1 MG TAB PO SCH (09:21)
[2019-05-05] MEDS: PANTOprazole 40 MG TAB PO SCH (09:21)
[2019-05-05] MEDS: CLOPIDOGREL BISULFATE 75 MG TAB PO SCH (09:21)
[2019-05-05] MEDS: TOCOPHERYL, DL-ALPHA 400 UNITS CAP PO SCH (09:22)
[2019-05-05] MEDS: TIOTROPIUM BROMIDE 5 PUFF/90 MCG INH INH SCH (10:39)
[2019-05-05] MEDS: LORazepam 0.5 MG TAB PO PRN (11:10)
--- NOTE | 2019-05-05 16:01 | Discharge Summary ---
Date of Service May 05, 2019 Admission HPI Per Admitting Provider Per medical admission H&P: 58 yo female who arrives to the emergency department via a 302. As she arrived she was disheveled, and manic. Patient was given benzodiazepine to calm her down, WHICH APPEARS TO HAVE SEDATED HER. Patient curently is sleeping, opens eyes with verbal stimuli but then goes to sleep. She does not provide significant medical history. On psychiatric evaluation this morning, patient reports difficult circumstances since March 18 when she was forced to move out of her apartment of 10 years after the building had been sold. She denies that she was struggling while residing there. Unfortunately she has had difficulty procuring a new place to live. Reportedly stayed with a friend for a few weeks until she could no longer stay there and then actually slept out of doors for a few nights before her children brought her to her father's house where she was less than 24 hours before presenting here in the hospital. She reportedly presented with a 302 addition secondary to inability to care for self. Patient found to have UTI being treated with vancomycin. Admission labs notable for elevated white count yesterday 12.58 down to 6.65 today, she is anemic, creatinine down from 1.95 yesterday to 0.85 today, BUN down from 31-15. She appeared "manic, on admission but was sedated from benzodiazepine prn and slept. Today she is found to be quite logical and well organized in her thinking apart from perseveration regarding her difficult psychosocial circumstances. She is able to describe her recent circumstances in a reasonable manner. She adamantly reports consistent compliance with her prescribed psychotropics. She perceives her mood difficulties have been purely situational and denies appreciation for bipolar mood cycling or depression. She denies hallucinations. She denies that she has considered harming herself related to thoughts of hopelessness. She does have a history of multiple suicide attempts in the past however she repeatedly states that if she had a place to live she would feel okay. She does not present as threatening or manipulative today regarding her self injury history. She describes feeling worried about where she will go when she leaves the hospital. She acknowledges forgetfulness but does not endorse apraxias or acute confusion at home prior to her recent homelessness. She reports she is her own medical and financial decision maker. She is fully oriented apart from day of week and date. Again responses to direct questions are consistently logical. She reports regular follow-up with her outpatient psychiatrist, Dr. Samaniego. Principal Diagnosis UTI with encephalopathy Discharge Exam Constitutional WD/WN, vitals as above Eyes PERRL, conjunctivae normal, anicteric sclerae ENMT external ear and nose normal, oropharynx normal Neck trachea midline, no thyromegaly Respiratory normal respiratory effort, lungs clear to auscultation Cardiovascular RRR, no murmur, no edema Gastrointestinal (Abdomen) normal bowel sounds, soft, nontender, no hepatosplenomegaly Musculoskeletal no cyanosis or clubbing, extremities motor strength 5/5 Skin no rashes, warm and dry Neurologic patellar DTR's 2+ bilat, sensation intact and PERRL, EOMI, accommodation nl, no face palsy, no dysarthria Psychiatric Orientation: alert and oriented x 3 Affect: + depressed affect Mood: + depressed mood Lymphatic no cervical or axillary lymphadenopathy Discharge Data Allergies Allergy/AdvReac Type Severity Reaction Status Date / Time paroxetine Allergy Severe suicidal Verified 04/07/19 23:56 thoughts varenicline Allergy Severe suicidal Verified 04/07/19 23:56 thoughts Cipro Allergy Unknown sores on Verified 04/21/18 22:15 tongue ciprofloxacin Allergy Unknown sores on Verified 04/07/19 23:56 tongue doxycycline Allergy Unknown Unknown Verified 04/07/19 23:56 gabapentin Allergy Unknown unknown Verified 04/07/19 23:56 meloxicam Allergy Unknown unknown Verified 04/07/19 23:56 prednisone AdvReac Intermediate "INTERNAL Verified 04/07/19 23:56 BLEEDING FROM KIDNEY" baby powder AdvReac Severe asthma Uncoded 04/07/19 23:56 attacks Consultations 04/30/19 03:54 ED Decision to Admit Stat 04/30/19 10:37 Consult Infectious Diseases Routine 04/30/19 13:53 Consult Psychiatry Routine Hospital Course (1) UTI (urinary tract infection): Patient admitted to the hospital with altered mental status, elevated WBC, and abnormal UA. - Seen by ID given her complex history - treated initially with vanc & cefepime - urine culture growing Enterococcus, sensitive to PCN, ampicillin change to Augmentin complete 7 more days after discharge no fever, WBC normal, no symptoms (2) Acute metabolic encephalopathy: Due to UTI. resolved with abx (3) [place]-vesical fistula: Due to cervical cancer and required treatments. Causing her repeat UTIs. Per notes, she has been following with outside surgeon for repair. - No inpatient needs again, stressed that she needs follow up to consider repair, will continue to have UTIs (4) Bipolar affective disorder: Long-standing psychiatry history, including multiple admissions for SI. initially on 302 for suicide and mental health, requested by her father evaluated by psychiatry, no inpatient psych needs, no suicidal ideation, taken off of 1 to 1 observation - Continue home meds will need safe discharge plan, living situation needs to be clarified going to live with her daughter short term looking into homeless shelters use Ativan PRN (5) Benign essential hypertension: BP presently in good control in the hospital. - Continue lisinopril (6) COPD (chronic obstructive pulmonary disease): Breathing is baseline. - Continue home inhalers (7) Chronic kidney disease (CKD), stage II (mild): Cr back to baseline (8) Acute kidney injury: treated with IV fluids, resolved for several days (9) DVT prophylaxis: SCDs - Low DVT risk per admission calculator Total Time Total Time Spent Total Time Spent (In Minutes): 33 minutes Total Time Includes: Examination of the Patient, Discharge Planning and Medication Reconciliation Discharge Plan Discharge Items Patient Disposition: Home - Self-Care Reason For Visit: UTI, METABOLI ENCEPHALOPATHY Discharge Diagnosis: UTI Metabolic encephalopathy Condition: Good Discharge Goals: Improve disease control and Improve function Activity: Resume your previous activity Non-emergency contact: Primary Care Provider and Urologist Call non-emergency contact if: you have any medication questions, your symptoms worsen and you have a fever Follow-up/Referrals: Lavern Minor, [Primary Care Provider] - Diet: Regular Addtl Provider Instructions: Medications: all prescriptions sent to [facility] in [place] if your dad can pick them up and bring to you - AUGMENTIN: take twice a day for 7 more days for urinary tract infection I renewed prescription for Ativan for 30 day supply, cannot give a refill because it is a controlled substance I renewed prescriptions for Aricept, Duloxetine, Lamictal and Namenda and gave you one refill for each, these are medications that Dr Samaniego typically prescribes, now you have at least a 90 day supply. Please use the contact sheets provided for senior living, recommend staying in [facility] because then they may be able to get you housing. Remember to tell the senior living that you are willing to help out, perform chores and other tasks. Please keep your follow up with urology on 05/14 Please call for new appt with Dr. Samaniego in a month Please call for new appt with Dr. Minor in 1-2 weeks Prescriptions: New amoxicillin-pot clavulanate 875-125 mg Tablet 1 tab PO BIDM 7 Days Qty: 14 RF: 0 Continued lisinopril 5 mg tablet 5 mg PO DAILY Qty: 90 RF: 3 pantoprazole 40 mg tablet,delayed release (DR/EC) 40 mg PO QAM Qty: 30 RF: 5 glycopyrrolate 2 mg tablet 2 mg PO BID Qty: 60 RF: 0 ondansetron HCl 4 mg tablet 4 mg PO Q8H PRN (Reason: Nausea) Qty: 21 RF: 0 Lacto.acidophilus-Bif.animalis 31 billion cell capsule 1 cap PO QAM RF: 0 vitamin E 400 unit Capsule 400 unit PO QAM RF: 0 psyllium husk [Fiber-Caps (psyllium husk)] 0.52 gram Capsule 0.52 g PO QAM RF: 0 Combivent Respimat 20-100 mcg/actuation Mist 1 puff Inhalation BID PRN (Reason: Shortness Of Breath Or Wheezing) RF: 0 clopidogrel 75 mg tablet 75 mg PO QAM RF: 0 fluticasone propion-salmeterol [Advair Diskus] 250-50 mcg/dose Blister With Device 1 inh INHALATION BID RF: 0 Spiriva with HandiHaler 18 mcg Capsule, W/Inhalation Device 1 cap INHALATION QAM RF: 0 potassium chloride 20 mEq Tablet Extended Release 20 meq PO BID RF: 0 acetaminophen [Tylenol] 325 mg Tablet PO Q6H PRN (Reason: Pain) RF: 0 ferrous sulfate 325 mg (65 mg iron) tablet 325 mg PO BID RF: 0 lamotrigine [Lamictal] 150 mg Tablet 150 mg PO BID 30 Days Qty: 60 RF: 1 donepezil [Aricept] 5 mg Tablet 5 mg PO HS Qty: 30 RF: 1 lorazepam [Ativan] 0.5 mg Tablet 0.5 mg PO BID PRN (Reason: Anxiety) Qty: 60 RF: 0 memantine [Namenda] 5 mg tablet 5 mg PO QAM Qty: 30 RF: 1 duloxetine 30 mg Capsule,Delayed Release(Dr/Ec) 30 mg PO TID 30 Days Qty: 90 RF: 1 Discontinued atorvastatin 40 mg Tablet 40 mg PO HS RF: 0 tetracycline 500 mg capsule 500 mg PO TID RF: 0 metronidazole 500 mg tablet 500 mg PO BID RF: 0 Stand-Alone Forms: [facility] Discharge Orders: Discharge Order (Routine); Ordered 05/05/19 Ordered By: Ramsey Nielsen Admission Data Admit Date/Time: 04/30/19 04:28 Attending Provider: Ramsey Nielsen Admit Provider: Vadim Ventura Primary Care Provider: Lavern Minor Other Providers: Swathi Wilder ; Vida Carver ; Emanuel Denton Service: Medical Other Interventions: Discharge Summary Assessment (RN) Last Done: 05/05/19 14:42 DC Date/Time DO NOT enter until pt leaves facility: 05/05/19 15:03
== END 2019-05-05 15:03 | disposition home or self-care (01) | DRG 698 ==
LOC: ED 00:42 → SUATTDRO 04:28 → 4W 04:28
DX: Z92.3 Personal history of irradiation; Z86.19 Personal history of other infectious and parasitic diseases; B95.2 Enterococcus as the cause of diseases classified elsewhere; I10 Essential (primary) hypertension; N32.1 Vesicointestinal fistula; Z88.0 Allergy status to penicillin; C76.0 Malignant neoplasm of head, face and neck; N30.90 Cystitis, unspecified without hematuria; N17.9 Acute kidney failure, unspecified; R41.0 Disorientation, unspecified; I73.9 Peripheral vascular disease, unspecified; F31.9 Bipolar disorder, unspecified; Z59.0 Homelessness; E78.5 Hyperlipidemia, unspecified; G93.41 Metabolic encephalopathy